=== PATIENT | male | born 1945 | race Caucasian/White ===

== ENCOUNTER → 2018-06-21 10:57 | Outpatient (CLI) | payer MEDICARE, SELFPAY ==
[2018-06-21 11:50] LABS: Hematocrit 39.2 % (40-54); Hemoglobin 12.4 g/dl (13.0-16.5); Mean Corp Hgb Conc 31.6 g/gl (32-36); Mean Corpuscular Hgb 31.2 pg (27.0-32.0); Mean Corpuscular Volume 98.5 fL (80-94); Mean Platelet Vol. 11.2 fl (6.2-12.0); Platelet Count 224 K/mm3 (150-450); RBC Distribution Width CV 13.6 % (11.6-14.6); RBC Distribution Width SD 47.8 fl (35.1-43.9); Red Blood Count 3.98 M/mm3 (4.6-6.2)
[2018-06-21 11:51] LABS: Scan Indicated on CBC? Y/N NO
[2018-06-21 12:26] LABS: AST(SGOT) 17 U/L (15-37); Alanine Aminotransfer ALT/SGPT 17 U/L (16-61); Albumin, Serum 3.4 g/dL (3.2-5.0); Alkaline Phosphatase 77 U/L (45-117); Anion Gap 9 (5-15); BUN 42 mg/dL (7-18); BUN/Creat Ratio 24.1 RATIO (10-20); Bilirubin, Direct 0.13 mg/dL (0.00-0.30); Calcium,Total 9.1 mg/dL (8.5-10.1); Chloride 105 mmol/L (98-107); Cholesterol 173 mg/dL (200); Creatinine, Serum 1.74 mg/dL (0.70-1.30); EST Glomerular Filtration Rate 41 mL/min (>60); Est Glom Filt Rate - Afr Amer 50 mL/min (>60); Globulin 4.1 g/dL (2.2-4.2); Glucose 150 mg/dL (74-106); High Density Lipoprotein 45 mg/dL; Lipase 125 U/L (73-393); Potassium 4.3 mmol/L (3.5-5.1); Protein, Total 7.5 g/dL (6.4-8.2); Sodium Level 143 mmol/L (136-145); Triglycerides 208 mg/dL; Very Low Density Lipoprotein 42 mg/dL (5-40)
[2018-06-21 12:30] LABS: Valproic Acid (Depakene) Level 60 ug/mL (50-100)
== END ==
PROVIDERS: Family Provider Family Medicine; PCP Family Medicine; Visit Provider Psychiatry & Neurology Psychiatry
DX: E11.9 Type 2 diabetes mellitus without complications (principal); E78.5 Hyperlipidemia, unspecified; F31.9 Bipolar disorder, unspecified; Z51.81 Encounter for therapeutic drug level monitoring; Z79.899 Other long term (current) drug therapy
CPT/HCPCS: 36415; 80048; 80061; 80076; 80164; 83690; 85027

== ENCOUNTER → 2019-01-23 09:58 | Outpatient (CLI) | payer MEDICARE, SELFPAY ==
[2016-12-13 12:37] VITALS: BMI 38.1
[2019-01-23 10:42] LABS: Hematocrit 37.5 % (40-54); Hemoglobin 11.6 g/dl (13.0-16.5); Mean Corp Hgb Conc 30.9 g/gl (32-36); Mean Corpuscular Volume 96.9 fL (80-94); Mean Platelet Vol. 10.7 fl (6.2-12.0); Platelet Count 226 K/mm3 (150-450); RBC Distribution Width CV 14.3 % (11.6-14.6); RBC Distribution Width SD 51.1 fl (35.1-43.9); Red Blood Count 3.87 M/mm3 (4.6-6.2); White Blood Count 5.2 K/mm3 (4.4-11.0)
[2019-01-23 10:45] LABS: Scan Indicated on CBC? Y/N NO
[2019-01-23 11:08] LABS: Valproic Acid (Depakene) Level 82 ug/mL (50-100)
[2019-01-23 11:13] LABS: BUN 39 mg/dL (7-18); Creatinine, Serum 1.65 mg/dL (0.70-1.30); Glucose 133 mg/dL (74-106)
[2019-01-23 11:14] LABS: AST(SGOT) 16 U/L (15-37); Alanine Aminotransfer ALT/SGPT 15 U/L (16-61); Albumin, Serum 3.1 g/dL (3.2-5.0); Alkaline Phosphatase 88 U/L (45-117); Anion Gap 7 (5-15); BUN/Creat Ratio 23.6 RATIO (10-20); Bilirubin, Direct 0.17 mg/dL (0.00-0.30); Calcium,Total 8.5 mg/dL (8.5-10.1); Chloride 104 mmol/L (98-107); EST Glomerular Filtration Rate 44 mL/min (>60); Est Glom Filt Rate - Afr Amer 53 mL/min (>60); Potassium 4.1 mmol/L (3.5-5.1); Protein, Total 7.1 g/dL (6.4-8.2); Sodium Level 139 mmol/L (136-145)
[2019-01-23 11:16] LABS: Hemoglobin A1c 6.6 % (4.2-6.3)
== END ==
PROVIDERS: Family Provider Family Medicine; PCP Family Medicine; Referring Provider Psychiatry & Neurology Psychiatry; Visit Provider Psychiatry & Neurology Psychiatry
DX: E11.9 Type 2 diabetes mellitus without complications (principal); F31.9 Bipolar disorder, unspecified
CPT/HCPCS: 36415; 80048; 80076; 80164; 83036; 85027

== ENCOUNTER 2019-06-20 10:48 | Emergency (ER) | payer MEDICARE, SELFPAY ==
[2019-06-20 10:49] VITALS: BP 137/64; PULSE 82; RESP 17; TEMP 36.4; O2SAT 95; BMI 39.1
--- NOTE | 2019-06-20 11:00 | RAD_ITS ---
STUDY: X-RAY CHEST REASON FOR EXAM: Male, 74 years old. Cough and chest pain TECHNIQUE: PA and lateral views of the chest. COMPARISON: None. FINDINGS: EKG leads overlie the chest, stable elevation of the right hemidiaphragm There are interstitial fibrotic changes of the lungs. There is no demonstrated pleural abnormality. Normal size heart. Normal mediastinum and amita. Normal visualized pulmonary arteries. Normal visualized aortic arch and descending thoracic aorta. There are diffuse degenerative changes of the visualized thoracic spine. Normal visualized ribs, clavicles, and shoulders. There is no demonstrated abnormality of the visualized soft tissue structures of the upper abdomen. RAD/Chest PA and Lateral IMPRESSION: No acute pulmonary process Electronically Signed: Kelby Phelps MD at 12:09 EDT , Service support ,
--- NOTE | 2019-06-20 11:01 | ED.DCSUM_ITS ---
- ER Visit Summary Date of Service: 06/20/19 Chief Complaint: Cough/wheezing History of Present Illness: The patient is a 74 M who has had cough and wheezing for the past 10 days. He states his cough is nonproductive. He has heard himself wheezing as well. He does get short of breath with exertion but only mildly. Denies any chest pain, fever, rhinorrhea or sore throat. He has tried cough drops and cold medicine at home without any relief. He has no history of asthma, COPD or CHF. His is sick with similar symptoms but not as bad. Physical Examination: Vital signs reviewed. Patient is 95% on room air. HEENT exam unremarkable. Heart is regular rate and rhythm without murmurs. Lungs are rhonchorous bilaterally but left greater than right. He does have diffuse wheezing.. Abdomen is soft and nontender. Extremities reveal no edema. Skin exam normal. Neurologic exam normal. Test Results: Laboratory studies show a hemoglobin of 11.2, creatinine 1.51. Glucose 193. Chest x-ray reveals nothing acute Emergency Department Course and Treatment: Patient received 2 albuterol treatments and feels improved. He is moving more air at this time. His x-ray has no pneumonia. His vital signs are unremarkable. His pulse ox is 95% on room air. I feel he can be treated as an outpatient. I will give him albuterol, steroids and antibiotics for home. He will need to follow-up with his PCP if he is not feeling any better. Treatment Plan: [] Disposition: Discharge Impression: Acute bronchitis This note was generated with [employer] dictation software. It may contain incorrect words, spelling, and punctuation that were not noted in review of the chart prior to signing ED Disposition - Plan for ED Patient: Referrals: Jaycob Kumar DO [Primary Care Provider] -
[2019-06-20 11:30] VITALS: PULSE 80; RESP 21; O2SAT 95
[2019-06-20] MEDS: Albuterol 2.5 MG/3 ML VIAL.NEB. INHALATION ×2 (11:34→11:36)
[2019-06-20 11:37] LABS: Absolute Lymphocyte Count 1.29 X10^3/uL (0.83-4.51); Absolute Neutrophil Count 3.2 X10^3/uL (2.0-7.7); Basophil# 0.05 X10^3/uL; Basophil% 0.9 % (0-1); Eosinophil# 0.16 X10^3/uL; Hematocrit 36.4 % (40-54); Hemoglobin 11.2 g/dL (13.0-16.5); Lymphocyte # 1.29 X10^3/ul (4.0); Lymphocyte % 23.9 % (19-41); Mean Corp Hgb Conc 30.8 g/dL (32-36); Mean Corpuscular Volume 97.6 fL (80-94); Mean Platelet Vol. 9.9 fl (6.2-12.0); Monocyte# 0.59 X10^3/uL; Monocyte% 10.9 % (0-10); NRBC Flagged by Analyzer 0 % (0-5); Neutrophil # 3.22 X10^3/uL (2.7-7.7); Neutrophil % 59.8 % (47-70); Platelet Count 323 K/mm3 (150-450); RBC Distribution Width CV 13.2 % (11.6-14.6); RBC Distribution Width SD 47.1 fl (35.1-43.9); Red Blood Count 3.73 M/mm3 (4.6-6.2); White Blood Count 5.4 K/mm3 (4.4-11.0)
[2019-06-20 11:44] LABS: Anion Gap 9 (5-15); BUN 35 mg/dL (7-18); BUN/Creat Ratio 23.2 RATIO (10-20); Calcium,Total 8.6 mg/dL (8.5-10.1); Chloride 102 mmol/L (98-107); Creatinine, Serum 1.51 mg/dL (0.70-1.30); EST Glomerular Filtration Rate 48 mL/min (>60); Est Glom Filt Rate - Afr Amer 59 mL/min (>60); Estimated Creatinine Clearance 43.57 ml/min; Glucose 193 mg/dL (74-106); Sodium Level 141 mmol/L (136-145)
[2019-06-20 12:03] VITALS: BP 148/88; PULSE 76; RESP 18; TEMP 36.6; O2SAT 94
--- NOTE | 2019-06-20 12:25 | ED.DEP ---
ED Disposition - Plan for ED Patient: Disposition: Home or Assisted Living Instructions: BRONCHITIS with Wheezing (Adult) Prescriptions: Prednisone [Deltasone] 40 mg PO DAILY #10 tab Prescription Printed Doxycycline 100 mg PO BID #14 cap Prescription Printed Albuterol Inhaler [Ventolin Hfa] 1 - 2 puff INHALATION Q4H PRN PRN #1 inhaler PRN Reason: Wheezing Prescription Printed Referrals: Jaycob Kumar DO [Primary Care Provider] -
== END 2019-06-20 12:39 | disposition home or self-care (01) ==
PROVIDERS: Emergency Provider Emergency Medicine; Family Provider Family Medicine; PCP Family Medicine
DX: J20.9 Acute bronchitis, unspecified (principal); E11.9 Type 2 diabetes mellitus without complications; Z79.82 Long term (current) use of aspirin; Z79.4 Long term (current) use of insulin; Z79.899 Other long term (current) drug therapy
CPT/HCPCS: 71046; 80048; 85025; 94640; 99284; A4216

== ENCOUNTER → 2019-07-21 11:16 | Outpatient (CLI) | payer MEDICARE, SELFPAY ==
[2019-07-21 12:41] LABS: Hematocrit 35.9 % (40-54); Hemoglobin 11.2 g/dL (13.0-16.5); Mean Corp Hgb Conc 31.2 g/dL (32-36); Mean Corpuscular Hgb 30.3 pg (27.0-32.0); Mean Platelet Vol. 10.8 fl (6.2-12.0); Platelet Count 262 K/mm3 (150-450); RBC Distribution Width CV 14.3 % (11.6-14.6); RBC Distribution Width SD 51.2 fl (35.1-43.9); White Blood Count 4.5 K/mm3 (4.4-11.0)
[2019-07-21 12:49] LABS: ALB/GLOB Ratio 0.8 RATIO (0.9-2.4); AST(SGOT) 15 U/L (15-37); Alanine Aminotransfer ALT/SGPT 17 U/L (16-61); Alkaline Phosphatase 96 U/L (45-117); Anion Gap 6 (5-15); BUN 34 mg/dL (7-18); BUN/Creat Ratio 21.8 RATIO (10-20); Bilirubin, Direct 0.12 mg/dL (0.00-0.30); Calcium,Total 8.5 mg/dL (8.5-10.1); Chloride 107 mmol/L (98-107); Cholesterol 168 mg/dL (200); Creatinine, Serum 1.56 mg/dL (0.70-1.30); EST Glomerular Filtration Rate 47 mL/min (>60); Est Glom Filt Rate - Afr Amer 56 mL/min (>60); Globulin 3.9 g/dL (2.2-4.2); Glucose 156 mg/dL (74-106); Hemoglobin A1c 8.2 % (4.2-6.3); High Density Lipoprotein 46 mg/dL; Potassium 4.4 mmol/L (3.5-5.1); Protein, Total 6.9 g/dL (6.4-8.2); Sodium Level 141 mmol/L (136-145); Triglycerides 277 mg/dL; Very Low Density Lipoprotein 55 mg/dL (5-40)
[2019-07-21 13:20] LABS: Valproic Acid (Depakene) Level 61 ug/mL (50-100)
== END ==
PROVIDERS: Family Provider Family Medicine; PCP Family Medicine; Referring Provider Psychiatry & Neurology Psychiatry; Visit Provider Psychiatry & Neurology Psychiatry
DX: E11.22 Type 2 diabetes mellitus with diabetic chronic kidney disease (principal); N18.9 Chronic kidney disease, unspecified; D64.9 Anemia, unspecified; E78.5 Hyperlipidemia, unspecified; Z51.81 Encounter for therapeutic drug level monitoring
CPT/HCPCS: 36415; 80053; 80061; 80164; 82248; 83036; 85027

== ENCOUNTER → 2020-02-10 10:18 | Outpatient (CLI) | payer MEDICARE, SELFPAY ==
[2020-02-10 10:50] LABS: Hematocrit 38.1 % (40-54); Hemoglobin 11.9 g/dL (13.0-16.5); Mean Corp Hgb Conc 31.2 g/dL (32-36); Mean Corpuscular Hgb 30.5 pg (27.0-32.0); Mean Corpuscular Volume 97.7 fL (80-94); Mean Platelet Vol. 10.4 fl (6.2-12.0); Platelet Count 159 K/mm3 (150-450); RBC Distribution Width CV 13.7 % (11.6-14.6); RBC Distribution Width SD 49.1 fl (35.1-43.9); White Blood Count 3.6 K/mm3 (4.4-11.0)
[2020-02-10 11:06] LABS: Hemoglobin A1c 6.7 % (4.2-6.3)
[2020-02-10 11:31] LABS: Valproic Acid (Depakene) Level 78 ug/mL (50-100)
[2020-02-10 11:42] LABS: AST(SGOT) 22 U/L (15-37); Alanine Aminotransfer ALT/SGPT 20 U/L (16-61); Albumin, Serum 3.1 g/dL (3.2-5.0); Alkaline Phosphatase 76 U/L (45-117); Anion Gap 6 (5-15); BUN 32 mg/dL (7-18); BUN/Creat Ratio 19.9 RATIO (10-20); Bilirubin, Direct 0.15 mg/dL (0.00-0.30); Chloride 105 mmol/L (98-107); Creatinine, Serum 1.61 mg/dL (0.70-1.30); EST Glomerular Filtration Rate 45 mL/min (>60); Est Glom Filt Rate - Afr Amer 54 mL/min (>60); Globulin 3.6 g/dL (2.2-4.2); Glucose 152 mg/dL (74-106); Potassium 4.2 mmol/L (3.5-5.1); Protein, Total 6.7 g/dL (6.4-8.2); Sodium Level 140 mmol/L (136-145)
== END ==
PROVIDERS: PCP Family Medicine; Referring Provider Psychiatry & Neurology Psychiatry; Visit Provider Psychiatry & Neurology Psychiatry
DX: I12.9 Hypertensive chronic kidney disease with stage 1 through stage 4 chronic kidney disease, or unspecified chronic kidney disease (principal); E11.22 Type 2 diabetes mellitus with diabetic chronic kidney disease; N18.9 Chronic kidney disease, unspecified
CPT/HCPCS: 36415; 80048; 80076; 80164; 83036; 85027

== ENCOUNTER → 2020-08-10 08:55 | Outpatient (CLI) | payer MEDICARE, SELFPAY ==
[2020-08-10 09:58] LABS: Hematocrit 37.1 % (40-54); Hemoglobin 11.6 g/dL (13.0-16.5); Mean Corp Hgb Conc 31.3 g/dL (32-36); Mean Corpuscular Hgb 30.9 pg (27.0-32.0); Mean Corpuscular Volume 98.9 fL (80-94); Mean Platelet Vol. 10.9 fl (6.2-12.0); Platelet Count 188 K/mm3 (150-450); RBC Distribution Width CV 14.1 % (11.6-14.6); RBC Distribution Width SD 51.8 fl (35.1-43.9); Red Blood Count 3.75 M/mm3 (4.6-6.2); White Blood Count 5.2 K/mm3 (4.4-11.0)
[2020-08-10 10:47] LABS: AST(SGOT) 20 U/L (15-37); Alanine Aminotransfer ALT/SGPT 18 U/L (16-61); Albumin, Serum 3.2 g/dL (3.2-5.0); Alkaline Phosphatase 73 U/L (45-117); Anion Gap 5 (5-15); BUN 32 mg/dL (7-18); BUN/Creat Ratio 23.5 RATIO (10-20); Bilirubin, Direct 0.14 mg/dL (0.00-0.30); Calcium,Total 9.2 mg/dL (8.5-10.1); Chloride 108 mmol/L (98-107); Creatinine, Serum 1.36 mg/dL (0.70-1.30); EST Glomerular Filtration Rate 54 mL/min (>60); Est Glom Filt Rate - Afr Amer 66 mL/min (>60); Globulin 3.6 g/dL (2.2-4.2); Glucose 88 mg/dL (74-106); Potassium 4.1 mmol/L (3.5-5.1); Protein, Total 6.8 g/dL (6.4-8.2); Sodium Level 142 mmol/L (136-145)
[2020-08-10 11:01] LABS: Valproic Acid (Depakene) Level 59 ug/mL (50-100)
[2020-08-10 11:45] LABS: Hemoglobin A1c 5.8 % (3.8-5.6)
== END ==
PROVIDERS: PCP Family Medicine; Referring Provider Family Medicine; Visit Provider Family Medicine
DX: I12.9 Hypertensive chronic kidney disease with stage 1 through stage 4 chronic kidney disease, or unspecified chronic kidney disease (principal); N18.9 Chronic kidney disease, unspecified; E11.22 Type 2 diabetes mellitus with diabetic chronic kidney disease; Z51.81 Encounter for therapeutic drug level monitoring
CPT/HCPCS: 36415; 80048; 80076; 80164; 83036; 85027

== ENCOUNTER → 2021-03-13 08:54 | Outpatient (CLI) | payer MEDICARE, SELFPAY ==
[2021-03-13 09:48] LABS: Hematocrit 37.4 % (40-54); Hemoglobin 11.5 g/dL (13.0-16.5); Mean Corp Hgb Conc 30.7 g/dL (32-36); Mean Corpuscular Hgb 30.7 pg (27.0-32.0); Mean Corpuscular Volume 99.7 fL (80-94); Mean Platelet Vol. 10.6 fl (6.2-12.0); Platelet Count 240 K/mm3 (150-450); RBC Distribution Width CV 14.4 % (11.6-14.6); Red Blood Count 3.75 M/mm3 (4.6-6.2); White Blood Count 5.1 K/mm3 (4.4-11.0)
[2021-03-13 10:07] LABS: Valproic Acid (Depakene) Level 47 ug/mL (50-100)
[2021-03-13 10:08] LABS: AST(SGOT) 16 U/L (15-37); Alanine Aminotransfer ALT/SGPT 18 U/L (16-61); Alkaline Phosphatase 89 U/L (45-117); Anion Gap 4 (5-15); BUN 45 mg/dL (7-18); BUN/Creat Ratio 27.3 RATIO (10-20); Bilirubin, Direct 0.14 mg/dL (0.00-0.30); Calcium,Total 8.8 mg/dL (8.5-10.1); Chloride 105 mmol/L (98-107); Creatinine, Serum 1.65 mg/dL (0.70-1.30); EST Glomerular Filtration Rate 43 mL/min (>60); Est Glom Filt Rate - Afr Amer 53 mL/min (>60); Globulin 3.8 g/dL (2.2-4.2); Glucose 126 mg/dL (74-106); Protein, Total 6.8 g/dL (6.4-8.2); Sodium Level 141 mmol/L (136-145)
[2021-03-13 10:12] LABS: Hemoglobin A1c 6.1 % (3.8-5.6)
== END ==
PROVIDERS: PCP Family Medicine; Referring Provider Psychiatry & Neurology Psychiatry; Visit Provider Psychiatry & Neurology Psychiatry
DX: I12.9 Hypertensive chronic kidney disease with stage 1 through stage 4 chronic kidney disease, or unspecified chronic kidney disease (principal); E11.22 Type 2 diabetes mellitus with diabetic chronic kidney disease; N18.9 Chronic kidney disease, unspecified; Z51.81 Encounter for therapeutic drug level monitoring
CPT/HCPCS: 36415; 80048; 80076; 80164; 83036; 85027

== ENCOUNTER 2021-05-18 06:37 | Inpatient (IN) | payer MEDICARE, SELFPAY ==
[2021-05-18] VITALS (41 sets, daily range): BP systolic 122–177; BP diastolic 53–120; PULSE 71–124; RESP 12–93; TEMP 36–38.1; O2SAT 38–100; BMI 41.7; BMI 41.1
--- NOTE | 2021-05-18 06:49 | EKG12_ITS ---
Test Reason : SOB Blood Pressure : / mmHG Vent. Rate : 122 BPM Atrial Rate : 122 BPM P-R Int : 156 ms QRS Dur : 118 ms QT Int : 316 ms P-R-T Axes : 006 057 175 degrees QTc Int : 450 ms Sinus tachycardia with frequent Premature ventricular complexes Inferior infarct , possibly acute Anteroseptal infarct , age undetermined ACUTE PA / STEMI Consider right ventricular involvement in acute inferior infarct Abnormal ECG Confirmed by RANJANA TREVINO, SIMON ([id number]), story editor MARY ELLEN MCKINNON ([id number]) on 05/19/2021 10:48:44 A M Referred By: Annette Mueller Confirmed By:AAKASH MUELLER MD
--- NOTE | 2021-05-18 06:49 | RAD_ITS ---
STUDY: X-RAY CHEST REASON FOR EXAM: Male, 76 years old. Chest pain TECHNIQUE: Frontal view of the chest COMPARISON: 06/20/19 FINDINGS: There are moderate congestive changes noted. There is stable elevation of the right hemidiaphragm. There are no focal infiltrates. There is a moderate-sized right pleural effusion. The heart is stable in size. The visualized osseous structures are within normal limits. RAD/Chest 1 View (Portable) IMPRESSION: Moderate pulmonary vascular congestion with a moderate right pleural effusion. Electronically Signed: Riley Sotelo MD at 8:24 EDT Tel , Service support ,
--- NOTE | 2021-05-18 06:54 | NURSING ---
0630 324 MG [facility] AT 0630. 180MG [facility] 0630.
[2021-05-18 06:55] LABS: Absolute Lymphocyte Count 1.07 X10^3/uL (0.83-4.51); Absolute Neutrophil Count 10.4 X10^3/uL (2.0-7.7); Basophil# 0.04 X10^3/uL; Basophil% 0.3 % (0-1); Eosinophil# 0.03 X10^3/uL; Eosinophils% 0.2 % (0-5); Hematocrit 38.3 % (40-54); Hemoglobin 11.8 g/dL (13.0-16.5); Lymphocyte # 1.07 X10^3/ul (0.83-4.51); Lymphocyte % 8.4 % (19-41); Mean Corp Hgb Conc 30.8 g/dL (32-36); Mean Corpuscular Hgb 30.6 pg (27.0-32.0); Mean Corpuscular Volume 99.2 fL (80-94); Mean Platelet Vol. 11.4 fl (6.2-12.0); Monocyte# 1.14 X10^3/uL; NRBC Flagged by Analyzer 0 % (0-5); Neutrophil # 10.38 X10^3/uL (2.7-7.7); Neutrophil % 81.7 % (47-70); Platelet Count 234 K/mm3 (150-450); RBC Distribution Width CV 14.8 % (11.6-14.6); RBC Distribution Width SD 54.3 fl (35.1-43.9); Red Blood Count 3.86 M/mm3 (4.6-6.2); White Blood Count 12.7 K/mm3 (4.4-11.0)
[2021-05-18] MEDS: Nitroglycerin Oint 1 INCH PACKET TD (07:06)
[2021-05-18] MEDS: Metoprolol Tartrate 5 MG/5 ML Vial IV ×2 (07:08→07:17)
--- NOTE | 2021-05-18 07:11 | EDS_ITS ---
HPI <Dr. Aguilar Hurtado DO - Last Filed: 05/18/21 08:18> History of Present Illness Chief Complaint: Chest Pain Narrative Narrative: 76-year-old male presenting with 2 weeks of shortness of breath. He states he just had worsening shortness of breath for 2 weeks. He said he does not have COPD or asthma. He appears to be in respiratory distress using respiratory accessory muscles. He is speaking in 1-2 word sentences. He is able to say that he is not having any sort of chest pain and denies having any over the past couple of weeks. He denies a cardiac history. He told me he does not have COPD or asthma. [facility] <Dr. Aguilar Hurtado DO - Last Filed: 05/18/21 08:18> [facility] Medical History Anemia Bipolar 1 disorder Chronic kidney disease Diabetes High cholesterol Hypertension Home Medications aspirin 81 mg PO DAILY@0800 12/13/16 [History Last Taken Unknown] bupropion HCl 100 mg PO BID 12/13/16 [History Last Taken Unknown] divalproex [Depakote] 500 mg PO DAILY 12/13/16 [History Last Taken Unknown] folic acid 1 mg PO DAILY@0800 12/13/16 [History Last Taken Unknown] hydrochlorothiazide 50 mg PO DAILY 12/13/16 [History Last Taken Unknown] insulin lispro protamin-lispro [Humalog Mix 75-25 Kwikpen] 16 unit SQ BREAKFAST 12/13/16 [History Last Taken Unknown] lisinopril [Zestril] 20 mg PO DAILY 12/13/16 [History Last Taken Unknown] lorazepam 1 mg PO DAILY PRN PRN 12/13/16 [History Last Taken Unknown] pioglitazone 45 mg PO DAILY 12/13/16 [History Last Taken Unknown] pravastatin 20 mg PO BID 12/13/16 [History Last Taken Unknown] albuterol sulfate 1 - 2 puff INHALATION Q4H PRN PRN #1 inhaler 06/20/19 [Rx Last Taken Unknown] insulin lispro protamin-lispro 16 unit SQ DINNER 06/20/19 [History Last Taken Unknown] diltiazem HCl [Cartia XT] 180 mg PO DAILY 05/18/21 [History Last Taken Unknown] Allergy/AdvReac Type Severity Reaction Status Date / Time No Known Allergies Allergy Verified 05/18/21 07:55 Social History Smoking Status: Never smoker ROS <Dr. Aguilar Hurtado DO - Last Filed: 05/18/21 08:18> ROS ED Constitutional Constitutional ED: Denies chills or fever(s) Eyes Eyes: Denies blurry vision or change in vision ENT ENT ED: Denies ear pain or rhinorrhea Cardiovascular Cardiovascular: Reports racing heartbeat; Denies chest pain Respiratory/Chest Respiratory/Chest: Reports dyspnea and dyspnea on exertion Gastrointestinal Gastrointestinal: Denies abdominal pain, nausea or vomiting Genitourinary Genitourinary ED: Reports hematuria Musculoskeletal Musculoskeletal: Denies arthralgias or myalgias Integumentary Denies abscess or rash Neurologic Neurologic: Reports headache(s); Denies paresthesias or weakness EXAM <Dr. Aguilar Hurtado, - Last Filed: 05/18/21 08:18> Physical Exam Const Vital Signs: 05/18/21 06:38 05/18/21 06:42 05/18/21 06:44 Temperature 97.7 F L Temperature Source Temporal Pulse Rate 118 H 120 H Respiratory Rate 33 H 38 H Respiratory Effort Respiratory Pattern Tachypnea Blood Pressure 167/107 H Blood Pressure Mean 127 Pulse Ox 57 90 Oxygen Delivery Method Room Air Nasal Cannula Oxygen Flow Rate (L/min) 6 05/18/21 06:46 05/18/21 06:51 05/18/21 06:55 Temperature 97.7 F L Temperature Source Temporal Pulse Rate 120 H Respiratory Rate 38 H 27 H Respiratory Effort Respiratory Pattern Blood Pressure 167/107 H 170/120 H Blood Pressure Mean 127 Pulse Ox 90 Oxygen Delivery Method Nasal Cannula Bi-pap Oxygen Flow Rate (L/min) 6 05/18/21 07:06 05/18/21 07:15 05/18/21 07:31 Temperature Temperature Source Pulse Rate 124 H 95 110 H Respiratory Rate 93 H 40 H Respiratory Effort Respiratory Pattern Blood Pressure 177/113 H 159/103 H 170/99 H Blood Pressure Mean 121 122 Pulse Ox 38 96 Oxygen Delivery Method Bi-pap Bi-pap Oxygen Flow Rate (L/min) 05/18/21 07:37 05/18/21 07:45 05/18/21 07:46 Temperature 97.7 F L Temperature Source Temporal Pulse Rate 85 85 Respiratory Rate 12 12 Respiratory Effort Short of Breath Labored Accessory Muscle Use Mechanically Ventilated Respiratory Pattern Blood Pressure 122/71 H 122/71 H Blood Pressure Mean 88 88 Pulse Ox 99 99 Oxygen Delivery Method Mechanical Ventilator Mechanical Ventilator Oxygen Flow Rate (L/min) 6 05/18/21 07:48 05/18/21 07:54 05/18/21 08:00 Temperature 97.7 F L 97.7 F L 98.1 F Temperature Source Temporal Temporal Temporal Pulse Rate 85 85 81 Respiratory Rate 12 12 14 Respiratory Effort Respiratory Pattern Blood Pressure 122/71 H 122/71 H 125/68 H Blood Pressure Mean 88 88 87 Pulse Ox 99 99 100 Oxygen Delivery Method Mechanical Ventilator Mechanical Ventilator Mechanical Ventilator Oxygen Flow Rate (L/min) 6 6 Positive obese General Appearance ED: pallor and other Hypoxic appears to be in respiratory distress using accessory muscles Nutritional Appearance: obese HEENT Reports dry mucous membranes Negative for trauma Mouth ED: Yes dry mucous membranes Mouth: dry mucous membranes Eyes PERRL and EOMs intact bilaterally General Eye ED: Yes pale conjunctiva Neck no lymphadenopathy and supple Chest Wall inspection of chest normal and palpation of chest normal Resp clear to auscultation bilaterally Cardio regular rhythm Rate: tachycardic GI non-tender Inspection: abdominal distention Bladder / Kidney Exam: other Red blood at the urethral meatus. Scrotal swelling. Extremity Extremity Narrative: Chronic stasis changes. General Extremety ED: Yes edema; Negative for tenderness General Extremity: edema Neuro oriented x3 Sensorium / Orientation: alert Psych Attitude: agitated Skin Skin Narrative: Superficial abrasions to bilateral feet General Skin Exam: pallor; Negative for jaundice <Dr. Ferny Guillaume MD - Last Filed: 05/18/21 07:51> Physical Exam Const Vital Signs: 05/18/21 06:38 05/18/21 06:42 05/18/21 06:44 Temperature 97.7 F L Temperature Source Temporal Pulse Rate 118 H 120 H Respiratory Rate 33 H 38 H Respiratory Effort Respiratory Pattern Tachypnea Blood Pressure 167/107 H Blood Pressure Mean 127 Pulse Ox 57 90 Oxygen Delivery Method Room Air Nasal Cannula Oxygen Flow Rate (L/min) 6 05/18/21 06:46 05/18/21 06:51 05/18/21 06:55 Temperature 97.7 F L Temperature Source Temporal Pulse Rate 120 H Respiratory Rate 38 H 27 H Respiratory Effort Respiratory Pattern Blood Pressure 167/107 H 170/120 H Blood Pressure Mean 127 Pulse Ox 90 Oxygen Delivery Method Nasal Cannula Bi-pap Oxygen Flow Rate (L/min) 6 05/18/21 07:06 05/18/21 07:15 05/18/21 07:31 Temperature Temperature Source Pulse Rate 124 H 95 110 H Respiratory Rate 93 H 40 H Respiratory Effort Respiratory Pattern Blood Pressure 177/113 H 159/103 H 170/99 H Blood Pressure Mean 121 122 Pulse Ox 38 96 Oxygen Delivery Method Bi-pap Bi-pap Oxygen Flow Rate (L/min) 05/18/21 07:37 05/18/21 07:45 05/18/21 07:46 Temperature 97.7 F L Temperature Source Temporal Pulse Rate 85 85 Respiratory Rate 12 12 Respiratory Effort Short of Breath Labored Accessory Muscle Use Mechanically Ventilated Respiratory Pattern Blood Pressure 122/71 H 122/71 H Blood Pressure Mean 88 88 Pulse Ox 99 99 Oxygen Delivery Method Mechanical Ventilator Mechanical Ventilator Oxygen Flow Rate (L/min) 6 05/18/21 07:48 05/18/21 07:54 05/18/21 08:00 Temperature 97.7 F L 97.7 F L 98.1 F Temperature Source Temporal Temporal Temporal Pulse Rate 85 85 81 Respiratory Rate 12 12 14 Respiratory Effort Respiratory Pattern Blood Pressure 122/71 H 122/71 H 125/68 H Blood Pressure Mean 88 88 87 Pulse Ox 99 99 100 Oxygen Delivery Method Mechanical Ventilator Mechanical Ventilator Mechanical Ventilator Oxygen Flow Rate (L/min) 6 6 [facility] <Dr. Aguilar Hurtado, DO - Last Filed: 05/18/21 08:18> [facility] Narrative Medical decision making narrative: Patient presenting in respiratory distress and is hypoxic complaining of shortness of breath for 1 to 2 weeks is very hard to clarify what he is saying that he is not having any chest pain he is not had a fever. Patient's prehospital EKG as interpreted by myself show some ST e levations in leads I, 2, aVL. There are some subtle depressions in leads V4 and V5 and V6. This does appear to meet ST elevation criteria however there appears to be a lead reversal. [place] was notified and repeated the EKG which shows ST depressions in leads I leads to these aVL with ST elevation in lead III.There seem to be T wave inversions in leads V4 through V6. This is interpreted by myself. I spoke with Dr. Mueller regarding the patient's EKG prehospital. When I saw him he appeared to be pale and his conjunctiva were pale and I was concerned that he was possibly a GI bleed. After obtaining a Hemoccult that was negative and seeing a normal hemoglobin at 11.8 he was reinformed of the findings. Patient was placed on BiPAP initially but became very tired and needed to be intubated see procedure note he was verbally consented for this as it was emergent. CBC shows a leukocytosis of 12.7, hemoglobin 11.8, hematocrit 38.3, platelets 234. D-dimer is 1.4 creatinine is 1.62 which appears to be near his baseline troponin is 0.074. BNP is 337. Valproic acid is 57. Lactic acid is 2.6. Preintubation chest x-ray as interpreted by myself shows a very large right pleural effusion and evidence of heart failure. Post intubation chest x- ray shows good placement of the endotracheal tube and it appears that the right lung is better aerated at this time as interpreted by myself. Patient's hypertension was treated with 2 doses of Lopressor 5 mg. He was given 60 mg of Lasix. Nitropaste was placed on his chest. After having a discussion with Dr. Mueller, hospitalist, and Dr. Aragon we determined that we would cover the patient with vancomycin and Zosyn. He will go to [facility] and then be placed on a heparin drip to cover him for PE since his D-dimer is elevated and also because his heart enzymes are elevated.This was discussed with his daughter who is a nurse p she acknowledges understanding of this. Impression: 1. Hypoxic respiratory failure 2. Severe sepsis 3. CHF exacerbation Lab Data Attestation: I reviewed the patient's lab results. Labs: Laboratory Results - last 24 hr 05/18/21 05/18/21 05/18/21 06:33 06:33 06:33 WBC 12.7 H RBC 3.86 L Hgb 11.8 L Hct 38.3 L MCV 99.2 H MCH 30.6 MCHC 30.8 L RDW Std Deviation 54.3 H RDW Coeff of Favian 14.8 H Plt Count 234 MPV 11.4 Immature Gran % (Auto) 0.400 Neut % (Auto) 81.7 H Lymph % (Auto) 8.4 L [place] % (Auto) 9.0 Eos % (Auto) 0.2 Baso % (Auto) 0.3 Absolute Neuts (auto) 10.4 H Absolute Lymphs (auto) 1.07 Nucleated RBC % 0 D-Dimer Quant (PE/DVT) 1.40 H* Sodium 139 Potassium 4.9 Chloride 104 Carbon Dioxide 30.0 Anion Gap 5 BUN 36 H Creatinine 1.62 H Estim Creat Clear Calc 40.68 Est GFR (MDRD) Af Amer 54 L Est GFR (MDRD) Non-Af 44 L BUN/Creatinine Ratio 22.2 H Glucose 215 H Lactic Acid Calcium 8.9 Troponin I 0.074 H B-Natriuretic Peptide Valproic Acid 05/18/21 05/18/21 05/18/21 06:33 06:55 07:06 WBC RBC Hgb Hct MCV MCH MCHC RDW Std Deviation RDW Coeff of Favian Plt Count MPV Immature Gran % (Auto) Neut % (Auto) Lymph % (Auto) [place] % (Auto) Eos % (Auto) Baso % (Auto) Absolute Neuts (auto) Absolute Lymphs (auto) Nucleated RBC % D-Dimer Quant (PE/DVT) Sodium Potassium Chloride Carbon Dioxide Anion Gap BUN Creatinine Estim Creat Clear Calc Est GFR (MDRD) Af Amer Est GFR (MDRD) Non-Af BUN/Creatinine Ratio Glucose Lactic Acid 2.6 H* Calcium Troponin I B-Natriuretic Peptide 337.2 H Valproic Acid 57 <Dr. Ferny Guillaume MD - Last Filed: 05/18/21 07:51> [facility] Lab Data Labs: Laboratory Results - last 24 hr 05/18/21 05/18/21 05/18/21 06:33 06:33 06:33 WBC 12.7 H RBC 3.86 L Hgb 11.8 L Hct 38.3 L MCV 99.2 H MCH 30.6 MCHC 30.8 L RDW Std Deviation 54.3 H RDW Coeff of Favian 14.8 H Plt Count 234 MPV 11.4 Immature Gran % (Auto) 0.400 Neut % (Auto) 81.7 H Lymph % (Auto) 8.4 L [place] % (Auto) 9.0 Eos % (Auto) 0.2 Baso % (Auto) 0.3 Absolute Neuts (auto) 10.4 H Absolute Lymphs (auto) 1.07 Nucleated RBC % 0 D-Dimer Quant (PE/DVT) 1.40 H* Sodium 139 Potassium 4.9 Chloride 104 Carbon Dioxide 30.0 Anion Gap 5 BUN 36 H Creatinine 1.62 H Estim Creat Clear Calc 40.68 Est GFR (MDRD) Af Amer 54 L Est GFR (MDRD) Non-Af 44 L BUN/Creatinine Ratio 22.2 H Glucose 215 H Lactic Acid Calcium 8.9 Troponin I 0.074 H B-Natriuretic Peptide Valproic Acid 05/18/21 05/18/21 05/18/21 06:33 06:55 07:06 WBC RBC Hgb Hct MCV MCH MCHC RDW Std Deviation RDW Coeff of Favian Plt Count MPV Immature Gran % (Auto) Neut % (Auto) Lymph % (Auto) [place] % (Auto) Eos % (Auto) Baso % (Auto) Absolute Neuts (auto) Absolute Lymphs (auto) Nucleated RBC % D-Dimer Quant (PE/DVT) Sodium Potassium Chloride Carbon Dioxide Anion Gap BUN Creatinine Estim Creat Clear Calc Est GFR (MDRD) Af Amer Est GFR (MDRD) Non-Af BUN/Creatinine Ratio Glucose Lactic Acid 2.6 H* Calcium Troponin I B-Natriuretic Peptide 337.2 H Valproic Acid 57 <Dr. Ferny Guillaume MD - Last Filed: 05/18/21 07:51> Intubations Intubation Method: orotracheal (With rapid sequence intubation, intubated with 8.0 Ethiopian ETT, using glide scope. Visualized to passing through the cords, where there was frothy white secretions. Placed at 22 cm at the lip. Confirmed by chest x-ray.) Intubation Verification: Positive color change and Bilateral breath sounds confirmed Intubation Complications: O2 saturation decreased (transiently, resolved less than 5 minutes w/ bagging; glidescope used to verify placement) Discharge Plan Disposition Disposition: Acute Care Hospital [facility] Discharge Date/Time: 05/18/21 08:16
[2021-05-18 07:17] LABS: BNP,B-Type NATRIURETIC PEPTIDE 337.2 pg/mL (0-100)
[2021-05-18 07:22] LABS: Anion Gap 5 (5-15); BUN 36 mg/dL (7-18); BUN/Creat Ratio 22.2 RATIO (10-20); Calcium,Total 8.9 mg/dL (8.5-10.1); Chloride 104 mmol/L (98-107); Creatinine, Serum 1.62 mg/dL (0.70-1.30); EST Glomerular Filtration Rate 44 mL/min (>60); Est Glom Filt Rate - Afr Amer 54 mL/min (>60); Estimated Creatinine Clearance 40.68 ml/min; Glucose 215 mg/dL (74-106); Potassium 4.9 mmol/L (3.5-5.1); Sodium Level 139 mmol/L (136-145)
[2021-05-18] MEDS: Rocuronium Bromide 50 MG/5 ML Vial 100 MG IV (07:36)
[2021-05-18] MEDS: Etomidate 20 MG/10 ML Vial IV (07:36)
[2021-05-18] MEDS: Furosemide 100 MG/10 ML Vial 60 MG IV (07:36)
--- NOTE | 2021-05-18 07:46 | RAD_ITS ---
STUDY: X-RAY CHEST REASON FOR EXAM: Male, 76 years old. Intubation TECHNIQUE: Frontal view of the chest COMPARISON: 05/18/21 FINDINGS: There is an endotracheal tube noted with its tip approximately 3 cm above the rosa. There is an enteric tube with its tip in the stomach. There are stable moderate congestive changes noted. There is stable elevation of the right hemidiaphragm. There are no focal infiltrates. There is a moderate-sized right pleural effusion. The heart is stable in size. The visualized osseous structures are within normal limits. RAD/Chest 1 View (Portable) IMPRESSION: Satisfactory position of support lines and tubes. Otherwise, no significant change. Electronically Signed: Riley Sotelo MD at 8:25 EDT Tel , Service support ,
[2021-05-18 07:49] LABS: Valproic Acid (Depakene) Level 57 ug/mL (50-100)
[2021-05-18] MEDS: Vecuronium Bromide 10 MG/10 ML Vial IV (07:52)
[2021-05-18] MEDS: Propofol 10MG/Ml 1,000 MG/100 ML Bottle 7.9 MG CONT INF (07:52)
--- NOTE | 2021-05-18 07:53 | PCM.HP.STD ---
HPI - General General Date of Admission: 05/18/21 HPI Narrative MAURI TOWNSEND, is a 76 M with history of hypertension diabetes and morbid obesity, does not follow physician came to ER by EMS for shortness of breath. Prehospital STEMI was called by EMS but after review with salesperson yard goods it seems more non-STEMI with elevated troponin. Patient denied chest pain as per EMS report. Before I saw the patient, patient was intubated therefore history is from review of chart and patient's whom I called her on phone. As per ER physician he is short of breath for last 2 weeks, found in respiratory distress and speaking 1-2 word sentences. She stated he suddenly complained of shortness of breath in the morning and wanted ambulance therefore he was brought. As per her, he does not follow any physician and does not have prior history of coronary artery disease, stroke or CHF. She does not know that he was short of breath the last 2 to 3 weeks. Patient does not have history of COPD or asthma or smoking history. When he came to the ER, he was put on BiPAP. EMS data shows sinus tachycardia with frequent PVCs ST elevation in lead III and ST depression in 1 and aVL. ED EKG shows sinus tachycardia with frequent PVCs at 122 beats per, ST relation lead III and ST depression in 1 and aVL similar to the EMS EKG. Chest x-ray image reviewed and shows large right pleural effusion and pulmonary congestion. Labs reviewed. BUN/creatinine 36/1.62, troponin 0.074. Lactic acid 2.6 [facility] Medical History (Updated 05/18/21 @ 10:[address] Andry Chavez MD) Acute on chronic heart failure Anemia Bipolar 1 disorder Chronic kidney disease Diabetes High cholesterol Hypertension Home Medications aspirin 81 mg PO DAILY@0800 12/13/16 [History Last Taken Unknown] bupropion HCl 100 mg PO BID 12/13/16 [History Last Taken Unknown] divalproex [Depakote] 500 mg PO DAILY 12/13/16 [History Last Taken Unknown] folic acid 1 mg PO DAILY@0800 12/13/16 [History Last Taken Unknown] hydrochlorothiazide 50 mg PO DAILY 12/13/16 [History Last Taken Unknown] insulin lispro protamin-lispro [Humalog Mix 75-25 Kwikpen] 16 unit SQ BREAKFAST 12/13/16 [History Last Taken Unknown] lisinopril [Zestril] 20 mg PO DAILY 12/13/16 [History Last Taken Unknown] lorazepam 1 mg PO DAILY PRN PRN 12/13/16 [History Last Taken Unknown] pioglitazone 45 mg PO DAILY 12/13/16 [History Last Taken Unknown] pravastatin 20 mg PO BID 12/13/16 [History Last Taken Unknown] albuterol sulfate 1 - 2 puff INHALATION Q4H PRN PRN #1 inhaler 06/20/19 [Rx Last Taken Unknown] insulin lispro protamin-lispro 16 unit SQ DINNER 06/20/19 [History Last Taken Unknown] diltiazem HCl [Cartia XT] 180 mg PO DAILY 05/18/21 [History Last Taken Unknown] Allergy/AdvReac Type Severity Reaction Status Date / Time No Known Allergies Allergy Verified 05/18/21 07:55 Social History Smoking Status: Never smoker ROS ROS Narrative Patient is intubated on ventilator. 12 ROS cannot be obtained. Vital Signs Vital Signs Vital Signs: 05/18/21 06:38 05/18/21 06:42 05/18/21 06:44 Temperature 97.7 F L Temperature Source Temporal Pulse Rate 118 H 120 H Respiratory Rate 33 H 38 H Respiratory Effort Respiratory Pattern Tachypnea Blood Pressure 167/107 H Blood Pressure Mean 127 Pulse Ox 57 90 Oxygen Delivery Method Room Air Nasal Cannula Oxygen Flow Rate (L/min) 6 05/18/21 06:46 05/18/21 06:51 05/18/21 06:55 Temperature 97.7 F L Temperature Source Temporal Pulse Rate 120 H Respiratory Rate 38 H 27 H Respiratory Effort Respiratory Pattern Blood Pressure 167/107 H 170/120 H Blood Pressure Mean 127 Pulse Ox 90 Oxygen Delivery Method Nasal Cannula Bi-pap Oxygen Flow Rate (L/min) 6 05/18/21 07:06 05/18/21 07:15 05/18/21 07:31 Temperature Temperature Source Pulse Rate 124 H 95 110 H Respiratory Rate 93 H 40 H Respiratory Effort Respiratory Pattern Blood Pressure 177/113 H 159/103 H 170/99 H Blood Pressure Mean 121 122 Pulse Ox 38 96 Oxygen Delivery Method Bi-pap Bi-pap Oxygen Flow Rate (L/min) 05/18/21 07:37 05/18/21 07:45 05/18/21 07:46 Temperature 97.7 F L Temperature Source Temporal Pulse Rate 85 85 Respiratory Rate 12 12 Respiratory Effort Short of Breath Labored Accessory Muscle Use Mechanically Ventilated Respiratory Pattern Blood Pressure 122/71 H 122/71 H Blood Pressure Mean 88 88 Pulse Ox 99 99 Oxygen Delivery Method Mechanical Ventilator Mechanical Ventilator Oxygen Flow Rate (L/min) 6 05/18/21 07:48 Temperature 97.7 F L Temperature Source Temporal Pulse Rate 85 Respiratory Rate 12 Respiratory Effort Respiratory Pattern Blood Pressure 122/71 H Blood Pressure Mean 88 Pulse Ox 99 Oxygen Delivery Method Mechanical Ventilator Oxygen Flow Rate (L/min) 6 Weight Weight: 291 lb 0.163 oz Body Mass Index (BMI) 41.7 Physical Exam Narrative General: Intubated on ventilator. Sedated HEENT: Atraumatic, PERRLA, EOMI, Normocephalic Oral: ET and OG tube Neck: Supple, No JVD, Negative Carotid Bruits Lungs: Air entry both sides present. On ventilator. Right lung base, air entry diminished Cardiovascular: Sinus tachycardia, no murmur gallop or rub. Abdomen: Bowel Sounds Present, Soft, Non Tender, Non-Distended : No renal angle tenderness. No suprapubic tenderness. Cruz catheter, no urine output Extremities: Bilateral lower leg 3+ edema, Capillary Refill Less than 3 Seconds Skin: Venous stasis changes on lower legs. No rashes, No breakdown Musculoskeletal: No Tenderness to Palpation of Joints or Extremities Neurological: Neuro exam unobtainable Psych/Mental Status: Could not be assessed Results Lab / Micro Data Result Diagrams: 05/18/21 06:33 05/18/21 06:33 Labs: Laboratory Results - last 24 hr 05/18/21 05/18/21 05/18/21 06:33 06:33 06:33 WBC 12.7 H RBC 3.86 L Hgb 11.8 L Hct 38.3 L MCV 99.2 H MCH 30.6 MCHC 30.8 L RDW Std Deviation 54.3 H RDW Coeff of Favian 14.8 H Plt Count 234 MPV 11.4 Immature Gran % (Auto) 0.400 Neut % (Auto) 81.7 H Lymph % (Auto) 8.4 L [place] % (Auto) 9.0 Eos % (Auto) 0.2 Baso % (Auto) 0.3 Absolute Neuts (auto) 10.4 H Absolute Lymphs (auto) 1.07 Nucleated RBC % 0 D-Dimer Quant (PE/DVT) 1.40 H* Sodium 139 Potassium 4.9 Chloride 104 Carbon Dioxide 30.0 Anion Gap 5 BUN 36 H Creatinine 1.62 H Estim Creat Clear Calc 40.68 Est GFR (MDRD) Af Amer 54 L Est GFR (MDRD) Non-Af 44 L BUN/Creatinine Ratio 22.2 H Glucose 215 H Calcium 8.9 Troponin I 0.074 H B-Natriuretic Peptide Valproic Acid 05/18/21 05/18/21 06:33 07:06 WBC RBC Hgb Hct MCV MCH MCHC RDW Std Deviation RDW Coeff of Favian Plt Count MPV Immature Gran % (Auto) Neut % (Auto) Lymph % (Auto) [place] % (Auto) Eos % (Auto) Baso % (Auto) Absolute Neuts (auto) Absolute Lymphs (auto) Nucleated RBC % D-Dimer Quant (PE/DVT) Sodium Potassium Chloride Carbon Dioxide Anion Gap BUN Creatinine Estim Creat Clear Calc Est GFR (MDRD) Af Amer Est GFR (MDRD) Non-Af BUN/Creatinine Ratio Glucose Calcium Troponin I B-Natriuretic Peptide 337.2 H Valproic Acid 57 Micro: Microbiology 05/18/21 07:15 SARS-CoV-2 Antigen (Rapid) - Final Mucosa - Nose 05/18/21 06:55 Stool Occult Blood (SOFIE) - Final Stool Assessment & Plan Assessment/Plan (1) Acute respiratory failure with hypoxia and hypercapnia: (2) Severe sepsis: (3) Non-STEMI (non-ST elevated myocardial infarction): PLAN: MAURI TOWNSEND, is a 76 M with history of hypertension diabetes and morbid obesity, does not follow physician came to ER by EMS for shortness of breath. Chest x-ray image reviewed and shows large right pleural effusion and pulmonary congestion. Labs reviewed. BUN/creatinine 36/1.62, troponin 0.074. Lactic acid 2.6 1. Acute combined hypoxic respiratory respiratory failure: Patient is being admitted in ICU after cardiac cath. On ventilator being managed by tanner rotary drum continuous process. ABG shows 7.3 /51/144/29 on 90% FiO2, PEEP 10/TV 500 mL RR 12. 2. ACS/non-STEMI or acute on chronic heart failure, exact etiology, type unclear: First troponin 0 0.07 for a second 2.89, elevated after heart cath. Patient has ST-T changes in EKG may be late presentation of LA or due to hypoxia: Patient had cardiac cath which showed proximal LAD 80% stenosis, calcified, proximal RCA 100% chronic occlusion, [id number] collaterals. On IV heparin drip. Being comanaged by salesperson yard goods. On aspirin, beta-cristobal, statin. 2D echo and fasting profile are ordered. 3. Severe sepsis: Lactic acid elevated. Patient seems to be CHF exacerbation and patient was high in the ER prior to intubation and sedation therefore fluid boluses is not a reasonable option. On IV broad-spectrum antibiotic. Infectious work-up ordered. Patient has leukocytosis with neutrophilia 4. Diabetes mellitus type 2: Accu-Chek before meals and at bedtime and cover with Humalog sliding scale. A1c tomorrow a.m. 5. CKD stage IIIb: BUN/creatinine 36/1.62, on baseline. Probably due to diabetic and hypertensive nephropathy. Urine was bloody about 200 mL. UA shows RBC more than 100 cells, LE 500. Urine culture ordered. 6. Hypertension: Blood pressure is currently normotensive. VT prophylaxis: D-dimer is elevated. On IV heparin drip for possible non-STEMI. Continue until PE is ruled out. Living will/advanced directive/end of life care: Patient does not have living will or advanced directive. After discussion of benefits/risks procedures involved with full code, DNR CC arrest and DNR CC, the patient's opted for full code. Patient already was intubated in ER The patient's does want artificial life support including intubation, tube feed, ventilator and/chest compression, central venous catheter, vasopressor and DC shock if needed Total time spent in [id number] encounter in discussion of advanced directive 16 minutes. Microbiology Past 72 Hours 05/18/21 07:15 Mucosa - Nose SARS-CoV-2 Antigen (Rapid) - Final 05/18/21 06:55 Stool Stool Occult Blood (SOFIE) - Final Laboratory Results 05/18/21 06:33: WBC 12.7 H, RBC 3.86 L, Hgb 11.8 L, Hct 38.3 L, MCV 99.2 H, MCH 30.6, MCHC 30.8 L, RDW Std Deviation 54.3 H, RDW Coeff of Favian 14.8 H, Plt Count 234, MPV 11.4, Immature Gran % (Auto) 0.400, Neut % (Auto) 81.7 H, Lymph % (Auto) 8.4 L, [place] % (Auto) 9.0, Eos % (Auto) 0.2, Baso % (Auto) 0.3, Absolute Neuts (auto) 10.4 H, Absolute Lymphs (auto) 1.07, Nucleated RBC % 0 05/18/21 06:33: D-Dimer Quant (PE/DVT) 1.40 H* 05/18/21 06:33: Sodium 139, Potassium 4.9, Chloride 104, Carbon Dioxide 30.0, Anion Gap 5, BUN 36 H, Creatinine 1.62 H, Estim Creat Clear Calc 40.68, Est GFR (MDRD) Af Amer 54 L, Est GFR (MDRD) Non-Af 44 L, BUN/Creatinine Ratio 22.2 H, Glucose 215 H, Calcium 8.9, Troponin I 0.074 H 05/18/21 06:33: B-Natriuretic Peptide 337.2 H 05/18/21 06:33: Magnesium 2.4 05/18/21 06:50: Blood Type AB POSITIVE, Antibody Screen NEGATIVE 05/18/21 06:55: Lactic Acid 2.6 H* 05/18/21 06:55: APTT 27.9 05/18/21 06:55: PT 13.2, INR 1.1 05/18/21 07:06: Valproic Acid 57 05/18/21 08:20: Specimen Type ART, Sample Site L Radial, pH 7.25 L, Bicarbonate Actual 27.8 H, Total CO2 30, Base Excess 1, O2 Saturation 99, O2 % 100, ABG pCO2 63.2 H, ABG pO2 155 H, Carlton Test Positive, Respiration Rate 12, O2 Delivery Device Adult Vent, Vent Mode AC, Tidal Volume 500 05/18/21 09:45: Troponin I 2.890 H* 05/18/21 09:57: Specimen Type ART, Sample Site L Radial, pH 7.34 L, Bicarbonate Actual 27.8 H, Total CO2 29, Base Excess 2, O2 Saturation 99, O2 % 90, ABG pCO2 51.4 H, ABG pO2 144 H, [place] Test Positive, Respiration Rate 12, O2 Delivery Device Adult Vent, Vent Mode AC, Tidal Volume 500, POC PEEP 10 05/18/21 10:20: Urine Color Red, Urine Clarity Cloudy, Urine pH 5.0, Ur Specific Mclean 1.010, Urine Protein 500 H, Urine Glucose (UA) Normal, Urine Ketones Negative, Urine Occult Blood 250 H, Urine Nitrite Negative, Urine Bilirubin Negative, Urine Urobilinogen Normal, Ur Leukocyte Esterase 500 H, Urine RBC > 100 SEEN, Urine WBC 0-5 SEEN, Ur Squamous Epith Cells 0 SEEN, Urine Bacteria RARE, Urine Mucus 0 SEEN 05/18/21 10:20: MRSA (PCR) Pending 05/18/21 10:53: POC Glucose 207 H Charges/Coding Visit Charges Inpatient E&M: 39302 Init Hosp L3 Procedures Hospitalists Procedures: 75896 Advncd Care Plan 30 Min
--- NOTE | 2021-05-18 08:04 | ED.RN ---
respiratory therapist at bedside for abg. laboratory tester is ready. rt is aware.
[2021-05-18 08:09] LABS: Lactic Acid 2.6 mmol/L (0.4-1.9)
[2021-05-18 08:15] LABS: Partial Thromboplast Time 27.9 Seconds (24.1-36.2)
--- NOTE | 2021-05-18 08:25 | PCM.CONS.C ---
Assessment & Plan Assessment/Plan (1) Shortness of breath: PLAN: Presentation appears to be due to CHF. Patient appears to have a large right-sided pleural effusion as well. The ST changes are probably related to either late presentation of acute [place] or due to hypoxia +/-underlying CAD. Patient's creatinine appears to be close to his baseline. I agree with keeping the patient on Lasix. We will also proceed with coronary angiography. HPI Consult Data Date of Consult: 05/18/21 HPI Narrative Reason for Consultation: Shortness of breath, CHF, abnormal EKG HPI Narrative: MAURI TOWNSEND, is a 76 M who presents with shortness of breath. Patient mentioned that he was having shortness of breath for 1 to 2 weeks. His mentioned that he was short of breath for about 1 month. Shortness of breath progressively got worse and patient decided to come to the emergency room today. He denied any chest pain. In the emergency room patient was desaturating and ended up requiring intubation. His EKG showed ST elevation in lead III along with Q waves in 3 and aVF. Review of systems: Patient was very short of breath and complete review of systems could not be completed. He denied any overt bleeding. [facility] Medical History Anemia Bipolar 1 disorder Chronic kidney disease Diabetes High cholesterol Hypertension Home Medications aspirin 81 mg PO DAILY@0800 12/13/16 [History Last Taken Unknown] bupropion HCl 100 mg PO BID 12/13/16 [History Last Taken Unknown] divalproex [Depakote] 500 mg PO DAILY 12/13/16 [History Last Taken Unknown] folic acid 1 mg PO DAILY@0800 12/13/16 [History Last Taken Unknown] hydrochlorothiazide 50 mg PO DAILY 12/13/16 [History Last Taken Unknown] insulin lispro protamin-lispro [Humalog Mix 75-25 Kwikpen] 16 unit SQ BREAKFAST 12/13/16 [History Last Taken Unknown] lisinopril [Zestril] 20 mg PO DAILY 12/13/16 [History Last Taken Unknown] lorazepam 1 mg PO DAILY PRN PRN 12/13/16 [History Last Taken Unknown] pioglitazone 45 mg PO DAILY 12/13/16 [History Last Taken Unknown] pravastatin 20 mg PO BID 12/13/16 [History Last Taken Unknown] albuterol sulfate 1 - 2 puff INHALATION Q4H PRN PRN #1 inhaler 06/20/19 [Rx Last Taken Unknown] insulin lispro protamin-lispro 16 unit SQ DINNER 06/20/19 [History Last Taken Unknown] diltiazem HCl [Cartia XT] 180 mg PO DAILY 05/18/21 [History Last Taken Unknown] Allergy/AdvReac Type Severity Reaction Status Date / Time No Known Allergies Allergy Verified 05/18/21 07:55 Social History Smoking Status: Never smoker Physical Exam Const alert and oriented x3 Orientation / Consciousness: awake HEENT normocephalic Eyes no scleral icterus Resp Effort and Inspection: uses accessory muscles Cardio regular rate and regular rhythm Extremity General Extremity: edema bilateral lower extremity Neuro oriented x3 Psych mental status grossly normal Objective Data Vital Signs: Vital Signs Temp Pulse Resp BP Pulse Ox 98.1 F 81 14 125/68 H 100 05/18/21 08:00 05/18/21 08:00 05/18/21 08:00 05/18/21 08:00 05/18/21 08:00 Oxygen Flow Rate (L/min) 6 Oxygen Delivery Method Mechanical Ventilator Weight: 291 lb 0.163 oz Body Mass Index (BMI) 41.7 Lab / Micro Data Result Diagrams: 05/18/21 06:33 05/18/21 06:33 Labs: Laboratory Results - last 24 hr 05/18/21 05/18/21 05/18/21 06:33 06:33 06:33 WBC 12.7 H RBC 3.86 L Hgb 11.8 L Hct 38.3 L MCV 99.2 H MCH 30.6 MCHC 30.8 L RDW Std Deviation 54.3 H RDW Coeff of Favian 14.8 H Plt Count 234 MPV 11.4 Immature Gran % (Auto) 0.400 Neut % (Auto) 81.7 H Lymph % (Auto) 8.4 L [place] % (Auto) 9.0 Eos % (Auto) 0.2 Baso % (Auto) 0.3 Absolute Neuts (auto) 10.4 H Absolute Lymphs (auto) 1.07 Nucleated RBC % 0 APTT D-Dimer Quant (PE/DVT) 1.40 H* Sodium 139 Potassium 4.9 Chloride 104 Carbon Dioxide 30.0 Anion Gap 5 BUN 36 H Creatinine 1.62 H Estim Creat Clear Calc 40.68 Est GFR (MDRD) Af Amer 54 L Est GFR (MDRD) Non-Af 44 L BUN/Creatinine Ratio 22.2 H Glucose 215 H Lactic Acid Calcium 8.9 Troponin I 0.074 H B-Natriuretic Peptide Valproic Acid 05/18/21 05/18/21 05/18/21 06:33 06:55 06:55 WBC RBC Hgb Hct MCV MCH MCHC RDW Std Deviation RDW Coeff of Favian Plt Count MPV Immature Gran % (Auto) Neut % (Auto) Lymph % (Auto) [place] % (Auto) Eos % (Auto) Baso % (Auto) Absolute Neuts (auto) Absolute Lymphs (auto) Nucleated RBC % APTT 27.9 D-Dimer Quant (PE/DVT) Sodium Potassium Chloride Carbon Dioxide Anion Gap BUN Creatinine Estim Creat Clear Calc Est GFR (MDRD) Af Amer Est GFR (MDRD) Non-Af BUN/Creatinine Ratio Glucose Lactic Acid 2.6 H* Calcium Troponin I B-Natriuretic Peptide 337.2 H Valproic Acid 05/18/21 07:06 WBC RBC Hgb Hct MCV MCH MCHC RDW Std Deviation RDW Coeff of Favian Plt Count MPV Immature Gran % (Auto) Neut % (Auto) Lymph % (Auto) [place] % (Auto) Eos % (Auto) Baso % (Auto) Absolute Neuts (auto) Absolute Lymphs (auto) Nucleated RBC % APTT D-Dimer Quant (PE/DVT) Sodium Potassium Chloride Carbon Dioxide Anion Gap BUN Creatinine Estim Creat Clear Calc Est GFR (MDRD) Af Amer Est GFR (MDRD) Non-Af BUN/Creatinine Ratio Glucose Lactic Acid Calcium Troponin I B-Natriuretic Peptide Valproic Acid 57 Micro: Microbiology 05/18/21 07:15 Mucosa - Nose SARS-CoV-2 Antigen (Rapid) - Final 05/18/21 06:55 Stool Stool Occult Blood (SOFIE) - Final Cardiology Labs/Tests 05/18/21 06:33: WBC 12.7 H, RBC 3.86 L, Hgb 11.8 L, Hct 38.3 L, MCV 99.2 H, MCH 30.6, MCHC 30.8 L, Plt Count 234, MPV 11.4, Immature Gran % (Auto) 0.400, Neut % (Auto) 81.7 H, Lymph % (Auto) 8.4 L, [place] % (Auto) 9.0, Eos % (Auto) 0.2, Baso % (Auto) 0.3, Absolute Neuts (auto) 10.4 H, Nucleated RBC % 0 05/18/21 06:33: D-Dimer Quant (PE/DVT) 1.40 H* 05/18/21 06:33: Sodium 139, Potassium 4.9, Chloride 104, Carbon Dioxide 30.0, Anion Gap 5, BUN 36 H, Creatinine 1.62 H, Est GFR (MDRD) Af Amer 54 L, Est GFR (MDRD) Non-Af 44 L, BUN/Creatinine Ratio 22.2 H, Glucose 215 H, Calcium 8.9, Troponin I 0.074 H 05/18/21 06:33: B-Natriuretic Peptide 337.2 H 05/18/21 06:55: Lactic Acid 2.6 H* 05/18/21 06:55: APTT 27.9 Rhythm: EKG: ECHO: Stress Test: Cardiac Cath: PCI: CT Surgery: Holter monitor: EPS: PPM: CXR: Chest CT Scan:
[2021-05-18 08:26] LABS: Allen Test Positive; Base Excess 1 mmol/L (-2 to +2); Bicarbonate 27.8 mmol/L (22-26); Blood Gas Specimen Type ART; FI02 100; Mode AC; O2 Delivery Device Adult Vent; PO2 155 mmHG (75-100); RR 12; SITE L Radial; SO2 99 % (95-99); Total Carbon Dioxide 30 mmol/L; Vt 500; pCO2 63.2 mmHg (35-45); pH 7.25 (7.35-7.45)
[2021-05-18 08:43] LABS: Magnesium 2.4 mg/dL (1.6-2.6)
--- NOTE | 2021-05-18 09:21 | CL.D_ITS ---
Patient Name: MAURI TOWNSEND Study Date: 05/18/2021 Performing: Maverick Mueller MD Ht: 70.07 inches 178 cm : 1945 Wt: 291.01 lbs 132 kg Age: 76 Gender: male BSA: 2.45 PROCEDURE(S) PERFORMED [id number] CLINICAL PROFILE AND INDICATIONS Indications: Suspected CAD Heart Failure: None Stress/Imaging Stress/Image Study Performed: No CAD Presentations: Other: CHF CONCLUSIONS CAD as described. Normal LVEDP RECOMMENDATIONS PCI of LAD vs CABG to be discussed with patient and family at a later date DESCRIPTION OF PROCEDURE The patient arrived to the procedure lab. The risks and benefits of the procedure as well as a full d escription of our services here and current unavailability of surgical backup were fully explained to the patient and/or their significant other prior to the catheterization. The Timeout was completed, verifying the correct patient and procedure. The patient's procedural site was prepped and draped in the usual fashion. Local anesthetic was given subcutaneously to right radial region with Lidocaine 2% . Using a modified Seldinger technique, arterial access was obtained via the right radial artery, a 6 Fr sheath was inserted. Left Coronary Artery selective angiography was performed in multiple views u sing a 5 Fr. JL3.5 catheter. Right Coronary Artery selective angiography was then performed in multip le views using a 5 Fr. JR 4 catheter.The arterial sheath was pulled and a TR Band was applied for hem ostasis w/ 12ml air CORONARY ANGIOGRAPHY DOMINANCE: Right Dominant LEFT HEART ASSESSMENT LVEDP: 12 mmHg LEFT MAIN: Mild luminal irregularities LEFT ANTERIOR DESCENDING ARTERY: PROX LAD: 80 % Stenosis CIRCUMFLEX ARTERY: mild to moderate diffuse disease RIGHT CORONARY ARTERY: PROX RCA: 100 % Stenosis. Chronic occlusion. L to R collaterals noted COMPLICATIONS No Complications PROCEDURE MEDICATIONS Oxygen: 100 % FiO2 via ventilator. See Resp Record for Settings Heparin given IA 05/18/2021 08:41:23 SUMMARY OF HEMODYNAMIC DATA Time AIR REST ECG 08:32:25 LV 120/0, 11 08:45:55 LV 119/0, 12 08:46:02 LVp 118/1, 9 08:46:20 AOp 105/51 (72) 08:46:26 AO 106/44 (66) SA 08:46:29 09:16:36 Signed By Maverick Mueller MD On 05/18/2021 9:20:45 AM Maverick Mueller MD
--- NOTE | 2021-05-18 09:25 | CON.PCM.CC_ITS ---
Assessment & Plan Assessment/Plan (1) Acute hypoxemic respiratory failure: PLAN: RECOMMENDATIONS: 1. Obtain repeat chest x-ray. 2. Obtain arterial blood gas and send sputum for culture. 3. Continue empiric broad-spectrum antimicrobials. 4. Wean FiO2 and PEEP to maintain oxygen saturations at or above 90%. 5. Continue heparin infusion until CTA chest can be obtained to rule out PE. 6. Start appropriate GI prophylaxis. IMPRESSIONS: 1. Acute combined respiratory failure Unclear precipitating etiology. While acute coronary syndrome is certainly a possibility, no obstructive lesion was identified on cardiac catheterization. Decompensated heart failure is also a possibility given pulmonary vascular congestion and pleural effusion noted on chest imaging. However, the patient does meet sepsis criteria. Therefore, agree with continuing broad-spectrum antimicrobials for now, pending infectious work-up. Will obtain arterial blood gas and obtain repeat chest x-ray to confirm endotracheal tube placement. The patient will be continued on assist control mode mechanical ventilation with a goal to wean FiO2 and PEEP to maintain oxygen saturations at or above 90%. Given that the patient presented with an elevated D-dimer, would plan to continue a heparin infusion until CTA chest can be obtained to definitively rule out PE. 2. Severe sepsis Concern for possible underlying pulmonary infectious etiology. Given that the patient is intubated, will obtain sputum and sent for culture. In the interim, the patient will be continued on broad-spectrum antimicrobials. 3. Questionable acute coronary syndrome Continue current medical management per cardiology recommendations. 4. Chronic kidney disease Continue to monitor urine output for now. No indication for renal replacement therapy. 5. Morbid obesity/depression/hypertension/diabetes mellitus/anxiety/hyperlipidemia Complicates care, management, recovery and prognosis. Continue home medications as indicated. TIME: 40 minutes of critical care time, independent of procedures, was spent addressing the patient's acute combined respiratory failure, severe sepsis, questionable acute coronary syndrome, chronic kidney disease, review of all data and collaboration with the care team. ([id number]) HPI Consult Data Date of Consult: 05/19/21 HPI Narrative Reason for Consultation: Acute hypoxemic respiratory failure HPI Narrative: The patient is a 76-year-old male, with a history as outlined below, who presented to the emergency department on May 18 with 2 weeks of worsening shortness of breath. History pertinent to the patient's hospitalization was obtained primarily via chart review, as the patient is currently intubated and there is no family available at the bedside. On presentation to the emergency department, the patient was noted to be afebr ile but was tachycardic and tachypneic. The patient was notably hypoxemic as well. Laboratory evaluation revealed a white blood cell count of 13,000. D- dimer was elevated to 1.4. Chemistry profile was notable for a creatinine of 1.62. Lactate was elevated to 2.6. Troponin was elevated to 0.074. BNP was elevated to 337. Chest x-ray revealed pulmonary vascular congestion and a right-sided pleural effusion. EKG revealed findings concerning for a non-STEMI. Attempt to utilize BiPAP was unsuccessful in the emergency department and the patient did require emergent intubation. 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 Post catheterization, the patient was transferred to the medical intensive care unit for further management. [facility] Medical History (Updated 05/18/21 @ 16:[address] Nimesh Willis MD) Acute on chronic heart failure Anemia Bipolar 1 disorder Chronic kidney disease Diabetes High cholesterol Hypertension Home Medications aspirin 81 mg PO DAILY@0800 12/13/16 [History Last Taken Unknown] bupropion HCl 100 mg PO BID 12/13/16 [History Last Taken Unknown] divalproex [Depakote] 500 mg PO BID 12/13/16 [History Last Taken Unknown] folic acid 1 mg PO DAILY@0800 12/13/16 [History Last Taken Unknown] hydrochlorothiazide 50 mg PO DAILY 12/13/16 [History Last Taken Unknown] insulin lispro protamin-lispro [Humalog Mix 75-25 Kwikpen] 16 unit SQ BREAKFAST 12/13/16 [History Last Taken Unknown] lisinopril [Zestril] 20 mg PO DAILY 12/13/16 [History Last Taken Unknown] lorazepam 1 mg PO DAILY PRN PRN 12/13/16 [History Last Taken Unknown] pioglitazone 45 mg PO DAILY 12/13/16 [History Last Taken Unknown] pravastatin 20 mg PO QHS 12/13/16 [History Last Taken Unknown] albuterol sulfate 1 - 2 puff INHALATION Q4H PRN PRN #1 inhaler 06/20/19 [Rx Last Taken Unknown] insulin lispro protamin-lispro 16 unit SQ DINNER 06/20/19 [History Last Taken Unknown] diltiazem HCl [Cartia XT] 180 mg PO DAILY 05/18/21 [History Last Taken Unknown] iron ps [id number] acid [Poly-Iron 150 Forte] 1 cap PO DAILY 05/18/21 [History Last Taken Unknown] multivitamin 1 tab PO DAILY 05/18/21 [History Last Taken Unknown] Allergy/AdvReac Type Severity Reaction Status Date / Time No Known Allergies Allergy Verified 05/18/21 07:55 Social History Smoking Status: Never smoker ROS Review of Systems ROS Unobtainable: due to encephalopathy and due to endotracheal tube Physical Exam Const no apparent distress General Appearance: patient mechanically ventilated Orientation / Consciousness: lethargic Nutritional Appearance: morbidly obese HEENT normocephalic and head/scalp atraumatic Mouth: endotracheal tube in place and OG tube in place Eyes PERRL and conjunctivae normal Neck supple General: trachea midline Resp Auscultation: diminished lung sounds; Negative for rales, rhonchi or wheezes Cardio S1 normal heart sound and S2 normal heart sound Rhythm: abnormal rhythm GI normal to inspection, nondistended, normoactive bowel sounds Extremity General Extremity: edema bilateral Skin General Skin Exam: lichenification Neuro Neuro Narrative: Nonresponsive to verbal and tactile stimulation at the present time. Lab / Micro Data Result Diagrams: 05/19/21 03:24 05/19/21 03:24 Labs: Laboratory Results - last 24 hr 05/18/21 05/18/21 05/18/21 06:33 06:33 06:33 WBC 12.7 H RBC 3.86 L Hgb 11.8 L Hct 38.3 L MCV 99.2 H MCH 30.6 MCHC 30.8 L RDW Std Deviation 54.3 H RDW Coeff of Favian 14.8 H Plt Count 234 MPV 11.4 Immature Gran % (Auto) 0.400 Neut % (Auto) 81.7 H Lymph % (Auto) 8.4 L [place] % (Auto) 9.0 Eos % (Auto) 0.2 Baso % (Auto) 0.3 Absolute Neuts (auto) 10.4 H Absolute Lymphs (auto) 1.07 Nucleated RBC % 0 APTT D-Dimer Quant (PE/DVT) 1.40 H* Sodium 139 Potassium 4.9 Chloride 104 Carbon Dioxide 30.0 Anion Gap 5 BUN 36 H Creatinine 1.62 H Estim Creat Clear Calc 40.68 Est GFR (MDRD) Af Amer 54 L Est GFR (MDRD) Non-Af 44 L BUN/Creatinine Ratio 22.2 H Glucose 215 H Lactic Acid Calcium 8.9 Magnesium Troponin I 0.074 H B-Natriuretic Peptide Valproic Acid Blood Type Antibody Screen 05/18/21 05/18/21 05/18/21 06:33 06:33 06:50 WBC RBC Hgb Hct MCV MCH MCHC RDW Std Deviation RDW Coeff of Favian Plt Count MPV Immature Gran % (Auto) Neut % (Auto) Lymph % (Auto) [place] % (Auto) Eos % (Auto) Baso % (Auto) Absolute Neuts (auto) Absolute Lymphs (auto) Nucleated RBC % APTT D-Dimer Quant (PE/DVT) Sodium Potassium Chloride Carbon Dioxide Anion Gap BUN Creatinine Estim Creat Clear Calc Est GFR (MDRD) Af Amer Est GFR (MDRD) Non-Af BUN/Creatinine Ratio Glucose Lactic Acid Calcium Magnesium 2.4 Troponin I B-Natriuretic Peptide 337.2 H Valproic Acid Blood Type AB POSITIVE Antibody Screen NEGATIVE 05/18/21 05/18/21 05/18/21 06:55 06:55 07:06 WBC RBC Hgb Hct MCV MCH MCHC RDW Std Deviation RDW Coeff of Favian Plt Count MPV Immature Gran % (Auto) Neut % (Auto) Lymph % (Auto) [place] % (Auto) Eos % (Auto) Baso % (Auto) Absolute Neuts (auto) Absolute Lymphs (auto) Nucleated RBC % APTT 27.9 D-Dimer Quant (PE/DVT) Sodium Potassium Chloride Carbon Dioxide Anion Gap BUN Creatinine Estim Creat Clear Calc Est GFR (MDRD) Af Amer Est GFR (MDRD) Non-Af BUN/Creatinine Ratio Glucose Lactic Acid 2.6 H* Calcium Magnesium Troponin I B-Natriuretic Peptide Valproic Acid 57 Blood Type Antibody Screen Micro: Microbiology 05/18/21 07:15 SARS-CoV-2 Antigen (Rapid) - Final Mucosa - Nose 05/18/21 06:55 Stool Occult Blood (SOFIE) - Final Stool ABG Data ABG results: ABG 05/18/21 08:20 Specimen Type ART Sample Site L Radial pH 7.25 L Bicarbonate Actual 27.8 H Total CO2 30 Base Excess 1 O2 Saturation 99 O2 % 100 ABG pCO2 63.2 H ABG pO2 155 H [place] Test Positive Respiration Rate 12 O2 Delivery Device Adult Vent Vent Mode AC Tidal Volume 500 Radiology Impression Chest X-Ray 05/18/21 06:49 IMPRESSION: Moderate pulmonary vascular congestion with a moderate right pleural effusion. Electronically Signed: Riley Sotelo MD at 8:24 EDT Tel , Service support , Chest X-Ray 05/18/21 07:46 IMPRESSION: Satisfactory position of support lines and tubes. Otherwise, no significant change. Electronically Signed: Riley Sotelo MD at 8:25 EDT Tel , Service support , Charges/Coding Procedures Hospitalists Procedures: [id number] Critial Care 1st Hr
--- NOTE | 2021-05-18 09:34 | RAD_ITS ---
STUDY: X-RAY CHEST REASON FOR EXAM: Male, 76 years old. Respiratory failure TECHNIQUE: Frontal view of the chest COMPARISON: 05/18/21 FINDINGS: The support lines and tubes are unchanged. There are stable moderate congestive changes with a stable moderate-sized right pleural effusion. There is no left-sided effusion. There are no focal infiltrates. There is no pneumothorax. The heart is normal in size. The visualized osseous structures are within normal limits. RAD/Chest 1 View (Portable) IMPRESSION: Stable exam. No pneumothorax Electronically Signed: Riley Sotelo MD at 11:07 EDT Tel , Service support ,
[2021-05-18 10:06] LABS: Allen Test Positive; Base Excess 2 mmol/L (-2 to +2); Bicarbonate 27.8 mmol/L (22-26); Blood Gas Specimen Type ART; FI02 90; Mode AC; O2 Delivery Device Adult Vent; PEEP 10; PO2 144 mmHG (75-100); RR 12; SITE L Radial; SO2 99 % (95-99); Total Carbon Dioxide 29 mmol/L; Vt 500; pCO2 51.4 mmHg (35-45); pH 7.34 (7.35-7.45)
[2021-05-18 10:26] LABS: International Normalized Ratio 1.1; Prothrombin Time (Protime)PT. 13.2 SECONDS (11.7-14.9)
[2021-05-18 10:29] LABS: Mucous, Urine 0 SEEN /hpf (<or=2+); Squamous Epithelial Cells - UA 0 SEEN /hpf (0-5)
[2021-05-18] MEDS: HEPARIN/D5w 25,000 UNITS 25,000 UNITS/250 ML IV.SOLN. 17 UNITS IV (10:30)
[2021-05-18] MEDS: Heparin Injection (Vial) 5,000 UNIT/ML VIAL 10500 UNIT IV (10:31)
[2021-05-18 10:35] LABS: Color, Urine Red (Yellow); Glucose, Dipstick Normal (Normal); Ketone-Dipstick Negative (Negative); Leukocyte Esterase-Dipstick 500 /ul (Negative); Nitrite-Dipstick Negative (Negative); Occult Blood-Urine 250 /ul (Negative); Protein-Dipstick 500 mg/dl (Negative); Urine Bilirubin Dipstick Negative (Negative); Urine Clarity Cloudy (Clear); Urine Urobilinogen Normal (Normal)
[2021-05-18 10:39] LABS: Bacteria RARE /hpf (None Seen); Red Blood Cells-Urine > 100 SEEN /hpf (0-5); White Blood Cells 0-5 SEEN /hpf (0-5)
[2021-05-18] MEDS: 0.9% Normal Saline 1,000 ML 70 ML IV (10:47)
[2021-05-18 11:16] LABS: Bedside Glucose 207 mg/dL (70-110)
--- NOTE | 2021-05-18 11:35 | PHA.PHARE_ITS ---
Consult Pharmacy has been consulted to manage selected antiobiotic: Vancomycin Type of Consult: New start Suspected Infection: Sepsis Prior Doses of Antibiotics Received/Current Regimen: 2000MG X1 IN E.R. STARTING AT 09:54 TODAY Labs: Sodium 139 mmol/L (136-145) 05/18/21 06:33 Potassium 4.9 mmol/L (3.5-5.1) 05/18/21 06:33 Chloride 104 mmol/L (98-107) 05/18/21 06:33 Carbon Dioxide 30.0 mmol/L (21.0-32.0) 05/18/21 06:33 Anion Gap 5 (5-15) 05/18/21 06:33 BUN 36 mg/dL (7-18) H 05/18/21 06:33 Creatinine 1.62 mg/dL (0.70-1.30) H 05/18/21 06:33 Est GFR (MDRD) Af Amer 54 mL/min (>60) L 05/18/21 06:33 Est GFR (MDRD) Non-Af 44 mL/min (>60) L 05/18/21 06:33 BUN/Creatinine Ratio 22.2 RATIO (10-20) H 05/18/21 06:33 Glucose 215 mg/dL (74-106) H 05/18/21 06:33 Microbiology: Microbiology 05/18/21 07:15 Mucosa - Nose SARS-CoV-2 Antigen (Rapid) - Final 05/18/21 06:55 Stool Stool Occult Blood (SOFIE) - Final Weight used for dosin kg Estimated Creatinine Clearance: 53.8ML/MIN Goal Trough: 15-20 mcg/mL Pharmacy Plan for Drug Dosing: Initial dose was already given in E.R. so will continue after that with 1250mg IV q12h per [facility] protocol. Will check a trough level before the 4th total dose. The patient's CrCl of 53.8ml/min was calculated using an adjusted body weight of 96.6kg. Pharmacy Service will continue to monitor and adjust dosing as required. Follow-Up Labs: Trough Vancomycin Labs to be done on [date and time ordered]: 05/19/21 21:30
[2021-05-18 11:40] LABS: Reflex Lactate? Y
[2021-05-18 11:40] LABS: M R Staph aureus DNA By PCR Negative (Negative); Probe Check PASS; Specimen Processing Control PASS
[2021-05-18 12:56] LABS: Lactic Acid 1.4 mmol/L (0.4-1.9)
--- NOTE | 2021-05-18 16:48 | PCM.CONS.R ---
Assessment & Plan Assessment/Plan (1) CKD stage G3b/A1, GFR 30-44 and albumin creatinine ratio <30 mg/g: (2) Acute respiratory failure with hypoxia and hypercapnia: (3) Non-STEMI (non-ST elevated myocardial infarction): (4) Severe sepsis: (5) Lactic acidosis: PLAN: Baseline creatinine seems around 0.5-1.6. Kidney function seems at baseline. Kidney function might worsen following cardiac cath today I agree with IV fluid at 70 cc/h. Keep mean arterial pressure more than 65. Lactic acid normalized. No need for renal placement therapy. Might need bladder irrigation if hematuria persists. Vent management as per the ICU team. Cardiology is following following cardiac cath and managing heparin drip Thank you for the consult. Renal team will continue to follow Nimesh Willis MD HPI Consult Data Date of Consult: 05/18/21 HPI Narrative HPI Narrative: [place], is a 76 M Past medical history of hypertension, morbid obesity, diabetes,. Patient came to the hospital with acute shortness of breath. Patient was found to have non-ST AR. Patient was intubated in the emergency room. Patient was taken to the cardiac cath. Patient now is in the ICU post cardiac cath. On heparin drip. Hemodynamically stable Chest x-ray shows right pleural effusion. Patient also been covered with antibiotics for sepsis. Renal team was consulted for CKD anticipating worsening kidney function following cardiac cath and sepsis. Patient has been on pressor. Has a Cruz catheter which is draining bloody urine. Review of system: Unobtainable [facility] Medical History (Updated 05/18/21 @ 16:[address] Nimesh Willis MD) Acute on chronic heart failure Anemia Bipolar 1 disorder Chronic kidney disease Diabetes High cholesterol Hypertension Home Medications aspirin 81 mg PO DAILY@0800 12/13/16 [History Last Taken Unknown] bupropion HCl 100 mg PO BID 12/13/16 [History Last Taken Unknown] divalproex [Depakote] 500 mg PO BID 12/13/16 [History Last Taken Unknown] folic acid 1 mg PO DAILY@0800 12/13/16 [History Last Taken Unknown] hydrochlorothiazide 50 mg PO DAILY 12/13/16 [History Last Taken Unknown] insulin lispro protamin-lispro [Humalog Mix 75-25 Kwikpen] 16 unit SQ BREAKFAST 12/13/16 [History Last Taken Unknown] lisinopril [Zestril] 20 mg PO DAILY 12/13/16 [History Last Taken Unknown] lorazepam 1 mg PO DAILY PRN PRN 12/13/16 [History Last Taken Unknown] pioglitazone 45 mg PO DAILY 12/13/16 [History Last Taken Unknown] pravastatin 20 mg PO QHS 12/13/16 [History Last Taken Unknown] albuterol sulfate 1 - 2 puff INHALATION Q4H PRN PRN #1 inhaler 06/20/19 [Rx Last Taken Unknown] insulin lispro protamin-lispro 16 unit SQ DINNER 06/20/19 [History Last Taken Unknown] diltiazem HCl [Cartia XT] 180 mg PO DAILY 05/18/21 [History Last Taken Unknown] iron ps [id number] acid [Poly-Iron 150 Forte] 1 cap PO DAILY 05/18/21 [History Last Taken Unknown] multivitamin 1 tab PO DAILY 05/18/21 [History Last Taken Unknown] Allergy/AdvReac Type Severity Reaction Status Date / Time No Known Allergies Allergy Verified 05/18/21 07:55 Social History Smoking Status: Never smoker Physical Exam Narrative Patient is intubated. No acute distress Neck no JVD. Head atraumatic normocephalic Heart. S1-S2 RRR. Chest. Decreased breath sounds over the right lung. Equal air entry. No wheezing no crackles. Abdomen. Slightly distended. Positive bowel sounds. Extremity. +2 edema of lower extremities. Neurologic. Patient is sedated . Patient has Cruz catheter which is draining bloody urine Lab / Micro Data Result Diagrams: 05/18/21 06:33 05/18/21 06:33 Labs: Laboratory Results - last 24 hr 05/18/21 05/18/21 05/18/21 06:33 06:33 06:33 WBC 12.7 H RBC 3.86 L Hgb 11.8 L Hct 38.3 L MCV 99.2 H MCH 30.6 MCHC 30.8 L RDW Std Deviation 54.3 H RDW Coeff of Favian 14.8 H Plt Count 234 MPV 11.4 Immature Gran % (Auto) 0.400 Neut % (Auto) 81.7 H Lymph % (Auto) 8.4 L [place] % (Auto) 9.0 Eos % (Auto) 0.2 Baso % (Auto) 0.3 Absolute Neuts (auto) 10.4 H Absolute Lymphs (auto) 1.07 Nucleated RBC % 0 PT INR APTT D-Dimer Quant (PE/DVT) 1.40 H* Sodium 139 Potassium 4.9 Chloride 104 Carbon Dioxide 30.0 Anion Gap 5 BUN 36 H Creatinine 1.62 H Estim Creat Clear Calc 40.68 Est GFR (MDRD) Af Amer 54 L Est GFR (MDRD) Non-Af 44 L BUN/Creatinine Ratio 22.2 H Glucose 215 H Lactic Acid Calcium 8.9 Magnesium Troponin I 0.074 H B-Natriuretic Peptide Urine Color Urine Clarity Urine pH Ur Specific [place] Urine Protein Urine Glucose (UA) Urine Ketones Urine Occult Blood Urine Nitrite Urine Bilirubin Urine Urobilinogen Ur Leukocyte Esterase Urine RBC Urine WBC Ur Squamous Epith Cells Urine Bacteria Urine Mucus Valproic Acid MRSA (PCR) POC Glucose Blood Type Antibody Screen 05/18/21 05/18/21 05/18/21 06:33 06:33 06:50 WBC RBC Hgb Hct MCV MCH MCHC RDW Std Deviation RDW Coeff of Favian Plt Count MPV Immature Gran % (Auto) Neut % (Auto) Lymph % (Auto) [place] % (Auto) Eos % (Auto) Baso % (Auto) Absolute Neuts (auto) Absolute Lymphs (auto) Nucleated RBC % PT INR APTT D-Dimer Quant (PE/DVT) Sodium Potassium Chloride Carbon Dioxide Anion Gap BUN Creatinine Estim Creat Clear Calc Est GFR (MDRD) Af Amer Est GFR (MDRD) Non-Af BUN/Creatinine Ratio Glucose Lactic Acid Calcium Magnesium 2.4 Troponin I B-Natriuretic Peptide 337.2 H Urine Color Urine Clarity Urine pH Ur Specific [place] Urine Protein Urine Glucose (UA) Urine Ketones Urine Occult Blood Urine Nitrite Urine Bilirubin Urine Urobilinogen Ur Leukocyte Esterase Urine RBC Urine WBC Ur Squamous Epith Cells Urine Bacteria Urine Mucus Valproic Acid MRSA (PCR) POC Glucose Blood Type AB POSITIVE Antibody Screen NEGATIVE 05/18/21 05/18/21 05/18/21 06:55 06:55 06:55 WBC RBC Hgb Hct MCV MCH MCHC RDW Std Deviation RDW Coeff of Favian Plt Count MPV Immature Gran % (Auto) Neut % (Auto) Lymph % (Auto) [place] % (Auto) Eos % (Auto) Baso % (Auto) Absolute Neuts (auto) Absolute Lymphs (auto) Nucleated RBC % PT 13.2 INR 1.1 APTT 27.9 D-Dimer Quant (PE/DVT) Sodium Potassium Chloride Carbon Dioxide Anion Gap BUN Creatinine Estim Creat Clear Calc Est GFR (MDRD) Af Amer Est GFR (MDRD) Non-Af BUN/Creatinine Ratio Glucose Lactic Acid 2.6 H* Calcium Magnesium Troponin I B-Natriuretic Peptide Urine Color Urine Clarity Urine pH Ur Specific [place] Urine Protein Urine Glucose (UA) Urine Ketones Urine Occult Blood Urine Nitrite Urine Bilirubin Urine Urobilinogen Ur Leukocyte Esterase Urine RBC Urine WBC Ur Squamous Epith Cells Urine Bacteria Urine Mucus Valproic Acid MRSA (PCR) POC Glucose Blood Type Antibody Screen 05/18/21 05/18/21 05/18/21 07:06 09:45 10:20 WBC RBC Hgb Hct MCV MCH MCHC RDW Std Deviation RDW Coeff of Favian Plt Count MPV Immature Gran % (Auto) Neut % (Auto) Lymph % (Auto) [place] % (Auto) Eos % (Auto) Baso % (Auto) Absolute Neuts (auto) Absolute Lymphs (auto) Nucleated RBC % PT INR APTT D-Dimer Quant (PE/DVT) Sodium Potassium Chloride Carbon Dioxide Anion Gap BUN Creatinine Estim Creat Clear Calc Est GFR (MDRD) Af Amer Est GFR (MDRD) Non-Af BUN/Creatinine Ratio Glucose Lactic Acid Calcium Magnesium Troponin I 2.890 H* B-Natriuretic Peptide Urine Color Red Urine Clarity Cloudy Urine pH 5.0 Ur Specific [place] 1.010 Urine Protein 500 H Urine Glucose (UA) Normal Urine Ketones Negative Urine Occult Blood 250 H Urine Nitrite Negative Urine Bilirubin Negative Urine Urobilinogen Normal Ur Leukocyte Esterase 500 H Urine RBC > 100 SEEN Urine WBC 0-5 SEEN Ur Squamous Epith Cells 0 SEEN Urine Bacteria RARE Urine Mucus 0 SEEN Valproic Acid 57 MRSA (PCR) POC Glucose Blood Type Antibody Screen 05/18/21 05/18/21 05/18/21 10:20 10:53 12:20 WBC RBC Hgb Hct MCV MCH MCHC RDW Std Deviation RDW Coeff of Favian Plt Count MPV Immature Gran % (Auto) Neut % (Auto) Lymph % (Auto) [place] % (Auto) Eos % (Auto) Baso % (Auto) Absolute Neuts (auto) Absolute Lymphs (auto) Nucleated RBC % PT INR APTT D-Dimer Quant (PE/DVT) Sodium Potassium Chloride Carbon Dioxide Anion Gap BUN Creatinine Estim Creat Clear Calc Est GFR (MDRD) Af Amer Est GFR (MDRD) Non-Af BUN/Creatinine Ratio Glucose Lactic Acid Calcium Magnesium Troponin I 4.970 H* B-Natriuretic Peptide Urine Color Urine Clarity Urine pH Ur Specific [place] Urine Protein Urine Glucose (UA) Urine Ketones Urine Occult Blood Urine Nitrite Urine Bilirubin Urine Urobilinogen Ur Leukocyte Esterase Urine RBC Urine WBC Ur Squamous Epith Cells Urine Bacteria Urine Mucus Valproic Acid MRSA (PCR) Negative POC Glucose 207 H Blood Type Antibody Screen 05/18/21 12:25 WBC RBC Hgb Hct MCV MCH MCHC RDW Std Deviation RDW Coeff of Favian Plt Count MPV Immature Gran % (Auto) Neut % (Auto) Lymph % (Auto) [place] % (Auto) Eos % (Auto) Baso % (Auto) Absolute Neuts (auto) Absolute Lymphs (auto) Nucleated RBC % PT INR APTT D-Dimer Quant (PE/DVT) Sodium Potassium Chloride Carbon Dioxide Anion Gap BUN Creatinine Estim Creat Clear Calc Est GFR (MDRD) Af Amer Est GFR (MDRD) Non-Af BUN/Creatinine Ratio Glucose Lactic Acid 1.4 Calcium Magnesium Troponin I B-Natriuretic Peptide Urine Color Urine Clarity Urine pH Ur Specific [place] Urine Protein Urine Glucose (UA) Urine Ketones Urine Occult Blood Urine Nitrite Urine Bilirubin Urine Urobilinogen Ur Leukocyte Esterase Urine RBC Urine WBC Ur Squamous Epith Cells Urine Bacteria Urine Mucus Valproic Acid MRSA (PCR) POC Glucose Blood Type Antibody Screen Micro: Microbiology 05/18/21 07:15 SARS-CoV-2 Antigen (Rapid) - Final Mucosa - Nose 05/18/21 06:55 Stool Occult Blood (SOFIE) - Final Stool ABG Data ABG results: ABG 05/18/21 05/18/21 08:20 09:57 Specimen Type ART ART Sample Site L Radial L Radial pH 7.25 L 7.34 L Bicarbonate Actual 27.8 H 27.8 H Total CO2 30 29 Base Excess 1 2 O2 Saturation 99 99 O2 % 100 90 ABG pCO2 63.2 H 51.4 H ABG pO2 155 H 144 H [place] Test Positive Positive Respiration Rate 12 12 O2 Delivery Device Adult Vent Adult Vent Vent Mode AC AC Tidal Volume 500 500 POC PEEP 10 Radiology Impression Chest X-Ray 05/18/21 06:49 IMPRESSION: Moderate pulmonary vascular congestion with a moderate right pleural effusion. Electronically Signed: Riley Sotelo MD at 8:24 EDT Tel , Service support , Chest X-Ray 05/18/21 07:46 IMPRESSION: Satisfactory position of support lines and tubes. Otherwise, no significant change. Electronically Signed: Riley Sotelo MD at 8:25 EDT Tel , Service support , Chest X-Ray 05/18/21 09:34 IMPRESSION: Stable exam. No pneumothorax Electronically Signed: Riley Sotelo MD at 11:07 EDT Tel , Service support ,
[2021-05-18 17:01] LABS: Partial Thromboplast Time > 250.0 Seconds (24.1-36.2)
[2021-05-18] MEDS: Insulin Lispro 100 UNIT/ML INSULN.PEN SC (17:18)
[2021-05-18] MEDS: Furosemide 40 MG/4 ML Vial IV (17:18)
[2021-05-18 17:21] LABS: Bedside Glucose 198 mg/dL (70-110)
[2021-05-18] MEDS: Atorvastatin Calcium 40 MG Tablet GT (23:00)
[2021-05-18] MEDS: Metoprolol Tartrate 25 MG Tablet GT (23:00)
[2021-05-18] MEDS: 0.9% Saline Lock 10 ML Syringe IV (23:18)
[2021-05-19] VITALS (32 sets, daily range): BP systolic 111–169; BP diastolic 56–75; PULSE 72–97; RESP 12–33; TEMP 37.5–38.4; O2SAT 88–100
[2021-05-19] MEDS: Chlorhexidine 15 ML PO ×2 (00:21→21:09)
[2021-05-19] MEDS: Insulin Lispro 100 UNIT/ML INSULN.PEN SC ×5 (00:22→22:59)
[2021-05-19 00:36] LABS: Bedside Glucose 181 mg/dL (70-110)
[2021-05-19 01:21] LABS: Partial Thromboplast Time > 250.0 Seconds (24.1-36.2)
[2021-05-19] MEDS: 0.9% Saline Lock 10 ML Syringe IV (03:27)
[2021-05-19 03:42] LABS: Absolute Lymphocyte Count 1.16 X10^3/uL (0.83-4.51); Absolute Neutrophil Count 11.6 X10^3/uL (2.0-7.7); Basophil# 0.03 X10^3/uL; Basophil% 0.2 % (0-1); Hematocrit 31.2 % (40-54); Lymphocyte # 1.16 X10^3/ul (0.83-4.51); Lymphocyte % 8.2 % (19-41); Mean Corp Hgb Conc 32.1 g/dL (32-36); Mean Corpuscular Volume 96.6 fL (80-94); Mean Platelet Vol. 10.4 fl (6.2-12.0); Monocyte# 1.18 X10^3/uL; Monocyte% 8.4 % (0-10); NRBC Flagged by Analyzer 0 % (0-5); Neutrophil # 11.63 X10^3/uL (2.7-7.7); Neutrophil % 82.6 % (47-70); Platelet Count 197 K/mm3 (150-450); RBC Distribution Width CV 14.6 % (11.6-14.6); RBC Distribution Width SD 52.6 fl (35.1-43.9); Red Blood Count 3.23 M/mm3 (4.6-6.2); White Blood Count 14.1 K/mm3 (4.4-11.0)
[2021-05-19 04:05] LABS: ALB/GLOB Ratio 0.6 RATIO (0.9-2.4); AST(SGOT) 32 U/L (15-37); Alanine Aminotransfer ALT/SGPT 16 U/L (16-61); Albumin, Serum 2.1 g/dL (3.2-5.0); Alkaline Phosphatase 59 U/L (45-117); Anion Gap 7 (5-15); BUN 46 mg/dL (7-18); BUN/Creat Ratio 25.3 RATIO (10-20); Calcium,Total 8.2 mg/dL (8.5-10.1); Chloride 104 mmol/L (98-107); Cholesterol 93 mg/dL (200); Creatinine, Serum 1.82 mg/dL (0.70-1.30); EST Glomerular Filtration Rate 39 mL/min (>60); Est Glom Filt Rate - Afr Amer 47 mL/min (>60); Estimated Creatinine Clearance 36.21 ml/min; Globulin 3.4 g/dL (2.2-4.2); Glucose 174 mg/dL (74-106); High Density Lipoprotein 51 mg/dL; Magnesium 2.1 mg/dL (1.6-2.6); Phosphorus 4.8 mg/dL (2.5-4.9); Potassium 4.1 mmol/L (3.5-5.1); Protein, Total 5.5 g/dL (6.4-8.2); Sodium Level 141 mmol/L (136-145); Thyroid Stim Hormone (TSH) 0.44 uIU/mL (0.358-3.74); Triglycerides 89 mg/dL; Very Low Density Lipoprotein 18 mg/dL (5-40)
--- NOTE | 2021-05-19 05:05 | RAD_ITS ---
HISTORY: RIGHT PLEURAL EFFUSION EXAMINATION/TECHNIQUE: XR Chest 1 View COMPARISON: AP chest x-ray from one day prior FINDINGS: LINES/DEVICES: Stable enteric tube and ET tube. LUNGS: Stable moderate to large right pleural effusion with adjacent atelectatic changes. Persistent right basilar opacification and/or elevated right hemidiaphragm. Mild left basilar opacification. No pneumothorax detected. MEDIASTINUM AND CARDIOVASCULAR STRUCTURES: Heart size within normal limits for imaging technique. Central airways and mediastinal contour are unremarkable. BONES AND SOFT TISSUES: No acute findings. RAD/Chest 1 View (Portable) IMPRESSION: Stable moderate to large right pleural effusion with right greater than left bibasilar opacification. at [id number] Reported and signed by: Bart Thompson MD Electronically Signed: Bart Thompson MD at 7:03 EDT Tel , Service support ,
--- NOTE | 2021-05-19 05:55 | ECHOCS_ITS ---
Reason For Study: CHF Procedure This was a 2D Doppler, Color Flow transthoracic echocardiogram. The study was technically difficult. Due to body habitus and supine position on C-PAP. Contrast injection was performed. Left Ventricle Normal LV size. The estimated ejection fraction is 50 %. Stage 1 diastolic dysfunction. Mild segmental systolic dysfunction (see wall motion). There are regional wall motion abnormalities as specified. Right Ventricle Normal RV size. Normal systolic function. Atria The left atrium is mildly enlarged. Normal right atrium. Mitral Valve Normal mitral valve. Tricuspid Valve Normal tricuspid valve. Aortic Valve The aortic valve is not well visualized. Pulmonic Valve The pulmonic valve is not well visualized. Great Vessels Normal aortic root. The pulmonary artery is normal size. Normal inferior vena cava. Pericardium/Pleural No pericardial effusion. Medication Diluted definity 4.0ml given slow IV push to enhance endocardial definition. MMode/2D Measurements & Calculations LVIDd: 5.7 cm IVSd: 1.2 cm Ao root diam: 3.9 cm LVIDs: 4.2 cm LVPWd: 1.0 cm FS: 25.3 % LAV(MOD-bp): 59.7 ml LVAd ap4: 37.7 cm2 LVAd ap2: 40.3 cm2 LAV(MOD-bp) Indexed: 24.4 ml/m2 LVLd ap4: 9.5 cm LVLd ap2: 9.5 cm LAV(MOD-sp2): 50.2 ml EDV(MOD-sp4): 122.8 ml EDV(MOD-sp2): 141.8 ml LAV(MOD-sp4): 64.4 ml EDV(sp4-el): 127.2 ml EDV(sp2-el): 145.1 ml LVAs ap4: 21.9 cm2 LVAs ap2: 25.5 cm2 LVLs ap4: 7.4 cm LVLs ap2: 8.7 cm ESV(MOD-sp4): 55.9 ml ESV(MOD-sp2): 65.4 ml ESV(sp4-el): 55.5 ml ESV(sp2-el): 63.4 ml EF(MOD-sp4): 54.5 % EF(MOD-sp2): 53.9 % EF(sp4-el): 56.4 % SV(MOD-sp4): 66.9 ml SV(MOD-sp2): 76.5 ml SV(sp4-el): 71.7 ml LA A4 area: 20.4 cm2 LA dimension(2D): 4.4 cm Time Measurements MV dec time: 0.25 sec Doppler Measurements & Calculations MV E max ezra: 89.2 cm/sec Lat Peak E' Ezra: 9.7 cm/sec Med Peak E' Ezra: 5.4 cm/sec MV A max ezra: 110.5 cm/sec E/E' lat: 9.2 E/E' med: 16.6 MV E/A: 0.81 Ao V2 max: 87.1 cm/sec LV V1 max: 65.0 cm/sec PA V2 max: 88.3 cm/sec Ao max P.0 mmHg LV V1 max P.7 mmHg ECHO/Echo Complete W/ Contrast Interpretation Summary Normal LV size. The estimated ejection fraction is 50 %. Stage 1 diastolic dysfunction. Mild segmental systolic dysfunction (see wall motion). Contrast injection was performed. Ordering Physician: Andry Chavez Referring Physician: Jaycob Kumar Performed By: Diana Pollock RDCS, RVT
[2021-05-19 06:16] LABS: Allen Test Positive; Base Excess 1 mmol/L (-2 to +2); Bicarbonate 25.2 mmol/L (22-26); Blood Gas Specimen Type ART; FI02 30; Mode CPAP/PS; O2 Delivery Device Adult Vent; PEEP 5; PO2 66 mmHG (75-100); PS 5; SITE L Radial; SO2 93 % (95-99); Total Carbon Dioxide 26 mmol/L; pCO2 37.7 mmHg (35-45); pH 7.43 (7.35-7.45)
--- NOTE | 2021-05-19 06:52 | PN.CC_ITS ---
Assessment & Plan Assessment/Plan (1) Acute hypoxemic respiratory failure: PLAN: RECOMMENDATIONS: 1. Wean oxygen as tolerated 2. Bedside swallow evaluation and initiation of diet as appropriate 3. Continue empiric broad-spectrum antibiotics 4. Wean FiO2 and PEEP to maintain oxygen saturations at or above 90%. 5. Continue heparin infusion until CTA chest can be obtained to rule out PE. No 10 a inhibitor given hematuria 6. Continue appropriate GI prophylaxis. IMPRESSIONS: 1. Acute combined respiratory failure Unclear precipitating etiology. While acute coronary syndrome is certainly a possibility, no obstructive lesion was identified on cardiac catheterization. Decompensated heart failure is also a possibility given pulmonary vascular congestion and pleural effusion noted on chest imaging. However, the patient does meet sepsis criteria. Therefore, agree with continuing broad-spectrum antimicrobials for now, pending infectious work-up. Patient was able to pass a spontaneous breathing trial this morning, so will be extubated. Wean oxygen as tolerated. VQ scan will be of limited utility given chest x-ray findings. 2. Severe sepsis Concern for possible underlying pulmonary versus diabetic ulcer infectious etiology. We will continue broad-spectrum antibiotics for now. Wound nurse to evaluate lower extremities. Patient may need MRI of the feet to evaluate for osteomyelitis. Could consider ID consult. Defer to hospitalist. 3. Questionable acute coronary syndrome Continue current medical management per cardiology recommendations. 4. Acute on chronic kidney disease stage III Continue to monitor urine output for now. No indication for renal replacement therapy. Some concern for contrast-induced nephropathy versus prerenal etiology given problem #2 exacerbating current condition. Hold on further contrast 5. Morbid obesity/depression/hypertension/diabetes mellitus/anxiety/hyperlipidemia Complicates care, management, recovery and prognosis. Continue home medications as indicated. TIME: 34 minutes of critical care time, independent of procedures, was spent addressing the patient's acute combined respiratory failure, severe sepsis, qu estionable acute coronary syndrome, chronic kidney disease, review of all data and collaboration with the care team. (5:20 AM to 6:20 AM) Subjective Subjective Patient did okay overnight. Patient is not reporting any chest pain, bowel pain, nausea or vomiting. Patient is not reporting any lower extremity pain, but does have diabetic foot ulcers. Patient reportedly has had significant hematuria, but bleeding from blood sugar checks is improved. Patient was able to pass a spontaneous breathing trial this morning and was extubated under my direct supervision. Objective Data Objective Data Vital Signs: Vital Signs Temp Pulse Resp BP Pulse Ox 37.9 C H 79 22 H 132/56 H 95 05/19/21 06:00 05/19/21 06:00 05/19/21 06:00 05/19/21 06:00 05/19/21 06:00 Oxygen Flow Rate (L/min) 65 Oxygen Delivery Method Mechanical Ventilator Weight: 132.4 kg Body Mass Index (BMI) 41.1 Intake & Output: Intake and Output for Last 24 Hours 05/17/21 05/18/21 05/19/21 23:59 23:59 23:59 Intake Total 1256.33 / 1256.33 413.43 / 413.43 Output Total 550 / 1400 1000 / 1000 Balance 706.33 / -143.67 -586.57 / -586.57 Lab / Micro Data Result Diagrams: 05/19/21 03:24 05/19/21 03:24 Labs: Laboratory Results - last 24 hr 05/18/21 05/18/21 05/18/21 06:33 06:33 06:33 WBC 12.7 H RBC 3.86 L Hgb 11.8 L Hct 38.3 L MCV 99.2 H MCH 30.6 MCHC 30.8 L RDW Std Deviation 54.3 H RDW Coeff of Favian 14.8 H Plt Count 234 MPV 11.4 Immature Gran % (Auto) 0.400 Neut % (Auto) 81.7 H Lymph % (Auto) 8.4 L [place] % (Auto) 9.0 Eos % (Auto) 0.2 Baso % (Auto) 0.3 Absolute Neuts (auto) 10.4 H Absolute Lymphs (auto) 1.07 Nucleated RBC % 0 PT INR APTT D-Dimer Quant (PE/DVT) 1.40 H* Sodium 139 Potassium 4.9 Chloride 104 Carbon Dioxide 30.0 Anion Gap 5 BUN 36 H Creatinine 1.62 H Estim Creat Clear Calc 40.68 Est GFR (MDRD) Af Amer 54 L Est GFR (MDRD) Non-Af 44 L BUN/Creatinine Ratio 22.2 H Glucose 215 H Lactic Acid Calcium 8.9 Phosphorus Magnesium Total Bilirubin AST ALT Alkaline Phosphatase Troponin I 0.074 H B-Natriuretic Peptide Total Protein Albumin Globulin Albumin/Globulin Ratio Triglycerides Cholesterol LDL Cholesterol VLDL Cholesterol HDL Cholesterol TSH Urine Color Urine Clarity Urine pH Ur Specific [place] Urine Protein Urine Glucose (UA) Urine Ketones Urine Occult Blood Urine Nitrite Urine Bilirubin Urine Urobilinogen Ur Leukocyte Esterase Urine RBC Urine WBC Ur Squamous Epith Cells Urine Bacteria Urine Mucus Valproic Acid MRSA (PCR) POC Glucose Blood Type Antibody Screen 05/18/21 05/18/21 05/18/21 06:33 06:33 06:50 WBC RBC Hgb Hct MCV MCH MCHC RDW Std Deviation RDW Coeff of Favian Plt Count MPV Immature Gran % (Auto) Neut % (Auto) Lymph % (Auto) [place] % (Auto) Eos % (Auto) Baso % (Auto) Absolute Neuts (auto) Absolute Lymphs (auto) Nucleated RBC % PT INR APTT D-Dimer Quant (PE/DVT) Sodium Potassium Chloride Carbon Dioxide Anion Gap BUN Creatinine Estim Creat Clear Calc Est GFR (MDRD) Af Amer Est GFR (MDRD) Non-Af BUN/Creatinine Ratio Glucose Lactic Acid Calcium Phosphorus Magnesium 2.4 Total Bilirubin AST ALT Alkaline Phosphatase Troponin I B-Natriuretic Peptide 337.2 H Total Protein Albumin Globulin Albumin/Globulin Ratio Triglycerides Cholesterol LDL Cholesterol VLDL Cholesterol HDL Cholesterol TSH Urine Color Urine Clarity Urine pH Ur Specific [place] Urine Protein Urine Glucose (UA) Urine Ketones Urine Occult Blood Urine Nitrite Urine Bilirubin Urine Urobilinogen Ur Leukocyte Esterase Urine RBC Urine WBC Ur Squamous Epith Cells Urine Bacteria Urine Mucus Valproic Acid MRSA (PCR) POC Glucose Blood Type AB POSITIVE Antibody Screen NEGATIVE 05/18/21 05/18/21 05/18/21 06:55 06:55 06:55 WBC RBC Hgb Hct MCV MCH MCHC RDW Std Deviation RDW Coeff of Favian Plt Count MPV Immature Gran % (Auto) Neut % (Auto) Lymph % (Auto) [place] % (Auto) Eos % (Auto) Baso % (Auto) Absolute Neuts (auto) Absolute Lymphs (auto) Nucleated RBC % PT 13.2 INR 1.1 APTT 27.9 D-Dimer Quant (PE/DVT) Sodium Potassium Chloride Carbon Dioxide Anion Gap BUN Creatinine Estim Creat Clear Calc Est GFR (MDRD) Af Amer Est GFR (MDRD) Non-Af BUN/Creatinine Ratio Glucose Lactic Acid 2.6 H* Calcium Phosphorus Magnesium Total Bilirubin AST ALT Alkaline Phosphatase Troponin I B-Natriuretic Peptide Total Protein Albumin Globulin Albumin/Globulin Ratio Triglycerides Cholesterol LDL Cholesterol VLDL Cholesterol HDL Cholesterol TSH Urine Color Urine Clarity Urine pH Ur Specific [place] Urine Protein Urine Glucose (UA) Urine Ketones Urine Occult Blood Urine Nitrite Urine Bilirubin Urine Urobilinogen Ur Leukocyte Esterase Urine RBC Urine WBC Ur Squamous Epith Cells Urine Bacteria Urine Mucus Valproic Acid MRSA (PCR) POC Glucose Blood Type Antibody Screen 05/18/21 05/18/21 05/18/21 07:06 09:45 10:20 WBC RBC Hgb Hct MCV MCH MCHC RDW Std Deviation RDW Coeff of Favian Plt Count MPV Immature Gran % (Auto) Neut % (Auto) Lymph % (Auto) [place] % (Auto) Eos % (Auto) Baso % (Auto) Absolute Neuts (auto) Absolute Lymphs (auto) Nucleated RBC % PT INR APTT D-Dimer Quant (PE/DVT) Sodium Potassium Chloride Carbon Dioxide Anion Gap BUN Creatinine Estim Creat Clear Calc Est GFR (MDRD) Af Amer Est GFR (MDRD) Non-Af BUN/Creatinine Ratio Glucose Lactic Acid Calcium Phosphorus Magnesium Total Bilirubin AST ALT Alkaline Phosphatase Troponin I 2.890 H* B-Natriuretic Peptide Total Protein Albumin Globulin Albumin/Globulin Ratio Triglycerides Cholesterol LDL Cholesterol VLDL Cholesterol HDL Cholesterol TSH Urine Color Red Urine Clarity Cloudy Urine pH 5.0 Ur Specific [place] 1.010 Urine Protein 500 H Urine Glucose (UA) Normal Urine Ketones Negative Urine Occult Blood 250 H Urine Nitrite Negative Urine Bilirubin Negative Urine Urobilinogen Normal Ur Leukocyte Esterase 500 H Urine RBC > 100 SEEN Urine WBC 0-5 SEEN Ur Squamous Epith Cells 0 SEEN Urine Bacteria RARE Urine Mucus 0 SEEN Valproic Acid 57 MRSA (PCR) POC Glucose Blood Type Antibody Screen 05/18/21 05/18/21 05/18/21 10:20 10:53 12:20 WBC RBC Hgb Hct MCV MCH MCHC RDW Std Deviation RDW Coeff of Favian Plt Count MPV Immature Gran % (Auto) Neut % (Auto) Lymph % (Auto) [place] % (Auto) Eos % (Auto) Baso % (Auto) Absolute Neuts (auto) Absolute Lymphs (auto) Nucleated RBC % PT INR APTT D-Dimer Quant (PE/DVT) Sodium Potassium Chloride Carbon Dioxide Anion Gap BUN Creatinine Estim Creat Clear Calc Est GFR (MDRD) Af Amer Est GFR (MDRD) Non-Af BUN/Creatinine Ratio Glucose Lactic Acid Calcium Phosphorus Magnesium Total Bilirubin AST ALT Alkaline Phosphatase Troponin I 4.970 H* B-Natriuretic Peptide Total Protein Albumin Globulin Albumin/Globulin Ratio Triglycerides Cholesterol LDL Cholesterol VLDL Cholesterol HDL Cholesterol TSH Urine Color Urine Clarity Urine pH Ur Specific [place] Urine Protein Urine Glucose (UA) Urine Ketones Urine Occult Blood Urine Nitrite Urine Bilirubin Urine Urobilinogen Ur Leukocyte Esterase Urine RBC Urine WBC Ur Squamous Epith Cells Urine Bacteria Urine Mucus Valproic Acid MRSA (PCR) Negative POC Glucose 207 H Blood Type Antibody Screen 05/18/21 05/18/21 05/18/21 12:25 16:20 17:15 WBC RBC Hgb Hct MCV MCH MCHC RDW Std Deviation RDW Coeff of Favian Plt Count MPV Immature Gran % (Auto) Neut % (Auto) Lymph % (Auto) [place] % (Auto) Eos % (Auto) Baso % (Auto) Absolute Neuts (auto) Absolute Lymphs (auto) Nucleated RBC % PT INR APTT > 250.0 H* D-Dimer Quant (PE/DVT) Sodium Potassium Chloride Carbon Dioxide Anion Gap BUN Creatinine Estim Creat Clear Calc Est GFR (MDRD) Af Amer Est GFR (MDRD) Non-Af BUN/Creatinine Ratio Glucose Lactic Acid 1.4 Calcium Phosphorus Magnesium Total Bilirubin AST ALT Alkaline Phosphatase Troponin I B-Natriuretic Peptide Total Protein Albumin Globulin Albumin/Globulin Ratio Triglycerides Cholesterol LDL Cholesterol VLDL Cholesterol HDL Cholesterol TSH Urine Color Urine Clarity Urine pH Ur Specific [place] Urine Protein Urine Glucose (UA) Urine Ketones Urine Occult Blood Urine Nitrite Urine Bilirubin Urine Urobilinogen Ur Leukocyte Esterase Urine RBC Urine WBC Ur Squamous Epith Cells Urine Bacteria Urine Mucus Valproic Acid MRSA (PCR) POC Glucose 198 H Blood Type Antibody Screen 05/19/21 05/19/21 05/19/21 00:18 00:50 03:24 WBC 14.1 H RBC 3.23 L Hgb 10.0 L Hct 31.2 L MCV 96.6 H MCH 31.0 MCHC 32.1 RDW Std Deviation 52.6 H RDW Coeff of Favian 14.6 Plt Count 197 MPV 10.4 Immature Gran % (Auto) 0.600 Neut % (Auto) 82.6 H Lymph % (Auto) 8.2 L [place] % (Auto) 8.4 Eos % (Auto) 0.0 Baso % (Auto) 0.2 Absolute Neuts (auto) 11.6 H Absolute Lymphs (auto) 1.16 Nucleated RBC % 0 PT INR APTT > 250.0 H* D-Dimer Quant (PE/DVT) Sodium Potassium Chloride Carbon Dioxide Anion Gap BUN Creatinine Estim Creat Clear Calc Est GFR (MDRD) Af Amer Est GFR (MDRD) Non-Af BUN/Creatinine Ratio Glucose Lactic Acid Calcium Phosphorus Magnesium Total Bilirubin AST ALT Alkaline Phosphatase Troponin I B-Natriuretic Peptide Total Protein Albumin Globulin Albumin/Globulin Ratio Triglycerides Cholesterol LDL Cholesterol VLDL Cholesterol HDL Cholesterol TSH Urine Color Urine Clarity Urine pH Ur Specific [place] Urine Protein Urine Glucose (UA) Urine Ketones Urine Occult Blood Urine Nitrite Urine Bilirubin Urine Urobilinogen Ur Leukocyte Esterase Urine RBC Urine WBC Ur Squamous Epith Cells Urine Bacteria Urine Mucus Valproic Acid MRSA (PCR) POC Glucose 181 H Blood Type Antibody Screen 05/19/21 03:24 WBC RBC Hgb Hct MCV MCH MCHC RDW Std Deviation RDW Coeff of Favian Plt Count MPV Immature Gran % (Auto) Neut % (Auto) Lymph % (Auto) [place] % (Auto) Eos % (Auto) Baso % (Auto) Absolute Neuts (auto) Absolute Lymphs (auto) Nucleated RBC % PT INR APTT D-Dimer Quant (PE/DVT) Sodium 141 Potassium 4.1 Chloride 104 Carbon Dioxide 30.0 Anion Gap 7 BUN 46 H Creatinine 1.82 H Estim Creat Clear Calc 36.21 Est GFR (MDRD) Af Amer 47 L Est GFR (MDRD) Non-Af 39 L BUN/Creatinine Ratio 25.3 H Glucose 174 H Lactic Acid Calcium 8.2 L Phosphorus 4.8 Magnesium 2.1 Total Bilirubin 0.50 AST 32 ALT 16 Alkaline Phosphatase 59 Troponin I B-Natriuretic Peptide Total Protein 5.5 L Albumin 2.1 L Globulin 3.4 Albumin/Globulin Ratio 0.6 L Triglycerides 89 Cholesterol 93 LDL Cholesterol 24 VLDL Cholesterol 18 HDL Cholesterol 51 TSH 0.44 Urine Color Urine Clarity Urine pH Ur Specific [place] Urine Protein Urine Glucose (UA) Urine Ketones Urine Occult Blood Urine Nitrite Urine Bilirubin Urine Urobilinogen Ur Leukocyte Esterase Urine RBC Urine WBC Ur Squamous Epith Cells Urine Bacteria Urine Mucus Valproic Acid MRSA (PCR) POC Glucose Blood Type Antibody Screen Micro: Microbiology 05/18/21 06:55 Blood Culture (Wb) - Anticubital Right Blood Culture - Preliminary 05/18/21 07:15 Mucosa - Nose SARS-CoV-2 Antigen (Rapid) - Final 05/18/21 06:55 Stool Stool Occult Blood (SOFIE) - Final ABG Data ABG results: ABG 05/18/21 05/18/21 05/19/21 08:20 09:57 06:10 Specimen Type ART ART ART Sample Site L Radial L Radial L Radial pH 7.25 L 7.34 L 7.43 Bicarbonate Actual 27.8 H 27.8 H 25.2 Total CO2 30 29 26 Base Excess 1 2 1 O2 Saturation 99 99 93 L O2 % 100 90 30 ABG pCO2 63.2 H 51.4 H 37.7 ABG pO2 155 H 144 H 66 L [place] Test Positive Positive Positive Respiration Rate 12 12 O2 Delivery Device Adult Vent Adult Vent Adult Vent Vent Mode AC AC CPAP/PS Tidal Volume 500 500 POC PEEP 10 5 POC Pressure Suppt 5 Radiography Diagnostic Testing: Radiology Impression Chest X-Ray 05/18/21 06:49 IMPRESSION: Moderate pulmonary vascular congestion with a moderate right pleural effusion. Electronically Signed: Riley Sotelo MD at 8:24 EDT Tel , Service support , Chest X-Ray 05/18/21 07:46 IMPRESSION: Satisfactory position of support lines and tubes. Otherwise, no significant change. Electronically Signed: Riley Sotelo MD at 8:25 EDT Tel , Service support , Chest X-Ray 05/18/21 09:34 IMPRESSION: Stable exam. No pneumothorax Electronically Signed: Riley Sotelo MD at 11:07 EDT Tel , Service support , Physical Exam Const no apparent distress General Appearance: patient mechanically ventilated Orientation / Consciousness: awake Nutritional Appearance: morbidly obese HEENT normocephalic and head/scalp atraumatic Eyes PERRL and conjunctivae normal Neck supple General: trachea midline Chest inspection of chest normal Chest: symmetrical chest wall rise Resp Auscultation: diminished lung sounds; Negative for rales, rhonchi or wheezes Cardio S1 normal heart sound, S2 normal heart sound, no murmurs, no rub and no gallops Rhythm: abnormal rhythm GI normal to inspection, nondistended, normoactive bowel sounds Extremity General Extremity: edema bilateral Skin General Skin Exam: lichenification Neuro oriented x3, CN's II-XII intact bilaterally and moves all extremities Sensory Exam: extremities pin-prick: decreased (Bilateral lower extremities) and light-touch: decreased (Bilateral lower extremities) Charges/Coding Procedures Hospitalists Procedures: [id number] Critial Care 1st Hr
[2021-05-19] MEDS: Furosemide 40 MG/4 ML Vial IV ×2 (07:16→18:12)
[2021-05-19] MEDS: HEPARIN/D5w 25,000 UNITS 25,000 UNITS/250 ML IV.SOLN. 0.1 UNITS IV (07:20)
--- NOTE | 2021-05-19 07:45 | PCM.PN.CARD ---
Subjective Subjective Patient seen and evaluated. Patient has just been extubated. He is doing well. Objective Data Vital Signs: Vital Signs Temp Pulse Resp BP Pulse Ox 100.1 F H 95 28 H 169/75 H 95 05/19/21 07:00 05/19/21 07:24 05/19/21 07:24 05/19/21 07:00 05/19/21 07:23 Oxygen Flow Rate (L/min) 4 Oxygen Delivery Method Nasal Cannula Weight: 291 lb 14.272 oz Body Mass Index (BMI) 41.1 Intake & Output: Intake and Output for Last 24 Hours 05/17/21 05/18/21 05/19/21 23:59 23:59 23:59 Intake Total 1256.33 / 1256.33 413.82 / 413.82 Output Total 550 / 1400 1000 / 1000 Balance 706.33 / -143.67 -586.18 / -586.18 Lab / Micro Data Result Diagrams: 05/19/21 03:24 05/19/21 03:24 Labs: Laboratory Results - last 24 hr 05/18/21 05/18/21 05/18/21 06:33 06:50 06:55 WBC RBC Hgb Hct MCV MCH MCHC RDW Std Deviation RDW Coeff of Favian Plt Count MPV Immature Gran % (Auto) Neut % (Auto) Lymph % (Auto) [place] % (Auto) Eos % (Auto) Baso % (Auto) Absolute Neuts (auto) Absolute Lymphs (auto) Nucleated RBC % PT INR APTT Sodium Potassium Chloride Carbon Dioxide Anion Gap BUN Creatinine Estim Creat Clear Calc Est GFR (MDRD) Af Amer Est GFR (MDRD) Non-Af BUN/Creatinine Ratio Glucose Lactic Acid 2.6 H* Calcium Phosphorus Magnesium 2.4 Total Bilirubin AST ALT Alkaline Phosphatase Troponin I Total Protein Albumin Globulin Albumin/Globulin Ratio Triglycerides Cholesterol LDL Cholesterol VLDL Cholesterol HDL Cholesterol TSH Urine Color Urine Clarity Urine pH Ur Specific [place] Urine Protein Urine Glucose (UA) Urine Ketones Urine Occult Blood Urine Nitrite Urine Bilirubin Urine Urobilinogen Ur Leukocyte Esterase Urine RBC Urine WBC Ur Squamous Epith Cells Urine Bacteria Urine Mucus Valproic Acid MRSA (PCR) POC Glucose Blood Type AB POSITIVE Antibody Screen NEGATIVE 05/18/21 05/18/21 05/18/21 06:55 06:55 07:06 WBC RBC Hgb Hct MCV MCH MCHC RDW Std Deviation RDW Coeff of Favian Plt Count MPV Immature Gran % (Auto) Neut % (Auto) Lymph % (Auto) [place] % (Auto) Eos % (Auto) Baso % (Auto) Absolute Neuts (auto) Absolute Lymphs (auto) Nucleated RBC % PT 13.2 INR 1.1 APTT 27.9 Sodium Potassium Chloride Carbon Dioxide Anion Gap BUN Creatinine Estim Creat Clear Calc Est GFR (MDRD) Af Amer Est GFR (MDRD) Non-Af BUN/Creatinine Ratio Glucose Lactic Acid Calcium Phosphorus Magnesium Total Bilirubin AST ALT Alkaline Phosphatase Troponin I Total Protein Albumin Globulin Albumin/Globulin Ratio Triglycerides Cholesterol LDL Cholesterol VLDL Cholesterol HDL Cholesterol TSH Urine Color Urine Clarity Urine pH Ur Specific [place] Urine Protein Urine Glucose (UA) Urine Ketones Urine Occult Blood Urine Nitrite Urine Bilirubin Urine Urobilinogen Ur Leukocyte Esterase Urine RBC Urine WBC Ur Squamous Epith Cells Urine Bacteria Urine Mucus Valproic Acid 57 MRSA (PCR) POC Glucose Blood Type Antibody Screen 05/18/21 05/18/21 05/18/21 09:45 10:20 10:20 WBC RBC Hgb Hct MCV MCH MCHC RDW Std Deviation RDW Coeff of Favian Plt Count MPV Immature Gran % (Auto) Neut % (Auto) Lymph % (Auto) [place] % (Auto) Eos % (Auto) Baso % (Auto) Absolute Neuts (auto) Absolute Lymphs (auto) Nucleated RBC % PT INR APTT Sodium Potassium Chloride Carbon Dioxide Anion Gap BUN Creatinine Estim Creat Clear Calc Est GFR (MDRD) Af Amer Est GFR (MDRD) Non-Af BUN/Creatinine Ratio Glucose Lactic Acid Calcium Phosphorus Magnesium Total Bilirubin AST ALT Alkaline Phosphatase Troponin I 2.890 H* Total Protein Albumin Globulin Albumin/Globulin Ratio Triglycerides Cholesterol LDL Cholesterol VLDL Cholesterol HDL Cholesterol TSH Urine Color Red Urine Clarity Cloudy Urine pH 5.0 Ur Specific [place] 1.010 Urine Protein 500 H Urine Glucose (UA) Normal Urine Ketones Negative Urine Occult Blood 250 H Urine Nitrite Negative Urine Bilirubin Negative Urine Urobilinogen Normal Ur Leukocyte Esterase 500 H Urine RBC > 100 SEEN Urine WBC 0-5 SEEN Ur Squamous Epith Cells 0 SEEN Urine Bacteria RARE Urine Mucus 0 SEEN Valproic Acid MRSA (PCR) Negative POC Glucose Blood Type Antibody Screen 05/18/21 05/18/21 05/18/21 10:53 12:20 12:25 WBC RBC Hgb Hct MCV MCH MCHC RDW Std Deviation RDW Coeff of Favian Plt Count MPV Immature Gran % (Auto) Neut % (Auto) Lymph % (Auto) [place] % (Auto) Eos % (Auto) Baso % (Auto) Absolute Neuts (auto) Absolute Lymphs (auto) Nucleated RBC % PT INR APTT Sodium Potassium Chloride Carbon Dioxide Anion Gap BUN Creatinine Estim Creat Clear Calc Est GFR (MDRD) Af Amer Est GFR (MDRD) Non-Af BUN/Creatinine Ratio Glucose Lactic Acid 1.4 Calcium Phosphorus Magnesium Total Bilirubin AST ALT Alkaline Phosphatase Troponin I 4.970 H* Total Protein Albumin Globulin Albumin/Globulin Ratio Triglycerides Cholesterol LDL Cholesterol VLDL Cholesterol HDL Cholesterol TSH Urine Color Urine Clarity Urine pH Ur Specific [place] Urine Protein Urine Glucose (UA) Urine Ketones Urine Occult Blood Urine Nitrite Urine Bilirubin Urine Urobilinogen Ur Leukocyte Esterase Urine RBC Urine WBC Ur Squamous Epith Cells Urine Bacteria Urine Mucus Valproic Acid MRSA (PCR) POC Glucose 207 H Blood Type Antibody Screen 05/18/21 05/18/21 05/19/21 16:20 17:15 00:18 WBC RBC Hgb Hct MCV MCH MCHC RDW Std Deviation RDW Coeff of Favian Plt Count MPV Immature Gran % (Auto) Neut % (Auto) Lymph % (Auto) [place] % (Auto) Eos % (Auto) Baso % (Auto) Absolute Neuts (auto) Absolute Lymphs (auto) Nucleated RBC % PT INR APTT > 250.0 H* Sodium Potassium Chloride Carbon Dioxide Anion Gap BUN Creatinine Estim Creat Clear Calc Est GFR (MDRD) Af Amer Est GFR (MDRD) Non-Af BUN/Creatinine Ratio Glucose Lactic Acid Calcium Phosphorus Magnesium Total Bilirubin AST ALT Alkaline Phosphatase Troponin I Total Protein Albumin Globulin Albumin/Globulin Ratio Triglycerides Cholesterol LDL Cholesterol VLDL Cholesterol HDL Cholesterol TSH Urine Color Urine Clarity Urine pH Ur Specific [place] Urine Protein Urine Glucose (UA) Urine Ketones Urine Occult Blood Urine Nitrite Urine Bilirubin Urine Urobilinogen Ur Leukocyte Esterase Urine RBC Urine WBC Ur Squamous Epith Cells Urine Bacteria Urine Mucus Valproic Acid MRSA (PCR) POC Glucose 198 H 181 H Blood Type Antibody Screen 05/19/21 05/19/21 05/19/21 00:50 03:24 03:24 WBC 14.1 H RBC 3.23 L Hgb 10.0 L Hct 31.2 L MCV 96.6 H MCH 31.0 MCHC 32.1 RDW Std Deviation 52.6 H RDW Coeff of Favian 14.6 Plt Count 197 MPV 10.4 Immature Gran % (Auto) 0.600 Neut % (Auto) 82.6 H Lymph % (Auto) 8.2 L [place] % (Auto) 8.4 Eos % (Auto) 0.0 Baso % (Auto) 0.2 Absolute Neuts (auto) 11.6 H Absolute Lymphs (auto) 1.16 Nucleated RBC % 0 PT INR APTT > 250.0 H* Sodium 141 Potassium 4.1 Chloride 104 Carbon Dioxide 30.0 Anion Gap 7 BUN 46 H Creatinine 1.82 H Estim Creat Clear Calc 36.21 Est GFR (MDRD) Af Amer 47 L Est GFR (MDRD) Non-Af 39 L BUN/Creatinine Ratio 25.3 H Glucose 174 H Lactic Acid Calcium 8.2 L Phosphorus 4.8 Magnesium 2.1 Total Bilirubin 0.50 AST 32 ALT 16 Alkaline Phosphatase 59 Troponin I Total Protein 5.5 L Albumin 2.1 L Globulin 3.4 Albumin/Globulin Ratio 0.6 L Triglycerides 89 Cholesterol 93 LDL Cholesterol 24 VLDL Cholesterol 18 HDL Cholesterol 51 TSH 0.44 Urine Color Urine Clarity Urine pH Ur Specific [place] Urine Protein Urine Glucose (UA) Urine Ketones Urine Occult Blood Urine Nitrite Urine Bilirubin Urine Urobilinogen Ur Leukocyte Esterase Urine RBC Urine WBC Ur Squamous Epith Cells Urine Bacteria Urine Mucus Valproic Acid MRSA (PCR) POC Glucose Blood Type Antibody Screen Micro: Microbiology 05/18/21 06:55 Blood Culture (Wb) - Anticubital Right Blood Culture - Preliminary 05/18/21 07:15 Mucosa - Nose SARS-CoV-2 Antigen (Rapid) - Final 05/18/21 06:55 Stool Stool Occult Blood (SOFIE) - Final ABG Data ABG results: ABG 05/18/21 05/18/21 05/19/21 08:20 09:57 06:10 Specimen Type ART ART ART Sample Site L Radial L Radial L Radial pH 7.25 L 7.34 L 7.43 Bicarbonate Actual 27.8 H 27.8 H 25.2 Total CO2 30 29 26 Base Excess 1 2 1 O2 Saturation 99 99 93 L O2 % 100 90 30 ABG pCO2 63.2 H 51.4 H 37.7 ABG pO2 155 H 144 H 66 L [place] Test Positive Positive Positive Respiration Rate 12 12 O2 Delivery Device Adult Vent Adult Vent Adult Vent Vent Mode AC AC CPAP/PS Tidal Volume 500 500 POC PEEP 10 5 POC Pressure Suppt 5 Cardiology Labs/Tests 05/18/21 06:33: Magnesium 2.4 05/18/21 06:55: Lactic Acid 2.6 H* 05/18/21 06:55: APTT 27.9 05/18/21 06:55: PT 13.2, INR 1.1 05/18/21 08:20: pH 7.25 L, Bicarbonate Actual 27.8 H, Base Excess 1, O2 Saturation 99, ABG pCO2 63.2 H, ABG pO2 155 H, [place] Test Positive 05/18/21 09:45: Troponin I 2.890 H* 05/18/21 09:57: pH 7.34 L, Bicarbonate Actual 27.8 H, Base Excess 2, O2 Saturation 99, ABG pCO2 51.4 H, ABG pO2 144 H, [place] Test Positive 05/18/21 10:20: Urine Color Red, Urine Clarity Cloudy, Urine pH 5.0, Ur Specific [place] 1.010, Urine Protein 500 H, Urine Glucose (UA) Normal, Urine Ketones Negative, Urine Occult Blood 250 H, Urine Nitrite Negative, Urine Bilirubin Negative, Urine Urobilinogen Normal, Ur Leukocyte Esterase 500 H, Urine RBC > 100 SEEN, Urine WBC 0-5 SEEN 05/18/21 12:20: Troponin I 4.970 H* 05/18/21 12:25: Lactic Acid 1.4 05/18/21 16:20: APTT > 250.0 H* 05/19/21 00:50: APTT > 250.0 H* 05/19/21 03:24: WBC 14.1 H, RBC 3.23 L, Hgb 10.0 L, Hct 31.2 L, MCV 96.6 H, MCH 31.0, MCHC 32.1, Plt Count 197, MPV 10.4, Immature Gran % (Auto) 0.600, Neut % (Auto) 82.6 H, Lymph % (Auto) 8.2 L, [place] % (Auto) 8.4, Eos % (Auto) 0.0, Baso % (Auto) 0.2, Absolute Neuts (auto) 11.6 H, Nucleated RBC % 0 05/19/21 03:24: Sodium 141, Potassium 4.1, Chloride 104, Carbon Dioxide 30.0, Anion Gap 7, BUN 46 H, Creatinine 1.82 H, Est GFR (MDRD) Af Amer 47 L, Est GFR (MDRD) Non-Af 39 L, BUN/Creatinine Ratio 25.3 H, Glucose 174 H, Calcium 8.2 L, Phosphorus 4.8, Magnesium 2.1, Total Bilirubin 0.50, Triglycerides 89, Cholesterol 93, LDL Cholesterol 24, VLDL Cholesterol 18, HDL Cholesterol 51 05/19/21 06:10: pH 7.43, Bicarbonate Actual 25.2, Base Excess 1, O2 Saturation 93 L, ABG pCO2 37.7, ABG pO2 66 L, [place] Test Positive Rhythm: EKG: Sinus tachycardia ECHO: Stress Test: Cardiac Cath: PCI: CT Surgery: Holter monitor: EPS: PPM: CXR: Chest CT Scan: Radiography Diagnostic Testing: Radiology Impression Chest X-Ray 05/18/21 06:49 IMPRESSION: Moderate pulmonary vascular congestion with a moderate right pleural effusion. Electronically Signed: Riley Sotelo MD at 8:24 EDT Tel , Service support , Chest X-Ray 05/18/21 07:46 IMPRESSION: Satisfactory position of support lines and tubes. Otherwise, no significant change. Electronically Signed: Riley Sotelo MD at 8:25 EDT Tel , Service support , Chest X-Ray 05/18/21 09:34 IMPRESSION: Stable exam. No pneumothorax Electronically Signed: Riley Sotelo MD at 11:07 EDT Tel , Service support , Chest X-Ray 05/19/21 05:05 IMPRESSION: Stable moderate to large right pleural effusion with right greater than left bibasilar opacification. at 0704 Reported and signed by: Bart Thompson MD Electronically Signed: Bart Thompson MD at 7:03 EDT Tel , Service support , Physical Exam Const oriented x3 and healthy appearing Orientation / Consciousness: awake HEENT normocephalic Eyes PERRL and conjunctivae normal Neck supple, no JVD and no carotid bruits Chest inspection of chest normal Resp normal respiratory effort and clear to auscultation bilaterally Cardio Palpation: normal PMI Rate: regular rate Rhythm: regular rhythm Heart Sounds: S1 normal and S2 normal Peripheral Pulses: pulses 2+ throughout GI normal to inspection, nondistended, normoactive bowel sounds Extremity normal to inspection and no clubbing, cyanosis or edema Psych mental status grossly normal Assessment & Plan Assessment/Plan (1) Non-STEMI (non-ST elevated myocardial infarction): PLAN: He has a non-ST elevation myocardial infarction and his cardiac catheterization demonstrated a high-grade LAD lesion as well as a 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 The films will be reviewed. It appears from the interventional note that the patient will be considered for interval PCI of the LAD. I will discuss this further with the family. At this particular time I would suggest that we hold the heparin Attempt to transition him to clopidogrel Start beta-cristobal Obtain echocardiogram to assess ventricular function High intensity statin (2) Shortness of breath: PLAN: Patient was noted to have presented with a non-ST elevation myocardial infarction and heart failure. His left ventricular systolic function will be reevaluated. He will be given appropriate diuretics. I will suggest discontinuing the hydrochlorothiazide and started him on Lasix instead.
[2021-05-19 08:20] LABS: Bedside Glucose 199 mg/dL (70-110)
[2021-05-19 08:21] LABS: Partial Thromboplast Time 151.8 Seconds (24.1-36.2)
[2021-05-19 08:49] LABS: BNP,B-Type NATRIURETIC PEPTIDE 745.9 pg/mL (0-100)
[2021-05-19] MEDS: TITRATION PARAMETER CHANGE 1 EACH IV (10:24)
--- NOTE | 2021-05-19 11:17 | PN.HOSP_ITS ---
Subjective Subjective Patient was able to be extubated to BiPAP this morning. Initially was placed on nasal cannula but suffered from some worsening respiratory distress and therefore was placed on noninvasive ventilation to which he is responding well. He has no current complaints. He is developed some hematuria. He has had 2 PTTs that have been supratherapeutic and therefore his heparin is currently on hold. Of note he also had a traumatic Cruz placement. Objective Data Objective Data Vital Signs: Vital Signs Temp Pulse Resp BP Pulse Ox 100.1 F H 88 28 H 169/75 H 96 05/19/21 07:00 05/19/21 09:00 05/19/21 09:00 05/19/21 07:00 05/19/21 09:00 Oxygen Flow Rate (L/min) 4 Oxygen Delivery Method Bi-pap Weight: 132.4 kg Body Mass Index (BMI) 41.1 Intake & Output: Intake and Output for Last 24 Hours 05/17/21 05/18/21 05/19/21 23:59 23:59 23:59 Intake Total 1256.33 / 1256.33 413.96 / 413.96 Output Total 550 / 1400 1000 / 1000 Balance 706.33 / -143.67 -586.04 / -586.04 Lab / Micro Data Result Diagrams: 05/19/21 03:24 05/19/21 03:24 Labs: Laboratory Results - last 24 hr 05/18/21 05/18/21 05/18/21 10:20 12:20 12:25 WBC RBC Hgb Hct MCV MCH MCHC RDW Std Deviation RDW Coeff of Favian Plt Count MPV Immature Gran % (Auto) Neut % (Auto) Lymph % (Auto) [place] % (Auto) Eos % (Auto) Baso % (Auto) Absolute Neuts (auto) Absolute Lymphs (auto) Nucleated RBC % APTT Sodium Potassium Chloride Carbon Dioxide Anion Gap BUN Creatinine Estim Creat Clear Calc Est GFR (MDRD) Af Amer Est GFR (MDRD) Non-Af BUN/Creatinine Ratio Glucose Hemoglobin A1c Lactic Acid 1.4 Calcium Phosphorus Magnesium Total Bilirubin AST ALT Alkaline Phosphatase Troponin I 4.970 H* B-Natriuretic Peptide Total Protein Albumin Globulin Albumin/Globulin Ratio Triglycerides Cholesterol LDL Cholesterol VLDL Cholesterol HDL Cholesterol TSH MRSA (PCR) Negative POC Glucose 05/18/21 05/18/21 05/19/21 16:20 17:15 00:18 WBC RBC Hgb Hct MCV MCH MCHC RDW Std Deviation RDW Coeff of Favian Plt Count MPV Immature Gran % (Auto) Neut % (Auto) Lymph % (Auto) [place] % (Auto) Eos % (Auto) Baso % (Auto) Absolute Neuts (auto) Absolute Lymphs (auto) Nucleated RBC % APTT > 250.0 H* Sodium Potassium Chloride Carbon Dioxide Anion Gap BUN Creatinine Estim Creat Clear Calc Est GFR (MDRD) Af Amer Est GFR (MDRD) Non-Af BUN/Creatinine Ratio Glucose Hemoglobin A1c Lactic Acid Calcium Phosphorus Magnesium Total Bilirubin AST ALT Alkaline Phosphatase Troponin I B-Natriuretic Peptide Total Protein Albumin Globulin Albumin/Globulin Ratio Triglycerides Cholesterol LDL Cholesterol VLDL Cholesterol HDL Cholesterol TSH MRSA (PCR) POC Glucose 198 H 181 H 05/19/21 05/19/21 05/19/21 00:50 03:24 03:24 WBC 14.1 H RBC 3.23 L Hgb 10.0 L Hct 31.2 L MCV 96.6 H MCH 31.0 MCHC 32.1 RDW Std Deviation 52.6 H RDW Coeff of Favian 14.6 Plt Count 197 MPV 10.4 Immature Gran % (Auto) 0.600 Neut % (Auto) 82.6 H Lymph % (Auto) 8.2 L [place] % (Auto) 8.4 Eos % (Auto) 0.0 Baso % (Auto) 0.2 Absolute Neuts (auto) 11.6 H Absolute Lymphs (auto) 1.16 Nucleated RBC % 0 APTT > 250.0 H* Sodium 141 Potassium 4.1 Chloride 104 Carbon Dioxide 30.0 Anion Gap 7 BUN 46 H Creatinine 1.82 H Estim Creat Clear Calc 36.21 Est GFR (MDRD) Af Amer 47 L Est GFR (MDRD) Non-Af 39 L BUN/Creatinine Ratio 25.3 H Glucose 174 H Hemoglobin A1c Lactic Acid Calcium 8.2 L Phosphorus 4.8 Magnesium 2.1 Total Bilirubin 0.50 AST 32 ALT 16 Alkaline Phosphatase 59 Troponin I B-Natriuretic Peptide Total Protein 5.5 L Albumin 2.1 L Globulin 3.4 Albumin/Globulin Ratio 0.6 L Triglycerides 89 Cholesterol 93 LDL Cholesterol 24 VLDL Cholesterol 18 HDL Cholesterol 51 TSH 0.44 MRSA (PCR) POC Glucose 05/19/21 05/19/21 05/19/21 03:24 03:24 07:50 WBC RBC Hgb Hct MCV MCH MCHC RDW Std Deviation RDW Coeff of Favian Plt Count MPV Immature Gran % (Auto) Neut % (Auto) Lymph % (Auto) [place] % (Auto) Eos % (Auto) Baso % (Auto) Absolute Neuts (auto) Absolute Lymphs (auto) Nucleated RBC % APTT 151.8 H* Sodium Potassium Chloride Carbon Dioxide Anion Gap BUN Creatinine Estim Creat Clear Calc Est GFR (MDRD) Af Amer Est GFR (MDRD) Non-Af BUN/Creatinine Ratio Glucose Hemoglobin A1c 6.0 H Lactic Acid Calcium Phosphorus Magnesium Total Bilirubin AST ALT Alkaline Phosphatase Troponin I B-Natriuretic Peptide 745.9 H Total Protein Albumin Globulin Albumin/Globulin Ratio Triglycerides Cholesterol LDL Cholesterol VLDL Cholesterol HDL Cholesterol TSH MRSA (PCR) POC Glucose 05/19/21 08:14 WBC RBC Hgb Hct MCV MCH MCHC RDW Std Deviation RDW Coeff of Favian Plt Count MPV Immature Gran % (Auto) Neut % (Auto) Lymph % (Auto) [place] % (Auto) Eos % (Auto) Baso % (Auto) Absolute Neuts (auto) Absolute Lymphs (auto) Nucleated RBC % APTT Sodium Potassium Chloride Carbon Dioxide Anion Gap BUN Creatinine Estim Creat Clear Calc Est GFR (MDRD) Af Amer Est GFR (MDRD) Non-Af BUN/Creatinine Ratio Glucose Hemoglobin A1c Lactic Acid Calcium Phosphorus Magnesium Total Bilirubin AST ALT Alkaline Phosphatase Troponin I B-Natriuretic Peptide Total Protein Albumin Globulin Albumin/Globulin Ratio Triglycerides Cholesterol LDL Cholesterol VLDL Cholesterol HDL Cholesterol TSH MRSA (PCR) POC Glucose 199 H Micro: Microbiology 05/18/21 06:55 Blood Culture (Wb) - Anticubital Right Blood Culture - Preliminary 05/18/21 10:10 Sputum, Induced/[place]uk[place] Gram Stain - Final 05/18/21 07:15 Mucosa - Nose SARS-CoV-2 Antigen (Rapid) - Final 05/18/21 06:55 Stool Stool Occult Blood (SOFIE) - Final ABG Data ABG results: ABG 05/19/21 06:10 Specimen Type ART Sample Site L Radial pH 7.43 Bicarbonate Actual 25.2 Total CO2 26 Base Excess 1 O2 Saturation 93 L O2 % 30 ABG pCO2 37.7 ABG pO2 66 L [place] Test Positive O2 Delivery Device Adult Vent Vent Mode CPAP/PS POC PEEP 5 POC Pressure Suppt 5 Radiography Diagnostic Testing: Radiology Impression Chest X-Ray 05/19/21 05:05 IMPRESSION: Stable moderate to large right pleural effusion with right greater than left bibasilar opacification. at 0704 Reported and signed by: Bart Thompson MD Electronically Signed: Bart Thompson MD at 7:03 EDT Tel , Service support , Physical Exam Const alert and no apparent distress Constitutional Narrative: Obese, white older white male lying in bed, currently on noninvasive ventilation, nursing at bedside, Cruz in place with hematuria noted Exam Limitations: other limitations HEENT head/scalp atraumatic, moist oral mucous membranes and oropharynx normal HEENT Narrative: Mallampati 2-3, edentulous, no thrush Head and Scalp: normocephalic Mouth: oral and palatal mucosa normal Eyes PERRL, EOMs intact bilaterally and conjunctivae normal Neck no lymphadenopathy, supple and no JVD Resp no retractions and no use of accessory muscles Resp Narrative: Distant and diminished bilateral breath sounds Cardio regular rate, regular rhythm, S1 normal heart sound, S2 normal heart sound, no murmurs, no rub, no gallops, no clicks and no JVD GI normal to inspection, nondistended, normoactive bowel sounds, soft to palpation, non-tender and non-distended GI Narrative: Obese Extremity Extremity Narrative: 1+ bilateral upper extremity and lower extremity edema- pitting, no cyanosis or clubbing General Extremity: edema Peripheral Pulses: Yes pulses 2+ throughout Skin no rashes or lesions noted, skin turgor normal, no jaundice, no petechiae and no mottling Skin Narrative: Bilateral feet right greater than left with lesions/blisters on toes-none look infected, some nail growth into the skin tissue Neuro CN's II-XII intact bilaterally, moves all extremities and no focal motor deficits Sensorium / Orientation: awake and alert Speech: speech normal Psych Psych Narrative: Affect is flat but suspect this is related to his acute illness Assessment & Plan Assessment/Plan (1) Severe sepsis: (2) Acute respiratory failure with hypoxia and hypercapnia: (3) CKD stage G3b/A1, GFR 30-44 and albumin creatinine ratio <30 mg/g: (4) Non-STEMI (non-ST elevated myocardial infarction): (5) Lactic acidosis: PLAN: Severe sepsis -Continue broad-spectrum antibiotics -Consult infectious disease -Urine and sputum culture is pending -Blood culture pending -Patient does also have bilateral lower extremity diabetic foot wounds that could be a source -Consult podiatry -Wound care is following -May need to consider MRI of bilateral feet if other etiology for sepsis is not ascertained Acute hypoxic and hypercapnic respiratory failure -Precipitating etiology is unclear at this time although may relate to sepsis/heart failure -Chest x-ray does appear to show some volume overload -Continue broad-spectrum antibiotics until cultures have been resulted -Wean oxygen as able -We will need to rule out PE at some point -Await creatinine improvement for CTA -Continue heparin drip per protocol -VQ scan will be of limited help given abnormal chest x-ray -BNP is markedly elevated in the last 24 hours -Lasix was initiated by cardiology -Speech therapy to evaluate for dysphagia following extubation Hematuria -Suspect related to traumatic Cruz insertion and supratherapeutic PTT -Irrigate as needed -Heparin drip on hold given supratherapeutic PTT and to restart at lower dose -If does not improve may need to consider urology evaluation NSTEMI -Cardiac catheterization was performed and demonstrated a 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 -Interval PCI to the LAD will likely be recommended--> will likely need to await recovery of renal function -Echocardiogram ordered -Metoprolol per cardiology -Initiation of Plavix by cardiology -High intensity statin initiated -Lasix -Troponin peaked at 5 Chronic anemia -Slight drop in hemoglobin -Monitor closely with PTT being supratherapeutic -Baseline hemoglobin appears to be 11-11.5 BARBARA on CKD stage IIIb -Slight uptrend in the last 24 hours -Suspect related to contrast -Baseline serum creatinine appears to be 1.5-1.7 -Repeat in a.m. HTN/HPL -Increase statin to 80 mg daily -Continue metoprolol 25 mg twice daily -Continue Lasix -Monitor BP DM-2 -Hemoglobin A1c was 6.0 -Continue current management MO -BMI is 41.8 -Complicates overall medical care and prognosis Anxiety/depression -Home medications currently on hold -Continue to monitor DVT prophylaxis -Full anticoagulation CODE STATUS -Full code Charges/Coding Visit Charges Inpatient E&M: 21327 Init Hosp L3
--- NOTE | 2021-05-19 11:35 | NURSING ---
wound photo: left great toe
--- NOTE | 2021-05-19 11:37 | NURSING ---
wound photo: right foot
--- NOTE | 2021-05-19 11:37 | NURSING ---
wound photo: right foot
[2021-05-19 11:51] LABS: Bedside Glucose 175 mg/dL (70-110)
[2021-05-19 13:20] LABS: Bedside Glucose 158 mg/dL (70-110)
--- NOTE | 2021-05-19 13:53 | CON.PCM.ID_ITS ---
Assessment & Plan Assessment/Plan (1) Severe sepsis: PLAN: severe sepsis, improving, off vent now. On empiric vanc/zosyn. Podiatry to see. May need R foot MRI. UA with only 0-5 wbc. Sputum cx pending. CXR shows mod/large R sided effusion, may need thoracentesis. Ucx with some ecoli. Will follow, thank you (2) Acute hypoxemic respiratory failure: HPI Consult Data Date of Consult: 05/19/21 HPI Narrative HPI Narrative: MAURI TOWNSEND, is a 76 M who presented with 2 weeks of SOB, came to ED, fever to 101.1, covid was neg, intubated and admitted to icu on vanc /zosyn and hep gtt. Now extubated, unable to provide history or ROS due to lethargy. FORMERLY [facility] Medical History Acute on chronic heart failure Anemia Atherosclerotic heart disease of [place] coronary artery without angina pectoris Bipolar 1 disorder Chronic kidney disease Diabetes Essential (primary) hypertension Hyperlipidemia Home Medications aspirin 81 mg PO DAILY@0800 12/13/16 [History Last Taken Unknown] bupropion HCl 100 mg PO BID 12/13/16 [History Last Taken Unknown] divalproex [Depakote] 500 mg PO BID 12/13/16 [History Last Taken Unknown] folic acid 1 mg PO DAILY@0800 12/13/16 [History Last Taken Unknown] hydrochlorothiazide 50 mg PO DAILY 12/13/16 [History Last Taken Unknown] insulin lispro protamin-lispro [Humalog Mix 75-25 Kwikpen] 16 unit SQ BREAKFAST 12/13/16 [History Last Taken Unknown] lisinopril [Zestril] 20 mg PO DAILY 12/13/16 [History Last Taken Unknown] lorazepam 1 mg PO DAILY PRN PRN 12/13/16 [History Last Taken Unknown] pioglitazone 45 mg PO DAILY 12/13/16 [History Last Taken Unknown] pravastatin 20 mg PO QHS 12/13/16 [History Last Taken Unknown] albuterol sulfate 1 - 2 puff INHALATION Q4H PRN PRN #1 inhaler 06/20/19 [Rx Last Taken Unknown] insulin lispro protamin-lispro 16 unit SQ DINNER 06/20/19 [History Last Taken Unknown] diltiazem HCl [Cartia XT] 180 mg PO DAILY 05/18/21 [History Last Taken Unknown] iron ps [id number] acid [Poly-Iron 150 Forte] 1 cap PO DAILY 05/18/21 [History Last Taken Unknown] multivitamin 1 tab PO DAILY 05/18/21 [History Last Taken Unknown] Allergy/AdvReac Type Severity Reaction Status Date / Time No Known Allergies Allergy Verified 05/18/21 07:55 Surgical History (Updated 05/19/21 @ 11:16 by Daphne [place]) History of left heart catheterization (05/19/21) Social History Smoking Status: Never smoker Physical Exam Const Constitutional Narrative: oriented x1 General Appearance: lethargic HEENT normocephalic and head/scalp atraumatic Eyes PERRL and EOMs intact bilaterally Neck supple and No nodes Resp Auscultation: diminished lung sounds Cardio regular rate and regular rhythm GI normal to inspection, nondistended, normoactive bowel sounds Extremity General Extremity: edema Skin Skin Narrative: R 1st and 2nd toes with shallow dry ulcers Neuro CN's II-XII intact bilaterally Lab / Micro Data Result Diagrams: 05/19/21 03:24 05/19/21 03:24 Labs: Laboratory Results - last 24 hr 05/18/21 05/18/21 05/18/21 10:20 16:20 17:15 WBC RBC Hgb Hct MCV MCH MCHC RDW Std Deviation RDW Coeff of Favian Plt Count MPV Immature Gran % (Auto) Neut % (Auto) Lymph % (Auto) [place] % (Auto) Eos % (Auto) Baso % (Auto) Absolute Neuts (auto) Absolute Lymphs (auto) Nucleated RBC % APTT > 250.0 H* Sodium Potassium Chloride Carbon Dioxide Anion Gap BUN Creatinine Estim Creat Clear Calc Est GFR (MDRD) Af Amer Est GFR (MDRD) Non-Af BUN/Creatinine Ratio Glucose Hemoglobin A1c Calcium Phosphorus Magnesium Total Bilirubin AST ALT Alkaline Phosphatase B-Natriuretic Peptide Total Protein Albumin Globulin Albumin/Globulin Ratio Triglycerides Cholesterol LDL Cholesterol VLDL Cholesterol HDL Cholesterol TSH Urine Color Red Urine Clarity Cloudy Urine pH 5.0 Ur Specific [place] 1.010 Urine Protein 500 H Urine Glucose (UA) Normal Urine Ketones Negative Urine Occult Blood 250 H Urine Nitrite Negative Urine Bilirubin Negative Urine Urobilinogen Normal Ur Leukocyte Esterase 500 H Urine RBC > 100 SEEN Urine WBC 0-5 SEEN Ur Squamous Epith Cells 0 SEEN Urine Bacteria RARE Urine Mucus 0 SEEN POC Glucose 198 H 05/19/21 05/19/21 05/19/21 00:18 00:50 03:24 WBC 14.1 H RBC 3.23 L Hgb 10.0 L Hct 31.2 L MCV 96.6 H MCH 31.0 MCHC 32.1 RDW Std Deviation 52.6 H RDW Coeff of Favian 14.6 Plt Count 197 MPV 10.4 Immature Gran % (Auto) 0.600 Neut % (Auto) 82.6 H Lymph % (Auto) 8.2 L Ashley % (Auto) 8.4 Eos % (Auto) 0.0 Baso % (Auto) 0.2 Absolute Neuts (auto) 11.6 H Absolute Lymphs (auto) 1.16 Nucleated RBC % 0 APTT > 250.0 H* Sodium Potassium Chloride Carbon Dioxide Anion Gap BUN Creatinine Estim Creat Clear Calc Est GFR (MDRD) Af Amer Est GFR (MDRD) Non-Af BUN/Creatinine Ratio Glucose Hemoglobin A1c Calcium Phosphorus Magnesium Total Bilirubin AST ALT Alkaline Phosphatase B-Natriuretic Peptide Total Protein Albumin Globulin Albumin/Globulin Ratio Triglycerides Cholesterol LDL Cholesterol VLDL Cholesterol HDL Cholesterol TSH Urine Color Urine Clarity Urine pH Ur Specific [place] Urine Protein Urine Glucose (UA) Urine Ketones Urine Occult Blood Urine Nitrite Urine Bilirubin Urine Urobilinogen Ur Leukocyte Esterase Urine RBC Urine WBC Ur Squamous Epith Cells Urine Bacteria Urine Mucus POC Glucose 181 H 05/19/21 05/19/21 05/19/21 03:24 03:24 03:24 WBC RBC Hgb Hct MCV MCH MCHC RDW Std Deviation RDW Coeff of Favian Plt Count MPV Immature Gran % (Auto) Neut % (Auto) Lymph % (Auto) Ashley % (Auto) Eos % (Auto) Baso % (Auto) Absolute Neuts (auto) Absolute Lymphs (auto) Nucleated RBC % APTT Sodium 141 Potassium 4.1 Chloride 104 Carbon Dioxide 30.0 Anion Gap 7 BUN 46 H Creatinine 1.82 H Estim Creat Clear Calc 36.21 Est GFR (MDRD) Af Amer 47 L Est GFR (MDRD) Non-Af 39 L BUN/Creatinine Ratio 25.3 H Glucose 174 H Hemoglobin A1c 6.0 H Calcium 8.2 L Phosphorus 4.8 Magnesium 2.1 Total Bilirubin 0.50 AST 32 ALT 16 Alkaline Phosphatase 59 B-Natriuretic Peptide 745.9 H Total Protein 5.5 L Albumin 2.1 L Globulin 3.4 Albumin/Globulin Ratio 0.6 L Triglycerides 89 Cholesterol 93 LDL Cholesterol 24 VLDL Cholesterol 18 HDL Cholesterol 51 TSH 0.44 Urine Color Urine Clarity Urine pH Ur Specific [place] Urine Protein Urine Glucose (UA) Urine Ketones Urine Occult Blood Urine Nitrite Urine Bilirubin Urine Urobilinogen Ur Leukocyte Esterase Urine RBC Urine WBC Ur Squamous Epith Cells Urine Bacteria Urine Mucus POC Glucose 05/19/21 05/19/21 05/19/21 06:23 07:50 08:14 WBC RBC Hgb Hct MCV MCH MCHC RDW Std Deviation RDW Coeff of Favian Plt Count MPV Immature Gran % (Auto) Neut % (Auto) Lymph % (Auto) [place] % (Auto) Eos % (Auto) Baso % (Auto) Absolute Neuts (auto) Absolute Lymphs (auto) Nucleated RBC % APTT 151.8 H* Sodium Potassium Chloride Carbon Dioxide Anion Gap BUN Creatinine Estim Creat Clear Calc Est GFR (MDRD) Af Amer Est GFR (MDRD) Non-Af BUN/Creatinine Ratio Glucose Hemoglobin A1c Calcium Phosphorus Magnesium Total Bilirubin AST ALT Alkaline Phosphatase B-Natriuretic Peptide Total Protein Albumin Globulin Albumin/Globulin Ratio Triglycerides Cholesterol LDL Cholesterol VLDL Cholesterol HDL Cholesterol TSH Urine Color Urine Clarity Urine pH Ur Specific [place] Urine Protein Urine Glucose (UA) Urine Ketones Urine Occult Blood Urine Nitrite Urine Bilirubin Urine Urobilinogen Ur Leukocyte Esterase Urine RBC Urine WBC Ur Squamous Epith Cells Urine Bacteria Urine Mucus POC Glucose 175 H 199 H 05/19/21 13:05 WBC RBC Hgb Hct MCV MCH MCHC RDW Std Deviation RDW Coeff of Favian Plt Count MPV Immature Gran % (Auto) Neut % (Auto) Lymph % (Auto) Ashley % (Auto) Eos % (Auto) Baso % (Auto) Absolute Neuts (auto) Absolute Lymphs (auto) Nucleated RBC % APTT Sodium Potassium Chloride Carbon Dioxide Anion Gap BUN Creatinine Estim Creat Clear Calc Est GFR (MDRD) Af Amer Est GFR (MDRD) Non-Af BUN/Creatinine Ratio Glucose Hemoglobin A1c Calcium Phosphorus Magnesium Total Bilirubin AST ALT Alkaline Phosphatase B-Natriuretic Peptide Total Protein Albumin Globulin Albumin/Globulin Ratio Triglycerides Cholesterol LDL Cholesterol VLDL Cholesterol HDL Cholesterol TSH Urine Color Urine Clarity Urine pH Ur Specific [place] Urine Protein Urine Glucose (UA) Urine Ketones Urine Occult Blood Urine Nitrite Urine Bilirubin Urine Urobilinogen Ur Leukocyte Esterase Urine RBC Urine WBC Ur Squamous Epith Cells Urine Bacteria Urine Mucus POC Glucose 158 H Micro: Microbiology 05/18/21 10:10 Gram Stain - Final Sputum, Induced/Lukens Respiratory Culture - Preliminary Culture exhibits no growth. 05/18/21 10:20 Urine Culture - Preliminary Urine Catheter - Cruz Presumptive E. coli 05/18/21 06:55 Blood Culture - Preliminary Blood Culture (Wb) - Anticubital Right ABG Data ABG results: ABG 05/19/21 06:10 Specimen Type ART Sample Site L Radial pH 7.43 Bicarbonate Actual 25.2 Total CO2 26 Base Excess 1 O2 Saturation 93 L O2 % 30 ABG pCO2 37.7 ABG pO2 66 L [place] Test Positive O2 Delivery Device Adult Vent Vent Mode CPAP/PS POC PEEP 5 POC Pressure Suppt 5 Radiology Impression Chest X-Ray 05/19/21 05:05 IMPRESSION: Stable moderate to large right pleural effusion with right greater than left bibasilar opacification. at 0704 Reported and signed by: Bart Thompson MD Electronically Signed: Bart Thompson MD at 7:03 EDT Tel , Service support , Echocardiogram 05/19/21 05:55 Interpretation Summary Normal LV size. The estimated ejection fraction is 50 %. Stage 1 diastolic dysfunction. Mild segmental systolic dysfunction (see wall motion). Contrast injection was performed. Ordering Physician: Andry Chavez Referring Physician: Jaycob Kumar Performed By: Diana Pollock, RDCS, RVT
--- NOTE | 2021-05-19 14:15 | CASEMGMT ---
RON KRUSE Face to Face with patient for initial transition planning/care coordination assessment. RN CM introduced self and role at [facility]. Patient lying in bed, alert and oriented. Patient willing to participate in assessment and is able to answer all questions appropriately. Care providers, pharmacy, and demographics verified. Patient wishes to discharge home, unsure of HHC at discharge at this time, will monitor progress with therapy. Patient states he has no further needs or concerns at this time. CM to follow for discharge planning needs that may arise. PCP: José Specialists: psychiatrist Tyra Preferred Pharmacy: [facility] Insurance: [employer] Prescription Benefit: yes Living Will/HPOA: yes, Sonali Davis LNOK: , daughter, son Living Arrangements: Patient lives with in a 1st floor apartment with 2 steps and railing to enter the home. Patient states he was independent at home prior to hospitalization. Transportation: /son DME/HHC: Patient states he has shower chair, cane, and grab bars at home. Will monitor for need for walker at discharge. No previous HHC or SNF. Will monitor progress with therapy for possible HHC. Disposition Plan: Patient to discharge home with family support and follow-up plans in place. Monitor for HHC Rebecca BRADY, RN, CM
--- NOTE | 2021-05-19 14:36 | RAD_ITS ---
STUDY: X-RAY - left FOOT CLINICAL: Male, 76 years old. FOOT ULCERS AND INFECTION TECHNIQUE: view(s) of the foot. COMPARISON: None. FINDINGS: There is marked osteoporosis with osteoarthritis involving the intertarsal tarsal joints as well as some interphalangeal joint. No obvious signs of osteomyelitis seen on the left. Please note the the other foot x-ray that was reported as left foot was in fact the right foot that showed periosteal reaction of the fifth metatarsal and suspicious for osteomyelitis the rest of the findings on that report remain the same. Electronically Signed: Jeffry Ngo, at 9:33 EDT Tel , Service support , RAD/Foot min 3 Views
--- NOTE | 2021-05-19 14:43 | RAD_ITS ---
STUDY: X-RAY - LEFT FOOT CLINICAL: Male, 76 years old. foot ulcers and infection TECHNIQUE: view(s) of the foot. COMPARISON: None. FINDINGS: Marked osteoporosis present no fracture or dislocation identified. There is flexion deformities and osteoarthritis involving particularly the first metatarsophalangeal joint. Also there is osteoarthritis noted in the ankle joint. Arterial calcifications present. There is minimal periosteal reaction involving the fifth metatarsal. Osteomyelitis cannot be ruled out please correlate this finding clinically. Electronically Signed: Jeffry Ngo, at 9:09 EDT Tel , Service support , RAD/Foot min 3 Views
[2021-05-19] MEDS: Folic Acid 1 MG Tablet PO (14:52)
[2021-05-19] MEDS: Metoprolol Tartrate 25 MG Tablet PO ×2 (14:52→21:07)
[2021-05-19] MEDS: Clopidogrel Bisulfate 75 MG Tablet PO (14:53)
--- NOTE | 2021-05-19 15:20 | CHAPLAIN ---
Type of Pastoral Visit _x__ Initial Visit ___ Follow-up Visit ___ On-call Visit ___ General Patient Visit ___ Spiritual Assessment ___ Family Conference ___ Bereavement ___ Rapid Response ___ Code Blue ___ Other (describe below) Pastoral Care Referral From _x__ Patient ___ Family ___ Nurse ___ Physician ___ Lacquer Pin Press Operator ___ Ear Flap Binder ___ Other (describe below) Sacrament/Intervention _x__ Active listening ___ Anointing ___ Taoist ___ Bereavement ___ Communion ___ Elisa exploration ___ _x__ Life review _x__ Prayer ___ Reconciliation ___ Sacrament of Sick _x__ Supportive presence ___ Wedding ___ Other (describe below) Pastoral Comments patient is welcoming of visit and spiritual care; pt asks questions about spiritual heritage; pt requests prayer support and future visits as available; pt states that his 'hindu involvement' is limited to TV now and he appreciates someone to talk with about spiritual matters
--- NOTE | 2021-05-19 16:45 | PN.RENAL_ITS ---
Subjective Subjective Following for acute kidney injury on chronic kidney disease. The patient has been extubated. He is still requiring NIV intermittently. The patient denies current chest pain or shortness of breath at rest. He is tir ed. Objective Data Objective Data Vital Signs: Vital Signs Temp Pulse Resp BP Pulse Ox 99.6 F H 81 31 H 147/58 H 98 05/19/21 12:00 05/19/21 14:52 05/19/21 14:00 05/19/21 14:00 05/19/21 14:00 Oxygen Flow Rate (L/min) 4 Oxygen Delivery Method Nasal Cannula Weight: 132.4 kg Body Mass Index (BMI) 41.1 Intake & Output: Intake and Output for Last 24 Hours 05/17/21 05/18/21 05/19/21 23:59 23:59 23:59 Intake Total 1256.33 / 1256.33 648.46 / 648.46 Output Total 550 / 1400 1125 / 1125 Balance 706.33 / -143.67 -476.54 / -476.54 Lab / Micro Data Result Diagrams: 05/19/21 03:24 05/19/21 03:24 Labs: Laboratory Results - last 24 hr 05/18/21 05/18/21 05/18/21 10:20 16:20 17:15 WBC RBC Hgb Hct MCV MCH MCHC RDW Std Deviation RDW Coeff of Favian Plt Count MPV Immature Gran % (Auto) Neut % (Auto) Lymph % (Auto) [place] % (Auto) Eos % (Auto) Baso % (Auto) Absolute Neuts (auto) Absolute Lymphs (auto) Nucleated RBC % APTT > 250.0 H* Sodium Potassium Chloride Carbon Dioxide Anion Gap BUN Creatinine Estim Creat Clear Calc Est GFR (MDRD) Af Amer Est GFR (MDRD) Non-Af BUN/Creatinine Ratio Glucose Hemoglobin A1c Calcium Phosphorus Magnesium Total Bilirubin AST ALT Alkaline Phosphatase B-Natriuretic Peptide Total Protein Albumin Globulin Albumin/Globulin Ratio Triglycerides Cholesterol LDL Cholesterol VLDL Cholesterol HDL Cholesterol TSH Urine Color Red Urine Clarity Cloudy Urine pH 5.0 Ur Specific [place] 1.010 Urine Protein 500 H Urine Glucose (UA) Normal Urine Ketones Negative Urine Occult Blood 250 H Urine Nitrite Negative Urine Bilirubin Negative Urine Urobilinogen Normal Ur Leukocyte Esterase 500 H Urine RBC > 100 SEEN Urine WBC 0-5 SEEN Ur Squamous Epith Cells 0 SEEN Urine Bacteria RARE Urine Mucus 0 SEEN POC Glucose 198 H 05/19/21 05/19/21 05/19/21 00:18 00:50 03:24 WBC 14.1 H RBC 3.23 L Hgb 10.0 L Hct 31.2 L MCV 96.6 H MCH 31.0 MCHC 32.1 RDW Std Deviation 52.6 H RDW Coeff of Favian 14.6 Plt Count 197 MPV 10.4 Immature Gran % (Auto) 0.600 Neut % (Auto) 82.6 H Lymph % (Auto) 8.2 L [place] % (Auto) 8.4 Eos % (Auto) 0.0 Baso % (Auto) 0.2 Absolute Neuts (auto) 11.6 H Absolute Lymphs (auto) 1.16 Nucleated RBC % 0 APTT > 250.0 H* Sodium Potassium Chloride Carbon Dioxide Anion Gap BUN Creatinine Estim Creat Clear Calc Est GFR (MDRD) Af Amer Est GFR (MDRD) Non-Af BUN/Creatinine Ratio Glucose Hemoglobin A1c Calcium Phosphorus Magnesium Total Bilirubin AST ALT Alkaline Phosphatase B-Natriuretic Peptide Total Protein Albumin Globulin Albumin/Globulin Ratio Triglycerides Cholesterol LDL Cholesterol VLDL Cholesterol HDL Cholesterol TSH Urine Color Urine Clarity Urine pH Ur Specific [place] Urine Protein Urine Glucose (UA) Urine Ketones Urine Occult Blood Urine Nitrite Urine Bilirubin Urine Urobilinogen Ur Leukocyte Esterase Urine RBC Urine WBC Ur Squamous Epith Cells Urine Bacteria Urine Mucus POC Glucose 181 H 05/19/21 05/19/21 05/19/21 03:24 03:24 03:24 WBC RBC Hgb Hct MCV MCH MCHC RDW Std Deviation RDW Coeff of Favian Plt Count MPV Immature Gran % (Auto) Neut % (Auto) Lymph % (Auto) [place] % (Auto) Eos % (Auto) Baso % (Auto) Absolute Neuts (auto) Absolute Lymphs (auto) Nucleated RBC % APTT Sodium 141 Potassium 4.1 Chloride 104 Carbon Dioxide 30.0 Anion Gap 7 BUN 46 H Creatinine 1.82 H Estim Creat Clear Calc 36.21 Est GFR (MDRD) Af Amer 47 L Est GFR (MDRD) Non-Af 39 L BUN/Creatinine Ratio 25.3 H Glucose 174 H Hemoglobin A1c 6.0 H Calcium 8.2 L Phosphorus 4.8 Magnesium 2.1 Total Bilirubin 0.50 AST 32 ALT 16 Alkaline Phosphatase 59 B-Natriuretic Peptide 745.9 H Total Protein 5.5 L Albumin 2.1 L Globulin 3.4 Albumin/Globulin Ratio 0.6 L Triglycerides 89 Cholesterol 93 LDL Cholesterol 24 VLDL Cholesterol 18 HDL Cholesterol 51 TSH 0.44 Urine Color Urine Clarity Urine pH Ur Specific [place] Urine Protein Urine Glucose (UA) Urine Ketones Urine Occult Blood Urine Nitrite Urine Bilirubin Urine Urobilinogen Ur Leukocyte Esterase Urine RBC Urine WBC Ur Squamous Epith Cells Urine Bacteria Urine Mucus POC Glucose 05/19/21 05/19/21 05/19/21 06:23 07:50 08:14 WBC RBC Hgb Hct MCV MCH MCHC RDW Std Deviation RDW Coeff of Favian Plt Count MPV Immature Gran % (Auto) Neut % (Auto) Lymph % (Auto) [place] % (Auto) Eos % (Auto) Baso % (Auto) Absolute Neuts (auto) Absolute Lymphs (auto) Nucleated RBC % APTT 151.8 H* Sodium Potassium Chloride Carbon Dioxide Anion Gap BUN Creatinine Estim Creat Clear Calc Est GFR (MDRD) Af Amer Est GFR (MDRD) Non-Af BUN/Creatinine Ratio Glucose Hemoglobin A1c Calcium Phosphorus Magnesium Total Bilirubin AST ALT Alkaline Phosphatase B-Natriuretic Peptide Total Protein Albumin Globulin Albumin/Globulin Ratio Triglycerides Cholesterol LDL Cholesterol VLDL Cholesterol HDL Cholesterol TSH Urine Color Urine Clarity Urine pH Ur Specific [place] Urine Protein Urine Glucose (UA) Urine Ketones Urine Occult Blood Urine Nitrite Urine Bilirubin Urine Urobilinogen Ur Leukocyte Esterase Urine RBC Urine WBC Ur Squamous Epith Cells Urine Bacteria Urine Mucus POC Glucose 175 H 199 H 05/19/21 13:05 WBC RBC Hgb Hct MCV MCH MCHC RDW Std Deviation RDW Coeff of Favian Plt Count MPV Immature Gran % (Auto) Neut % (Auto) Lymph % (Auto) [place] % (Auto) Eos % (Auto) Baso % (Auto) Absolute Neuts (auto) Absolute Lymphs (auto) Nucleated RBC % APTT Sodium Potassium Chloride Carbon Dioxide Anion Gap BUN Creatinine Estim Creat Clear Calc Est GFR (MDRD) Af Amer Est GFR (MDRD) Non-Af BUN/Creatinine Ratio Glucose Hemoglobin A1c Calcium Phosphorus Magnesium Total Bilirubin AST ALT Alkaline Phosphatase B-Natriuretic Peptide Total Protein Albumin Globulin Albumin/Globulin Ratio Triglycerides Cholesterol LDL Cholesterol VLDL Cholesterol HDL Cholesterol TSH Urine Color Urine Clarity Urine pH Ur Specific [place] Urine Protein Urine Glucose (UA) Urine Ketones Urine Occult Blood Urine Nitrite Urine Bilirubin Urine Urobilinogen Ur Leukocyte Esterase Urine RBC Urine WBC Ur Squamous Epith Cells Urine Bacteria Urine Mucus POC Glucose 158 H Micro: Microbiology 05/18/21 10:10 Sputum, Induced/Lukens Gram Stain - Final 05/18/21 10:10 Sputum, Induced/Lukens Respiratory Culture - Preliminary Culture exhibits no growth. 05/18/21 10:20 Urine Catheter - Cruz Urine Culture - Preliminary Presumptive E. coli 05/18/21 06:55 Blood Culture (Wb) - Anticubital Right Blood Culture - Preliminary 05/18/21 07:15 Mucosa - Nose SARS-CoV-2 Antigen (Rapid) - Final 05/18/21 06:55 Stool Stool Occult Blood (SOFIE) - Final ABG Data ABG results: ABG 05/19/21 06:10 Specimen Type ART Sample Site L Radial pH 7.43 Bicarbonate Actual 25.2 Total CO2 26 Base Excess 1 O2 Saturation 93 L O2 % 30 ABG pCO2 37.7 ABG pO2 66 L [place] Test Positive O2 Delivery Device Adult Vent Vent Mode CPAP/PS POC PEEP 5 POC Pressure Suppt 5 Radiography Diagnostic Testing: Radiology Impression Chest X-Ray 05/19/21 05:05 IMPRESSION: Stable moderate to large right pleural effusion with right greater than left bibasilar opacification. at 0704 Reported and signed by: Bart Thompson MD Electronically Signed: Bart Thompson MD at 7:03 EDT Tel , Service support , Echocardiogram 05/19/21 05:55 Interpretation Summary Normal LV size. The estimated ejection fraction is 50 %. Stage 1 diastolic dysfunction. Mild segmental systolic dysfunction (see wall motion). Contrast injection was performed. Ordering Physician: Scott, Andry Referring Physician: Jaycob Kumar Performed By: Diana Pollock, ANDREW, RVT Physical Exam Narrative No acute distress Neck no JVD. Head atraumatic normocephalic Heart. S1-S2 RRR. Chest. Coarse breath sounds bilaterally. Abdomen. Slightly distended. Positive bowel sounds. Soft nontender no guarding or rebound Extremity. 1+ edema of lower extremities. Neurologic. Alert and oriented x3, NAD Assessment & Plan Assessment/Plan (1) BARBARA (acute kidney injury): PLAN: There is a slight increase in serum creatinine over the last 24 ho urs. This is likely due to hemodynamic changes in the renal circulation. The patient is likely slightly prerenal due to prior sepsis. There is no need to change treatment at this point since the patient is not oliguric. I will continue to monitor the patient on the current treatment. Recheck renal function panel again tomorrow. Current medications are appropriately dosed for his estimated creatinine clearance. (2) CKD stage G3b/A1, GFR 30-44 and albumin creatinine ratio <30 mg/g: PLAN: Baseline serum creatinine is around 1.5 to 1.6 mg/dL. (3) Acute respiratory failure with hypoxia and hypercapnia: PLAN: Management as per primary services. Okay from nephrology standpoint to continue furosemide. We will continue to monitor renal function and electrolytes. (4) Non-STEMI (non-ST elevated myocardial infarction): PLAN: On heparin drip. The patient is on aspirin and beta-cristobal. Cardiology is following. (5) Severe sepsis: PLAN: The patient is on Zosyn which is appropriately dosed for the current estimated creatinine clearance. (6) Lactic acidosis:
[2021-05-19 17:57] LABS: Urea Nitrogen, Urine 365 mg/dL (NO RANGE EST.)
--- NOTE | 2021-05-19 17:58 | CON.PCM_ITS ---
Assessment & Plan Assessment/Plan (1) Non-pressure chronic ulcer of other part of right foot with fat layer exposed: (2) Non-pressure chronic ulcer of other part of left foot limited to breakdown of skin: (3) Other specified peripheral vascular diseases: (4) Localized edema: (5) Type 2 diabetes mellitus with diabetic polyneuropathy: (6) Severe sepsis: (7) Delayed wound healing: PLAN: I reviewed and discussed his case today. Currently he is afebrile and his vital signs are stable. His recent sepsis status is noted and recently improving. He is now extubated and able to participate in a minimal manner in t he exam this evening. infection status: Multiple prior sources have been tested and cultures were reviewed. Blood culture neg so far, urine culture with e-coli, sputum culture pending. He has not had a foot culture yet. Post debridement and saline irrigation, cultures were obtained including aerobic, anaerobic, MRSA PCR from the right foot ulcer. It is noted infectious disease on consult antibiotic management as noted. On vancomycin and Zosyn. His white blood cell count is now over 14 and this has gradually increased over the past couple of days. Foot x- rays were reviewed (bilateral three views) without any osseous destruction adjacent to the ulcer sites, soft tissue emphysema or foreign bodies. There are also no fractures or dislocations. His vessel calcification is noted. If lack of clear infection source continues, an MRI of the right foot would be helpful without contrast to avoid any further kidney injury. There are no plans for lower extremity surgery at this time. Debridement: All ulcers on the right foot were debrided in a selective manner with a 3 mm curette with no increased ulcer size. Mild hematogenous drainage was performed and the debridement was used to remove nonviable slough and biofilm. Patient was applied to maintain hemostasis, and a dressing further provided. He provided verbal consent and tolerated this well. Dressing: I recommend Santyl and gauze right foot. No dressing required for the left foot. Wash: Soap and water Offloading: To keep direct pressure directly off of ulcer site. It is noted he is not ambulating at this time. Vascular: Noninvasive vascular studies were ordered including segmental leg and thigh pressures, LES, and systolic once he is stable. His vessel calcifications noted on his x-rays are noted. It is noted he is already on aspirin and Plavix. Edema: Suspected etiology of venous insufficiency versus lymphedema versus right-sided heart failure. Bilateral lower extremity REYMUNDO wraps are okay to continue at this time. Pain: His neuropathy is noted. His pain is controlled most of the time Host factors: His multiple comorbidities are noted including diabetes (A1c 6%), kidney disease, morbid obesity anemia, respiratory failure, hypertension, recent NSTEMI, hyperlipidemia. Medical and infectious management are noted. He has some delays in healing and will start a comprehensive wound healing plan. Nutrition: Shon nutritional supplementation was ordered to optimize healing. I answered all the patient's questions. Thank you for the consultation. Please do not hesitate to call if you have any questions. I will continue to follow him close while in house. Sandra Masters DPM, [facility] Note: [employer] speech recognition tile professional software was used to create portions of this document. Sound-alike and misspelled words, as well as other tile professional errors may be contained in the documentation. HPI Consult Data Date of Consult: 05/19/21 HPI Narrative Reason for Consultation: Foot ulcers HPI Narrative: MAURI TOWNSEND, is a 76 M was seen bedside in the intensive care unit for bilateral foot ulcers. He was admitted for sepsis and is undergoing a full work-up. He relates his right foot ulcers have been present for over 5 months. He has 5 out of 10 pain to the right foot ulcer site and no pain to bilateral legs. He denies form of prior wound treatment. He denies claudication report he does ambulate. He has neuropathy reports altered sensation. All are currently undergoing a breathing treatment and is able to talk in a limited manner. [facility] Medical History Acute on chronic heart failure Anemia Atherosclerotic heart disease of [place] coronary artery without angina pectoris Bipolar 1 disorder Chronic kidney disease Diabetes Essential (primary) hypertension Hyperlipidemia Home Medications aspirin 81 mg PO DAILY@0800 12/13/16 [History Last Taken Unknown] bupropion HCl 100 mg PO BID 12/13/16 [History Last Taken Unknown] divalproex [Depakote] 500 mg PO BID 12/13/16 [History Last Taken Unknown] folic acid 1 mg PO DAILY@0800 12/13/16 [History Last Taken Unknown] hydrochlorothiazide 50 mg PO DAILY 12/13/16 [History Last Taken Unknown] insulin lispro protamin-lispro [Humalog Mix 75-25 Kwikpen] 16 unit SQ BREAKFAST 12/13/16 [History Last Taken Unknown] lisinopril [Zestril] 20 mg PO DAILY 12/13/16 [History Last Taken Unknown] lorazepam 1 mg PO DAILY PRN PRN 12/13/16 [History Last Taken Unknown] pioglitazone 45 mg PO DAILY 12/13/16 [History Last Taken Unknown] pravastatin 20 mg PO QHS 12/13/16 [History Last Taken Unknown] albuterol sulfate 1 - 2 puff INHALATION Q4H PRN PRN #1 inhaler 06/20/19 [Rx Last Taken Unknown] insulin lispro protamin-lispro 16 unit SQ DINNER 06/20/19 [History Last Taken Unknown] diltiazem HCl [Cartia XT] 180 mg PO DAILY 05/18/21 [History Last Taken Unknown] iron ps [id number] [Poly-Iron 150 Forte] 1 cap PO DAILY 05/18/21 [History Last Taken Unknown] multivitamin 1 tab PO DAILY 05/18/21 [History Last Taken Unknown] Allergy/AdvReac Type Severity Reaction Status Date / Time No Known Allergies Allergy Verified 05/18/21 07:55 Surgical History (Updated 05/19/21 @ 11:16 by Daphne [place]) History of left heart catheterization (05/19/21) Social History Smoking Status: Never smoker ROS Constitutional Constitutional: Denies chills or fever(s) Respiratory/Chest Respiratory/Chest: Reports dyspnea and dyspnea on exertion Gastrointestinal Gastrointestinal: Denies abdominal pain, nausea or vomiting Musculoskeletal Musculoskeletal: Denies arthralgias or myalgias Neurologic Neurologic: Reports headache(s); Denies paresthesias or weakness Physical Exam Const alert and oriented x3 General Appearance: cooperative and lethargic HEENT normocephalic Extremity Extremity Narrative: No calf tenderness Compartments remain soft to palpate bilateral lower extremities Diminished pulses (PT DP bilateral) and capillary fill time is less than 4 seconds to all digits Muscle wasting noted Active range of motion digits and ankles in all directions noted Pain with also manipulation of the right wound sites foot General Extremity: edema and no tenderness to palpation of joints or extremities; Negative for cyanosis Skin Skin Narrative: no purulence, no streaking, no odor. His skin is hairless and atrophic. Dorsal right second toe ulcer measures 1.2 x 0.5 x 0.1 cm, distal right hallux 0.7 x 0.7 x 0.1 cm, distal second toe 0.5 x 0.7 x 0.1 cm, drained blister distal third toe with overlying skin left intact as a biological barrier. No necrosis or deep tissue exposure bilateral no interdigital maceration bilateral left foot has distal digital evidence of prior blisters without active drainage or exposed subcutaneous tissue bilateral lower extremity leg skin is indurated with hyperpigmentation; no calor General Skin Exam: Negative for erythema Neuro Neuro Narrative: lack of normal epicritic sensation via light touch is consistent with neuropathy status Psych cooperative and affect normal Lab / Micro Data Result Diagrams: 05/19/21 03:24 05/19/21 03:24 Labs: Laboratory Results - last 24 hr 05/18/21 05/19/21 05/19/21 10:20 00:18 00:50 WBC RBC Hgb Hct MCV MCH MCHC RDW Std Deviation RDW Coeff of Favian Plt Count MPV Immature Gran % (Auto) Neut % (Auto) Lymph % (Auto) [place] % (Auto) Eos % (Auto) Baso % (Auto) Absolute Neuts (auto) Absolute Lymphs (auto) Nucleated RBC % APTT > 250.0 H* Sodium Potassium Chloride Carbon Dioxide Anion Gap BUN Creatinine Estim Creat Clear Calc Est GFR (MDRD) Af Amer Est GFR (MDRD) Non-Af BUN/Creatinine Ratio Glucose Hemoglobin A1c Calcium Phosphorus Magnesium Total Bilirubin AST ALT Alkaline Phosphatase B-Natriuretic Peptide Total Protein Albumin Globulin Albumin/Globulin Ratio Triglycerides Cholesterol LDL Cholesterol VLDL Cholesterol HDL Cholesterol TSH Urine Color Red Urine Clarity Cloudy Urine pH 5.0 Ur Specific [place] 1.010 Urine Protein 500 H Urine Glucose (UA) Normal Urine Ketones Negative Urine Occult Blood 250 H Urine Nitrite Negative Urine Bilirubin Negative Urine Urobilinogen Normal Ur Leukocyte Esterase 500 H Urine RBC > 100 SEEN Urine WBC 0-5 SEEN Ur Squamous Epith Cells 0 SEEN Urine Bacteria RARE Urine Mucus 0 SEEN Urine Urea Nitrogen POC Glucose 181 H 05/19/21 05/19/21 05/19/21 03:24 03:24 03:24 WBC 14.1 H RBC 3.23 L Hgb 10.0 L Hct 31.2 L MCV 96.6 H MCH 31.0 MCHC 32.1 RDW Std Deviation 52.6 H RDW Coeff of Favian 14.6 Plt Count 197 MPV 10.4 Immature Gran % (Auto) 0.600 Neut % (Auto) 82.6 H Lymph % (Auto) 8.2 L [place] % (Auto) 8.4 Eos % (Auto) 0.0 Baso % (Auto) 0.2 Absolute Neuts (auto) 11.6 H Absolute Lymphs (auto) 1.16 Nucleated RBC % 0 APTT Sodium 141 Potassium 4.1 Chloride 104 Carbon Dioxide 30.0 Anion Gap 7 BUN 46 H Creatinine 1.82 H Estim Creat Clear Calc 36.21 Est GFR (MDRD) Af Amer 47 L Est GFR (MDRD) Non-Af 39 L BUN/Creatinine Ratio 25.3 H Glucose 174 H Hemoglobin A1c Calcium 8.2 L Phosphorus 4.8 Magnesium 2.1 Total Bilirubin 0.50 AST 32 ALT 16 Alkaline Phosphatase 59 B-Natriuretic Peptide 745.9 H Total Protein 5.5 L Albumin 2.1 L Globulin 3.4 Albumin/Globulin Ratio 0.6 L Triglycerides 89 Cholesterol 93 LDL Cholesterol 24 VLDL Cholesterol 18 HDL Cholesterol 51 TSH 0.44 Urine Color Urine Clarity Urine pH Ur Specific [place] Urine Protein Urine Glucose (UA) Urine Ketones Urine Occult Blood Urine Nitrite Urine Bilirubin Urine Urobilinogen Ur Leukocyte Esterase Urine RBC Urine WBC Ur Squamous Epith Cells Urine Bacteria Urine Mucus Urine Urea Nitrogen POC Glucose 05/19/21 05/19/21 05/19/21 03:24 06:23 07:50 WBC RBC Hgb Hct MCV MCH MCHC RDW Std Deviation RDW Coeff of Favian Plt Count MPV Immature Gran % (Auto) Neut % (Auto) Lymph % (Auto) [place] % (Auto) Eos % (Auto) Baso % (Auto) Absolute Neuts (auto) Absolute Lymphs (auto) Nucleated RBC % APTT 151.8 H* Sodium Potassium Chloride Carbon Dioxide Anion Gap BUN Creatinine Estim Creat Clear Calc Est GFR (MDRD) Af Amer Est GFR (MDRD) Non-Af BUN/Creatinine Ratio Glucose Hemoglobin A1c 6.0 H Calcium Phosphorus Magnesium Total Bilirubin AST ALT Alkaline Phosphatase B-Natriuretic Peptide Total Protein Albumin Globulin Albumin/Globulin Ratio Triglycerides Cholesterol LDL Cholesterol VLDL Cholesterol HDL Cholesterol TSH Urine Color Urine Clarity Urine pH Ur Specific [place] Urine Protein Urine Glucose (UA) Urine Ketones Urine Occult Blood Urine Nitrite Urine Bilirubin Urine Urobilinogen Ur Leukocyte Esterase Urine RBC Urine WBC Ur Squamous Epith Cells Urine Bacteria Urine Mucus Urine Urea Nitrogen POC Glucose 175 H 05/19/21 05/19/21 05/19/21 08:14 13:05 17:15 WBC RBC Hgb Hct MCV MCH MCHC RDW Std Deviation RDW Coeff of F[place] Plt Count MPV Immature Gran % (Auto) Neut % (Auto) Lymph % (Auto) [place] % (Auto) Eos % (Auto) Baso % (Auto) Absolute Neuts (auto) Absolute Lymphs (auto) Nucleated RBC % APTT Sodium Potassium Chloride Carbon Dioxide Anion Gap BUN Creatinine Estim Creat Clear Calc Est GFR (MDRD) Af Amer Est GFR (MDRD) Non-Af BUN/Creatinine Ratio Glucose Hemoglobin A1c Calcium Phosphorus Magnesium Total Bilirubin AST ALT Alkaline Phosphatase B-Natriuretic Peptide Total Protein Albumin Globulin Albumin/Globulin Ratio Triglycerides Cholesterol LDL Cholesterol VLDL Cholesterol HDL Cholesterol TSH Urine Color Urine Clarity Urine pH Ur Specific [place] Urine Protein Urine Glucose (UA) Urine Ketones Urine Occult Blood Urine Nitrite Urine Bilirubin Urine Urobilinogen Ur Leukocyte Esterase Urine RBC Urine WBC Ur Squamous Epith Cells Urine Bacteria Urine Mucus Urine Urea Nitrogen 365 POC Glucose 199 H 158 H Micro: Microbiology 05/18/21 10:10 Gram Stain - Final Sputum, Induced/Lukens Respiratory Culture - Preliminary Culture exhibits no growth. 05/18/21 10:20 Urine Culture - Preliminary Urine Catheter - Cruz Presumptive E. coli 05/18/21 06:55 Blood Culture - Preliminary Blood Culture (Wb) - Anticubital Right ABG Data ABG results: ABG 05/19/21 06:10 Specimen Type ART Sample Site L Radial pH 7.43 Bicarbonate Actual 25.2 Total CO2 26 Base Excess 1 O2 Saturation 93 L O2 % 30 ABG pCO2 37.7 ABG pO2 66 L [place] Test Positive O2 Delivery Device Adult Vent Vent Mode CPAP/PS POC PEEP 5 POC Pressure Suppt 5 Radiology Impression Chest X-Ray 05/19/21 05:05 IMPRESSION: Stable moderate to large right pleural effusion with right greater than left bibasilar opacification. at [id number] Reported and signed by: Bart Thompson MD Electronically Signed: Bart Thompson MD at 7:03 EDT Tel , Service support , Echocardiogram 05/19/21 05:55 Interpretation Summary Normal LV size. The estimated ejection fraction is 50 %. Stage 1 diastolic dysfunction. Mild segmental systolic dysfunction (see wall motion). Contrast injection was performed. Ordering Physician: Andry Chavez Referring Physician: Jaycob Kumar Performed By: Diana Pollock, ANDREW, RVT
[2021-05-19 18:01] LABS: Urine Sodium 14 mmol/L (Not Establ.)
--- NOTE | 2021-05-19 18:11 | ART_ITS ---
Reason For Study: Ulcer Procedure A bilateral lower extremity continuous wave Doppler with analog waveform analysis,segmental pressures,and ankle brachial indexes without exercise. Left Segmental Pressures Left brachial= 168mmHg. Left posterior tibial artery = >254mmHg. Left dorsalis pedis artery = >254mmHg. Left digit = 63 mmHg. The left dorsalis pedis waveforms are biphasic. The left posterior tibial artery waveforms are biphasic. Right Segmental Pressures Right posterior tibial artery = >254mmHg. Right dorsalis pedis artery = >254mmHg. The right dorsalis pedis waveforms are biphasic. The right posterior tibial artery waveforms are biphasic. Indices The right ankle brachial index by the dorsalis pedis is NC. The right ankle brachial index by the posterior tibial artery is NC. The left ankle brachial index by the dorsalis pedis is NC. The left ankle brachial index by the posterior tibial artery is NC. The left digital-brachial index is 0.38. VL/Lower Ext Art Exam w/o Exercis Interpretation Summary Limited evaluation secondary to artificially elevated systolic pressures bilate ral PT and DP analysis making ankle-brachial indices not possible. Bandages prohibited right digital brachial indices. Left digital brachial indices abnormal at 0.38 Bilateral posterior tibial and dorsalis pedis Doppler waveforms are noted to be biphasic which by themselves would be consistent with moderately severe arterial occlusive diseas e. Ordering Physician: Sandra Masters Referring Physician: Jaycob Kumar Performed By: Rebecca Reyes RVT and Student
[2021-05-19 18:31] LABS: Partial Thromboplast Time 39.7 Seconds (24.1-36.2)
[2021-05-19] MEDS: Heparin Injection (Vial) 5,000 UNIT/ML VIAL IV (19:30)
[2021-05-19] MEDS: Atorvastatin Calcium 80 MG Tablet PO (21:06)
--- NOTE | 2021-05-19 23:00 | NURSING ---
Pt cleaned of loose burgundy stool, dark red halo present on bedpad. While assessing pt, also noted deep bruising surrounding umbilicus, positive Stitzer's sign. Advised RON Pittman to stop heparin gtt and to notify hospitalist.
--- NOTE | 2021-05-19 23:10 | NURSING ---
came to bedside and assessed pt for himself, shown deep bruising around umbilicus. Order received to stop heparin gtt, no need for hemoccult. Additional orders received.
--- NOTE | 2021-05-19 23:14 | VDLE_ITS ---
Reason For Study: ELEVATED D DIMER RIGHT LEFT GSV is normal. GSV is normal. CFV is compressible, spontaneous, phasic, CFV is compressible, spontaneous, phasic, competent and demonstrates normal competent, and demonstrates normal augmentation. augmentation. FV is compressible, spontaneous, phasic, FV is compressible, spontaneous, phasic, competent and demonstrates normal competent and demonstrates normal augmentation. augmentation. POP V is compressible, spontaneous, phasic, POP V is compressible, spontaneous, phasic, competent and demonstrates normal competent and demonstrates normal augmentation. augmentation. T/P Trunk is compressible. T/P Trunk is compressible. PTV is compressible. PTV is compressible. RT PerV is compressible. LT PerV is compressible. Procedure This is a venous duplex using B-mode, color flow and spectral Doppler. Exam performed portable in ICU/CCU. The study was technically difficult. PT had difficulty tolerating probe compressions. The exam was diagnostic. A preliminary report was called and/or faxed to Isra RN & ICU. VL/Venous Duplex US - Surjit Extrem Interpretation Summary No evidence for acute deep venous thrombosis bilateral lower extremities with p atent and compressible bilateral great saphenous veins. The exam was noted to be technica lly difficult Ordering Physician: Jj Isidro Referring Physician: Annette Mueller Performed By: Diana Pollock, RDCS, RVT
--- NOTE | 2021-05-19 23:16 | PN.HOSP_ITS ---
Hospitalist Note Notified by nursing of bloody halo on saniya after pt had a BM, blood around mosqueda and new umbilical bruising. I evaluated the patient and the patient had bruising around his umbilicus, roughly 6cm in diameter (nursing demarcated the area). No blood in mosqueda catheter, but urine was a dark octavia. Saniya showed large brown BM but had a large light-red halo surrounding it. A/P: 1. bleeding * stool is not overtly bloody nor melanotic, but certainly blood was in the saniya as evidenced by the halo. Whether this is from his stool or blood noted around his Mos[place] catheter that may have saturated the saniya is unclear at this time. Hold on hemoccult as this is clearly blood on the saniya. * No active hematuria noted at this time. Continue to monitor. * New umbilical bruising per nursing. Unclear if related to insulin administration and concomitant heparin gtt. Area demarcated and will monitor. * Plan: stop heparin gtt for now, monitor H/H and coags, place SCDs, check duplex of LE for DVTs (refer to Dr. Crespo's note regarding VQ and CTA). * JULIEN pt's RNs.
[2021-05-19 23:34] LABS: Absolute Lymphocyte Count 1.05 X10^3/uL (0.83-4.51); Absolute Neutrophil Count 10.2 X10^3/uL (2.0-7.7); Basophil# 0.03 X10^3/uL; Basophil% 0.2 % (0-1); Hematocrit 30.5 % (40-54); Hemoglobin 9.4 g/dL (13.0-16.5); Lymphocyte # 1.05 X10^3/ul (0.83-4.51); Lymphocyte % 8.5 % (19-41); Mean Corp Hgb Conc 30.8 g/dL (32-36); Mean Corpuscular Volume 97.4 fL (80-94); Mean Platelet Vol. 10.7 fl (6.2-12.0); Monocyte# 1.04 X10^3/uL; Monocyte% 8.4 % (0-10); NRBC Flagged by Analyzer 0 % (0-5); Neutrophil # 10.23 X10^3/uL (2.7-7.7); Neutrophil % 82.3 % (47-70); Platelet Count 193 K/mm3 (150-450); RBC Distribution Width CV 14.8 % (11.6-14.6); RBC Distribution Width SD 52.8 fl (35.1-43.9); Red Blood Count 3.13 M/mm3 (4.6-6.2); White Blood Count 12.4 K/mm3 (4.4-11.0)
[2021-05-20] VITALS (29 sets, daily range): BP systolic 102–150; BP diastolic 48–96; PULSE 65–100; RESP 12–31; TEMP 36.2–37.7; O2SAT 91–99
[2021-05-20 01:13] LABS: M R Staph aureus DNA By PCR Negative (Negative); Probe Check PASS; Specimen Processing Control PASS; Staph aureus DNA By PCR NEGATIVE (Negative)
[2021-05-20 03:18] LABS: Absolute Lymphocyte Count 1.25 X10^3/uL (0.83-4.51); Absolute Neutrophil Count 9.4 X10^3/uL (2.0-7.7); Basophil# 0.02 X10^3/uL; Basophil% 0.2 % (0-1); Eosinophil# 0.01 X10^3/uL; Eosinophils% 0.1 % (0-5); Lymphocyte # 1.25 X10^3/ul (0.83-4.51); Lymphocyte % 10.6 % (19-41); Mean Corpuscular Hgb 30.3 pg (27.0-32.0); Mean Corpuscular Volume 97.6 fL (80-94); Mean Platelet Vol. 10.6 fl (6.2-12.0); Monocyte# 1.08 X10^3/uL; Monocyte% 9.1 % (0-10); NRBC Flagged by Analyzer 0 % (0-5); Neutrophil # 9.38 X10^3/uL (2.7-7.7); Neutrophil % 79.3 % (47-70); Platelet Count 202 K/mm3 (150-450); RBC Distribution Width CV 14.6 % (11.6-14.6); RBC Distribution Width SD 52.6 fl (35.1-43.9); Red Blood Count 2.97 M/mm3 (4.6-6.2); White Blood Count 11.8 K/mm3 (4.4-11.0)
[2021-05-20 03:25] LABS: International Normalized Ratio 1.2; Partial Thromboplast Time 34.9 Seconds (24.1-36.2); Prothrombin Time (Protime)PT. 14.4 SECONDS (11.7-14.9)
[2021-05-20 03:31] LABS: ALB/GLOB Ratio 0.5 RATIO (0.9-2.4); AST(SGOT) 26 U/L (15-37); Alanine Aminotransfer ALT/SGPT 15 U/L (16-61); Alkaline Phosphatase 55 U/L (45-117); Anion Gap 7 (5-15); BUN 57 mg/dL (7-18); BUN/Creat Ratio 26.6 RATIO (10-20); Calcium,Total 8.1 mg/dL (8.5-10.1); Chloride 102 mmol/L (98-107); Creatinine, Serum 2.14 mg/dL (0.70-1.30); EST Glomerular Filtration Rate 32 mL/min (>60); Est Glom Filt Rate - Afr Amer 39 mL/min (>60); Globulin 3.7 g/dL (2.2-4.2); Glucose 136 mg/dL (74-106); Potassium 3.5 mmol/L (3.5-5.1); Protein, Total 5.7 g/dL (6.4-8.2); Sodium Level 140 mmol/L (136-145)
--- NOTE | 2021-05-20 06:50 | PCM.PROGNOTE ---
Subjective Subjective This 76-year-old male was seen bedside for right foot ulcers and recent sepsis. He reports some mild chills. He denies fever, nausea, vomiting. His right foot pain has resolved. He denies calf pain. Objective Data Objective Data Vital Signs: Vital Signs Temp Pulse Resp BP Pulse Ox 98.9 F 69 16 135/50 H 98 05/20/21 06:00 05/20/21 06:00 05/20/21 06:00 05/20/21 06:00 05/20/21 06:00 Oxygen Flow Rate (L/min) 3 Oxygen Delivery Method Bi-pap Weight: 133.3 kg Body Mass Index (BMI) 41.1 Intake & Output: Intake and Output for Last 24 Hours 05/18/21 05/19/21 05/20/21 23:59 23:59 23:59 Intake Total 1256.33 / 1256.33 1025.34 / 1045.34 570 / 570 Output Total 550 / 1400 1275 / 1575 450 / 450 Balance 706.33 / -143.67 -249.66 / -529.66 120 / 120 Lab / Micro Data Result Diagrams: 05/20/21 03:05 05/20/21 03:05 Labs: Laboratory Results - last 24 hr 05/18/21 05/19/21 05/19/21 10:20 03:24 03:24 WBC RBC Hgb Hct MCV MCH MCHC RDW Std Deviation RDW Coeff of Favian Plt Count MPV Immature Gran % (Auto) Neut % (Auto) Lymph % (Auto) Sebastian % (Auto) Eos % (Auto) Baso % (Auto) Absolute Neuts (auto) Absolute Lymphs (auto) Nucleated RBC % PT INR APTT Sodium Potassium Chloride Carbon Dioxide Anion Gap BUN Creatinine Estim Creat Clear Calc Est GFR (MDRD) Af Amer Est GFR (MDRD) Non-Af BUN/Creatinine Ratio Glucose Hemoglobin A1c 6.0 H Calcium Total Bilirubin AST ALT Alkaline Phosphatase B-Natriuretic Peptide 745.9 H Total Protein Albumin Globulin Albumin/Globulin Ratio Urine Color Red Urine Clarity Cloudy Urine pH 5.0 Ur Specific [place] 1.010 Urine Protein 500 H Urine Glucose (UA) Normal Urine Ketones Negative Urine Occult Blood 250 H Urine Nitrite Negative Urine Bilirubin Negative Urine Urobilinogen Normal Ur Leukocyte Esterase 500 H Urine RBC > 100 SEEN Urine WBC 0-5 SEEN Ur Squamous Epith Cells 0 SEEN Urine Bacteria RARE Urine Mucus 0 SEEN Ur Random Sodium Urine Creatinine Urine Urea Nitrogen S.aureus Protein A PCR MRSA (PCR) POC Glucose 05/19/21 05/19/21 05/19/21 06:23 07:50 08:14 WBC RBC Hgb Hct MCV MCH MCHC RDW Std Deviation RDW Coeff of Favian Plt Count MPV Immature Gran % (Auto) Neut % (Auto) Lymph % (Auto) Sebastian % (Auto) Eos % (Auto) Baso % (Auto) Absolute Neuts (auto) Absolute Lymphs (auto) Nucleated RBC % PT INR APTT 151.8 H* Sodium Potassium Chloride Carbon Dioxide Anion Gap BUN Creatinine Estim Creat Clear Calc Est GFR (MDRD) Af Amer Est GFR (MDRD) Non-Af BUN/Creatinine Ratio Glucose Hemoglobin A1c Calcium Total Bilirubin AST ALT Alkaline Phosphatase B-Natriuretic Peptide Total Protein Albumin Globulin Albumin/Globulin Ratio Urine Color Urine Clarity Urine pH Ur Specific [place] Urine Protein Urine Glucose (UA) Urine Ketones Urine Occult Blood Urine Nitrite Urine Bilirubin Urine Urobilinogen Ur Leukocyte Esterase Urine RBC Urine WBC Ur Squamous Epith Cells Urine Bacteria Urine Mucus Ur Random Sodium Urine Creatinine Urine Urea Nitrogen S.aureus Protein A PCR MRSA (PCR) POC Glucose 175 H 199 H 05/19/21 05/19/21 05/19/21 13:05 17:15 17:15 WBC RBC Hgb Hct MCV MCH MCHC RDW Std Deviation RDW Coeff of Favian Plt Count MPV Immature Gran % (Auto) Neut % (Auto) Lymph % (Auto) Sebastian % (Auto) Eos % (Auto) Baso % (Auto) Absolute Neuts (auto) Absolute Lymphs (auto) Nucleated RBC % PT INR APTT 39.7 H Sodium Potassium Chloride Carbon Dioxide Anion Gap BUN Creatinine Estim Creat Clear Calc Est GFR (MDRD) Af Amer Est GFR (MDRD) Non-Af BUN/Creatinine Ratio Glucose Hemoglobin A1c Calcium Total Bilirubin AST ALT Alkaline Phosphatase B-Natriuretic Peptide Total Protein Albumin Globulin Albumin/Globulin Ratio Urine Color Urine Clarity Urine pH Ur Specific [place] Urine Protein Urine Glucose (UA) Urine Ketones Urine Occult Blood Urine Nitrite Urine Bilirubin Urine Urobilinogen Ur Leukocyte Esterase Urine RBC Urine WBC Ur Squamous Epith Cells Urine Bacteria Urine Mucus Ur Random Sodium Urine Creatinine Urine Urea Nitrogen 365 S.aureus Protein A PCR MRSA (PCR) POC Glucose 158 H 05/19/21 05/19/21 05/19/21 17:15 19:15 23:30 WBC 12.4 H RBC 3.13 L Hgb 9.4 L Hct 30.5 L MCV 97.4 H MCH 30.0 MCHC 30.8 L RDW Std Deviation 52.8 H RDW Coeff of Favian 14.8 H Plt Count 193 MPV 10.7 Immature Gran % (Auto) 0.600 Neut % (Auto) 82.3 H Lymph % (Auto) 8.5 L Sebastian % (Auto) 8.4 Eos % (Auto) 0.0 Baso % (Auto) 0.2 Absolute Neuts (auto) 10.2 H Absolute Lymphs (auto) 1.05 Nucleated RBC % 0 PT INR APTT Sodium Potassium Chloride Carbon Dioxide Anion Gap BUN Creatinine Estim Creat Clear Calc Est GFR (MDRD) Af Amer Est GFR (MDRD) Non-Af BUN/Creatinine Ratio Glucose Hemoglobin A1c Calcium Total Bilirubin AST ALT Alkaline Phosphatase B-Natriuretic Peptide Total Protein Albumin Globulin Albumin/Globulin Ratio Urine Color Urine Clarity Urine pH Ur Specific [place] Urine Protein Urine Glucose (UA) Urine Ketones Urine Occult Blood Urine Nitrite Urine Bilirubin Urine Urobilinogen Ur Leukocyte Esterase Urine RBC Urine WBC Ur Squamous Epith Cells Urine Bacteria Urine Mucus Ur Random Sodium 14 Urine Creatinine 132.00 Urine Urea Nitrogen S.aureus Protein A PCR NEGATIVE MRSA (PCR) Negative POC Glucose 05/20/21 05/20/21 05/20/21 03:05 03:05 03:05 WBC 11.8 H RBC 2.97 L Hgb 9.0 L Hct 29.0 L MCV 97.6 H MCH 30.3 MCHC 31.0 L RDW Std Deviation 52.6 H RDW Coeff of Favian 14.6 Plt Count 202 MPV 10.6 Immature Gran % (Auto) 0.700 Neut % (Auto) 79.3 H Lymph % (Auto) 10.6 L Sebastian % (Auto) 9.1 Eos % (Auto) 0.1 Baso % (Auto) 0.2 Absolute Neuts (auto) 9.4 H Absolute Lymphs (auto) 1.25 Nucleated RBC % 0 PT 14.4 INR 1.2 APTT 34.9 Sodium 140 Potassium 3.5 Chloride 102 Carbon Dioxide 31.0 Anion Gap 7 BUN 57 H Creatinine 2.14 H Estim Creat Clear Calc 30.80 Est GFR (MDRD) Af Amer 39 L Est GFR (MDRD) Non-Af 32 L BUN/Creatinine Ratio 26.6 H Glucose 136 H Hemoglobin A1c Calcium 8.1 L Total Bilirubin 0.40 AST 26 ALT 15 L Alkaline Phosphatase 55 B-Natriuretic Peptide Total Protein 5.7 L Albumin 2.0 L Globulin 3.7 Albumin/Globulin Ratio 0.5 L Urine Color Urine Clarity Urine pH Ur Specific [place] Urine Protein Urine Glucose (UA) Urine Ketones Urine Occult Blood Urine Nitrite Urine Bilirubin Urine Urobilinogen Ur Leukocyte Esterase Urine RBC Urine WBC Ur Squamous Epith Cells Urine Bacteria Urine Mucus Ur Random Sodium Urine Creatinine Urine Urea Nitrogen S.aureus Protein A PCR MRSA (PCR) POC Glucose Micro: Microbiology 05/18/21 10:10 Sputum, Induced/Lukens Gram Stain - Final 05/18/21 10:10 Sputum, Induced/Lukens Respiratory Culture - Preliminary Culture exhibits no growth. 05/18/21 10:20 Urine Catheter - Cruz Urine Culture - Preliminary Presumptive E. coli 05/18/21 06:55 Blood Culture (Wb) - Anticubital Right Blood Culture - Preliminary 05/18/21 07:15 Mucosa - Nose SARS-CoV-2 Antigen (Rapid) - Final 05/18/21 06:55 Stool Stool Occult Blood (SOFIE) - Final Radiography Diagnostic Testing: Radiology Impression Chest X-Ray 05/19/21 05:05 IMPRESSION: Stable moderate to large right pleural effusion with right greater than left bibasilar opacification. at [id number] Reported and signed by: Bart Thompson MD Electronically Signed: Bart Thompson MD at 7:03 EDT Tel , Service support , Echocardiogram 05/19/21 05:55 Interpretation Summary Normal LV size. The estimated ejection fraction is 50 %. Stage 1 diastolic dysfunction. Mild segmental systolic dysfunction (see wall motion). Contrast injection was performed. Ordering Physician: Andry Chavez Referring Physician: Jaycob Kumar Performed By: Diana Pollock, ANDREW, RVT Physical Exam Const alert and oriented x3 General Appearance: cooperative and lethargic HEENT normocephalic Extremity Extremity Narrative: No calf tenderness Compartments remain soft to palpate bilateral lower extremities Muscle wasting noted Active range of motion digits and ankles in all directions noted General Extremity: edema and no tenderness to palpation of joints or extremities; Negative for cyanosis Skin Skin Narrative: right foot dressing clean, dry, intact without adjacent purulence, streaking, or odor. His skin is hairless and atrophic. no ulcers left foot bilateral lower extremity leg skin is indurated with hyperpigmentation; no calor General Skin Exam: Negative for erythema Neuro Neuro Narrative: lack of normal epicritic sensation via light touch is consistent with neuropathy status Psych cooperative and affect normal Assessment & Plan Assessment/Plan (1) Non-pressure chronic ulcer of other part of right foot with fat layer exposed: (2) Non-pressure chronic ulcer of other part of left foot limited to breakdown of skin: (3) Other specified peripheral vascular diseases: (4) Localized edema: (5) Type 2 diabetes mellitus with diabetic polyneuropathy: (6) Severe sepsis: (7) Delayed wound healing: PLAN: I reviewed and discussed his case today. Currently he is afebrile and his vital signs are stable. His recent sepsis status is noted and recently improving. He is more alert this morning. infection status: Multiple prior sources have been tested and cultures were reviewed. Blood culture neg so far, urine culture with e-coli, sputum culture pending. Pending right foot cultures aerobic, anaerobic. Neg MRSA PCR from the right foot ulcer. It is noted infectious disease on consult antibiotic management as noted. On vancomycin and Zosyn. His white blood cell count is decreased to 11.8 this morning. Imaging: Foot x-rays were reviewed (bilateral three views) without any osseous destruction adjacent to the ulcer sites, soft tissue emphysema or foreign bodies. There are also no fractures or dislocations. His vessel calcification is noted. If lack of clear infection source continues, an MRI of the right foot would be helpful without contrast to avoid any further kidney injury. This was ordered. There are no plans for lower extremity surgery at this time. Dressing: I recommend Santyl and gauze right foot. No dressing required for the left foot. Wash: Soap and water Offloading: To keep direct pressure directly off of ulcer site. It is noted he is not ambulating at this time. To hang heels over pillow in bed to prevent further pressure ulcerations. Vascular: Noninvasive vascular studies were ordered including segmental leg and thigh pressures, LES, and systolic once he is stable. His vessel calcifications noted on his x-rays are noted. It is noted he is already on aspirin and Plavix. Edema: Bilateral lower extremity REYMUNDO wraps are okay to continue at this time. Pain: His neuropathy is noted. His pain is controlled most of the time Host factors: His multiple comorbidities are noted including diabetes (A1c 6%), kidney disease, morbid obesity anemia, respiratory failure, hypertension, recent NSTEMI, hyperlipidemia. Medical and infectious management are noted. He has some delays in healing and will proceed with a comprehensive wound healing plan. Nutrition: Shon nutritional supplementation was ordered to optimize healing. I answered all the patient's questions. Please do not hesitate to call if you have any questions. I will continue to follow him close while in house. Sandra Masters DPM, [facility] Note: Stitcher speech recognition tube drawer software was used to create portions of this document. Sound-alike and misspelled words, as well as other tube drawer errors may be contained in the documentation.
--- NOTE | 2021-05-20 07:07 | PN.CC_ITS ---
Assessment & Plan Assessment/Plan (1) Acute hypoxemic respiratory failure: PLAN: RECOMMENDATIONS: 1. Wean oxygen as tolerated 2. Advance diet as tolerated 3. Continue empiric broad-spectrum antibiotics 4. Hold anticoagulation. Possible repeat H&H if clinical bleeding continues 5. Hold Lasix for 24 hours 6. Continue appropriate GI prophylaxis. IMPRESSIONS: 1. Acute combined respiratory failure Unclear precipitating etiology. While acute coronary syndrome is certainly a possibility, no obstructive lesion was identified on cardiac catheterization. Decompensated heart failure is also a possibility given pulmonary vascular congestion and pleural effusion noted on chest imaging. However, the patient does meet sepsis criteria. Therefore, agree with continuing broad-spectrum antimicrobials for now, pending infectious work-up. Patient's oxygenation is much improved and creatinine is elevated, so we will hold on Lasix for 24 hours. Continue BiPAP with sleep. Patient would likely benefit from an outpatient sleep evaluation. 2. Severe sepsis Concern for possible underlying pulmonary versus diabetic ulcer infectious etiology. We will continue broad-spectrum antibiotics for now. Wound nurse to evaluate lower extremities. Patient may need MRI of the feet to evaluate for osteomyelitis. Appreciate infectious disease and podiatry evaluation 3. Questionable acute coronary syndrome Continue current medical management per cardiology recommendations. 4. Acute on chronic kidney disease stage III Continue to monitor urine output for now. No indication for renal replacement therapy. Some concern for contrast-induced nephropathy versus prerenal etiology given problem #2 exacerbating current condition. Hold on furth er contrast. We will hold on diuretics for 24 hours given improvement in oxygenation and elevation in creatinine. 5. Morbid obesity/depression/hypertension/diabetes mellitus/anxiety/ hyperlipidemia Complicates care, management, recovery and prognosis. Continue home me dications as indicated. Subjective Subjective Patient did okay from a respiratory standpoint overnight. However, patient was noted to have a bloody bowel movement and abdominal bruising, so heparin was discontinued. Patient's urine output was decreased despite anasarca. Patient tolerated BiPAP with sleep, but is currently on 3 L nasal cannula. Patient reiterated that he does not use supplemental oxygen at home at baseline. Objective Data Objective Data Vital Signs: Vital Signs Temp Pulse Resp BP Pulse Ox 37.5 C H 84 26 H 132/71 H 98 05/20/21 07:00 05/20/21 07:00 05/20/21 07:00 05/20/21 07:00 05/20/21 06:00 Oxygen Flow Rate (L/min) 3 Oxygen Delivery Method Nasal Cannula Weight: 133.3 kg Body Mass Index (BMI) 41.1 Intake & Output: Intake and Output for Last 24 Hours 05/18/21 05/19/21 05/20/21 23:59 23:59 23:59 Intake Total 1256.33 / 1256.33 1025.34 / 1045.34 570 / 570 Output Total 550 / 1400 1275 / 1575 450 / 450 Balance 706.33 / -143.67 -249.66 / -529.66 120 / 120 Lab / Micro Data Result Diagrams: 05/20/21 03:05 05/20/21 03:05 Labs: Laboratory Results - last 24 hr 05/18/21 05/19/21 05/19/21 10:20 03:24 03:24 WBC RBC Hgb Hct MCV MCH MCHC RDW Std Deviation RDW Coeff of Favian Plt Count MPV Immature Gran % (Auto) Neut % (Auto) Lymph % (Auto) [place] % (Auto) Eos % (Auto) Baso % (Auto) Absolute Neuts (auto) Absolute Lymphs (auto) Nucleated RBC % PT INR APTT Sodium Potassium Chloride Carbon Dioxide Anion Gap BUN Creatinine Estim Creat Clear Calc Est GFR (MDRD) Af Amer Est GFR (MDRD) Non-Af BUN/Creatinine Ratio Glucose Hemoglobin A1c 6.0 H Calcium Total Bilirubin AST ALT Alkaline Phosphatase B-Natriuretic Peptide 745.9 H Total Protein Albumin Globulin Albumin/Globulin Ratio Urine Color Red Urine Clarity Cloudy Urine pH 5.0 Ur Specific [place] 1.010 Urine Protein 500 H Urine Glucose (UA) Normal Urine Ketones Negative Urine Occult Blood 250 H Urine Nitrite Negative Urine Bilirubin Negative Urine Urobilinogen Normal Ur Leukocyte Esterase 500 H Urine RBC > 100 SEEN Urine WBC 0-5 SEEN Ur Squamous Epith Cells 0 SEEN Urine Bacteria RARE Urine Mucus 0 SEEN Ur Random Sodium Urine Creatinine Urine Urea Nitrogen S.aureus Protein A PCR MRSA (PCR) POC Glucose 05/19/21 05/19/21 05/19/21 06:23 07:50 08:14 WBC RBC Hgb Hct MCV MCH MCHC RDW Std Deviation RDW Coeff of Favian Plt Count MPV Immature Gran % (Auto) Neut % (Auto) Lymph % (Auto) [place] % (Auto) Eos % (Auto) Baso % (Auto) Absolute Neuts (auto) Absolute Lymphs (auto) Nucleated RBC % PT INR APTT 151.8 H* Sodium Potassium Chloride Carbon Dioxide Anion Gap BUN Creatinine Estim Creat Clear Calc Est GFR (MDRD) Af Amer Est GFR (MDRD) Non-Af BUN/Creatinine Ratio Glucose Hemoglobin A1c Calcium Total Bilirubin AST ALT Alkaline Phosphatase B-Natriuretic Peptide Total Protein Albumin Globulin Albumin/Globulin Ratio Urine Color Urine Clarity Urine pH Ur Specific [place] Urine Protein Urine Glucose (UA) Urine Ketones Urine Occult Blood Urine Nitrite Urine Bilirubin Urine Urobilinogen Ur Leukocyte Esterase Urine RBC Urine WBC Ur Squamous Epith Cells Urine Bacteria Urine Mucus Ur Random Sodium Urine Creatinine Urine Urea Nitrogen S.aureus Protein A PCR MRSA (PCR) POC Glucose 175 H 199 H 05/19/21 05/19/21 05/19/21 13:05 17:15 17:15 WBC RBC Hgb Hct MCV MCH MCHC RDW Std Deviation RDW Coeff of Favian Plt Count MPV Immature Gran % (Auto) Neut % (Auto) Lymph % (Auto) [place] % (Auto) Eos % (Auto) Baso % (Auto) Absolute Neuts (auto) Absolute Lymphs (auto) Nucleated RBC % PT INR APTT 39.7 H Sodium Potassium Chloride Carbon Dioxide Anion Gap BUN Creatinine Estim Creat Clear Calc Est GFR (MDRD) Af Amer Est GFR (MDRD) Non-Af BUN/Creatinine Ratio Glucose Hemoglobin A1c Calcium Total Bilirubin AST ALT Alkaline Phosphatase B-Natriuretic Peptide Total Protein Albumin Globulin Albumin/Globulin Ratio Urine Color Urine Clarity Urine pH Ur Specific [place] Urine Protein Urine Glucose (UA) Urine Ketones Urine Occult Blood Urine Nitrite Urine Bilirubin Urine Urobilinogen Ur Leukocyte Esterase Urine RBC Urine WBC Ur Squamous Epith Cells Urine Bacteria Urine Mucus Ur Random Sodium Urine Creatinine Urine Urea Nitrogen 365 S.aureus Protein A PCR MRSA (PCR) POC Glucose 158 H 05/19/21 05/19/21 05/19/21 17:15 19:15 23:30 WBC 12.4 H RBC 3.13 L Hgb 9.4 L Hct 30.5 L MCV 97.4 H MCH 30.0 MCHC 30.8 L RDW Std Deviation 52.8 H RDW Coeff of Favian 14.8 H Plt Count 193 MPV 10.7 Immature Gran % (Auto) 0.600 Neut % (Auto) 82.3 H Lymph % (Auto) 8.5 L [place] % (Auto) 8.4 Eos % (Auto) 0.0 Baso % (Auto) 0.2 Absolute Neuts (auto) 10.2 H Absolute Lymphs (auto) 1.05 Nucleated RBC % 0 PT INR APTT Sodium Potassium Chloride Carbon Dioxide Anion Gap BUN Creatinine Estim Creat Clear Calc Est GFR (MDRD) Af Amer Est GFR (MDRD) Non-Af BUN/Creatinine Ratio Glucose Hemoglobin A1c Calcium Total Bilirubin AST ALT Alkaline Phosphatase B-Natriuretic Peptide Total Protein Albumin Globulin Albumin/Globulin Ratio Urine Color Urine Clarity Urine pH Ur Specific [place] Urine Protein Urine Glucose (UA) Urine Ketones Urine Occult Blood Urine Nitrite Urine Bilirubin Urine Urobilinogen Ur Leukocyte Esterase Urine RBC Urine WBC Ur Squamous Epith Cells Urine Bacteria Urine Mucus Ur Random Sodium 14 Urine Creatinine 132.00 Urine Urea Nitrogen S.aureus Protein A PCR NEGATIVE MRSA (PCR) Negative POC Glucose 05/20/21 05/20/21 05/20/21 03:05 03:05 03:05 WBC 11.8 H RBC 2.97 L Hgb 9.0 L Hct 29.0 L MCV 97.6 H MCH 30.3 MCHC 31.0 L RDW Std Deviation 52.6 H RDW Coeff of Favian 14.6 Plt Count 202 MPV 10.6 Immature Gran % (Auto) 0.700 Neut % (Auto) 79.3 H Lymph % (Auto) 10.6 L [place] % (Auto) 9.1 Eos % (Auto) 0.1 Baso % (Auto) 0.2 Absolute Neuts (auto) 9.4 H Absolute Lymphs (auto) 1.25 Nucleated RBC % 0 PT 14.4 INR 1.2 APTT 34.9 Sodium 140 Potassium 3.5 Chloride 102 Carbon Dioxide 31.0 Anion Gap 7 BUN 57 H Creatinine 2.14 H Estim Creat Clear Calc 30.80 Est GFR (MDRD) Af Amer 39 L Est GFR (MDRD) Non-Af 32 L BUN/Creatinine Ratio 26.6 H Glucose 136 H Hemoglobin A1c Calcium 8.1 L Total Bilirubin 0.40 AST 26 ALT 15 L Alkaline Phosphatase 55 B-Natriuretic Peptide Total Protein 5.7 L Albumin 2.0 L Globulin 3.7 Albumin/Globulin Ratio 0.5 L Urine Color Urine Clarity Urine pH Ur Specific [place] Urine Protein Urine Glucose (UA) Urine Ketones Urine Occult Blood Urine Nitrite Urine Bilirubin Urine Urobilinogen Ur Leukocyte Esterase Urine RBC Urine WBC Ur Squamous Epith Cells Urine Bacteria Urine Mucus Ur Random Sodium Urine Creatinine Urine Urea Nitrogen S.aureus Protein A PCR MRSA (PCR) POC Glucose Micro: Microbiology 05/18/21 10:10 Sputum, Induced/Lukens Gram Stain - Final 05/18/21 10:10 Sputum, Induced/Lukens Respiratory Culture - Preliminary Culture exhibits no growth. 05/18/21 10:20 Urine Catheter - Cruz Urine Culture - Preliminary Presumptive E. coli 05/18/21 06:55 Blood Culture (Wb) - Anticubital Right Blood Culture - Preliminary 05/18/21 07:15 Mucosa - Nose SARS-CoV-2 Antigen (Rapid) - Final 05/18/21 06:55 Stool Stool Occult Blood (SOFIE) - Final Radiography Diagnostic Testing: Radiology Impression Echocardiogram 05/19/21 05:55 Interpretation Summary Normal LV size. The estimated ejection fraction is 50 %. Stage 1 diastolic dysfunction. Mild segmental systolic dysfunction (see wall motion). Contrast injection was performed. Ordering Physician: Andry Chavez Referring Physician: Jaycob Kumar Performed By: Diana Pollock, CARLITACS, RVT Physical Exam Const alert, oriented x3 and no apparent distress Constitutional Narrative: Pale. General Appearance: cooperative Orientation / Consciousness: awake Nutritional Appearance: morbidly obese HEENT normocephalic and head/scalp atraumatic Eyes PERRL and conjunctivae normal Neck supple General: trachea midline Chest inspection of chest normal Chest: symmetrical chest wall rise Resp Auscultation: diminished lung sounds; Negative for rales, rhonchi or wheezes Cardio S1 normal heart sound, S2 normal heart sound, no murmurs, no rub and no gallops Rhythm: abnormal rhythm GI normal to inspection, nondistended, normoactive bowel sounds Palpation: soft; Negative for tender, guarding, abdominal wall crepitus or rebound tenderness present Extremity General Extremity: edema bilateral Skin Skin Narrative: Mild ecchymosis noted periumbilically. General Skin Exam: lichenification Neuro oriented x3, CN's II-XII intact bilaterally and moves all extremities Neuro Narrative: Nonresponsive to verbal and tactile stimulation at the present time. Sensory Exam: extremities pin-prick: decreased (Bilateral lower extremities) and light-touch: decreased (Bilateral lower extremities) Charges/Coding Visit Charges Inpatient E&M: 04815 Subs Hosp L3
[2021-05-20 08:38] LABS: Bedside Glucose 121 mg/dL (70-110)
[2021-05-20 08:38] LABS: Bedside Glucose 172 mg/dL (70-110)
[2021-05-20 08:38] LABS: Bedside Glucose 156 mg/dL (70-110)
[2021-05-20] MEDS: Collagenase 30gm Tube 1 APPLIC TOPICAL (08:54)
--- NOTE | 2021-05-20 09:41 | PN.RENAL_ITS ---
Objective Data Objective Data Following for acute kidney injury on chronic kidney disease. The patient has remained extubated. He is still requiring NIV intermittently. The patient denies current chest pain or shortness of breath at rest. The patient complains of nausea without vomiting this morning. Vital Signs: Vital Signs Temp Pulse Resp BP Pulse Ox 99.5 F H 84 26 H 132/71 H 98 05/20/21 07:00 05/20/21 07:00 05/20/21 07:00 05/20/21 07:00 05/20/21 06:00 Oxygen Flow Rate (L/min) 3 Oxygen Delivery Method Nasal Cannula Weight: 133.3 kg Body Mass Index (BMI) 41.1 Intake & Output: Intake and Output for Last 24 Hours 05/18/21 05/19/21 05/20/21 23:59 23:59 23:59 Intake Total 1256.33 / 1256.33 1025.34 / 1045.34 800 / 800 Output Total 550 / 1400 1275 / 1575 450 / 450 Balance 706.33 / -143.67 -249.66 / -529.66 350 / 350 Lab / Micro Data Result Diagrams: 05/20/21 03:05 05/20/21 03:05 Labs: Laboratory Results - last 24 hr 05/18/21 05/19/21 05/19/21 10:20 06:23 13:05 WBC RBC Hgb Hct MCV MCH MCHC RDW Std Deviation RDW Coeff of Favian Plt Count MPV Immature Gran % (Auto) Neut % (Auto) Lymph % (Auto) [place] % (Auto) Eos % (Auto) Baso % (Auto) Absolute Neuts (auto) Absolute Lymphs (auto) Nucleated RBC % PT INR APTT Sodium Potassium Chloride Carbon Dioxide Anion Gap BUN Creatinine Estim Creat Clear Calc Est GFR (MDRD) Af Amer Est GFR (MDRD) Non-Af BUN/Creatinine Ratio Glucose Calcium Total Bilirubin AST ALT Alkaline Phosphatase Total Protein Albumin Globulin Albumin/Globulin Ratio Urine Color Red Urine Clarity Cloudy Urine pH 5.0 Ur Specific [place] 1.010 Urine Protein 500 H Urine Glucose (UA) Normal Urine Ketones Negative Urine Occult Blood 250 H Urine Nitrite Negative Urine Bilirubin Negative Urine Urobilinogen Normal Ur Leukocyte Esterase 500 H Urine RBC > 100 SEEN Urine WBC 0-5 SEEN Ur Squamous Epith Cells 0 SEEN Urine Bacteria RARE Urine Mucus 0 SEEN Ur Random Sodium Urine Creatinine Urine Urea Nitrogen S.aureus Protein A PCR MRSA (PCR) POC Glucose 175 H 158 H 05/19/21 05/19/21 05/19/21 17:15 17:15 17:15 WBC RBC Hgb Hct MCV MCH MCHC RDW Std Deviation RDW Coeff of Favian Plt Count MPV Immature Gran % (Auto) Neut % (Auto) Lymph % (Auto) [place] % (Auto) Eos % (Auto) Baso % (Auto) Absolute Neuts (auto) Absolute Lymphs (auto) Nucleated RBC % PT INR APTT 39.7 H Sodium Potassium Chloride Carbon Dioxide Anion Gap BUN Creatinine Estim Creat Clear Calc Est GFR (MDRD) Af Amer Est GFR (MDRD) Non-Af BUN/Creatinine Ratio Glucose Calcium Total Bilirubin AST ALT Alkaline Phosphatase Total Protein Albumin Globulin Albumin/Globulin Ratio Urine Color Urine Clarity Urine pH Ur Specific [place] Urine Protein Urine Glucose (UA) Urine Ketones Urine Occult Blood Urine Nitrite Urine Bilirubin Urine Urobilinogen Ur Leukocyte Esterase Urine RBC Urine WBC Ur Squamous Epith Cells Urine Bacteria Urine Mucus Ur Random Sodium 14 Urine Creatinine 132.00 Urine Urea Nitrogen 365 S.aureus Protein A PCR MRSA (PCR) POC Glucose 05/19/21 05/19/21 05/19/21 17:56 19:15 22:58 WBC RBC Hgb Hct MCV MCH MCHC RDW Std Deviation RDW Coeff of Favian Plt Count MPV Immature Gran % (Auto) Neut % (Auto) Lymph % (Auto) [place] % (Auto) Eos % (Auto) Baso % (Auto) Absolute Neuts (auto) Absolute Lymphs (auto) Nucleated RBC % PT INR APTT Sodium Potassium Chloride Carbon Dioxide Anion Gap BUN Creatinine Estim Creat Clear Calc Est GFR (MDRD) Af Amer Est GFR (MDRD) Non-Af BUN/Creatinine Ratio Glucose Calcium Total Bilirubin AST ALT Alkaline Phosphatase Total Protein Albumin Globulin Albumin/Globulin Ratio Urine Color Urine Clarity Urine pH Ur Specific [place] Urine Protein Urine Glucose (UA) Urine Ketones Urine Occult Blood Urine Nitrite Urine Bilirubin Urine Urobilinogen Ur Leukocyte Esterase Urine RBC Urine WBC Ur Squamous Epith Cells Urine Bacteria Urine Mucus Ur Random Sodium Urine Creatinine Urine Urea Nitrogen S.aureus Protein A PCR NEGATIVE MRSA (PCR) Negative POC Glucose 156 H 172 H 05/19/21 05/20/21 05/20/21 23:30 03:05 03:05 WBC 12.4 H 11.8 H RBC 3.13 L 2.97 L Hgb 9.4 L 9.0 L Hct 30.5 L 29.0 L MCV 97.4 H 97.6 H MCH 30.0 30.3 MCHC 30.8 L 31.0 L RDW Std Deviation 52.8 H 52.6 H RDW Coeff of Favian 14.8 H 14.6 Plt Count 193 202 MPV 10.7 10.6 Immature Gran % (Auto) 0.600 0.700 Neut % (Auto) 82.3 H 79.3 H Lymph % (Auto) 8.5 L 10.6 L [place] % (Auto) 8.4 9.1 Eos % (Auto) 0.0 0.1 Baso % (Auto) 0.2 0.2 Absolute Neuts (auto) 10.2 H 9.4 H Absolute Lymphs (auto) 1.05 1.25 Nucleated RBC % 0 0 PT INR APTT Sodium 140 Potassium 3.5 Chloride 102 Carbon Dioxide 31.0 Anion Gap 7 BUN 57 H Creatinine 2.14 H Estim Creat Clear Calc 30.80 Est GFR (MDRD) Af Amer 39 L Est GFR (MDRD) Non-Af 32 L BUN/Creatinine Ratio 26.6 H Glucose 136 H Calcium 8.1 L Total Bilirubin 0.40 AST 26 ALT 15 L Alkaline Phosphatase 55 Total Protein 5.7 L Albumin 2.0 L Globulin 3.7 Albumin/Globulin Ratio 0.5 L Urine Color Urine Clarity Urine pH Ur Specific [place] Urine Protein Urine Glucose (UA) Urine Ketones Urine Occult Blood Urine Nitrite Urine Bilirubin Urine Urobilinogen Ur Leukocyte Esterase Urine RBC Urine WBC Ur Squamous Epith Cells Urine Bacteria Urine Mucus Ur Random Sodium Urine Creatinine Urine Urea Nitrogen S.aureus Protein A PCR MRSA (PCR) POC Glucose 05/20/21 05/20/21 03:05 05:03 WBC RBC Hgb Hct MCV MCH MCHC RDW Std Deviation RDW Coeff of Favian Plt Count MPV Immature Gran % (Auto) Neut % (Auto) Lymph % (Auto) [place] % (Auto) Eos % (Auto) Baso % (Auto) Absolute Neuts (auto) Absolute Lymphs (auto) Nucleated RBC % PT 14.4 INR 1.2 APTT 34.9 Sodium Potassium Chloride Carbon Dioxide Anion Gap BUN Creatinine Estim Creat Clear Calc Est GFR (MDRD) Af Amer Est GFR (MDRD) Non-Af BUN/Creatinine Ratio Glucose Calcium Total Bilirubin AST ALT Alkaline Phosphatase Total Protein Albumin Globulin Albumin/Globulin Ratio Urine Color Urine Clarity Urine pH Ur Specific [place] Urine Protein Urine Glucose (UA) Urine Ketones Urine Occult Blood Urine Nitrite Urine Bilirubin Urine Urobilinogen Ur Leukocyte Esterase Urine RBC Urine WBC Ur Squamous Epith Cells Urine Bacteria Urine Mucus Ur Random Sodium Urine Creatinine Urine Urea Nitrogen S.aureus Protein A PCR MRSA (PCR) POC Glucose 121 H Micro: Microbiology 05/18/21 10:20 Urine Catheter - Cruz Urine Culture - Final Presumptive E. coli 05/18/21 06:55 Blood Culture (Wb) - Anticubital Right Blood Culture - Preliminary Escherichia coli 05/18/21 10:10 Sputum, Induced/Lukens Gram Stain - Final 05/18/21 10:10 Sputum, Induced/Lukens Respiratory Culture - Preliminary Culture exhibits no growth. 05/18/21 07:15 Mucosa - Nose SARS-CoV-2 Antigen (Rapid) - Final 05/18/21 06:55 Stool Stool Occult Blood (SOFIE) - Final Radiography Diagnostic Testing: Radiology Impression Echocardiogram 05/19/21 05:55 Interpretation Summary Normal LV size. The estimated ejection fraction is 50 %. Stage 1 diastolic dysfunction. Mild segmental systolic dysfunction (see wall motion). Contrast injection was performed. Ordering Physician: Andry Chavez Referring Physician: Jaycob Kumar Performed By: Diana Pollock, RDCS, RVT Foot X-Ray 05/19/21 14:36 Foot X-Ray 05/19/21 14:43 Physical Exam Narrative No acute distress Neck no JVD. Head atraumatic normocephalic Heart. S1-S2 RRR. Chest. Coarse breath sounds anteriorly. Abdomen. Normal bowel sounds. Soft nontender no guarding or rebound Extremity. 1+ edema of lower extremities. Neurologic. Alert and oriented x3, NAD Assessment & Plan Assessment/Plan (1) BARBARA (acute kidney injury): PLAN: There is a progressive increase in serum creatinine over the last 72 hours. This is likely due to hemodynamic changes in the renal circulation related to diuresis. The patient is also likely prerenal due to prior sepsis. Agree with withholding furosemide today and reassessing volume status tomorrow. Recheck renal function panel again tomorrow. Current medications are appropriately dosed for his estimated creatinine clearance. (2) CKD stage G3b/A1, GFR 30-44 and albumin creatinine ratio <30 mg/g: PLAN: Baseline serum creatinine is around 1.5 to 1.6 mg/dL. (3) Acute respiratory failure with hypoxia and hypercapnia: PLAN: Management as per primary services. Agree with withholding furosemide today. Reassess volume status tomorrow. We will continue to monitor renal function and electrolytes. (4) Non-STEMI (non-ST elevated myocardial infarction): PLAN: The patient is on aspirin and beta-cristobal. Cardiology is following. (5) Severe sepsis: PLAN: The patient is on Zosyn which is appropriately dosed for the current estimated creatinine clearance. (6) Lactic acidosis:
--- NOTE | 2021-05-20 09:53 | PN.HOSP_ITS ---
Subjective Subjective Patient reports he is feeling better. Was able to be weaned to 3 L of oxygen yesterday and is now on no oxygen while eating. Suspect will need approximately 1 L of oxygen. Wore BiPAP overnight. Had a halo of red liquid on his chucks last evening and his heparin drip was discontinued although I suspect it may be related to his hematuria. Dopplers are pending. Objective Data Objective Data Vital Signs: Vital Signs Temp Pulse Resp BP Pulse Ox 99.5 F H 84 26 H 132/71 H 98 05/20/21 07:00 05/20/21 07:00 05/20/21 07:00 05/20/21 07:00 05/20/21 06:00 Oxygen Flow Rate (L/min) 3 Oxygen Delivery Method Nasal Cannula Weight: 133.3 kg Body Mass Index (BMI) 41.1 Intake & Output: Intake and Output for Last 24 Hours 05/18/21 05/19/21 05/20/21 23:59 23:59 23:59 Intake Total 1256.33 / 1256.33 1025.34 / 1045.34 800 / 800 Output Total 550 / 1400 1275 / 1575 450 / 450 Balance 706.33 / -143.67 -249.66 / -529.66 350 / 350 Lab / Micro Data Result Diagrams: 05/20/21 03:05 05/20/21 03:05 Labs: Laboratory Results - last 24 hr 05/18/21 05/19/21 05/19/21 10:20 06:23 13:05 WBC RBC Hgb Hct MCV MCH MCHC RDW Std Deviation RDW Coeff of Afvian Plt Count MPV Immature Gran % (Auto) Neut % (Auto) Lymph % (Auto) [place] % (Auto) Eos % (Auto) Baso % (Auto) Absolute Neuts (auto) Absolute Lymphs (auto) Nucleated RBC % PT INR APTT Sodium Potassium Chloride Carbon Dioxide Anion Gap BUN Creatinine Estim Creat Clear Calc Est GFR (MDRD) Af Amer Est GFR (MDRD) Non-Af BUN/Creatinine Ratio Glucose Calcium Total Bilirubin AST ALT Alkaline Phosphatase Total Protein Albumin Globulin Albumin/Globulin Ratio Urine Color Red Urine Clarity Cloudy Urine pH 5.0 Ur Specific [place] 1.010 Urine Protein 500 H Urine Glucose (UA) Normal Urine Ketones Negative Urine Occult Blood 250 H Urine Nitrite Negative Urine Bilirubin Negative Urine Urobilinogen Normal Ur Leukocyte Esterase 500 H Urine RBC > 100 SEEN Urine WBC 0-5 SEEN Ur Squamous Epith Cells 0 SEEN Urine Bacteria RARE Urine Mucus 0 SEEN Ur Random Sodium Urine Creatinine Urine Urea Nitrogen S.aureus Protein A PCR MRSA (PCR) POC Glucose 175 H 158 H 05/19/21 05/19/21 05/19/21 17:15 17:15 17:15 WBC RBC Hgb Hct MCV MCH MCHC RDW Std Deviation RDW Coeff of Favian Plt Count MPV Immature Gran % (Auto) Neut % (Auto) Lymph % (Auto) [place] % (Auto) Eos % (Auto) Baso % (Auto) Absolute Neuts (auto) Absolute Lymphs (auto) Nucleated RBC % PT INR APTT 39.7 H Sodium Potassium Chloride Carbon Dioxide Anion Gap BUN Creatinine Estim Creat Clear Calc Est GFR (MDRD) Af Amer Est GFR (MDRD) Non-Af BUN/Creatinine Ratio Glucose Calcium Total Bilirubin AST ALT Alkaline Phosphatase Total Protein Albumin Globulin Albumin/Globulin Ratio Urine Color Urine Clarity Urine pH Ur Specific [place] Urine Protein Urine Glucose (UA) Urine Ketones Urine Occult Blood Urine Nitrite Urine Bilirubin Urine Urobilinogen Ur Leukocyte Esterase Urine RBC Urine WBC Ur Squamous Epith Cells Urine Bacteria Urine Mucus Ur Random Sodium 14 Urine Creatinine 132.00 Urine Urea Nitrogen 365 S.aureus Protein A PCR MRSA (PCR) POC Glucose 05/19/21 05/19/21 05/19/21 17:56 19:15 22:58 WBC RBC Hgb Hct MCV MCH MCHC RDW Std Deviation RDW Coeff of Favian Plt Count MPV Immature Gran % (Auto) Neut % (Auto) Lymph % (Auto) [place] % (Auto) Eos % (Auto) Baso % (Auto) Absolute Neuts (auto) Absolute Lymphs (auto) Nucleated RBC % PT INR APTT Sodium Potassium Chloride Carbon Dioxide Anion Gap BUN Creatinine Estim Creat Clear Calc Est GFR (MDRD) Af Amer Est GFR (MDRD) Non-Af BUN/Creatinine Ratio Glucose Calcium Total Bilirubin AST ALT Alkaline Phosphatase Total Protein Albumin Globulin Albumin/Globulin Ratio Urine Color Urine Clarity Urine pH Ur Specific [place] Urine Protein Urine Glucose (UA) Urine Ketones Urine Occult Blood Urine Nitrite Urine Bilirubin Urine Urobilinogen Ur Leukocyte Esterase Urine RBC Urine WBC Ur Squamous Epith Cells Urine Bacteria Urine Mucus Ur Random Sodium Urine Creatinine Urine Urea Nitrogen S.aureus Protein A PCR NEGATIVE MRSA (PCR) Negative POC Glucose 156 H 172 H 05/19/21 05/20/21 05/20/21 23:30 03:05 03:05 WBC 12.4 H 11.8 H RBC 3.13 L 2.97 L Hgb 9.4 L 9.0 L Hct 30.5 L 29.0 L MCV 97.4 H 97.6 H MCH 30.0 30.3 MCHC 30.8 L 31.0 L RDW Std Deviation 52.8 H 52.6 H RDW Coeff of Favian 14.8 H 14.6 Plt Count 193 202 MPV 10.7 10.6 Immature Gran % (Auto) 0.600 0.700 Neut % (Auto) 82.3 H 79.3 H Lymph % (Auto) 8.5 L 10.6 L [place] % (Auto) 8.4 9.1 Eos % (Auto) 0.0 0.1 Baso % (Auto) 0.2 0.2 Absolute Neuts (auto) 10.2 H 9.4 H Absolute Lymphs (auto) 1.05 1.25 Nucleated RBC % 0 0 PT INR APTT Sodium 140 Potassium 3.5 Chloride 102 Carbon Dioxide 31.0 Anion Gap 7 BUN 57 H Creatinine 2.14 H Estim Creat Clear Calc 30.80 Est GFR (MDRD) Af Amer 39 L Est GFR (MDRD) Non-Af 32 L BUN/Creatinine Ratio 26.6 H Glucose 136 H Calcium 8.1 L Total Bilirubin 0.40 AST 26 ALT 15 L Alkaline Phosphatase 55 Total Protein 5.7 L Albumin 2.0 L Globulin 3.7 Albumin/Globulin Ratio 0.5 L Urine Color Urine Clarity Urine pH Ur Specific [place] Urine Protein Urine Glucose (UA) Urine Ketones Urine Occult Blood Urine Nitrite Urine Bilirubin Urine Urobilinogen Ur Leukocyte Esterase Urine RBC Urine WBC Ur Squamous Epith Cells Urine Bacteria Urine Mucus Ur Random Sodium Urine Creatinine Urine Urea Nitrogen S.aureus Protein A PCR MRSA (PCR) POC Glucose 05/20/21 05/20/21 03:05 05:03 WBC RBC Hgb Hct MCV MCH MCHC RDW Std Deviation RDW Coeff of Favian Plt Count MPV Immature Gran % (Auto) Neut % (Auto) Lymph % (Auto) [place] % (Auto) Eos % (Auto) Baso % (Auto) Absolute Neuts (auto) Absolute Lymphs (auto) Nucleated RBC % PT 14.4 INR 1.2 APTT 34.9 Sodium Potassium Chloride Carbon Dioxide Anion Gap BUN Creatinine Estim Creat Clear Calc Est GFR (MDRD) Af Amer Est GFR (MDRD) Non-Af BUN/Creatinine Ratio Glucose Calcium Total Bilirubin AST ALT Alkaline Phosphatase Total Protein Albumin Globulin Albumin/Globulin Ratio Urine Color Urine Clarity Urine pH Ur Specific [place] Urine Protein Urine Glucose (UA) Urine Ketones Urine Occult Blood Urine Nitrite Urine Bilirubin Urine Urobilinogen Ur Leukocyte Esterase Urine RBC Urine WBC Ur Squamous Epith Cells Urine Bacteria Urine Mucus Ur Random Sodium Urine Creatinine Urine Urea Nitrogen S.aureus Protein A PCR MRSA (PCR) POC Glucose 121 H Micro: Microbiology 05/18/21 10:20 Urine Catheter - Cruz Urine Culture - Final Presumptive E. coli 05/18/21 06:55 Blood Culture (Wb) - Anticubital Right Blood Culture - Preliminary Escherichia coli 05/18/21 10:10 Sputum, Induced/Lukens Gram Stain - Final 05/18/21 10:10 Sputum, Induced/Lukens Respiratory Culture - Preliminary Culture exhibits no growth. 05/18/21 07:15 Mucosa - Nose SARS-CoV-2 Antigen (Rapid) - Final 05/18/21 06:55 Stool Stool Occult Blood (SOFIE) - Final Radiography Diagnostic Testing: Radiology Impression Echocardiogram 05/19/21 05:55 Interpretation Summary Normal LV size. The estimated ejection fraction is 50 %. Stage 1 diastolic dysfunction. Mild segmental systolic dysfunction (see wall motion). Contrast injection was performed. Ordering Physician: Andry Chavez Referring Physician: Jaycob Kumar Performed By: Diana Pollock, ANDREW, RVT Foot X-Ray 05/19/21 14:36 Foot X-Ray 05/19/21 14:43 Physical Exam Const alert, oriented x3 and no apparent distress Constitutional Narrative: Morbidly obese white male sitting up in bed, eating breakfast and watching television, appears slightly weak but much improved in the last 24 hours Exam Limitations: no limitations HEENT head/scalp atraumatic and moist oral mucous membranes Head and Scalp: normocephalic Mouth: oral and palatal mucosa normal Eyes PERRL, EOMs intact bilaterally and conjunctivae normal Neck no lymphadenopathy, supple and no JVD Resp normal respiratory effort, no retractions and no use of accessory muscles Resp Narrative: Few crackles at bases bilaterally Auscultation: crackles; Negative for rales, rhonchi or wheezes Cardio regular rate, regular rhythm, S1 normal heart sound, S2 normal heart sound, no murmurs, no rub, no gallops, no clicks and no JVD GI normal to inspection, nondistended, normoactive bowel sounds, soft to palpation, non-tender and non-distended GI Narrative: Ecchymosis on abdomen abdominal wall Extremity Extremity Narrative: No clubbing or cyanosis General Extremity: edema bilateral (Trace) upper extremity and lower extremity Peripheral Pulses: Yes pulses 2+ throughout Skin skin turgor normal, no jaundice, no petechiae and no mottling Skin Narrative: Bilateral lower extremity foot wounds are dressed Neuro oriented x3, CN's II-XII intact bilaterally, moves all extremities and no focal motor deficits Neuro Narrative: Generalized weakness noted, voice is mildly weak Sensorium / Orientation: awake, alert, oriented to person, oriented to place and oriented to time Speech: speech normal Psych affect normal Assessment & Plan Assessment/Plan (1) Non-pressure chronic ulcer of other part of right foot with fat layer exposed: (2) Acute respiratory failure with hypoxia and hypercapnia: (3) Non-STEMI (non-ST elevated myocardial infarction): (4) BARBARA (acute kidney injury): PLAN: Severe sepsis -Continue broad-spectrum antibiotics -Consult infectious disease -Urine culture shows E. coli that is pansensitive -Sputum culture was negative -Blood culture remains pending -Patient does also have bilateral lower extremity diabetic foot wounds that could be a source -Evaluated by podiatry and debridement performed -Wound care is following -MRI is ordered but will have to be on hold as patient is unable to lie flat at this time -ID is following and appreciate input Acute hypoxic and hypercapnic respiratory failure -Precipitating etiology is unclear at this time although may relate to sepsis/heart failure -Chest x-ray from admission appeared to show some volume overload -Continue broad-spectrum antibiotics until cultures have been resulted -Wean oxygen as able -Patient is now down to 1 to 2 L nasal cannula -Continue BiPAP at at bedtime -We will need to rule out PE at some point -Heparin drip on hold secondary to bleeding -Check bilateral lower extremity Dopplers to rule out DVT -VQ scan will be of limited help given abnormal chest x-ray -Still unable to do CTA given renal failure -Discontinue Lasix secondary to worsening renal function -Speech therapy to evaluate for dysphagia following extubation Hematuria -Suspect related to traumatic Cruz insertion and supratherapeutic PTT -Irrigate as needed -Resolving NSTEMI -Cardiac catheterization was performed and demonstrated a 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 -Interval PCI to the LAD will likely be recommended--> will likely need to await recovery of renal function -Echocardiogram from 05/19/2021 shows an EF of 50%, stage I diastolic dysfunction and mild segmental systolic dysfunction -Continue metoprolol -Continue Plavix -Continue high intensity statin -Hold Lasix with worsening renal failure -Troponin peaked at 5 Chronic anemia -Further drop in hemoglobin -Heparin drip discontinued -Monitor closely with PTT being supratherapeutic -Baseline hemoglobin appears to be 11-11.5 BARBARA on CKD stage IIIb -Serum creatinine continues to trend up 1.8 to yesterday and 2.14 today -Suspect related to contrast/ATN -Baseline serum creatinine appears to be 1.5-1.7 -Repeat in a.m. -Hold Lasix -Nephrology following--> discussed with Dr. Parrish -500 cc of IV fluids HTN/HPL -Continue statin 80 mg daily -Continue metoprolol 25 mg twice daily -Hold Lasix -Monitor BP DM-2 -Hemoglobin A1c was 6.0 -Continue current management MO -BMI is 41.8 -Complicates overall medical care and prognosis Anxiety/depression -Home medications currently on hold -Continue to monitor DVT prophylaxis -Heparin drip held secondary to bleeding -Start prophylactic heparin -Dopplers pending CODE STATUS -Full code - was updated on clinical status, plan of care and pending transfer to [facility] Charges/Coding Visit Charges Inpatient E&M: 16902 [facility] Hosp L3
--- NOTE | 2021-05-20 10:27 | PN.ID_ITS ---
Physical Exam Const alert and no apparent distress General Appearance: cooperative Resp normal air movement and clear to auscultation bilaterally Cardio regular rate and regular rhythm GI normal to inspection, nondistended, normoactive bowel sounds Skin no rashes or lesions noted ID ID: Route of nutrition/ use of supplements: [] Nutritional Intake: [] IV Site: [] Cruz Catheter: [] Assessment & Plan Assessment/Plan (1) Severe sepsis: PLAN: severe sepsis due to ecoli bacteremia; improving, off vent now. On empiric zosyn. Much improved, suspected urinary source but UA relatively normal . Will follow (2) Acute hypoxemic respiratory failure:
--- NOTE | 2021-05-20 10:41 | PN.CARD_ITS ---
Subjective Subjective Patient seen and evaluated. He has been successfully extubated. He appears to be doing well. He did develop some bleeding problems and so his heparin was also discontinued. Objective Data Vital Signs: Vital Signs Temp Pulse Resp BP Pulse Ox 99.5 F H 84 26 H 132/71 H 98 05/20/21 07:00 05/20/21 07:00 05/20/21 07:00 05/20/21 07:00 05/20/21 06:00 Oxygen Flow Rate (L/min) 3 Oxygen Delivery Method Nasal Cannula Weight: 293 lb 14.019 oz Body Mass Index (BMI) 41.1 Intake & Output: Intake and Output for Last 24 Hours 05/18/21 05/19/21 05/20/21 23:59 23:59 23:59 Intake Total 1256.33 / 1256.33 1025.34 / 1045.34 800 / 800 Output Total 550 / 1400 1275 / 1575 450 / 450 Balance 706.33 / -143.67 -249.66 / -529.66 350 / 350 Lab / Micro Data Result Diagrams: 05/20/21 03:05 05/20/21 03:05 Labs: Laboratory Results - last 24 hr 05/18/21 05/19/21 05/19/21 10:20 06:23 13:05 WBC RBC Hgb Hct MCV MCH MCHC RDW Std Deviation RDW Coeff of Favian Plt Count MPV Immature Gran % (Auto) Neut % (Auto) Lymph % (Auto) [place] % (Auto) Eos % (Auto) Baso % (Auto) Absolute Neuts (auto) Absolute Lymphs (auto) Nucleated RBC % PT INR APTT Sodium Potassium Chloride Carbon Dioxide Anion Gap BUN Creatinine Estim Creat Clear Calc Est GFR (MDRD) Af Amer Est GFR (MDRD) Non-Af BUN/Creatinine Ratio Glucose Calcium Total Bilirubin AST ALT Alkaline Phosphatase Total Protein Albumin Globulin Albumin/Globulin Ratio Urine Color Red Urine Clarity Cloudy Urine pH 5.0 Ur Specific Alicia 1.010 Urine Protein 500 H Urine Glucose (UA) Normal Urine Ketones Negative Urine Occult Blood 250 H Urine Nitrite Negative Urine Bilirubin Negative Urine Urobilinogen Normal Ur Leukocyte Esterase 500 H Urine RBC > 100 SEEN Urine WBC 0-5 SEEN Ur Squamous Epith Cells 0 SEEN Urine Bacteria RARE Urine Mucus 0 SEEN Ur Random Sodium Urine Creatinine Urine Urea Nitrogen S.aureus Protein A PCR MRSA (PCR) POC Glucose 175 H 158 H 05/19/21 05/19/21 05/19/21 17:15 17:15 17:15 WBC RBC Hgb Hct MCV MCH MCHC RDW Std Deviation RDW Coeff of Favian Plt Count MPV Immature Gran % (Auto) Neut % (Auto) Lymph % (Auto) [place] % (Auto) Eos % (Auto) Baso % (Auto) Absolute Neuts (auto) Absolute Lymphs (auto) Nucleated RBC % PT INR APTT 39.7 H Sodium Potassium Chloride Carbon Dioxide Anion Gap BUN Creatinine Estim Creat Clear Calc Est GFR (MDRD) Af Amer Est GFR (MDRD) Non-Af BUN/Creatinine Ratio Glucose Calcium Total Bilirubin AST ALT Alkaline Phosphatase Total Protein Albumin Globulin Albumin/Globulin Ratio Urine Color Urine Clarity Urine pH Ur Specific Alicia Urine Protein Urine Glucose (UA) Urine Ketones Urine Occult Blood Urine Nitrite Urine Bilirubin Urine Urobilinogen Ur Leukocyte Esterase Urine RBC Urine WBC Ur Squamous Epith Cells Urine Bacteria Urine Mucus Ur Random Sodium 14 Urine Creatinine 132.00 Urine Urea Nitrogen 365 S.aureus Protein A PCR MRSA (PCR) POC Glucose 05/19/21 05/19/21 05/19/21 17:56 19:15 22:58 WBC RBC Hgb Hct MCV MCH MCHC RDW Std Deviation RDW Coeff of Favian Plt Count MPV Immature Gran % (Auto) Neut % (Auto) Lymph % (Auto) [place] % (Auto) Eos % (Auto) Baso % (Auto) Absolute Neuts (auto) Absolute Lymphs (auto) Nucleated RBC % PT INR APTT Sodium Potassium Chloride Carbon Dioxide Anion Gap BUN Creatinine Estim Creat Clear Calc Est GFR (MDRD) Af Amer Est GFR (MDRD) Non-Af BUN/Creatinine Ratio Glucose Calcium Total Bilirubin AST ALT Alkaline Phosphatase Total Protein Albumin Globulin Albumin/Globulin Ratio Urine Color Urine Clarity Urine pH Ur Specific Alicia Urine Protein Urine Glucose (UA) Urine Ketones Urine Occult Blood Urine Nitrite Urine Bilirubin Urine Urobilinogen Ur Leukocyte Esterase Urine RBC Urine WBC Ur Squamous Epith Cells Urine Bacteria Urine Mucus Ur Random Sodium Urine Creatinine Urine Urea Nitrogen S.aureus Protein A PCR NEGATIVE MRSA (PCR) Negative POC Glucose 156 H 172 H 05/19/21 05/20/21 05/20/21 23:30 03:05 03:05 WBC 12.4 H 11.8 H RBC 3.13 L 2.97 L Hgb 9.4 L 9.0 L Hct 30.5 L 29.0 L MCV 97.4 H 97.6 H MCH 30.0 30.3 MCHC 30.8 L 31.0 L RDW Std Deviation 52.8 H 52.6 H RDW Coeff of Favian 14.8 H 14.6 Plt Count 193 202 MPV 10.7 10.6 Immature Gran % (Auto) 0.600 0.700 Neut % (Auto) 82.3 H 79.3 H Lymph % (Auto) 8.5 L 10.6 L [place] % (Auto) 8.4 9.1 Eos % (Auto) 0.0 0.1 Baso % (Auto) 0.2 0.2 Absolute Neuts (auto) 10.2 H 9.4 H Absolute Lymphs (auto) 1.05 1.25 Nucleated RBC % 0 0 PT INR APTT Sodium 140 Potassium 3.5 Chloride 102 Carbon Dioxide 31.0 Anion Gap 7 BUN 57 H Creatinine 2.14 H Estim Creat Clear Calc 30.80 Est GFR (MDRD) Af Amer 39 L Est GFR (MDRD) Non-Af 32 L BUN/Creatinine Ratio 26.6 H Glucose 136 H Calcium 8.1 L Total Bilirubin 0.40 AST 26 ALT 15 L Alkaline Phosphatase 55 Total Protein 5.7 L Albumin 2.0 L Globulin 3.7 Albumin/Globulin Ratio 0.5 L Urine Color Urine Clarity Urine pH Ur Specific Alicia Urine Protein Urine Glucose (UA) Urine Ketones Urine Occult Blood Urine Nitrite Urine Bilirubin Urine Urobilinogen Ur Leukocyte Esterase Urine RBC Urine WBC Ur Squamous Epith Cells Urine Bacteria Urine Mucus Ur Random Sodium Urine Creatinine Urine Urea Nitrogen S.aureus Protein A PCR MRSA (PCR) POC Glucose 05/20/21 05/20/21 03:05 05:03 WBC RBC Hgb Hct MCV MCH MCHC RDW Std Deviation RDW Coeff of Favian Plt Count MPV Immature Gran % (Auto) Neut % (Auto) Lymph % (Auto) [place] % (Auto) Eos % (Auto) Baso % (Auto) Absolute Neuts (auto) Absolute Lymphs (auto) Nucleated RBC % PT 14.4 INR 1.2 APTT 34.9 Sodium Potassium Chloride Carbon Dioxide Anion Gap BUN Creatinine Estim Creat Clear Calc Est GFR (MDRD) Af Amer Est GFR (MDRD) Non-Af BUN/Creatinine Ratio Glucose Calcium Total Bilirubin AST ALT Alkaline Phosphatase Total Protein Albumin Globulin Albumin/Globulin Ratio Urine Color Urine Clarity Urine pH Ur Specific Alicia Urine Protein Urine Glucose (UA) Urine Ketones Urine Occult Blood Urine Nitrite Urine Bilirubin Urine Urobilinogen Ur Leukocyte Esterase Urine RBC Urine WBC Ur Squamous Epith Cells Urine Bacteria Urine Mucus Ur Random Sodium Urine Creatinine Urine Urea Nitrogen S.aureus Protein A PCR MRSA (PCR) POC Glucose 121 H Micro: Microbiology 05/18/21 10:20 Urine Catheter - Cruz Urine Culture - Final Presumptive E. coli 05/18/21 06:55 Blood Culture (Wb) - Anticubital Right Blood Culture - Preliminary Escherichia coli 05/18/21 10:10 Sputum, Induced/Lukens Gram Stain - Final 05/18/21 10:10 Sputum, Induced/Lukens Respiratory Culture - Preliminary Culture exhibits no growth. 05/18/21 07:15 Mucosa - Nose SARS-CoV-2 Antigen (Rapid) - Final 05/18/21 06:55 Stool Stool Occult Blood (SOFIE) - Final Cardiology Labs/Tests 05/18/21 10:20: Urine Color Red, Urine Clarity Cloudy, Urine pH 5.0, Ur Specific Alicia 1.010, Urine Protein 500 H, Urine Glucose (UA) Normal, Urine Ketones Negative, Urine Occult Blood 250 H, Urine Nitrite Negative, Urine Bilirubin Negative, Urine Urobilinogen Normal, Ur Leukocyte Esterase 500 H, Urine RBC > 100 SEEN, Urine WBC 0-5 SEEN 05/19/21 17:15: APTT 39.7 H 05/19/21 23:30: WBC 12.4 H, RBC 3.13 L, Hgb 9.4 L, Hct 30.5 L, MCV 97.4 H, MCH 30.0, MCHC 30.8 L, Plt Count 193, MPV 10.7, Immature Gran % (Auto) 0.600, Neut % (Auto) 82.3 H, Lymph % (Auto) 8.5 L, [place] % (Auto) 8.4, Eos % (Auto) 0.0, Baso % (Auto) 0.2, Absolute Neuts (auto) 10.2 H, Nucleated RBC % 0 05/20/21 03:05: WBC 11.8 H, RBC 2.97 L, Hgb 9.0 L, Hct 29.0 L, MCV 97.6 H, MCH 30.3, MCHC 31.0 L, Plt Count 202, MPV 10.6, Immature Gran % (Auto) 0.700, Neut % (Auto) 79.3 H, Lymph % (Auto) 10.6 L, [place] % (Auto) 9.1, Eos % (Auto) 0.1, Baso % (Auto) 0.2, Absolute Neuts (auto) 9.4 H, Nucleated RBC % 0 05/20/21 03:05: Sodium 140, Potassium 3.5, Chloride 102, Carbon Dioxide 31.0, Anion Gap 7, BUN 57 H, Creatinine 2.14 H, Est GFR (MDRD) Af Amer 39 L, Est GFR (MDRD) Non-Af 32 L, BUN/Creatinine Ratio 26.6 H, Glucose 136 H, Calcium 8.1 L, Total Bilirubin 0.40 05/20/21 03:05: PT 14.4, INR 1.2, APTT 34.9 Rhythm: EKG: ECHO: Stress Test: Cardiac Cath: PCI: CT Surgery: Holter monitor: EPS: PPM: CXR: Chest CT Scan: Radiography Diagnostic Testing: Radiology Impression Echocardiogram 05/19/21 05:55 Interpretation Summary Normal LV size. The estimated ejection fraction is 50 %. Stage 1 diastolic dysfunction. Mild segmental systolic dysfunction (see wall motion). Contrast injection was performed. Ordering Physician: Andry Chavez Referring Physician: Jaycob Kumar Performed By: Diana Pollock, ANDREW, RVT Foot X-Ray 05/19/21 14:36 Foot X-Ray 05/19/21 14:43 Physical Exam Const oriented x3 and healthy appearing Orientation / Consciousness: awake HEENT normocephalic Eyes PERRL and conjunctivae normal Neck supple, no JVD and no carotid bruits Chest inspection of chest normal Resp normal respiratory effort and clear to auscultation bilaterally Cardio Palpation: normal PMI Rate: regular rate Rhythm: regular rhythm Heart Sounds: S1 normal and S2 normal Peripheral Pulses: pulses 2+ throughout GI normal to inspection, nondistended, normoactive bowel sounds Extremity normal to inspection and no clubbing, cyanosis or edema Psych mental status grossly normal Assessment & Plan Assessment/Plan (1) Non-STEMI (non-ST elevated myocardial infarction): PLAN: He has a non-ST elevation myocardial infarction and his cardiac catheterization demonstrated a high-grade LAD lesion as well as a 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 The films will be reviewed. Upon review of the films with 2 maintenance dispatcher it appears that coronary artery bypass surgery may be the appropriate option. Start beta-cristobal Echocardiogram demonstrated estimated ejection fraction of 50% High intensity statin We will discontinue clopidogrel at this time so as not to interfere with surgery if need be. I will however suggest that the patient be optimally medically treated before considering transferring or sending for cardiac surgery opinion. (2) Shortness of breath: PLAN: Patient was noted to have presented with a non-ST elevation myocardial infarction and heart failure. His ventricular function was estimated to be 50%. We will continue daily Lasix dose pain close attention to his renal function.
[2021-05-20] MEDS: Pantoprazole Sodium 40 MG Tablet PO (11:01)
[2021-05-20] MEDS: Metoprolol Tartrate 25 MG Tablet PO ×2 (11:01→21:22)
[2021-05-20] MEDS: Folic Acid 1 MG Tablet PO (11:01)
[2021-05-20] MEDS: 0.9% Saline Lock 10 ML Syringe IV (11:02)
[2021-05-20] MEDS: Juven (unflavored) Packet 1 PACKET PO ×2 (11:02→17:43)
[2021-05-20] MEDS: Aspirin 81 MG TAB.CHEW PO (11:02)
[2021-05-20] MEDS: Insulin Lispro 100 UNIT/ML INSULN.PEN SC ×3 (11:02→23:15)
[2021-05-20 11:16] LABS: Bedside Glucose 180 mg/dL (70-110)
--- NOTE | 2021-05-20 14:16 | CASEMGMT ---
Palliative screening tool completed for L[facility]/Strata 3. Patient meets criteria for palliative consult. RON CM updated hospital and no referral at this time.
[2021-05-20] MEDS: LORazepam 1 MG Tablet PO (16:50)
[2021-05-20] MEDS: CHLORHEXIDINE GLUC 2% CLOTH 1 EACH TOWELETTE TOPICAL (17:42)
[2021-05-20 17:46] LABS: Bedside Glucose 193 mg/dL (70-110)
[2021-05-20] MEDS: Atorvastatin Calcium 80 MG Tablet PO (21:22)
[2021-05-20] MEDS: Divalproex Sodium 250 MG Tablet 500 MG PO (21:23)
[2021-05-20] MEDS: buPROPion (SR) 100 MG TABLET.SA PO (23:16)
[2021-05-20 23:36] LABS: Bedside Glucose 198 mg/dL (70-110)
[2021-05-21] VITALS (16 sets, daily range): BP systolic 131–154; BP diastolic 49–77; PULSE 68–87; RESP 12–25; TEMP 36.4–36.9; O2SAT 94–98
[2021-05-21] MEDS: LORazepam 1 MG Tablet PO ×2 (00:54→21:38)
[2021-05-21] MEDS: 0.9% Saline Lock 10 ML Syringe IV ×4 (05:49→15:59)
[2021-05-21 06:30] LABS: Bedside Glucose 132 mg/dL (70-110)
--- NOTE | 2021-05-21 07:05 | PN.CARD_ITS ---
Subjective Subjective patient seen and evaluated Objective Data Vital Signs: Vital Signs Temp Pulse Resp BP Pulse Ox 97.6 F L 68 22 H 131/49 H 96 05/21/21 05:01 05/21/21 05:01 05/21/21 05:01 05/21/21 05:01 05/21/21 05:01 Oxygen Flow Rate (L/min) 2 Oxygen Delivery Method Bi-pap Weight: 294 lb 8.601 oz Body Mass Index (BMI) 41.1 Intake & Output: Intake and Output for Last 24 Hours 05/19/21 05/20/21 05/21/21 23:59 23:59 23:59 Intake Total 1025.34 / 1045.34 2050 / 2170 470 / 470 Output Total 1275 / 1575 715 / 840 250 / 250 Balance -249.66 / -529.66 1335 / 1330 220 / 220 Lab / Micro Data Result Diagrams: 05/20/21 03:05 05/20/21 03:05 Labs: Laboratory Results - last 24 hr 05/19/21 05/19/21 05/20/21 17:56 22:58 05:03 POC Glucose 156 H 172 H 121 H 05/20/21 05/20/21 05/20/21 10:46 17:41 23:12 POC Glucose 180 H 193 H 198 H 05/21/21 05:48 POC Glucose 132 H Micro: Microbiology 05/19/21 19:15 Wound - Right Foot Gram Stain - Final 05/18/21 07:33 Blood Culture (Wb) - Left Hand Blood Culture - Preliminary No growth in 48 hours. 05/18/21 10:20 Urine Catheter - Cruz Urine Culture - Final Presumptive E. coli 05/18/21 06:55 Blood Culture (Wb) - Anticubital Right Blood Culture - Preliminary Escherichia coli 05/18/21 10:10 Sputum, Induced/Lukens Gram Stain - Final 05/18/21 10:10 Sputum, Induced/Lukens Respiratory Culture - Preliminary Culture exhibits no growth. 05/18/21 07:15 Mucosa - Nose SARS-CoV-2 Antigen (Rapid) - Final 05/18/21 06:55 Stool Stool Occult Blood (SOFIE) - Final Cardiology Labs/Tests Rhythm: EKG: ECHO: Stress Test: Cardiac Cath: PCI: CT Surgery: Holter monitor: EPS: PPM: CXR: Chest CT Scan: Radiography Diagnostic Testing: Radiology Impression Foot X-Ray 05/19/21 14:36 Foot X-Ray 05/19/21 14:43 Extremity Arterial Study 05/19/21 18:11 Interpretation Summary Limited evaluation secondary to artificially elevated systolic pressures bilateral PT and DP analysis making ankle-brachial indices not possible. Bandages prohibited right digital brachial indices. Left digital brachial indices abnormal at 0.38 Bilateral posterior tibial and dorsalis pedis Doppler waveforms are noted to be biphasic which by themselves would be consistent with moderately severe arterial occlusive disease. Ordering Physician: Sandra Masters Referring Physician: Jaycob Kumar Performed By: Chito Reyes RVTah and Student Venous Doppler Study 05/19/21 23:14 Interpretation Summary No evidence for acute deep venous thrombosis bilateral lower extremities with patent and compressible bilateral great saphenous veins. The exam was noted to be technically difficult Ordering Physician: Jj Isidro Referring Physician: Annette Mueller Performed By: Diana Pollock RDCS, RVT Physical Exam Const oriented x3 and healthy appearing Orientation / Consciousness: awake HEENT normocephalic Eyes PERRL and conjunctivae normal Neck supple, no JVD and no carotid bruits Chest inspection of chest normal Resp normal respiratory effort and clear to auscultation bilaterally Cardio Palpation: normal PMI Rate: regular rate Rhythm: regular rhythm Heart Sounds: S1 normal and S2 normal Peripheral Pulses: pulses 2+ throughout GI normal to inspection, nondistended, normoactive bowel sounds Extremity normal to inspection and no clubbing, cyanosis or edema Psych mental status grossly normal Assessment & Plan Assessment/Plan (1) Non-STEMI (non-ST elevated myocardial infarction): PLAN: He has a non-ST elevation myocardial infarction and his cardiac catheterization demonstrated a high-grade LAD lesion as well as a 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 The films were reviewed. Upon review of the films with 2 selling underwriter it appears that coronary artery bypass surgery may be the appropriate option. Start beta-cristobal Echocardiogram demonstrated estimated ejection fraction of 50% High intensity statin We will discontinue clopidogrel at this time so as not to interfere with surgery if need be. I will however suggest that the patient be optimally medically treated before considering transferring or sending for cardiac surgery opinion. (2) Shortness of breath: PLAN: Patient was noted to have presented with a non-ST elevation myocardial infarction and heart failure. His ventricular function was estimated to be 50%. We will temporarily discontinue daily Lasix dose pain close attention to his renal function.
--- NOTE | 2021-05-21 07:19 | PN_ITS ---
Subjective Subjective This 76-year-old male was seen bedside for right foot ulcers. He has been transition to the progressive care unit. He denies fever, nausea, chills, vomiting. His right foot pain has resolved. He denies calf pain. Objective Data Objective Data Vital Signs: Vital Signs Temp Pulse Resp BP Pulse Ox 97.6 F L 68 22 H 131/49 H 96 05/21/21 05:01 05/21/21 05:01 05/21/21 05:01 05/21/21 05:01 05/21/21 05:01 Oxygen Flow Rate (L/min) 2 Oxygen Delivery Method Bi-pap Weight: 133.6 kg Body Mass Index (BMI) 41.1 Intake & Output: Intake and Output for Last 24 Hours 05/19/21 05/20/21 05/21/21 23:59 23:59 23:59 Intake Total 1025.34 / 1045.34 2050 / 2170 470 / 470 Output Total 1275 / 1575 715 / 840 250 / 250 Balance -249.66 / -529.66 1335 / 1330 220 / 220 Lab / Micro Data Result Diagrams: 05/21/21 06:24 05/20/21 03:05 Labs: Laboratory Results - last 24 hr 05/19/21 05/19/21 05/20/21 17:56 22:58 05:03 POC Glucose 156 H 172 H 121 H 05/20/21 05/20/21 05/20/21 10:46 17:41 23:12 POC Glucose 180 H 193 H 198 H 05/21/21 05:48 POC Glucose 132 H Micro: Microbiology 05/19/21 19:15 Wound - Right Foot Gram Stain - Final 05/18/21 07:33 Blood Culture (Wb) - Left Hand Blood Culture - Preliminary No growth in 48 hours. 05/18/21 10:20 Urine Catheter - Cruz Urine Culture - Final Presumptive E. coli 05/18/21 06:55 Blood Culture (Wb) - Anticubital Right Blood Culture - Preliminary Escherichia coli 05/18/21 10:10 Sputum, Induced/Lukens Gram Stain - Final 05/18/21 10:10 Sputum, Induced/Lukens Respiratory Culture - Preliminary Culture exhibits no growth. 05/18/21 07:15 Mucosa - Nose SARS-CoV-2 Antigen (Rapid) - Final 05/18/21 06:55 Stool Stool Occult Blood (SOFIE) - Final Radiography Diagnostic Testing: Radiology Impression Foot X-Ray 05/19/21 14:36 Foot X-Ray 05/19/21 14:43 Extremity Arterial Study 05/19/21 18:11 Interpretation Summary Limited evaluation secondary to artificially elevated systolic pressures bi lateral PT and DP analysis making ankle-brachial indices not possible. Bandages prohibited right digital brachial indices. Left digital brachial indices abnormal at 0.38 Bilateral posterior tibial and dorsalis pedis Doppler waveforms are noted to be biphasic which by themselves would be consistent with moderately severe arterial occlusive disease. Ordering Physician: Sandra Masters Referring Physician: Jaycob Kumar Performed By: Rebecca Reyes RVT and Student Venous Doppler Study 05/19/21 23:14 Interpretation Summary No evidence for acute deep venous thrombosis bilateral lower extremities with patent and compressible bilateral great saphenous veins. The exam was noted to be techn ically difficult Ordering Physician: Jj Isidro Referring Physician: Annette Mueller Performed By: Diana Pollock RDCS, RVT Physical Exam Const alert and oriented x3 General Appearance: cooperative and lethargic HEENT normocephalic Extremity Extremity Narrative: No calf tenderness Compartments remain soft to palpate bilateral lower extremities Muscle wasting noted Active range of motion digits and ankles in all directions noted General Extremity: edema and no tenderness to palpation of joints or extremities; Negative for cyanosis Skin Skin Narrative: right foot hallux and second toe ulcers are less inflamed the base is 100% fibrous. There is no necrosis or probe directly to bone. No adjacent bogginess or fluctuance. His skin is hairless and atrophic. no ulcers left foot bilateral lower extremity leg skin is indurated with hyperpigmentation; no calor General Skin Exam: Negative for erythema Neuro Neuro Narrative: lack of normal epicritic sensation via light touch is consistent with neuropathy status Psych cooperative and affect normal Assessment & Plan Assessment/Plan (1) Non-pressure chronic ulcer of other part of right foot with fat layer exposed: (2) Non-pressure chronic ulcer of other part of left foot limited to breakdown of skin: (3) Other specified peripheral vascular diseases: (4) Localized edema: (5) Type 2 diabetes mellitus with diabetic polyneuropathy: (6) Severe sepsis: (7) Delayed wound healing: PLAN: I reviewed and discussed his case today. Currently he is afebrile and his vital signs are stable. His recent sepsis status is noted and recently improving. He is more alert this morning. infection status: Multiple prior sources have been tested and cultures were reviewed. Blood culture neg so far, urine culture with e-coli, sputum culture pending. No growth so far with right foot cultures aerobic, anaerobic. Neg MRSA PCR from the right foot ulcer. It is noted infectious disease on consult antibiotic management as noted. On Zosyn. His white blood cell count is pending this morning. Imaging: Foot x-rays were reviewed (bilateral three views) without any osseous destruction adjacent to the ulcer sites, soft tissue emphysema or foreign bodies. There are also no fractures or dislocations. His vessel calcification is noted. If lack of clear infection source continues, an MRI of the right foot would be helpful without contrast to avoid any further kidney injury. This was put on hold due to inability to get into the appropriate position to complete the test. There are no plans for lower extremity surgery at this time. Dressing: I recommend Santyl and gauze right foot. No dressing required for the left foot. Wash: Soap and water Offloading: To keep direct pressure directly off of ulcer site. It is noted he is not ambulating at this time. To hang heels over pillow in bed to prevent further pressure ulcerations. Vascular: Noninvasive vascular studies were ordered including segmental leg and thigh pressures, LES, and systolic once he is stable. His vessel calcifications noted on his x-rays are noted. It is noted he is already on aspirin and Plavix. Noncompressible vessels. Right systolic toe pressure was not obtained. Left systolic toe pressures point. I recommend vascular referral inpatient versus outpatient due to chronicity of these ulcers. Edema: Bilateral lower extremity REYMUNDO wraps are okay to continue at this time. Pain: His neuropathy is noted. His pain is controlled most of the time Host factors: His multiple comorbidities are noted including diabetes (A1c 6%), kidney disease, morbid obesity anemia, respiratory failure, hypertension, recent NSTEMI, hyperlipidemia. Medical and infectious management are noted. He has some delays in healing and will proceed with a comprehensive wound healing plan. Nutrition: Shon nutritional supplementation was ordered to optimize healing. I answered all the patient's questions. Please do not hesitate to call if you have any questions. I will continue to follow him close while in house. Sandra Masters DPM, [facility] Note: [employer]chikuru speech recognition transverse abdominal muscle surgeon software was used to create portions of this document. Sound-alike and misspelled words, as well as other transverse abdominal muscle surgeon errors may be contained in the documentation.
[2021-05-21] MEDS: Collagenase 30gm Tube 1 APPLIC TOPICAL (07:37)
[2021-05-21 07:42] LABS: Absolute Lymphocyte Count 1.57 X10^3/uL (0.83-4.51); Absolute Neutrophil Count 6.7 X10^3/uL (2.0-7.7); Basophil# 0.04 X10^3/uL; Basophil% 0.4 % (0-1); Eosinophil# 0.03 X10^3/uL; Eosinophils% 0.3 % (0-5); Hematocrit 29.6 % (40-54); Hemoglobin 9.1 g/dL (13.0-16.5); Lymphocyte # 1.57 X10^3/ul (0.83-4.51); Mean Corp Hgb Conc 30.7 g/dL (32-36); Mean Corpuscular Hgb 30.2 pg (27.0-32.0); Mean Corpuscular Volume 98.3 fL (80-94); Mean Platelet Vol. 11.5 fl (6.2-12.0); Monocyte# 0.85 X10^3/uL; Monocyte% 9.2 % (0-10); NRBC Flagged by Analyzer 0.4 % (0-5); Neutrophil # 6.68 X10^3/uL (2.7-7.7); Neutrophil % 72.3 % (47-70); Platelet Count 210 K/mm3 (150-450); RBC Distribution Width CV 14.6 % (11.6-14.6); Red Blood Count 3.01 M/mm3 (4.6-6.2); White Blood Count 9.2 K/mm3 (4.4-11.0)
[2021-05-21 07:44] LABS: ALB/GLOB Ratio 0.6 RATIO (0.9-2.4); AST(SGOT) 42 U/L (15-37); Alanine Aminotransfer ALT/SGPT 19 U/L (16-61); Albumin, Serum 2.2 g/dL (3.2-5.0); Alkaline Phosphatase 62 U/L (45-117); Anion Gap 8 (5-15); BUN 83 mg/dL (7-18); BUN/Creat Ratio 36.6 RATIO (10-20); Calcium,Total 8.2 mg/dL (8.5-10.1); Chloride 102 mmol/L (98-107); Creatinine, Serum 2.27 mg/dL (0.70-1.30); EST Glomerular Filtration Rate 30 mL/min (>60); Est Glom Filt Rate - Afr Amer 36 mL/min (>60); Estimated Creatinine Clearance 29.03 ml/min; Glucose 133 mg/dL (74-106); Potassium 3.6 mmol/L (3.5-5.1); Protein, Total 6.2 g/dL (6.4-8.2); Sodium Level 137 mmol/L (136-145)
[2021-05-21] MEDS: Folic Acid 1 MG Tablet PO (08:35)
[2021-05-21] MEDS: Juven (unflavored) Packet 1 PACKET PO ×2 (08:35→16:45)
[2021-05-21] MEDS: Aspirin 81 MG TAB.CHEW PO (08:35)
--- NOTE | 2021-05-21 09:35 | PN.CC_ITS ---
Assessment & Plan Assessment/Plan (1) Acute hypoxemic respiratory failure: PLAN: RECOMMENDATIONS: 1. Wean oxygen as tolerated 2. Advance diet as tolerated 3. Continue empiric broad-spectrum antibiotics 4. Continue to monitor off anticoagulation 5. Diuretics per nephrology 6. Continue appropriate GI prophylaxis. IMPRESSIONS: 1. Acute combined respiratory failure Unclear precipitating etiology. While acute coronary syndrome is certainly a possibility, no obstructive lesion was identified on cardiac catheterization. Decompensated heart failure is also a possibility given pulmonary vascular congestion and pleural effusion noted on chest imaging. However, the patient does meet sepsis criteria. Therefore, agree with continuing broad-spectrum antimicrobials for now, pending infectious work-up. Continue BiPAP with sleep. Patient would benefit from an outpatient sleep evaluation. Defer to nephrology on Lasix. Oxygen status does not require active diuresis 2. Severe sepsis Concern for possible underlying pulmonary versus diabetic ulcer infectious etiology. We will continue broad-spectrum antibiotics for now. Wound nurse to evaluate lower extremities. Await MRI of the feet to evaluate for osteomyelitis. Appreciate infectious disease and podiatry evaluation 3. Questionable acute coronary syndrome Continue current medical management per cardiology recommendations. 4. Acute on chronic kidney disease stage III Continue to monitor urine output for now. No indication for renal replacement therapy. Some concern for contrast-induced nephropathy versus prerenal etiology given problem #2 exacerbating current condition. Hold on further contrast. We will hold on diuretics for 24 hours given improvement in oxygenation and elevation in creatinine. 5. Morbid obesity/depression/hypertension/diabetes mellitus/anxiety/hyperlipidemia Complicates care, management, recovery and prognosis. Continue home medications as indicated. Subjective Subjective Patient transferred out of the intensive care unit yesterday. Patient overall feels subjectively improved compared to yesterday. Patient tolerates p.o. intake with supervision. Patient denies any chest pain, bowel pain, nausea or vomiting. Patient is still requiring 2 L nasal cannula to maintain saturations. Objective Data Objective Data Vital Signs: Vital Signs Temp Pulse Resp BP Pulse Ox 36.5 C L 82 18 154/77 H 96 05/21/21 08:10 05/21/21 08:10 05/21/21 08:10 05/21/21 08:10 05/21/21 08:10 Oxygen Flow Rate (L/min) 2 Oxygen Delivery Method Nasal Cannula Weight: 133.6 kg Body Mass Index (BMI) 41.1 Intake & Output: Intake and Output for Last 24 Hours 05/19/21 05/20/21 05/21/21 23:59 23:59 23:59 Intake Total 1025.34 / 1045.34 2050 / 2170 470 / 470 Output Total 1275 / 1575 715 / 840 250 / 250 Balance -249.66 / -529.66 1335 / 1330 220 / 220 Lab / Micro Data Result Diagrams: 05/21/21 06:24 05/21/21 06:24 Labs: Laboratory Results - last 24 hr 05/20/21 05/20/21 05/20/21 10:46 17:41 23:12 WBC RBC Hgb Hct MCV MCH MCHC RDW Std Deviation RDW Coeff of Favian Plt Count MPV Immature Gran % (Auto) Neut % (Auto) Lymph % (Auto) [place] % (Auto) Eos % (Auto) Baso % (Auto) Absolute Neuts (auto) Absolute Lymphs (auto) Nucleated RBC % Sodium Potassium Chloride Carbon Dioxide Anion Gap BUN Creatinine Estim Creat Clear Calc Est GFR (MDRD) Af Amer Est GFR (MDRD) Non-Af BUN/Creatinine Ratio Glucose Calcium Phosphorus Total Bilirubin AST ALT Alkaline Phosphatase Total Protein Albumin Globulin Albumin/Globulin Ratio POC Glucose 180 H 193 H 198 H 05/21/21 05/21/21 05/21/21 05:48 06:24 06:24 WBC 9.2 RBC 3.01 L Hgb 9.1 L Hct 29.6 L MCV 98.3 H MCH 30.2 MCHC 30.7 L RDW Std Deviation 53.0 H RDW Coeff of Favian 14.6 Plt Count 210 MPV 11.5 Immature Gran % (Auto) 0.800 Neut % (Auto) 72.3 H Lymph % (Auto) 17.0 L [place] % (Auto) 9.2 Eos % (Auto) 0.3 Baso % (Auto) 0.4 Absolute Neuts (auto) 6.7 Absolute Lymphs (auto) 1.57 Nucleated RBC % 0.4 Sodium 137 Potassium 3.6 Chloride 102 Carbon Dioxide 27.0 Anion Gap 8 BUN 83 H Creatinine 2.27 H Estim Creat Clear Calc 29.03 Est GFR (MDRD) Af Amer 36 L Est GFR (MDRD) Non-Af 30 L BUN/Creatinine Ratio 36.6 H Glucose 133 H Calcium 8.2 L Phosphorus 4.0 Total Bilirubin 0.40 AST 42 H ALT 19 Alkaline Phosphatase 62 Total Protein 6.2 L Albumin 2.2 L Globulin 4.0 Albumin/Globulin Ratio 0.6 L POC Glucose 132 H Micro: Microbiology 05/18/21 10:10 Sputum, Induced/Lukens Gram Stain - Final 05/18/21 10:10 Sputum, Induced/Lukens Respiratory Culture - Final Culture exhibits no growth. 05/19/21 19:15 Wound - Right Foot Gram Stain - Final 05/18/21 07:33 Blood Culture (Wb) - Left Hand Blood Culture - Preliminary No growth in 48 hours. 05/18/21 10:20 Urine Catheter - Cruz Urine Culture - Final Presumptive E. coli 05/18/21 06:55 Blood Culture (Wb) - Anticubital Right Blood Culture - Preliminary Escherichia coli 05/18/21 07:15 Mucosa - Nose SARS-CoV-2 Antigen (Rapid) - Final 05/18/21 06:55 Stool Stool Occult Blood (SOFIE) - Final Radiography Diagnostic Testing: Radiology Impression Extremity Arterial Study 05/19/21 18:11 Interpretation Summary Limited evaluation secondary to artificially elevated systolic pressures bilat eral PT and DP analysis making ankle-brachial indices not possible. Bandages prohibited right digital brachial indices. Left digital brachial indices abnormal at 0.38 Bilateral posterior tibial and dorsalis pedis Doppler waveforms are noted to be biphasic which by themselves would be consistent with moderately severe arterial occlusive di sease. Ordering Physician: Sandra Masters Referring Physician: Jaycob Kumar Performed By: Rebecca Reyes RVT and Student Venous Doppler Study 05/19/21 23:14 Interpretation Summary No evidence for acute deep venous thrombosis bilateral lower extremities with pa tent and compressible bilateral great saphenous veins. The exam was noted to be technica lly difficult Ordering Physician: Jj Isidro Referring Physician: Annette Mueller Performed By: Diana Pollock, ANDREW, RVT Physical Exam Const alert, oriented x3 and no apparent distress Constitutional Narrative: Better color today General Appearance: cooperative Orientation / Consciousness: awake Nutritional Appearance: morbidly obese HEENT normocephalic and head/scalp atraumatic Eyes PERRL and conjunctivae normal Neck supple General: trachea midline Chest inspection of chest normal Chest: symmetrical chest wall rise Resp Auscultation: diminished lung sounds; Negative for rales, rhonchi or wheezes Cardio S1 normal heart sound, S2 normal heart sound, no murmurs, no rub and no gallops Rhythm: abnormal rhythm GI normal to inspection, nondistended, normoactive bowel sounds Palpation: soft; Negative for tender, guarding, abdominal wall crepitus or rebound tenderness present Extremity General Extremity: edema bilateral Skin Skin Narrative: Mild ecchymosis noted periumbilically. No expansion noted. General Skin Exam: lichenification Neuro oriented x3, CN's II-XII intact bilaterally, moves all extremities and no focal motor deficits Sensory Exam: extremities pin-prick: decreased (Bilateral lower extremities) and light-touch: decreased (Bilateral lower extremities) Charges/Coding Visit Charges Inpatient E&M: 05254 Subs Hosp L2
[2021-05-21] MEDS: buPROPion (SR) 100 MG TABLET.SA PO ×2 (10:48→21:37)
[2021-05-21] MEDS: Metoprolol Tartrate 25 MG Tablet PO ×2 (10:48→21:38)
[2021-05-21] MEDS: Pantoprazole Sodium 40 MG Tablet PO (10:48)
[2021-05-21] MEDS: Divalproex Sodium 250 MG Tablet 500 MG PO ×2 (10:48→21:36)
[2021-05-21 11:05] LABS: Bedside Glucose 163 mg/dL (70-110)
--- NOTE | 2021-05-21 11:12 | CON.PCM_ITS ---
Assessment & Plan Assessment/Plan (1) PAD (peripheral artery disease): PLAN: 1. PAD. Patient probably has some underlying tibial disease.. Adequate flow into the feet but noncompressible with the diabetes. Once he is stable from a pulmonary standpoint we would plan for a right leg angiogram with intervention. Continue wound care. We will probably just see him back in the office in 2 weeks and if clinically improved would then plan the angiogram. HPI Consult Data Date of Consult: 05/21/21 HPI Narrative HPI Narrative: MAURI TOWNSEND, is a 76 M who presents with worsening shortness of breath. This has been going on for a couple weeks. Also was noted to have a right toe ulceration and wound. He had ABIs done that showed decrease flow slightly into the feet and bilateral noncompressible consistent with his long- term diabetes. Vascular surgery asked for evaluation of this. [facility] Medical History Acute on chronic heart failure Anemia Atherosclerotic heart disease of [place] coronary artery without angina pectoris Bipolar 1 disorder Chronic kidney disease Diabetes Essential (primary) hypertension Hyperlipidemia Home Medications aspirin 81 mg PO DAILY@0800 12/13/16 [History Last Taken Unknown] bupropion HCl 100 mg PO BID 12/13/16 [History Last Taken Unknown] divalproex [Depakote] 500 mg PO BID 12/13/16 [History Last Taken Unknown] folic acid 1 mg PO DAILY@0800 12/13/16 [History Last Taken Unknown] hydrochlorothiazide 50 mg PO DAILY 12/13/16 [History Last Taken Unknown] insulin lispro protamin-lispro [Humalog Mix 75-25 Kwikpen] 16 unit SQ BREAKFAST 12/13/16 [History Last Taken Unknown] lisinopril [Zestril] 20 mg PO DAILY 12/13/16 [History Last Taken Unknown] lorazepam 1 mg PO DAILY PRN PRN 12/13/16 [History Last Taken Unknown] pioglitazone 45 mg PO DAILY 12/13/16 [History Last Taken Unknown] pravastatin 20 mg PO QHS 12/13/16 [History Last Taken Unknown] albuterol sulfate 1 - 2 puff INHALATION Q4H PRN PRN #1 inhaler 06/20/19 [Rx Last Taken Unknown] insulin lispro protamin-lispro 16 unit SQ DINNER 06/20/19 [History Last Taken Unknown] diltiazem HCl [Cartia XT] 180 mg PO DAILY 05/18/21 [History Last Taken Unknown] iron ps [id number] acid [Poly-Iron 150 Forte] 1 cap PO DAILY 05/18/21 [History Last Taken Unknown] multivitamin 1 tab PO DAILY 05/18/21 [History Last Taken Unknown] Allergy/AdvReac Type Severity Reaction Status Date / Time No Known Allergies Allergy Verified 05/18/21 07:55 Surgical History History of left heart catheterization (05/19/21) Social History Smoking Status: Never smoker ROS ROS Narrative All negative except for what is in the HPI. Patient still appears fairly uncomfortable with a shortness of breath Physical Exam Narrative Patient is awake alert oriented Mild discomfort with shortness of breath Afebrile vital signs stable HEENT: Normocephalic atraumatic Pupils appear equal and reactive Moist mucous membranes Neck supple Chest nontender Heart appears regular Lungs reported coarse Abdomen soft, obese, nontender Extremities palpable radial pulses but slightly decreased Bilateral feet with dressing intact, just redressed and we did not take the wounds down Wounds noted right toes Moves all extremities well x4 Lab / Micro Data Result Diagrams: 05/21/21 06:24 05/21/21 06:24 Labs: Laboratory Results - last 24 hr 05/20/21 05/20/21 05/20/21 10:46 17:41 23:12 WBC RBC Hgb Hct MCV MCH MCHC RDW Std Deviation RDW Coeff of Favian Plt Count MPV Immature Gran % (Auto) Neut % (Auto) Lymph % (Auto) [place] % (Auto) Eos % (Auto) Baso % (Auto) Absolute Neuts (auto) Absolute Lymphs (auto) Nucleated RBC % Sodium Potassium Chloride Carbon Dioxide Anion Gap BUN Creatinine Estim Creat Clear Calc Est GFR (MDRD) Af Amer Est GFR (MDRD) Non-Af BUN/Creatinine Ratio Glucose Calcium Phosphorus Total Bilirubin AST ALT Alkaline Phosphatase Total Protein Albumin Globulin Albumin/Globulin Ratio POC Glucose 180 H 193 H 198 H 05/21/21 05/21/21 05/21/21 05:48 06:24 06:24 WBC 9.2 RBC 3.01 L Hgb 9.1 L Hct 29.6 L MCV 98.3 H MCH 30.2 MCHC 30.7 L RDW Std Deviation 53.0 H RDW Coeff of Favian 14.6 Plt Count 210 MPV 11.5 Immature Gran % (Auto) 0.800 Neut % (Auto) 72.3 H Lymph % (Auto) 17.0 L [place] % (Auto) 9.2 Eos % (Auto) 0.3 Baso % (Auto) 0.4 Absolute Neuts (auto) 6.7 Absolute Lymphs (auto) 1.57 Nucleated RBC % 0.4 Sodium 137 Potassium 3.6 Chloride 102 Carbon Dioxide 27.0 Anion Gap 8 BUN 83 H Creatinine 2.27 H Estim Creat Clear Calc 29.03 Est GFR (MDRD) Af Amer 36 L Est GFR (MDRD) Non-Af 30 L BUN/Creatinine Ratio 36.6 H Glucose 133 H Calcium 8.2 L Phosphorus 4.0 Total Bilirubin 0.40 AST 42 H ALT 19 Alkaline Phosphatase 62 Total Protein 6.2 L Albumin 2.2 L Globulin 4.0 Albumin/Globulin Ratio 0.6 L POC Glucose 132 H 05/21/21 08:41 WBC RBC Hgb Hct MCV MCH MCHC RDW Std Deviation RDW Coeff of Favian Plt Count MPV Immature Gran % (Auto) Neut % (Auto) Lymph % (Auto) [place] % (Auto) Eos % (Auto) Baso % (Auto) Absolute Neuts (auto) Absolute Lymphs (auto) Nucleated RBC % Sodium Potassium Chloride Carbon Dioxide Anion Gap BUN Creatinine Estim Creat Clear Calc Est GFR (MDRD) Af Amer Est GFR (MDRD) Non-Af BUN/Creatinine Ratio Glucose Calcium Phosphorus Total Bilirubin AST ALT Alkaline Phosphatase Total Protein Albumin Globulin Albumin/Globulin Ratio POC Glucose 163 H Micro: Microbiology 05/18/21 10:10 Gram Stain - Final Sputum, Induced/Lukens Respiratory Culture - Final Culture exhibits no growth. 05/19/21 19:15 Gram Stain - Final Wound - Right Foot 05/18/21 07:33 Blood Culture - Preliminary Blood Culture (Wb) - Left Hand No growth in 48 hours. 05/18/21 10:20 Urine Culture - Final Urine Catheter - Cruz Presumptive E. coli 05/18/21 06:55 Blood Culture - Preliminary Blood Culture (Wb) - Anticubital Right Escherichia coli Radiology Impression Extremity Arterial Study 05/19/21 18:11 Interpretation Summary Limited evaluation secondary to artificially elevated systolic pressures bilateral PT and DP analysis making ankle-brachial indices not possible. Bandages prohibited right digital brachial indices. Left digital brachial indices abnormal at 0.38 Bilateral posterior tibial and dorsalis pedis Doppler waveforms are noted to be biphasic which by themselves would be consistent with moderately severe arterial occlusive disease. Ordering Physician: Sandra Masters Referring Physician: Jaycob Kumar Performed By: Rebecca Reyes RVT and Student Venous Doppler Study 05/19/21 23:14 Interpretation Summary No evidence for acute deep venous thrombosis bilateral lower extremities with patent and compressible bilateral great saphenous veins. The exam was noted to be technically difficult Ordering Physician: Jj Isidro Referring Physician: Annette Mueller Performed By: Diana Pollock RDCS, JOSE ELIAS
[2021-05-21 11:56] LABS: Bedside Glucose 188 mg/dL (70-110)
[2021-05-21] MEDS: Insulin Lispro 100 UNIT/ML INSULN.PEN SC ×3 (12:13→21:38)
--- NOTE | 2021-05-21 13:26 | PCM.PN.HOSP ---
Subjective Subjective Patient seems to be on and off of BiPAP despite having adequate oxygen saturations on 2 to 3 L nasal cannula. He reports he just feels better when he is on it. He has no other complaints overnight. Objective Data Objective Data Vital Signs: Vital Signs Temp Pulse Resp BP Pulse Ox 98.1 F 85 12 134/65 H 97 05/21/21 10:41 05/21/21 10:48 05/21/21 10:41 05/21/21 10:48 05/21/21 10:41 Oxygen Flow Rate (L/min) 2 Oxygen Delivery Method Bi-pap Weight: 133.6 kg Body Mass Index (BMI) 41.1 Intake & Output: Intake and Output for Last 24 Hours 05/19/21 05/20/21 05/21/21 23:59 23:59 23:59 Intake Total 1025.34 / 1045.34 2050 / 2170 1080 / 1080 Output Total 1275 / 1575 715 / 840 350 / 350 Balance -249.66 / -529.66 1335 / 1330 730 / 730 Lab / Micro Data Result Diagrams: 05/21/21 06:24 05/21/21 06:24 Labs: Laboratory Results - last 24 hr 05/20/21 05/20/21 05/21/21 17:41 23:12 05:48 WBC RBC Hgb Hct MCV MCH MCHC RDW Std Deviation RDW Coeff of Favian Plt Count MPV Immature Gran % (Auto) Neut % (Auto) Lymph % (Auto) [place] % (Auto) Eos % (Auto) Baso % (Auto) Absolute Neuts (auto) Absolute Lymphs (auto) Nucleated RBC % Sodium Potassium Chloride Carbon Dioxide Anion Gap BUN Creatinine Estim Creat Clear Calc Est GFR (MDRD) Af Amer Est GFR (MDRD) Non-Af BUN/Creatinine Ratio Glucose Calcium Phosphorus Total Bilirubin AST ALT Alkaline Phosphatase Total Protein Albumin Globulin Albumin/Globulin Ratio POC Glucose 193 H 198 H 132 H 05/21/21 05/21/21 05/21/21 06:24 06:24 08:41 WBC 9.2 RBC 3.01 L Hgb 9.1 L Hct 29.6 L MCV 98.3 H MCH 30.2 MCHC 30.7 L RDW Std Deviation 53.0 H RDW Coeff of Favian 14.6 Plt Count 210 MPV 11.5 Immature Gran % (Auto) 0.800 Neut % (Auto) 72.3 H Lymph % (Auto) 17.0 L [place] % (Auto) 9.2 Eos % (Auto) 0.3 Baso % (Auto) 0.4 Absolute Neuts (auto) 6.7 Absolute Lymphs (auto) 1.57 Nucleated RBC % 0.4 Sodium 137 Potassium 3.6 Chloride 102 Carbon Dioxide 27.0 Anion Gap 8 BUN 83 H Creatinine 2.27 H Estim Creat Clear Calc 29.03 Est GFR (MDRD) Af Amer 36 L Est GFR (MDRD) Non-Af 30 L BUN/Creatinine Ratio 36.6 H Glucose 133 H Calcium 8.2 L Phosphorus 4.0 Total Bilirubin 0.40 AST 42 H ALT 19 Alkaline Phosphatase 62 Total Protein 6.2 L Albumin 2.2 L Globulin 4.0 Albumin/Globulin Ratio 0.6 L POC Glucose 163 H 05/21/21 11:51 WBC RBC Hgb Hct MCV MCH MCHC RDW Std Deviation RDW Coeff of Favian Plt Count MPV Immature Gran % (Auto) Neut % (Auto) Lymph % (Auto) [place] % (Auto) Eos % (Auto) Baso % (Auto) Absolute Neuts (auto) Absolute Lymphs (auto) Nucleated RBC % Sodium Potassium Chloride Carbon Dioxide Anion Gap BUN Creatinine Estim Creat Clear Calc Est GFR (MDRD) Af Amer Est GFR (MDRD) Non-Af BUN/Creatinine Ratio Glucose Calcium Phosphorus Total Bilirubin AST ALT Alkaline Phosphatase Total Protein Albumin Globulin Albumin/Globulin Ratio POC Glucose 188 H Micro: Microbiology 05/18/21 10:10 Sputum, Induced/Lukens Gram Stain - Final 05/18/21 10:10 Sputum, Induced/Lukens Respiratory Culture - Final Culture exhibits no growth. 05/19/21 19:15 Wound - Right Foot Gram Stain - Final 05/18/21 07:33 Blood Culture (Wb) - Left Hand Blood Culture - Preliminary No growth in 48 hours. 05/18/21 10:20 Urine Catheter - Cruz Urine Culture - Final Presumptive E. coli 05/18/21 06:55 Blood Culture (Wb) - Anticubital Right Blood Culture - Preliminary Escherichia coli 05/18/21 07:15 Mucosa - Nose SARS-CoV-2 Antigen (Rapid) - Final 05/18/21 06:55 Stool Stool Occult Blood (SOFIE) - Final Radiography Diagnostic Testing: Radiology Impression Extremity Arterial Study 05/19/21 18:11 Interpretation Summary Limited evaluation secondary to artificially elevated systolic pressures bilateral PT and DP analysis making ankle-brachial indices not possible. Bandages prohibited right digital brachial indices. Left digital brachial indices abnormal at 0.38 Bilateral posterior tibial and dorsalis pedis Doppler waveforms are noted to be biphasic which by themselves would be consistent with moderately severe arterial occlusive disease. Ordering Physician: Sandra Masters Referring Physician: Jaycob Kumar Performed By: Rebecca Reyes RVT and Student Physical Exam Const alert, oriented x3, no apparent distress, average body habitus, healthy appearing and well nourished Constitutional Narrative: Morbidly obese older white male sitting up in bed currently on BiPAP, appears comfortable, watching television, nontoxic HEENT head/scalp atraumatic Head and Scalp: normocephalic Eyes PERRL and EOMs intact bilaterally Neck supple Resp normal respiratory effort, no retractions and no use of accessory muscles Resp Narrative: Distant breath sounds secondary to body habitus Cardio regular rate, regular rhythm, S1 normal heart sound, S2 normal heart sound, no murmurs, no rub, no gallops, no clicks and no JVD GI normal to inspection, nondistended, normoactive bowel sounds and soft to palpation Extremity normal to inspection and no clubbing, cyanosis or edema Peripheral Pulses: Yes pulses 2+ throughout Skin no rashes or lesions noted, skin turgor normal, no jaundice, no petechiae and no mottling Skin Narrative: Bilateral lower extremity foot wounds as noted earlier dressings currently in place, skin is pale Neuro oriented x3, CN's II-XII intact bilaterally, moves all extremities and no focal motor deficits Neuro Narrative: Generalized weakness Sensorium / Orientation: awake, alert, oriented to person, oriented to place and oriented to time Speech: speech normal Psych Psych Narrative: Affect is flat, patient is calm Assessment & Plan Assessment/Plan (1) Acute respiratory failure with hypoxia and hypercapnia: (2) Severe sepsis: (3) PAD (peripheral artery disease): (4) Non-pressure chronic ulcer of other part of left foot limited to breakdown of skin: (5) Type 2 diabetes mellitus with diabetic polyneuropathy: (6) BARBARA (acute kidney injury): (7) CKD stage G3b/A1, GFR 30-44 and albumin creatinine ratio <30 mg/g: (8) Non-STEMI (non-ST elevated myocardial infarction): PLAN: Severe sepsis secondary to E. coli UTI -Continue Zosyn per ID recommendations -Urine culture shows E. coli that is pansensitive -Sputum culture was negative -Blood culture remains pending -Patient does also have bilateral lower extremity diabetic foot wounds that could be a source -Evaluated by podiatry and debridement performed -Wound care is following -MRI is ordered but will have to be on hold as patient is unable to lie flat at this time -ID is following and appreciate input Acute hypoxic and hypercapnic respiratory failure -Precipitating etiology is unclear at this time although may relate to sepsis/heart failure -Chest x-ray from admission appeared to show some volume overload -Continue broad-spectrum antibiotics until cultures have been resulted -Wean oxygen as able -Patient is now down to 2 to 3 L nasal cannula but will intermittently utilize BiPAP during the day for comfort -Continue BiPAP at at bedtime -Heparin drip on hold secondary to bleeding -Bilateral lower extremity Dopplers are negative -Continue to hold Lasix secondary to worsening renal function D-dimer elevation -VQ scan will be of limited help given abnormal chest x-ray -Still unable to do CTA given renal failure -Patient is clinically improving without anticoagulation -Heparin drip was stopped secondary to bleeding -Bilateral lower extremity Dopplers are negative PAD -Patient was evaluated by vascular surgery -We will need followed up in the outpatient setting for angiography with regards to his lower extremity vascular disease -Patient was evaluated by Dr. Whitley while in the hospital Hematuria -Resolved -Discontinue Cruz NSTEMI -Cardiac catheterization was performed and demonstrated a 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 -I discussed the case today with Dr. Greenwood -He believes he will need cardiac surgery in the future based on review of the images and discussion with 2 other cardiologists but will need medically optimized and referred as an outpatient for this -Echocardiogram from 05/19/2021 shows an EF of 50%, stage I diastolic dysfunction and mild segmental systolic dysfunction -Continue metoprolol -Continue Plavix -Continue high intensity statin -Hold Lasix with worsening renal failure -Troponin peaked at 5 Chronic anemia -Hemoglobin is stable -Continue off of heparin drip -Monitor closely with PTT being supratherapeutic -Baseline hemoglobin appears to be 11-11.5 BARBARA on CKD stage IIIb -Serum creatinine continues to trend up but rate of rise seems to be slowing -Suspect related to contrast/ATN -Baseline serum creatinine appears to be 1.5-1.7 -Repeat in a.m. -Continue to hold Lasix -D/C Nancy HTN/HPL -Continue statin 80 mg daily -Continue metoprolol 25 mg twice daily -Hold Lasix -Monitor BP DM-2 -Hemoglobin A1c was 6.0 -Continue current management MO -BMI is 41.8 -Complicates overall medical care and prognosis Bipolar/anxiety/depression -Home medications currently on hold -Continue to monitor DVT prophylaxis -Heparin drip held secondary to bleeding -Start prophylactic heparin -Dopplers pending CODE STATUS -Full code Charges/Coding Visit Charges Inpatient E&M: 59082 Subs Hosp L2
--- NOTE | 2021-05-21 13:53 | PCM.PN.ID ---
Physical Exam Narrative Sleeping, no fever Const no apparent distress Resp clear to auscultation bilaterally Cardio regular rate and regular rhythm GI normal to inspection, nondistended, normoactive bowel sounds Skin no rashes or lesions noted ID ID: Route of nutrition/ use of supplements: [] Nutritional Intake: [] IV Site: [] Cruz Catheter: [] Assessment & Plan Assessment/Plan (1) Severe sepsis: PLAN: severe sepsis due to ecoli bacteremia; improving, off vent now. On empiric zosyn. Much improved, suspected urinary source but UA relatively normal. Narrow abx to ceftriaxone. Plan on discharge with 5 days amoxicillin 500mg daily. Will follow (2) Acute hypoxemic respiratory failure:
--- NOTE | 2021-05-21 15:32 | PN.RENAL_ITS ---
Subjective Subjective no new events. on bipap. some LE edema Objective Data Objective Data Vital Signs: Vital Signs Temp Pulse Resp BP Pulse Ox 98.5 F 79 14 135/62 H 98 05/21/21 15:22 05/21/21 15:22 05/21/21 15:22 05/21/21 15:22 05/21/21 15:22 Oxygen Flow Rate (L/min) 3 Oxygen Delivery Method Bi-pap Weight: 133.6 kg Body Mass Index (BMI) 41.1 Intake & Output: Intake and Output for Last 24 Hours 05/19/21 05/20/21 05/21/21 23:59 23:59 23:59 Intake Total 1025.34 / 1045.34 2050 / 2170 1080 / 1080 Output Total 1275 / 1575 715 / 840 350 / 350 Balance -249.66 / -529.66 1335 / 1330 730 / 730 Lab / Micro Data Result Diagrams: 05/21/21 06:24 05/21/21 06:24 Labs: Laboratory Results - last 24 hr 05/20/21 05/20/21 05/21/21 17:41 23:12 05:48 WBC RBC Hgb Hct MCV MCH MCHC RDW Std Deviation RDW Coeff of Favian Plt Count MPV Immature Gran % (Auto) Neut % (Auto) Lymph % (Auto) [place] % (Auto) Eos % (Auto) Baso % (Auto) Absolute Neuts (auto) Absolute Lymphs (auto) Nucleated RBC % Sodium Potassium Chloride Carbon Dioxide Anion Gap BUN Creatinine Estim Creat Clear Calc Est GFR (MDRD) Af Amer Est GFR (MDRD) Non-Af BUN/Creatinine Ratio Glucose Calcium Phosphorus Total Bilirubin AST ALT Alkaline Phosphatase Total Protein Albumin Globulin Albumin/Globulin Ratio POC Glucose 193 H 198 H 132 H 05/21/21 05/21/21 05/21/21 06:24 06:24 08:41 WBC 9.2 RBC 3.01 L Hgb 9.1 L Hct 29.6 L MCV 98.3 H MCH 30.2 MCHC 30.7 L RDW Std Deviation 53.0 H RDW Coeff of Favian 14.6 Plt Count 210 MPV 11.5 Immature Gran % (Auto) 0.800 Neut % (Auto) 72.3 H Lymph % (Auto) 17.0 L [place] % (Auto) 9.2 Eos % (Auto) 0.3 Baso % (Auto) 0.4 Absolute Neuts (auto) 6.7 Absolute Lymphs (auto) 1.57 Nucleated RBC % 0.4 Sodium 137 Potassium 3.6 Chloride 102 Carbon Dioxide 27.0 Anion Gap 8 BUN 83 H Creatinine 2.27 H Estim Creat Clear Calc 29.03 Est GFR (MDRD) Af Amer 36 L Est GFR (MDRD) Non-Af 30 L BUN/Creatinine Ratio 36.6 H Glucose 133 H Calcium 8.2 L Phosphorus 4.0 Total Bilirubin 0.40 AST 42 H ALT 19 Alkaline Phosphatase 62 Total Protein 6.2 L Albumin 2.2 L Globulin 4.0 Albumin/Globulin Ratio 0.6 L POC Glucose 163 H 05/21/21 11:51 WBC RBC Hgb Hct MCV MCH MCHC RDW Std Deviation RDW Coeff of Favian Plt Count MPV Immature Gran % (Auto) Neut % (Auto) Lymph % (Auto) [place] % (Auto) Eos % (Auto) Baso % (Auto) Absolute Neuts (auto) Absolute Lymphs (auto) Nucleated RBC % Sodium Potassium Chloride Carbon Dioxide Anion Gap BUN Creatinine Estim Creat Clear Calc Est GFR (MDRD) Af Amer Est GFR (MDRD) Non-Af BUN/Creatinine Ratio Glucose Calcium Phosphorus Total Bilirubin AST ALT Alkaline Phosphatase Total Protein Albumin Globulin Albumin/Globulin Ratio POC Glucose 188 H Micro: Microbiology 05/18/21 10:10 Sputum, Induced/Lukens Gram Stain - Final 05/18/21 10:10 Sputum, Induced/Lukens Respiratory Culture - Final Culture exhibits no growth. 05/19/21 19:15 Wound - Right Foot Gram Stain - Final 05/18/21 07:33 Blood Culture (Wb) - Left Hand Blood Culture - Preliminary No growth in 48 hours. 05/18/21 10:20 Urine Catheter - Mosqueda Urine Culture - Final Presumptive E. coli 05/18/21 06:55 Blood Culture (Wb) - Anticubital Right Blood Culture - Preliminary Escherichia coli 05/18/21 07:15 Mucosa - Nose SARS-CoV-2 Antigen (Rapid) - Final 05/18/21 06:55 Stool Stool Occult Blood (SOFIE) - Final Radiography Diagnostic Testing: Radiology Impression Extremity Arterial Study 05/19/21 18:11 Interpretation Summary Limited evaluation secondary to artificially elevated systolic pressures bilateral PT and DP analysis making ankle-brachial indices not possible. Bandages prohibited right digital brachial indices. Left digital brachial indices abnormal at 0.38 Bilateral posterior tibial and dorsalis pedis Doppler waveforms are noted to be biphasic which by themselves would be consistent with moderately severe arterial occlusive disease. Ordering Physician: Sandra Masters Referring Physician: Jaycob Kumar Performed By: Rebecca Reyes RVT and Student Physical Exam Narrative No acute distress Neck no JVD. Head atraumatic normocephalic Heart. S1-S2 RRR. Chest. Coarse breath sounds anteriorly. Abdomen. Normal bowel sounds. Soft nontender no guarding or rebound Extremity. 1+ edema of lower extremities. Neurologic. Alert and oriented x3, NAD Assessment & Plan Assessment/Plan (1) BARBARA (acute kidney injury): PLAN: There is a progressive increase in serum creatinine over the last 72 hours. This is likely due to hemodynamic changes in the renal circulation related to diuresis. The patient is also likely prerenal due to prior sepsis. Cr is slightly higher but BUN is almost 85. clinically looks better. ok to use lasix as needed. mosqueda out. (2) CKD stage G3b/A1, GFR 30-44 and albumin creatinine ratio <30 mg/g: PLAN: Baseline serum creatinine is around 1.5 to 1.6 mg/dL. (3) Acute respiratory failure with hypoxia and hypercapnia: PLAN: Management as per pulmonary (4) Non-STEMI (non-ST elevated myocardial infarction): PLAN: The patient is on aspirin and beta-cristobal. Cardiology is following. (5) Severe sepsis: PLAN: ID following (6) Lactic acidosis:
[2021-05-21 17:06] LABS: Bedside Glucose 179 mg/dL (70-110)
[2021-05-21] MEDS: Acetaminophen 650 MG/20 ML UDC PO (18:09)
[2021-05-21] MEDS: Atorvastatin Calcium 80 MG Tablet PO (21:37)
[2021-05-21 22:21] LABS: Bedside Glucose 181 mg/dL (70-110)
[2021-05-22] VITALS (18 sets, daily range): BP systolic 103–146; BP diastolic 53–92; PULSE 72–89; RESP 12–26; TEMP 36.2–36.8; O2SAT 91–98
[2021-05-22 06:40] LABS: Bedside Glucose 140 mg/dL (70-110)
--- NOTE | 2021-05-22 07:20 | PN_ITS ---
Subjective Subjective This 76-year-old male was seen bedside for right foot ulcers. He does fever, chill, nausea, vomiting. He denies foot pain. He is seen by vascular surgery yesterday who will consider intervention if he has delays with his initial wound care plan. Objective Data Objective Data Vital Signs: Vital Signs Temp Pulse Resp BP Pulse Ox 97.9 F 74 24 H 132/53 H 96 05/22/21 03:22 05/22/21 05:06 05/22/21 05:06 05/22/21 03:22 05/22/21 05:06 Oxygen Flow Rate (L/min) 2 Oxygen Delivery Method Bi-pap Weight: 135 kg Body Mass Index (BMI) 41.1 Intake & Output: Intake and Output for Last 24 Hours 05/20/21 05/21/21 05/22/21 23:59 23:59 23:59 Intake Total 2050 / 2170 1670 / 1670 Output Total 715 / 840 350 / 350 Balance 1335 / 1330 1320 / 1320 Lab / Micro Data Result Diagrams: 05/21/21 06:24 05/21/21 06:24 Labs: Laboratory Results - last 24 hr 05/21/21 05/21/21 05/21/21 06:24 06:24 08:41 WBC 9.2 RBC 3.01 L Hgb 9.1 L Hct 29.6 L MCV 98.3 H MCH 30.2 MCHC 30.7 L RDW Std Deviation 53.0 H RDW Coeff of Favian 14.6 Plt Count 210 MPV 11.5 Immature Gran % (Auto) 0.800 Neut % (Auto) 72.3 H Lymph % (Auto) 17.0 L [place] % (Auto) 9.2 Eos % (Auto) 0.3 Baso % (Auto) 0.4 Absolute Neuts (auto) 6.7 Absolute Lymphs (auto) 1.57 Nucleated RBC % 0.4 Sodium 137 Potassium 3.6 Chloride 102 Carbon Dioxide 27.0 Anion Gap 8 BUN 83 H Creatinine 2.27 H Estim Creat Clear Calc 29.03 Est GFR (MDRD) Af Amer 36 L Est GFR (MDRD) Non-Af 30 L BUN/Creatinine Ratio 36.6 H Glucose 133 H Calcium 8.2 L Phosphorus 4.0 Total Bilirubin 0.40 AST 42 H ALT 19 Alkaline Phosphatase 62 Total Protein 6.2 L Albumin 2.2 L Globulin 4.0 Albumin/Globulin Ratio 0.6 L POC Glucose 163 H 05/21/21 05/21/21 05/21/21 11:51 16:43 21:34 WBC RBC Hgb Hct MCV MCH MCHC RDW Std Deviation RDW Coeff of Favian Plt Count MPV Immature Gran % (Auto) Neut % (Auto) Lymph % (Auto) [place] % (Auto) Eos % (Auto) Baso % (Auto) Absolute Neuts (auto) Absolute Lymphs (auto) Nucleated RBC % Sodium Potassium Chloride Carbon Dioxide Anion Gap BUN Creatinine Estim Creat Clear Calc Est GFR (MDRD) Af Amer Est GFR (MDRD) Non-Af BUN/Creatinine Ratio Glucose Calcium Phosphorus Total Bilirubin AST ALT Alkaline Phosphatase Total Protein Albumin Globulin Albumin/Globulin Ratio POC Glucose 188 H 179 H 181 H 05/22/21 06:20 WBC RBC Hgb Hct MCV MCH MCHC RDW Std Deviation RDW Coeff of Favian Plt Count MPV Immature Gran % (Auto) Neut % (Auto) Lymph % (Auto) [place] % (Auto) Eos % (Auto) Baso % (Auto) Absolute Neuts (auto) Absolute Lymphs (auto) Nucleated RBC % Sodium Potassium Chloride Carbon Dioxide Anion Gap BUN Creatinine Estim Creat Clear Calc Est GFR (MDRD) Af Amer Est GFR (MDRD) Non-Af BUN/Creatinine Ratio Glucose Calcium Phosphorus Total Bilirubin AST ALT Alkaline Phosphatase Total Protein Albumin Globulin Albumin/Globulin Ratio POC Glucose 140 H Micro: Microbiology 05/18/21 10:10 Sputum, Induced/Lukens Gram Stain - Final 05/18/21 10:10 Sputum, Induced/Lukens Respiratory Culture - Final Culture exhibits no growth. 05/19/21 19:15 Wound - Right Foot Gram Stain - Final 05/18/21 07:33 Blood Culture (Wb) - Left Hand Blood Culture - Preliminary No growth in 48 hours. 05/18/21 10:20 Urine Catheter - Cruz Urine Culture - Final Presumptive E. coli 05/18/21 06:55 Blood Culture (Wb) - Anticubital Right Blood Culture - Preliminary Escherichia coli 05/18/21 07:15 Mucosa - Nose SARS-CoV-2 Antigen (Rapid) - Final 05/18/21 06:55 Stool Stool Occult Blood (SOFIE) - Final Physical Exam Const alert and oriented x3 General Appearance: cooperative and lethargic HEENT normocephalic Extremity Extremity Narrative: No calf tenderness Compartments remain soft to palpate bilateral lower extremities Muscle wasting noted Active range of motion digits and ankles in all directions noted General Extremity: edema and no tenderness to palpation of joints or extrem ities; Negative for cyanosis Skin Skin Narrative: His skin is hairless and atrophic. Right foot dressing is clean, dry, and intact without strikethrough or adjacent erythema or odor. Bilateral lower extremity Vickey wraps applied to feet and legs General Skin Exam: Negative for erythema Neuro Neuro Narrative: lack of normal epicritic sensation via light touch is consistent with neuropathy status Psych cooperative and affect normal Assessment & Plan Assessment/Plan (1) Non-pressure chronic ulcer of other part of right foot with fat layer exposed: (2) Non-pressure chronic ulcer of other part of left foot limited to breakdown of skin: (3) Other specified peripheral vascular diseases: (4) Localized edema: (5) Type 2 diabetes mellitus with diabetic polyneuropathy: (6) Severe sepsis: (7) Delayed wound healing: PLAN: I reviewed and discussed his case today. Currently he is afebrile and his vital signs are stable. His recent sepsis status is noted and recently improving. He is more alert this morning. infection status: Multiple prior sources have been tested and cultures were reviewed. Blood culture neg so far, urine culture with e-coli. Sputum neg so far. Urine source is suspected. No growth so far with right foot cultures aerobic, anaerobic. Neg MRSA PCR from the right foot ulcer. It is noted infectious disease on consult antibiotic management as noted. On Zosyn. Imaging:Foot xrays reviewed. MRi ordered and if he is not able to get this and source is suspected elsewhere, ok to put on hold. Dressing: I recommend Santyl and gauze right foot. No dressing required for the left foot. Wash: Soap and water Offloading: To keep direct pressure directly off of ulcer site. It is noted he is not ambulating at this time. To hang heels over pillow in bed to prevent further pressure ulcerations. Vascular: Noninvasive vascular studies were ordered including segmental leg and thigh pressures, LES, and systolic once he is stable. His vessel calcifications noted on his x-rays are noted. It is noted he is already on aspirin and Plavix. Noncompressible vessels. Right systolic toe pressure was not obtained. Left systolic toe pressures point. Vascular consult appreciated. Angio will be considered with Dr. Whitley if lack of appropriate wound care improvement. To follow up outpatient. Edema: Bilateral lower extremity VICKEY wraps are okay to continue at this time. Pain: His neuropathy is noted. His pain is controlled most of the time I answered all the patient's questions. Please do not hesitate to call if you have any questions. I will continue to follow him every few days while in house now that he is stabilizing. F/u at [facility] or [facility] at time of discharge. Sandra Masters DPM, [facility] Note: [employer]xim[employer] speech recognition psychology technician software was used to create portions of this document. Sound-alike and misspelled words, as well as other psychology technician errors may be contained in the documentation.
[2021-05-22 07:45] LABS: Anion Gap 9 (5-15); BUN 101 mg/dL (7-18); BUN/Creat Ratio 34.7 RATIO (10-20); Calcium,Total 8.1 mg/dL (8.5-10.1); Chloride 104 mmol/L (98-107); Creatinine, Serum 2.91 mg/dL (0.70-1.30); EST Glomerular Filtration Rate 23 mL/min (>60); Est Glom Filt Rate - Afr Amer 27 mL/min (>60); Estimated Creatinine Clearance 22.65 ml/min; Glucose 127 mg/dL (74-106); Potassium 3.9 mmol/L (3.5-5.1); Sodium Level 134 mmol/L (136-145)
[2021-05-22] MEDS: Collagenase 30gm Tube 1 APPLIC TOPICAL (08:48)
[2021-05-22] MEDS: LORazepam 1 MG Tablet PO (08:48)
--- NOTE | 2021-05-22 09:00 | MRI_ITS ---
STUDY: MRI RIGHT MIDFOOT REASON FOR EXAM: Male, 76 years old. chronic toe ulcer great toe and 2nd toe, osteomyelitis work up -- TECHNIQUE: Standardized fat and water weighted pulse sequences were obtained in all 3 orthogonal planes. COMPARISON: X-ray dated 05/19/2021. FINDINGS: Early acute osteomyelitis at the second middle phalanx (axial image 7 series 4). No acute fracture. No acute dislocation. Mild tarsometatarsal joint arthrosis. Moderate first metatarsophalangeal joint arthrosis. Minimal second through fifth metatarsophalangeal joint arthrosis. Mild joint space narrowing at the digits. Diffuse soft tissue swelling/cellulitis with skin thickening. No abscess. Trace metatarsophalangeal joint effusions. Diffuse muscle atrophy with muscle edema/myositis. Flexor tendons intact. Irregularity of the second digit extensor tendon (axial images 7 through 9 series 5) with mild fraying. Remainder of the extensor tendons unremarkable. Normal Lisfranc ligament. MRI/Lower Ext/No Jt/w/o IMPRESSION: Early acute second middle phalanx osteomyelitis Diffuse soft tissue swelling/cellulitis with skin thickening (no abscess) Mild second digit extensor tendon partial tear Degenerative changes with trace MTP joint effusions Diffuse muscle atrophy with muscle edema/myositis Electronically Signed: Jj Stone DO at 10:44 EDT Tel , Service support ,
[2021-05-22] MEDS: Acetaminophen 650 MG/20 ML UDC PO (09:05)
--- NOTE | 2021-05-22 09:32 | PN.CC_ITS ---
Assessment & Plan Assessment/Plan (1) Acute hypoxemic respiratory failure: PLAN: RECOMMENDATIONS: 1. Wean oxygen as tolerated 2. Advance diet as tolerated 3. Continue empiric broad-spectrum antibiotics 4. Consider renal ultrasound for postobstructive uropathy. Defer to nephrology 5. Diuretics per nephrology 6. Continue appropriate GI prophylaxis. IMPRESSIONS: 1. Acute combined respiratory failure Unclear precipitating etiology. While acute coronary syndrome is certainly a possibility, no obstructive lesion was identified on cardiac catheterization. Decompensated heart failure is also a possibility given pulmon denise vascular congestion and pleural effusion noted on chest imaging. However, the patient does meet sepsis criteria. Therefore, agree with continuing broad- spectrum antimicrobials for now, pending infectious work-up. Continue BiPAP with sleep. Patient would benefit from an outpatient sleep evaluation. Defer to nephrology on Lasix. Patient appears to be wearing BiPAP during the day out of comfort more than necessity. Clinical suspicion for atelectasis resulting in minimal oxygen requirements. 2. Severe sepsis Concern for possible underlying pulmonary versus diabetic ulcer infectious etiology. We will continue broad-spectrum antibiotics for now. Wound nurse to evaluate lower extremities. Await MRI of the feet to evaluate for osteomyelitis. MRI not completed secondary to patient's inability to lie flat. Appreciate infectious disease and podiatry evaluation 3. Questionable acute coronary syndrome Continue current medical management per cardiology recommendations. 4. Acute on chronic kidney disease stage III Worse today. Continue to monitor urine output for now. No indication for renal replacement therapy. Some concern for contrast-induced nephropathy versus prerenal etiology given problem #2 exacerbating current condition. Hold on further contrast. Could consider ultrasound or post void residual to evaluate for obstructive uropathy given elevation in creatinine following removal of catheter. 5. Morbid obesity/depression/hypertension/diabetes mellitus/anxiety /hyperlipidemia Complicates care, management, recovery and prognosis. Continue home m edications as indicated. Subjective Subjective Patient did okay overnight. No acute issues were reported. Patient overall feels subjectively unchanged compared to previous. Patient states his dysuria is improving with removal of the Cruz catheter. Objective Data Objective Data Vital Signs: Vital Signs Temp Pulse Resp BP Pulse Ox 36.6 C 80 24 H 132/53 H 96 05/22/21 03:22 05/22/21 07:15 05/22/21 05:06 05/22/21 03:22 05/22/21 05:06 Oxygen Flow Rate (L/min) 2 Oxygen Delivery Method Bi-pap Weight: 135 kg Body Mass Index (BMI) 41.1 Intake & Output: Intake and Output for Last 24 Hours 05/20/21 05/21/21 05/22/21 23:59 23:59 23:59 Intake Total 2050 / 2170 1670 / 1670 Output Total 715 / 840 350 / 350 Balance 1335 / 1330 1320 / 1320 Lab / Micro Data Result Diagrams: 05/21/21 06:24 05/22/21 06:48 Labs: Laboratory Results - last 24 hr 05/21/21 05/21/21 05/21/21 08:41 11:51 16:43 Sodium Potassium Chloride Carbon Dioxide Anion Gap BUN Creatinine Estim Creat Clear Calc Est GFR (MDRD) Af Amer Est GFR (MDRD) Non-Af BUN/Creatinine Ratio Glucose Calcium POC Glucose 163 H 188 H 179 H 05/21/21 05/22/21 05/22/21 21:34 06:20 06:48 Sodium 134 L Potassium 3.9 Chloride 104 Carbon Dioxide 21.0 Anion Gap 9 BUN 101 H* Creatinine 2.91 H Estim Creat Clear Calc 22.65 Est GFR (MDRD) Af Amer 27 L Est GFR (MDRD) Non-Af 23 L BUN/Creatinine Ratio 34.7 H Glucose 127 H Calcium 8.1 L POC Glucose 181 H 140 H Micro: Microbiology 05/19/21 19:15 Wound - Right Foot Gram Stain - Final 05/19/21 19:15 Wound - Right Foot Anaerobic Culture - Preliminary No growth in 48 hours. 05/18/21 10:10 Sputum, Induced/Lukens Gram Stain - Final 05/18/21 10:10 Sputum, Induced/Lukens Respiratory Culture - Final Culture exhibits no growth. 05/18/21 07:33 Blood Culture (Wb) - Left Hand Blood Culture - Preliminary No growth in 48 hours. 05/18/21 10:20 Urine Catheter - Cruz Urine Culture - Final Presumptive E. coli 05/18/21 06:55 Blood Culture (Wb) - Anticubital Right Blood Culture - Preliminary Escherichia coli 05/18/21 07:15 Mucosa - Nose SARS-CoV-2 Antigen (Rapid) - Final 05/18/21 06:55 Stool Stool Occult Blood (SOFIE) - Final Physical Exam Const alert, oriented x3 and no apparent distress Constitutional Narrative: Normal color today General Appearance: cooperative Orientation / Consciousness: awake Nutritional Appearance: morbidly obese HEENT normocephalic and head/scalp atraumatic Eyes PERRL and conjunctivae normal Neck supple General: trachea midline Chest inspection of chest normal Chest: symmetrical chest wall rise Resp Auscultation: diminished lung sounds; Negative for rales, rhonchi or wheezes Cardio S1 normal heart sound, S2 normal heart sound, no murmurs, no rub and no gallops Rhythm: abnormal rhythm GI normal to inspection, nondistended, normoactive bowel sounds Palpation: soft; Negative for tender, guarding, abdominal wall crepitus or rebound tenderness present Extremity General Extremity: edema bilateral Skin Skin Narrative: Mild ecchymosis noted periumbilically. No expansion noted. Healing. General Skin Exam: lichenification Neuro oriented x3, CN's II-XII intact bilaterally, moves all extremities and no focal motor deficits Sensory Exam: extremities pin-prick: decreased (Bilateral lower extremities) and light-touch: decreased (Bilateral lower extremities) Charges/Coding Visit Charges Inpatient E&M: 01986 Subs Hosp L2
[2021-05-22] MEDS: 0.9% Saline Lock 10 ML Syringe IV (10:45)
[2021-05-22] MEDS: 0.9% Normal Saline 1,000 ML 75 ML IV (10:45)
[2021-05-22] MEDS: Aspirin 81 MG TAB.CHEW PO (10:46)
[2021-05-22] MEDS: Juven (unflavored) Packet 1 PACKET PO ×2 (10:46→17:53)
[2021-05-22] MEDS: Folic Acid 1 MG Tablet PO (10:46)
[2021-05-22 11:21] LABS: Bedside Glucose 142 mg/dL (70-110)
--- NOTE | 2021-05-22 11:37 | CASEMGMT ---
Dr. Crespo would like palliative c/s sent for pt at this time. Referral faxed and call to palliative to notify. Raina VELASQUEZ CM
[2021-05-22] MEDS: Metoprolol Tartrate 25 MG Tablet PO (11:42)
[2021-05-22] MEDS: buPROPion (SR) 100 MG TABLET.SA PO ×2 (11:42→20:24)
[2021-05-22] MEDS: Pantoprazole Sodium 40 MG Tablet PO (11:42)
[2021-05-22] MEDS: Divalproex Sodium 250 MG Tablet 500 MG PO ×2 (11:43→20:24)
[2021-05-22 12:36] LABS: Bedside Glucose 160 mg/dL (70-110)
--- NOTE | 2021-05-22 13:19 | CASEMGMT ---
Per Dr. Crespo, pt/family are having a discussion for plan at discharge LTACH vs SNF vs Hospice and per nurse Sita, pt's family is curious about what his benefits would be for each. 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 This RN CM to speak with pt//daughter. Upon entering, and daughter inform this RN CM that they have ruled LTACH out d/t distance, etc. states they are interested SNF and this RN CM answered questions for pt//daughter. Pt fell asleep during conversation and was on bipap. Daughter states they would like [facility] and then were provided list of in-network SNF and [facility] was listed as in-network. Bruce SW aware they would like referral faxed, voices understanding. CM to follow for any further discharge planning/needs. Daughter states they want to try and get pt set up to discharge to her home where they can help care for him and maybe place him on hospice at that time. /daughter aware that palliative referral was faxed, voice understanding. Raina RN CM
--- NOTE | 2021-05-22 13:34 | CASEMGMT ---
Patient's family is interested in patient going to [facility] for rehab. DONAL faxed referral and left a message for Tena to call DONAL back. Tesha Ivory ENVELOPE SEALER GARY
--- NOTE | 2021-05-22 14:02 | PCM.PN.HOSP ---
Subjective Subjective No specific issues overnight. Patient still is intermittently wearing BiPAP for comfort. He was on 2 L nasal cannula for most of the day yesterday and remains on this today. His daughter and are both at the bedside today. Objective Data Objective Data Vital Signs: Vital Signs Temp Pulse Resp BP Pulse Ox 98.1 F 89 18 145/63 H 97 05/22/21 10:15 05/22/21 11:42 05/22/21 10:15 05/22/21 11:42 05/22/21 11:34 Oxygen Flow Rate (L/min) 2 Oxygen Delivery Method Nasal Cannula Weight: 135 kg Body Mass Index (BMI) 41.1 Intake & Output: Intake and Output for Last 24 Hours 05/20/21 05/21/21 05/22/21 23:59 23:59 23:59 Intake Total 2050 / 2170 1670 / 1670 473.75 / 473.75 Output Total 715 / 840 350 / 350 50 / 50 Balance 1335 / 1330 1320 / 1320 423.75 / 423.75 Lab / Micro Data Result Diagrams: 05/21/21 06:24 05/22/21 06:48 Labs: Laboratory Results - last 24 hr 05/21/21 05/21/21 05/22/21 16:43 21:34 06:20 Sodium Potassium Chloride Carbon Dioxide Anion Gap BUN Creatinine Estim Creat Clear Calc Est GFR (MDRD) Af Amer Est GFR (MDRD) Non-Af BUN/Creatinine Ratio Glucose Calcium POC Glucose 179 H 181 H 140 H 05/22/21 05/22/21 05/22/21 06:48 10:38 12:11 Sodium 134 L Potassium 3.9 Chloride 104 Carbon Dioxide 21.0 Anion Gap 9 BUN 101 H* Creatinine 2.91 H Estim Creat Clear Calc 22.65 Est GFR (MDRD) Af Amer 27 L Est GFR (MDRD) Non-Af 23 L BUN/Creatinine Ratio 34.7 H Glucose 127 H Calcium 8.1 L POC Glucose 142 H 160 H Micro: Microbiology 05/19/21 19:15 Wound - Right Foot Gram Stain - Final 05/19/21 19:15 Wound - Right Foot Wound Culture - Preliminary No growth-Final to follow 05/19/21 19:15 Wound - Right Foot Anaerobic Culture - Preliminary No growth in 48 hours. 05/18/21 10:10 Sputum, Induced/Lukens Gram Stain - Final 05/18/21 10:10 Sputum, Induced/Lukens Respiratory Culture - Final Culture exhibits no growth. 05/18/21 07:33 Blood Culture (Wb) - Left Hand Blood Culture - Preliminary No growth in 48 hours. 05/18/21 10:20 Urine Catheter - Cruz Urine Culture - Final Presumptive E. coli 05/18/21 06:55 Blood Culture (Wb) - Anticubital Right Blood Culture - Preliminary Escherichia coli 05/18/21 07:15 Mucosa - Nose SARS-CoV-2 Antigen (Rapid) - Final 05/18/21 06:55 Stool Stool Occult Blood (SOFIE) - Final Radiography Diagnostic Testing: Radiology Impression Lower Extremity MRI 05/22/21 09:00 IMPRESSION: Early acute second middle phalanx osteomyelitis Diffuse soft tissue swelling/cellulitis with skin thickening (no abscess) Mild second digit extensor tendon partial tear Degenerative changes with trace MTP joint effusions Diffuse muscle atrophy with muscle edema/myositis Electronically Signed: Jj Stone DO at 10:44 EDT Tel , Service support , Physical Exam Const alert, oriented x3, no apparent distress, average body habitus, healthy appearing and well nourished Constitutional Narrative: Morbidly obese older white male sitting up in bed currently on nasal cannula at 2 L, appears comfortable, and daughter are at bedside, nontoxic Exam Limitations: no limitations HEENT head/scalp atraumatic, moist oral mucous membranes and oropharynx normal Head and Scalp: normocephalic Eyes PERRL and EOMs intact bilaterally Neck no lymphadenopathy, supple and no JVD Resp normal respiratory effort, no retractions and no use of accessory muscles Resp Narrative: Distant breath sounds secondary to body habitus, some paradoxical breathing Auscultation: crackles; Negative for rales, rhonchi or wheezes Cardio regular rate, regular rhythm, S1 normal heart sound, S2 normal heart sound, no murmurs, no rub, no gallops, no clicks and no JVD GI normal to inspection, nondistended, normoactive bowel sounds, soft to palpation, non-tender and non-distended GI Narrative: Ecchymosis on abdomen abdominal wall-improving Extremity normal to inspection and no clubbing, cyanosis or edema Extremity Narrative: No clubbing or cyanosis General Extremity: edema bilateral (Trace) upper extremity and lower extremity Skin no rashes or lesions noted, skin turgor normal, no jaundice, no petechiae and no mottling Skin Narrative: Bilateral lower extremity foot wounds as noted earlier dressings currently in place, skin is pale Neuro oriented x3, CN's II-XII intact bilaterally, moves all extremities and no focal motor deficits Neuro Narrative: Marked generalized weakness Sensorium / Orientation: awake, alert, oriented to person, oriented to place and oriented to time Speech: speech normal Psych affect normal Psych Narrative: Affect is flat, patient is calm Assessment & Plan Assessment/Plan (1) BARBARA (acute kidney injury): (2) CKD stage G3b/A1, GFR 30-44 and albumin creatinine ratio <30 mg/g: (3) Non-STEMI (non-ST elevated myocardial infarction): (4) Acute respiratory failure with hypoxia and hypercapnia: (5) Type 2 diabetes mellitus with diabetic polyneuropathy: (6) Non-pressure chronic ulcer of other part of left foot limited to breakdown of skin: (7) Osteomyelitis: (8) E coli bacteremia: (9) Severe sepsis: (10) PAD (peripheral artery disease): PLAN: Severe sepsis secondary to E. coli UTI/bacteremia -Continue Zosyn per ID recommendations -Urine culture shows E. coli that is pansensitive -Sputum culture was negative -Blood culture remains pending -Patient does also have bilateral lower extremity diabetic foot wounds that could be a source -Evaluated by podiatry and debridement performed -Wound care is following -MRI is ordered but will have to be on hold as patient is unable to lie flat at this time -ID is following and appreciate input Acute hypoxic and hypercapnic respiratory failure -Precipitating etiology is unclear at this time although may relate to sepsis/heart failure -Chest x-ray from admission appeared to show some volume overload -Continue broad-spectrum antibiotics until cultures have been resulted -Wean oxygen as able -Patient remains on 2 L nasal cannula -Continue BiPAP at at bedtime -Bilateral lower extremity Dopplers are negative -Continue to hold Lasix secondary to worsening renal function Osteomyelitis second digit right foot -Suspect the patient will need an amputation of that second digit -Await Dr. Dinero's recommendations -He may need a more complicated amputation given his vascular disease D-dimer elevation -VQ scan will be of limited help given abnormal chest x-ray -Still unable to do CTA given renal failure -Patient is clinically improving without anticoagulation -Heparin drip was stopped secondary to bleeding -Bilateral lower extremity Dopplers are negative PAD -Patient was evaluated by vascular surgery -We will need followed up in the outpatient setting for angiography with regards to his lower extremity vascular disease -Patient was evaluated by Dr. Whitley while in the hospital NSTEMI -Cardiac catheterization was performed and demonstrated a 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 -I discussed the case today with Dr. Greenwood -He believes he will need cardiac surgery in the future based on review of the images and discussion with 2 other cardiologists but will need medically optimized and referred as an outpatient for this -Echocardiogram from 05/19/2021 shows an EF of 50%, stage I diastolic dysfunction and mild segmental systolic dysfunction -Continue metoprolol -Continue Plavix -Continue high intensity statin -Hold Lasix with worsening renal failure -Troponin peaked at 5 Chronic anemia -Hemoglobin is stable -Continue off of heparin drip -Monitor closely with PTT being supratherapeutic -Baseline hemoglobin appears to be 11-11.5 BARBARA on CKD stage IIIb -Difficult increase in serum creatinine today -Suspect related to contrast/ATN -Baseline serum creatinine appears to be 1.5-1.7 -Gentle hydration -Repeat in a.m. -Continue to hold Lasix -D/C Cruz HTN/HPL -Continue statin 80 mg daily -Continue metoprolol but increase to 50 mg twice daily -Continue to hold Lasix -Monitor BP DM-2 -Hemoglobin A1c was 6.0 -Continue current management -Blood sugars for the most part are in goal range of 1 40-1 80 MO -BMI is 41.8 -Complicates overall medical care and prognosis Bipolar/anxiety/depression -Home medications currently on hold -Continue to monitor Suspected CARMEL -Continue nocturnal BiPAP DVT prophylaxis -Heparin drip held secondary to bleeding -Start prophylactic heparin -Dopplers pending CODE STATUS -DNR CCA no intubation -Extensive discussion with the patient his and daughter (who is a nurse) at the bedside earlier today regarding Mr. Davis's complicated medical issues they are agreeable to meet with palliative care and are considering hospice but will discuss things further to decide on how to proceed given his complex medical condition Charges/Coding Visit Charges Inpatient E&M: 63825 Subs Hosp L3
--- NOTE | 2021-05-22 15:40 | PN.RENAL_ITS ---
Subjective Subjective no new complaints. remains on Bipap. says voiding ok Objective Data Objective Data Vital Signs: Vital Signs Temp Pulse Resp BP Pulse Ox 98.1 F 89 22 H 145/63 H 98 05/22/21 10:15 05/22/21 14:00 05/22/21 14:00 05/22/21 11:42 05/22/21 14:00 Oxygen Flow Rate (L/min) 2 Oxygen Delivery Method Nasal Cannula Weight: 135 kg Body Mass Index (BMI) 41.1 Intake & Output: Intake and Output for Last 24 Hours 05/20/21 05/21/21 05/22/21 23:59 23:59 23:59 Intake Total 2050 / 2170 1670 / 1670 473.75 / 473.75 Output Total 715 / 840 350 / 350 50 / 50 Balance 1335 / 1330 1320 / 1320 423.75 / 423.75 Lab / Micro Data Result Diagrams: 05/21/21 06:24 05/22/21 06:48 Labs: Laboratory Results - last 24 hr 05/21/21 05/21/21 05/22/21 16:43 21:34 06:20 Sodium Potassium Chloride Carbon Dioxide Anion Gap BUN Creatinine Estim Creat Clear Calc Est GFR (MDRD) Af Amer Est GFR (MDRD) Non-Af BUN/Creatinine Ratio Glucose Calcium POC Glucose 179 H 181 H 140 H 05/22/21 05/22/21 05/22/21 06:48 10:38 12:11 Sodium 134 L Potassium 3.9 Chloride 104 Carbon Dioxide 21.0 Anion Gap 9 BUN 101 H* Creatinine 2.91 H Estim Creat Clear Calc 22.65 Est GFR (MDRD) Af Amer 27 L Est GFR (MDRD) Non-Af 23 L BUN/Creatinine Ratio 34.7 H Glucose 127 H Calcium 8.1 L POC Glucose 142 H 160 H Micro: Microbiology 05/19/21 19:15 Wound - Right Foot Gram Stain - Final 05/19/21 19:15 Wound - Right Foot Wound Culture - Preliminary No growth-Final to follow 05/19/21 19:15 Wound - Right Foot Anaerobic Culture - Preliminary No growth in 48 hours. 05/18/21 10:10 Sputum, Induced/Lukens Gram Stain - Final 05/18/21 10:10 Sputum, Induced/Lukens Respiratory Culture - Final Culture exhibits no growth. 05/18/21 07:33 Blood Culture (Wb) - Left Hand Blood Culture - Preliminary No growth in 48 hours. 05/18/21 10:20 Urine Catheter - Cruz Urine Culture - Final Presumptive E. coli 05/18/21 06:55 Blood Culture (Wb) - Anticubital Right Blood Culture - Prelim inary Escherichia coli 05/18/21 07:15 Mucosa - Nose SARS-CoV-2 Antigen (Rapid) - Final 05/18/21 06:55 Stool Stool Occult Blood (SOFIE) - Final Radiography Diagnostic Testing: Radiology Impression Lower Extremity MRI 05/22/21 09:00 IMPRESSION: Early acute second middle phalanx osteomyelitis Diffuse soft tissue swelling/cellulitis with skin thickening (no abscess) Mild second digit extensor tendon partial tear Degenerative changes with trace MTP joint effusions Diffuse muscle atrophy with muscle edema/myositis Electronically Signed: Jj Stone, at 10:44 EDT Tel , Service support , Physical Exam Narrative No acute distress Neck no JVD. Head atraumatic normocephalic Heart. S1-S2 RRR. Chest. Coarse breath sounds anteriorly. Abdomen. Normal bowel sounds. Soft nontender no guarding or rebound Extremity. 1+ edema of lower extremities. Neurologic. Alert and oriented x3, NAD Assessment & Plan Assessment/Plan (1) BARBARA (acute kidney injury): PLAN: baseline creatinine is around 1.5 to 1.6. Cruz has been removed. check bladder scan once. BUn and cr worse today. agree with fluids. (2) CKD stage G3b/A1, GFR 30-44 and albumin creatinine ratio <30 mg/g: PLAN: Baseline serum creatinine is around 1.5 to 1.6 mg/dL. (3) Acute respiratory failure with hypoxia and hypercapnia: PLAN: Management as per pulmonary (4) Non-STEMI (non-ST elevated myocardial infarction): PLAN: The patient is on aspirin and beta-cristobal. Cardiology is following. (5) Severe sepsis: PLAN: ID following (6) Lactic acidosis:
--- NOTE | 2021-05-22 15:41 | CASEMGMT ---
Pt's updated that [facility] can accept pt, voices understanding and she states she will notify pt's daughter. Per and daughter previously, pt has not had COVID vaccines and they are aware that pt will be in quarantine for 14 days. Raina VELASQUEZ CM
--- NOTE | 2021-05-22 15:42 | CASEMGMT ---
DONAL spoke with [facility] and they can take patient when he is ready. SW notified patient. He asked SW to notify his and daughter. SW asked [facility] to notify them and she called the who will relay the information to patient's daughter. When [facility] KRUSE spoke with family earlier she notified them that he will be in quarantine for 14 days and that means no visitation at that time. Plan: [facility] when medically ready and insurance approves. Tesha Ivory [employer]VEN[employer] INTEGRITY ANALYST GARY
[2021-05-22 17:26] LABS: Bedside Glucose 170 mg/dL (70-110)
[2021-05-22] MEDS: Insulin Lispro 100 UNIT/ML INSULN.PEN SC (17:53)
[2021-05-22] MEDS: Metoprolol Tartrate 50 MG Tablet PO (20:24)
[2021-05-22] MEDS: Atorvastatin Calcium 80 MG Tablet PO (20:24)
[2021-05-22] MEDS: BENZOCAINE/MENTHOL 1 LOZENGE MUCOUS MEM (20:25)
[2021-05-23] VITALS (19 sets, daily range): BP systolic 130–147; BP diastolic 61–78; PULSE 65–84; RESP 14–29; TEMP 35.8–36.7; O2SAT 89–98
[2021-05-23] MEDS: Insulin Lispro 100 UNIT/ML INSULN.PEN SC ×2 (00:13→06:08)
[2021-05-23] MEDS: 0.9% Normal Saline 1,000 ML 75 ML IV (00:13)
[2021-05-23 00:21] LABS: Bedside Glucose 189 mg/dL (70-110)
[2021-05-23] MEDS: LORazepam 1 MG Tablet PO ×2 (02:26→18:37)
[2021-05-23 06:37] LABS: Absolute Lymphocyte Count 0.95 X10^3/uL (0.83-4.51); Absolute Neutrophil Count 4.6 X10^3/uL (2.0-7.7); Basophil# 0.03 X10^3/uL; Basophil% 0.5 % (0-1); Eosinophil# 0.07 X10^3/uL; Eosinophils% 1.1 % (0-5); Hematocrit 28.6 % (40-54); Hemoglobin 8.7 g/dL (13.0-16.5); Lymphocyte # 0.95 X10^3/ul (0.83-4.51); Lymphocyte % 14.8 % (19-41); Mean Corp Hgb Conc 30.4 g/dL (32-36); Mean Corpuscular Hgb 30.2 pg (27.0-32.0); Mean Corpuscular Volume 99.3 fL (80-94); Mean Platelet Vol. 10.8 fl (6.2-12.0); Monocyte# 0.62 X10^3/uL; Monocyte% 9.7 % (0-10); NRBC Flagged by Analyzer 0.5 % (0-5); Neutrophil # 4.63 X10^3/uL (2.7-7.7); Neutrophil % 72.2 % (47-70); Platelet Count 208 K/mm3 (150-450); Red Blood Count 2.88 M/mm3 (4.6-6.2); White Blood Count 6.4 K/mm3 (4.4-11.0)
[2021-05-23 07:00] LABS: Bedside Glucose 180 mg/dL (70-110)
[2021-05-23 07:18] LABS: Anion Gap 10 (5-15); BUN 115 mg/dL (7-18); BUN/Creat Ratio 34.8 RATIO (10-20); Calcium,Total 8.2 mg/dL (8.5-10.1); Chloride 102 mmol/L (98-107); EST Glomerular Filtration Rate 20 mL/min (>60); Est Glom Filt Rate - Afr Amer 24 mL/min (>60); Estimated Creatinine Clearance 19.97 ml/min; Glucose 185 mg/dL (74-106); Potassium 3.9 mmol/L (3.5-5.1); Sodium Level 136 mmol/L (136-145)
--- NOTE | 2021-05-23 08:15 | PCM.PN.INT ---
Assessment & Plan Assessment/Plan (1) Acute hypoxemic respiratory failure: PLAN: RECOMMENDATIONS: 1. Wean oxygen as tolerated 2. Advance diet as tolerated 3. Continue broad-spectrum antibiotics 4. Consider renal ultrasound for postobstructive uropathy. Defer to nephrology 5. Diuretics per nephrology 6. Continue appropriate GI prophylaxis. 7. Evaluate goals of therapy IMPRESSIONS: 1. Acute combined respiratory failure Unclear precipitating etiology. While acute coronary syndrome is certainly a possibility, no obstructive lesion was identified on cardiac catheterization. Decompensated heart failure is also a possibility given pulmonary vascular congestion and pleural effusion noted on chest imaging. However, the patient does meet sepsis criteria. Therefore, agree with continuing broad-spectrum antimicrobials for now, pending infectious work-up. Continue BiPAP with sleep. Patient would benefit from an outpatient sleep evaluation. Defer to nephrology on Lasix. Patient appears to be wearing BiPAP during the day out of comfort more than necessity. Clinical suspicion for atelectasis resulting in minimal oxygen requirements. 2. Severe sepsis with osteomyelitis of the toe Concern for possible underlying pulmonary versus diabetic ulcer infectious etiology. We will continue broad-spectrum antibiotics for now. Wound nurse to evaluate lower extremities. MRI for osteomyelitis was positive. Appreciate infectious disease and podiatry evaluation. Unfortunately, healing will be difficult given peripheral vascular disease 3. Questionable acute coronary syndrome Continue current medical management per cardiology recommendations. 4. Acute on chronic kidney disease stage III Worse today. Continue to monitor urine output for now. No immediate indication for renal replacement therapy. Some concern for contrast-induced nephropathy versus prerenal etiology given problem #2 exacerbating current condition. Hold on further contrast. Patient would be a difficult long-term hemodialysis candidate given body habitus, peripheral vascular disease and other comorbidities 5. Morbid obesity/depression/hypertension/diabetes mellitus/anxiety/hyperlipidemia Complicates care, management, recovery and prognosis. Continue home medications as indicated. Subjective Subjective Patient did okay overnight. No acute issues were reported. Patient able to tolerate minimal nasal cannula at rest and continues to use BiPAP for comfort. Objective Data Objective Data Vital Signs: Vital Signs Temp Pulse Resp BP Pulse Ox 36.7 C 69 26 H 130/78 H 98 05/23/21 02:15 05/23/21 06:56 05/23/21 03:50 05/23/21 02:15 05/23/21 03:50 Oxygen Flow Rate (L/min) 2 Oxygen Delivery Method Bi-pap Weight: 135.4 kg Body Mass Index (BMI) 41.1 Intake & Output: Intake and Output for Last 24 Hours 05/21/21 05/22/21 05/23/21 23:59 23:59 23:59 Intake Total 1670 / 1670 953.75 / 953.75 1028.75 / 1028.75 Output Total 350 / 350 50 / 50 Balance 1320 / 1320 903.75 / 903.75 1028.75 / 1028.75 Lab / Micro Data Result Diagrams: 05/23/21 06:05 05/23/21 06:05 Labs: Laboratory Results - last 24 hr 05/22/21 05/22/21 05/22/21 10:38 12:11 17:17 WBC RBC Hgb Hct MCV MCH MCHC RDW Std Deviation RDW Coeff of Favian Plt Count MPV Immature Gran % (Auto) Neut % (Auto) Lymph % (Auto) Knott % (Auto) Eos % (Auto) Baso % (Auto) Absolute Neuts (auto) Absolute Lymphs (auto) Nucleated RBC % Sodium Potassium Chloride Carbon Dioxide Anion Gap BUN Creatinine Estim Creat Clear Calc Est GFR (MDRD) Af Amer Est GFR (MDRD) Non-Af BUN/Creatinine Ratio Glucose Calcium POC Glucose 142 H 160 H 170 H 05/23/21 05/23/21 05/23/21 00:11 06:05 06:05 WBC 6.4 RBC 2.88 L Hgb 8.7 L Hct 28.6 L MCV 99.3 H MCH 30.2 MCHC 30.4 L RDW Std Deviation 51.0 H RDW Coeff of Favian 14.0 Plt Count 208 MPV 10.8 Immature Gran % (Auto) 1.700 H Neut % (Auto) 72.2 H Lymph % (Auto) 14.8 L Knott % (Auto) 9.7 Eos % (Auto) 1.1 Baso % (Auto) 0.5 Absolute Neuts (auto) 4.6 Absolute Lymphs (auto) 0.95 Nucleated RBC % 0.5 Sodium 136 Potassium 3.9 Chloride 102 Carbon Dioxide 24.0 Anion Gap 10 BUN 115 H* Creatinine 3.30 H Estim Creat Clear Calc 19.97 Est GFR (MDRD) Af Amer 24 L Est GFR (MDRD) Non-Af 20 L BUN/Creatinine Ratio 34.8 H Glucose 185 H Calcium 8.2 L POC Glucose 189 H 05/23/21 06:06 WBC RBC Hgb Hct MCV MCH MCHC RDW Std Deviation RDW Coeff of Favian Plt Count MPV Immature Gran % (Auto) Neut % (Auto) Lymph % (Auto) Knott % (Auto) Eos % (Auto) Baso % (Auto) Absolute Neuts (auto) Absolute Lymphs (auto) Nucleated RBC % Sodium Potassium Chloride Carbon Dioxide Anion Gap BUN Creatinine Estim Creat Clear Calc Est GFR (MDRD) Af Amer Est GFR (MDRD) Non-Af BUN/Creatinine Ratio Glucose Calcium POC Glucose 180 H Micro: Microbiology 05/19/21 19:15 Wound - Right Foot Gram Stain - Final 05/19/21 19:15 Wound - Right Foot Wound Culture - Preliminary No growth-Final to follow 05/19/21 19:15 Wound - Right Foot Anaerobic Culture - Preliminary No growth in 48 hours. 05/18/21 10:10 Sputum, Induced/Lukens Gram Stain - Final 05/18/21 10:10 Sputum, Induced/Lukens Respiratory Culture - Final Culture exhibits no growth. 05/18/21 07:33 Blood Culture (Wb) - Left Hand Blood Culture - Preliminary No growth in 48 hours. 05/18/21 10:20 Urine Catheter - Cruz Urine Culture - Final Presumptive E. coli 05/18/21 06:55 Blood Culture (Wb) - Anticubital Right Blood Culture - Preliminary Escherichia coli 05/18/21 07:15 Mucosa - Nose SARS-CoV-2 Antigen (Rapid) - Final 05/18/21 06:55 Stool Stool Occult Blood (SOFIE) - Final Radiography Diagnostic Testing: Radiology Impression Lower Extremity MRI 05/22/21 09:00 IMPRESSION: Early acute second middle phalanx osteomyelitis Diffuse soft tissue swelling/cellulitis with skin thickening (no abscess) Mild second digit extensor tendon partial tear Degenerative changes with trace MTP joint effusions Diffuse muscle atrophy with muscle edema/myositis Electronically Signed: Jj Stone DO at 10:44 EDT Tel , Service support , Physical Exam Const alert, oriented x3 and no apparent distress Constitutional Narrative: Normal color today General Appearance: cooperative Orientation / Consciousness: awake Nutritional Appearance: morbidly obese HEENT normocephalic and head/scalp atraumatic Eyes PERRL and conjunctivae normal Neck supple General: trachea midline Chest inspection of chest normal Chest: symmetrical chest wall rise Resp Auscultation: diminished lung sounds; Negative for rales, rhonchi or wheezes Cardio S1 normal heart sound, S2 normal heart sound, no murmurs, no rub and no gallops Rhythm: abnormal rhythm GI normal to inspection, nondistended, normoactive bowel sounds Palpation: soft; Negative for tender, guarding, abdominal wall crepitus or rebound tenderness present Extremity General Extremity: edema bilateral Skin Skin Narrative: Mild ecchymosis noted periumbilically. No expansion noted. Healing. General Skin Exam: lichenification Neuro oriented x3, CN's II-XII intact bilaterally, moves all extremities and no focal motor deficits Sensory Exam: extremities pin-prick: decreased (Bilateral lower extremities) and light-touch: decreased (Bilateral lower extremities) Charges/Coding Visit Charges Inpatient E&M: 84087 Subs Hosp L2
[2021-05-23] MEDS: 0.9% Saline Lock 10 ML Syringe IV (12:05)
[2021-05-23] MEDS: Juven (unflavored) Packet 1 PACKET PO (12:05)
[2021-05-23] MEDS: Divalproex Sodium 250 MG Tablet 500 MG PO ×2 (12:06→20:43)
[2021-05-23] MEDS: Folic Acid 1 MG Tablet PO (12:06)
[2021-05-23] MEDS: Metoprolol Tartrate 50 MG Tablet PO ×2 (12:06→20:43)
[2021-05-23] MEDS: Aspirin 81 MG TAB.CHEW PO (12:06)
[2021-05-23] MEDS: Pantoprazole Sodium 40 MG Tablet PO (12:07)
[2021-05-23] MEDS: buPROPion (SR) 100 MG TABLET.SA PO ×2 (12:07→20:44)
[2021-05-23 13:00] LABS: Bedside Glucose 142 mg/dL (70-110)
--- NOTE | 2021-05-23 13:34 | CASEMGMT ---
Addendum entered by Jaye Sung 05/23/21 17:16: DONAL faxed all admission paperwork for patient to [facility]. Jaye VEGA Addendum entered by Jaye Sung 05/23/21 15:22: DONAL called Shana at [facility] and indicated that patient is going home with hospice and will not need SNF at discharge. No further MH services needed. Jaye BLAKE Original Note: DONAL Note DONAL was advised by MD that patient wanted to go home on hospice. His daughter has a room for patient and is nurse so the family wants patient to go home with hospice to her house. DONAL called [facility] and spoke to Tena. Made referral for patient to Hospice program. DONAL called [facility] and explained patient would not need bed anymore. DONAL spoke with patient, patient's daughter and patient's . All appear in agreement with plan of hospice. Patients daughter, Silvia reported that hospice just called her and they will meet with patient and family at 11:30 am on Wednesday for planned discharge on Wednesday. MD and manager mechanical maintenance updated. Plan: Home with hospice. Jaye BLAKE
--- NOTE | 2021-05-23 14:15 | PCM.PN.HOSP ---
Subjective Subjective Patient with more shortness of breath and wearing BiPAP more frequently. Sats still okay on 2 L when he is on nasal cannula. Has been oliguric and I replaced the Cruz this morning but urine output remains poor. Patient states he does not want dialysis. I had extensive discussion with both he and the family and he is decided that he would like to go home with hospice. Objective Data Objective Data Vital Signs: Vital Signs Temp Pulse Resp BP Pulse Ox 97.6 F L 68 29 H 134/76 H 97 05/23/21 09:15 05/23/21 12:06 05/23/21 13:23 05/23/21 09:15 05/23/21 09:15 Oxygen Flow Rate (L/min) 2 Oxygen Delivery Method Bi-pap Weight: 135.4 kg Body Mass Index (BMI) 41.1 Intake & Output: Intake and Output for Last 24 Hours 05/21/21 05/22/21 05/23/21 23:59 23:59 23:59 Intake Total 1670 / 1670 953.75 / 953.75 75 / 2007.75 Output Total 350 / 350 50 / 50 50 / 50 Balance 1320 / 1320 903.75 / 903.75 1958.75 / 195.75 Lab / Micro Data Result Diagrams: 05/23/21 06:05 05/23/21 06:05 Labs: Laboratory Results - last 24 hr 05/22/21 05/23/21 05/23/21 17:17 00:11 06:05 WBC 6.4 RBC 2.88 L Hgb 8.7 L Hct 28.6 L MCV 99.3 H MCH 30.2 MCHC 30.4 L RDW Std Deviation 51.0 H RDW Coeff of Favian 14.0 Plt Count 208 MPV 10.8 Immature Gran % (Auto) 1.700 H Neut % (Auto) 72.2 H Lymph % (Auto) 14.8 L [place] % (Auto) 9.7 Eos % (Auto) 1.1 Baso % (Auto) 0.5 Absolute Neuts (auto) 4.6 Absolute Lymphs (auto) 0.95 Nucleated RBC % 0.5 Sodium Potassium Chloride Carbon Dioxide Anion Gap BUN Creatinine Estim Creat Clear Calc Est GFR (MDRD) Af Amer Est GFR (MDRD) Non-Af BUN/Creatinine Ratio Glucose Calcium POC Glucose 170 H 189 H 06/25/21 06/25/21 06/25/21 06:05 06:06 12:15 WBC RBC Hgb Hct MCV MCH MCHC RDW Std Deviation RDW Coeff of Favian Plt Count MPV Immature Gran % (Auto) Neut % (Auto) Lymph % (Auto) [place] % (Auto) Eos % (Auto) Baso % (Auto) Absolute Neuts (auto) Absolute Lymphs (auto) Nucleated RBC % Sodium 136 Potassium 3.9 Chloride 102 Carbon Dioxide 24.0 Anion Gap 10 BUN 115 H* Creatinine 3.30 H Estim Creat Clear Calc 19.97 Est GFR (MDRD) Af Amer 24 L Est GFR (MDRD) Non-Af 20 L BUN/Creatinine Ratio 34.8 H Glucose 185 H Calcium 8.2 L POC Glucose 180 H 142 H Micro: Microbiology 05/19/21 19:15 Wound - Right Foot Gram Stain - Final 05/19/21 19:15 Wound - Right Foot Wound Culture - Final No growth aerobically. 05/19/21 19:15 Wound - Right Foot Anaerobic Culture - Preliminary No growth in 48 hours. 05/18/21 07:33 Blood Culture (Wb) - Left Hand Blood Culture - Final No growth in 5 days. 05/18/21 06:55 Blood Culture (Wb) - Anticubital Right Blood Culture - Final Escherichia coli 05/18/21 10:10 Sputum, Induced/Lukens Gram Stain - Final 05/18/21 10:10 Sputum, Induced/Lukens Respiratory Culture - Final Culture exhibits no growth. 05/18/21 10:20 Urine Catheter - Cruz Urine Culture - Final Presumptive E. coli 05/18/21 07:15 Mucosa - Nose SARS-CoV-2 Antigen (Rapid) - Final 05/18/21 06:55 Stool Stool Occult Blood (SOFIE) - Final Physical Exam Const alert, oriented x3, no apparent distress, average body habitus, healthy appearing and well nourished Constitutional Narrative: Morbidly obese older white male lying in bed on noninvasive ventilation, appears more volume overloaded, comfortable at this time, and daughter at bedside Exam Limitations: no limitations HEENT head/scalp atraumatic, moist oral mucous membranes and oropharynx normal Head and Scalp: normocephalic Resp normal respiratory effort, no retractions and no use of accessory muscles Resp Narrative: Appears to have comfortable breathing with BiPAP on but obviously short of breath Auscultation: crackles; Negative for rales, rhonchi or wheezes Cardio regular rate, regular rhythm, S1 normal heart sound, S2 normal heart sound, no murmurs, no rub, no gallops, no clicks and no JVD GI normal to inspection, nondistended, normoactive bowel sounds, soft to palpation, non-tender and non-distended GI Narrative: Ecchymosis on abdomen abdominal wall-improving Extremity normal to inspection Extremity Narrative: No clubbing or cyanosis, bilateral upper and lower extremity edema but appears to be worsening slowly General Extremity: edema bilateral (Trace) upper extremity and lower extremity Skin no rashes or lesions noted, skin turgor normal, no jaundice, no petechiae and no mottling Skin Narrative: Bilateral lower extremity foot wounds as noted earlier dressings currently in place, skin is pale Neuro oriented x3, CN's II-XII intact bilaterally, moves all extremities and no focal motor deficits Neuro Narrative: Marked generalized weakness Sensorium / Orientation: awake, alert, oriented to person, oriented to place and oriented to time Speech: speech normal Psych affect normal Psych Narrative: Affect is flat, patient is calm Assessment & Plan Assessment/Plan (1) BARBARA (acute kidney injury): (2) CKD stage G3b/A1, GFR 30-44 and albumin creatinine ratio <30 mg/g: (3) Non-STEMI (non-ST elevated myocardial infarction): (4) Acute respiratory failure with hypoxia and hypercapnia: (5) Type 2 diabetes mellitus with diabetic polyneuropathy: (6) Non-pressure chronic ulcer of other part of left foot limited to breakdown of skin: (7) Osteomyelitis: (8) E coli bacteremia: (9) Severe sepsis: (10) PAD (peripheral artery disease): PLAN: Assessment: Severe sepsis secondary to E. coli UTI/bacteremia Acute hypoxic and hypercapnic respiratory failure Osteomyelitis second digit right foot D-dimer elevation PAD NSTEMI Chronic anemia BARBARA on CKD stage IIIb HTN/HPL DM-2 MO Bipolar/anxiety/depression Suspected CARMEL Plan: -Patient now with oliguria and apparent volume overload -Hemodialysis is now being recommended -Extensive discussion with patient, daughter, at the bedside today and he does not want to proceed with dialysis and would like to go home to his daughter's house with hospice -Family is to meet with hospice tomorrow at 1130 to sign paperwork and plan is for discharge on Wednesday home to his daughter's house with hospice -I anticipate days to weeks after discharge for life expectancy -We will complete antibiotics for bacteremia with Amoxil 500 daily for 5 days at discharge Charges/Coding Visit Charges Inpatient E&M: 92572 Subs Hosp L2
[2021-05-23] MEDS: Collagenase 30gm Tube 1 APPLIC TOPICAL (15:22)
--- NOTE | 2021-05-23 17:24 | PCM.PN.REN ---
Subjective Subjective remains on bipap. anuric despite fluids Objective Data Objective Data Vital Signs: Vital Signs Temp Pulse Resp BP Pulse Ox 96.5 F L 68 26 H 147/61 H 97 05/23/21 15:15 05/23/21 15:35 05/23/21 15:35 05/23/21 15:15 05/23/21 15:35 Oxygen Flow Rate (L/min) 2 Oxygen Delivery Method Bi-pap Weight: 135.4 kg Body Mass Index (BMI) 41.1 Intake & Output: Intake and Output for Last 24 Hours 05/21/21 05/22/21 05/23/21 23:59 23:59 23:59 Intake Total 1670 / 1670 953.75 / 953.75 75 / Output Total 350 / 350 50 / 50 50 / 50 Balance 1320 / 1320 903.75 / 903.75 1958.75 / 1957.75 Lab / Micro Data Result Diagrams: 05/23/21 06:05 05/23/21 06:05 Labs: Laboratory Results - last 24 hr 05/22/21 05/23/21 05/23/21 17:17 00:11 06:05 WBC 6.4 RBC 2.88 L Hgb 8.7 L Hct 28.6 L MCV 99.3 H MCH 30.2 MCHC 30.4 L RDW Std Deviation 51.0 H RDW Coeff of Favian 14.0 Plt Count 208 MPV 10.8 Immature Gran % (Auto) 1.700 H Neut % (Auto) 72.2 H Lymph % (Auto) 14.8 L [place] % (Auto) 9.7 Eos % (Auto) 1.1 Baso % (Auto) 0.5 Absolute Neuts (auto) 4.6 Absolute Lymphs (auto) 0.95 Nucleated RBC % 0.5 Sodium Potassium Chloride Carbon Dioxide Anion Gap BUN Creatinine Estim Creat Clear Calc Est GFR (MDRD) Af Amer Est GFR (MDRD) Non-Af BUN/Creatinine Ratio Glucose Calcium POC Glucose 170 H 189 H 05/23/21 05/23/21 05/23/21 06:05 06:06 12:15 WBC RBC Hgb Hct MCV MCH MCHC RDW Std Deviation RDW Coeff of Favian Plt Count MPV Immature Gran % (Auto) Neut % (Auto) Lymph % (Auto) [place] % (Auto) Eos % (Auto) Baso % (Auto) Absolute Neuts (auto) Absolute Lymphs (auto) Nucleated RBC % Sodium 136 Potassium 3.9 Chloride 102 Carbon Dioxide 24.0 Anion Gap 10 BUN 115 H* Creatinine 3.30 H Estim Creat Clear Calc 19.97 Est GFR (MDRD) Af Amer 24 L Est GFR (MDRD) Non-Af 20 L BUN/Creatinine Ratio 34.8 H Glucose 185 H Calcium 8.2 L POC Glucose 180 H 142 H Micro: Microbiology 05/19/21 19:15 Wound - Right Foot Gram Stain - Final 05/19/21 19:15 Wound - Right Foot Wound Culture - Final No growth aerobically. 05/19/21 19:15 Wound - Right Foot Anaerobic Culture - Preliminary No growth in 48 hours. 05/18/21 07:33 Blood Culture (Wb) - Left Hand Blood Culture - Final No growth in 5 days. 05/18/21 06:55 Blood Culture (Wb) - Anticubital Right Blood Culture - Final Escherichia coli 05/18/21 10:10 Sputum, Induced/Lukens Gram Stain - Final 05/18/21 10:10 Sputum, Induced/Lukens Respiratory Culture - Final Culture exhibits no growth. 05/18/21 10:20 Urine Catheter - Cruz Urine Culture - Final Presumptive E. coli 05/18/21 07:15 Mucosa - Nose SARS-CoV-2 Antigen (Rapid) - Final 05/18/21 06:55 Stool Stool Occult Blood (SOFIE) - Final Physical Exam Narrative No acute distress Neck no JVD. Head atraumatic normocephalic Heart. S1-S2 RRR. Chest. Coarse breath sounds anteriorly. Abdomen. Normal bowel sounds. Soft nontender no guarding or rebound Extremity. 1+ edema of lower extremities. Neurologic. Alert and oriented x3, NAD Assessment & Plan Assessment/Plan (1) BARBARA (acute kidney injury): PLAN: baseline creatinine is around 1.5 to 1.6. Cruz back in. anuric. discussed with patient and family in detail about renal failure, possible dialysis. apparently patient did not want aggressive measures before this. likely hospice. sangita Crespo (2) CKD stage G3b/A1, GFR 30-44 and albumin creatinine ratio <30 mg/g: PLAN: Baseline serum creatinine is around 1.5 to 1.6 mg/dL. (3) Acute respiratory failure with hypoxia and hypercapnia: PLAN: Management as per pulmonary (4) Non-STEMI (non-ST elevated myocardial infarction): PLAN: The patient is on aspirin and beta-cristobal. Cardiology is following. (5) Severe sepsis: PLAN: ID following (6) Lactic acidosis:
[2021-05-23 17:56] LABS: Bedside Glucose 139 mg/dL (70-110)
[2021-05-24] VITALS (11 sets, daily range): BP systolic 134–148; BP diastolic 58–78; PULSE 62–81; RESP 14–30; TEMP 36.4–36.6; O2SAT 95–97
[2021-05-24] MEDS: LORazepam 1 MG Tablet PO ×3 (00:43→12:42)
[2021-05-24] MEDS: buPROPion (SR) 100 MG TABLET.SA PO (09:46)
[2021-05-24] MEDS: 0.9% Saline Lock 10 ML Syringe IV ×3 (09:46→17:13)
[2021-05-24] MEDS: Metoprolol Tartrate 50 MG Tablet PO (09:46)
[2021-05-24] MEDS: Divalproex Sodium 250 MG Tablet 500 MG PO (09:47)
[2021-05-24 10:05] LABS: Bedside Glucose 141 mg/dL (70-110)
--- NOTE | 2021-05-24 10:25 | PCM.PROGNOTE ---
Subjective Subjective Patient seen and examined resting comfortably. Patient denies any new pedal complaints. Patient denies any nausea, fever, chills, chest pain, shortness of breath, cough, streaking, purulence, vomiting. Patient wishes to go home. Objective Data Objective Data Vital Signs: Vital Signs Temp Pulse Resp BP Pulse Ox 97.6 F L 81 27 H 148/78 H 97 05/24/21 03:15 05/24/21 09:46 05/24/21 04:32 05/24/21 09:46 05/24/21 07:36 Oxygen Flow Rate (L/min) 2 Oxygen Delivery Method Bi-pap Weight: 139.1 kg Body Mass Index (BMI) 41.1 Intake & Output: Intake and Output for Last 24 Hours 05/22/21 05/23/21 05/24/21 23:59 23:59 23:59 Intake Total 953.75 / 953.75 2248.75 / 2488.75 360 / 360 Output Total 50 / 50 175 / 475 600 / 600 Balance 903.75 / 903.75 2073.75 / 2013.75 -240 / -240 Lab / Micro Data Result Diagrams: 05/23/21 06:05 05/23/21 06:05 Labs: Laboratory Results - last 24 hr 05/23/21 05/23/21 05/24/21 12:15 17:48 09:53 POC Glucose 142 H 139 H 141 H Micro: Microbiology 05/19/21 19:15 Wound - Right Foot Gram Stain - Final 05/19/21 19:15 Wound - Right Foot Wound Culture - Final No growth aerobically. 05/19/21 19:15 Wound - Right Foot Anaerobic Culture - Preliminary No growth in 48 hours. 05/18/21 07:33 Blood Culture (Wb) - Left Hand Blood Culture - Final No growth in 5 days. 05/18/21 06:55 Blood Culture (Wb) - Anticubital Right Blood Culture - Final Escherichia coli 05/18/21 10:10 Sputum, Induced/Lukens Gram Stain - Final 05/18/21 10:10 Sputum, Induced/Lukens Respiratory Culture - Final Culture exhibits no growth. 05/18/21 10:20 Urine Catheter - Cruz Urine Culture - Final Presumptive E. coli 05/18/21 07:15 Mucosa - Nose SARS-CoV-2 Antigen (Rapid) - Final 05/18/21 06:55 Stool Stool Occult Blood (SOFIE) - Final Physical Exam Const alert and oriented x3 General Appearance: cooperative and lethargic HEENT normocephalic Extremity Extremity Narrative: No calf tenderness Compartments remain soft to palpate bilateral lower extremities Muscle wasting noted Active range of motion digits and ankles in all directions noted General Extremity: edema and no tenderness to palpation of joints or extremities; Negative for cyanosis Skin Skin Narrative: His skin is hairless and atrophic. Skin Narrative: right foot hallux and second toe ulcers are less inflamed the base is 100% fibrous. There is no necrosis or probe directly to bone. No adjacent bogginess or fluctuance. His skin is hairless and atrophic. no ulcers left foot but area of discoloration noted to hallux tuft. Will monitor bilateral lower extremity leg skin is indurated with hyperpigmentation; no calor General Skin Exam: Negative for erythema General Skin Exam: Negative for erythema Neuro Neuro Narrative: lack of normal epicritic sensation via light touch is consistent with neuropathy status Psych cooperative and affect normal Assessment & Plan Assessment/Plan (1) Non-pressure chronic ulcer of other part of right foot with fat layer exposed: (2) Non-pressure chronic ulcer of other part of left foot limited to breakdown of skin: (3) Other specified peripheral vascular diseases: (4) Localized edema: (5) Type 2 diabetes mellitus with diabetic polyneuropathy: (6) Severe sepsis: (7) Delayed wound healing: PLAN: Patient seen and examined bedside No organisms seen on foot wound culture Imaging:Foot xrays reviewed. MRI significant for early acute second middle phalanx osteomyelitis. Patient is not a surgical candidate due to vascular status. Dressing: I recommend Santyl and gauze right foot. No dressing required for the left foot. Wash: Soap and water Offloading: To keep direct pressure directly off of ulcer site. It is noted he is not ambulating at this time. To hang heels over pillow in bed to prevent further pressure ulcerations. Vascular: Noninvasive vascular studies were ordered including segmental leg and thigh pressures, LES, and systolic once he is stable. His vessel calcifications noted on his x-rays are noted. It is noted he is already on aspirin and Plavix. Noncompressible vessels. Right systolic toe pressure was not obtained. Left systolic toe pressures point. Patient seen by Dr. Whitley vascular surgeon. Angio will be considered with Dr. Whitley if lack of appropriate wound care improvement on outpatient basis pending improvement Edema: Bilateral lower extremity REYMUNDO wraps are okay to continue at this time. Pain: His neuropathy is noted. His pain is controlled most of the time I answered all the patient's questions. Please do not hesitate to call if you have any questions. I will continue to follow him every few days while in house now that he is stabilizing. [facility] at time of discharge for continued wound care. It is noted the patient is planning on undergoing hospice care. If patient and family would like to have hospice manage his wounds instead of having patient come into the office that is acceptable. It is noted that his daughter is a nurse and would be able to manage dressing changes. It is noted in the hospitalist note the patient is noted to have days to weeks left of life expectancy. Plan on DC tomorrow. Note: [employer] speech recognition flange machine operator software was used to create portions of this document. Sound-alike and misspelled words, as well as other flange machine operator errors may be contained in the documentation.
--- NOTE | 2021-05-24 11:05 | PN.CARD_ITS ---
Subjective Subjective Seen and evaluated today at bedside with the nursing staff, family at bedside at time of evaluation Patient is on BiPAP for shortness of breath, according to nursing staff also patient tolerated 2 L nasal cannula. No symptoms of chest pain reported. Objective Data Vital Signs: Vital Signs Temp Pulse Resp BP Pulse Ox 97.6 F L 81 27 H 148/78 H 97 05/24/21 03:15 05/24/21 09:46 05/24/21 04:32 05/24/21 09:46 05/24/21 07:36 Oxygen Flow Rate (L/min) 2 Oxygen Delivery Method Bi-pap Weight: 306 lb 10.608 oz Body Mass Index (BMI) 41.1 Intake & Output: Intake and Output for Last 24 Hours 05/22/21 05/23/21 05/24/21 23:59 23:59 23:59 Intake Total 953.75 / 953.75 2248.75 / 2488.75 360 / 360 Output Total 50 / 50 175 / 475 600 / 600 Balance 903.75 / 903.75 2073.75 / 2013.75 -240 / -240 Lab / Micro Data Result Diagrams: 05/23/21 06:05 05/23/21 06:05 Labs: Laboratory Results - last 24 hr 05/23/21 05/23/21 05/24/21 12:15 17:48 09:53 POC Glucose 142 H 139 H 141 H Micro: Microbiology 05/19/21 19:15 Wound - Right Foot Gram Stain - Final 05/19/21 19:15 Wound - Right Foot Wound Culture - Final No growth aerobically. 05/19/21 19:15 Wound - Right Foot Anaerobic Culture - Preliminary No growth in 48 hours. 05/18/21 07:33 Blood Culture (Wb) - Left Hand Blood Culture - Final No growth in 5 days. 05/18/21 06:55 Blood Culture (Wb) - Anticubital Right Blood Culture - Final Escherichia coli 05/18/21 10:10 Sputum, Induced/Lukens Gram Stain - Final 05/18/21 10:10 Sputum, Induced/Lukens Respiratory Culture - Final Culture exhibits no growth. 05/18/21 10:20 Urine Catheter - Cruz Urine Culture - Final Presumptive E. coli 05/18/21 07:15 Mucosa - Nose SARS-CoV-2 Antigen (Rapid) - Final 05/18/21 06:55 Stool Stool Occult Blood (SOFIE) - Final Cardiology Labs/Tests Rhythm: Cardiac telemetry normal sinus with the episodes of infrequent PVC. EKG: Revealed acute inferior AR and age indeterminate anterior AR with sinus tachycardia 05/18/21 ECHO: Echocardiogram in May 19, 2021 revealed ejection fraction of 50% Cardiac Cath: Physical Exam Narrative Patient seen evaluated and examined today at bedside with the nursing staff Patient is on BiPAP Stable hemodynamically Cardiac examination S1-S2 regular there is no murmur Chest exam minimal basilar rales Central nervous system exam no focal neurological deficit patient alert or ientated. Has no active chest pain Assessment & Plan Assessment/Plan (1) Non-STEMI (non-ST elevated myocardial infarction): PLAN: 76-year-old patient seen and evaluated today at bedside Primary logistics associate is Dr. Greenwood Patient with CAD and finding of cardiac catheterization discussed and recommendation was CABG when she was stable Decision was made by patient and family for hospice care and medical treatment Recommendation plan; 1. Discussed medical treatment with the nursing staff recommend medical treatment To start on aspirin 2. Awaiting for hospice meeting to decide plan of management according to the family daughter and at bedside. 3. From cardiac standpoint we will sign out and will be available if further cardiac care is needed. 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
[2021-05-24] MEDS: Collagenase 30gm Tube 1 APPLIC TOPICAL (11:27)
--- NOTE | 2021-05-24 12:35 | PCM.DC.SUM ---
Providers Date of Admission: 05/18/21 Primary Care Physician: Dr. Jaycob Kumar, Consultations 05/18/21 11:13 Consult: Nephrology Routine Consulting Provider: Nimesh Willis Reason for Consult: ckd stage 3b, CHF exa, intubated. EMERGENT Consult: No MD Notified: Yes Date Notified: 05/18/21 Time Notified: 11:46 Method of Notification: Answering Service 05/18/21 12:04 Consult: To[employer] Operator Automatic / Pulmonary Medicine Routine Consulting Provider: Pulmonary Medicine [facility] Reason for Consult: respiratory failure EMERGENT Consult: No MD Notified: Yes Date Notified: 05/18/21 Time Notified: 09:30 Method of Notification: Verbal 05/18/21 16:38 Consult: Onc/Wound/swine genetics researcher Routine Comment: 05/19/21 11:37 Consult: Infectious Disease Routine Consulting Provider: Basil Rod Reason for Consult: sEPSIS EMERGENT Consult: No MD Notified: Yes Date Notified: 05/19/21 Time Notified: 11:37 Method of Notification: Text Consult: Podiatry Routine Consulting Provider: Yamileth Grayson Reason for Consult: diabetic foot wounds EMERGENT Consult: No MD Notified: Yes Date Notified: 05/19/21 Time Notified: 11:37 Method of Notification: Page 05/21/21 07:45 Consult: Vascular Surgery Routine Consulting Provider: Virgilio Whitley Reason for Consult: NC vessels, chronic foot ulcer, pvd (in pt vs out pt consult) EMERGENT Consult: No MD Notified: Yes Date Notified: 05/21/21 Time Notified: 07:45 Method of Notification: Answering Service Reason For Visit: CHF EXA, NSTEMI? 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 coli] as the cause of diseases classified elsewhere (5) Osteomyelitis: Status: Acute Code(s): M86.9 - Osteomyelitis, unspecified (6) PAD (peripheral artery disease): Status: Acute Code(s): I73.9 - Peripheral vascular disease, unspecified (7) Acute hypoxemic respiratory failure: Status: Acute Code(s): J96.01 - Acute respiratory failure with hypoxia (8) Shortness of breath: Status: Acute Code(s): R06.02 - Shortness of breath Medications at Discharge Home Medications bupropion HCl 100 mg PO BID 12/13/16 divalproex [Depakote] 500 mg PO BID 12/13/16 albuterol sulfate 1 - 2 puff INHALATION Q4H PRN PRN #1 inhaler 06/20/19 acetaminophen 650 mg PO Q6H PRN PRN #0 ml 05/24/21 amoxicillin 500 mg PO DAILY #5 cap 05/24/21 lorazepam 1 mg PO Q6H PRN PRN #0 tab 05/24/21 metoprolol tartrate 50 mg PO BID #60 tab 05/24/21 morphine concentrate 5 mg PO Q4H PRN PRN #0 ea 05/24/21 sennosides-docusate sodium [Stool Softener-Stimulant Laxat] 2 tab PO BID PRN #14 tab 05/24/21 Hospital Course Operations None Procedures 2-D Echocardiogram, Cardiac catheterization, Central line placement, Intubation and - (Bilateral lower extremity venous Dopplers, bilateral lower extremity arterial study, right lower extremity MRI) Summary of Care Provided Minutes Spent on Discharge: 45 Hospital Course: Mr. Madison is a 76-year-old white male who presented to the emergency department at [facility] and a prehospital STEMI was called by the EMS. After review of the EKG by the operations plant attendant it was classified is an NSTEMI and the patient did have elevated troponins. The patient was intubated in the emergency department for hypoxia. He evidently had been having increasing shortness of breath for 2 weeks and was found to be in respiratory distress speaking in 1-2 word sentences. He has an extremely complicated past medical history (see chart for detail). He was taken to the [facility] where he was found to have significant coronary disease and bypass has been recommended. He was placed on broad-spectrum antibiotics for septic shock and was found to have E. coli bacteremia from an E. coli urinary tract infection. He will complete treatment with 5 days of oral amoxicillin at discharge. He had worsening renal function for which nephrology was also consulted on the day of admission. He had persistently worsening renal failure to the point that dialysis was recommended. An echocardiogram was performed and showed an EF of 50% with stage I diastolic dysfunction and segmental wall motion abnormalities. He was noted to have multiple wounds on his bilateral lower extremities right greater than left and the patient was seen by podiatry for which sharp debridement of the wounds was performed. Cultures were performed of these wounds and were negative. Unfortunately on MRI the patient was noted to have osteomyelitis of the second digit. Vascular studies were also performed in conjunction and he was found to have significant vascular disease in the right lower extremity limiting blood flow to the right distal lower extremity and antibiotic delivery. Per discussions with podiatry the patient was too ill to take to the operating room and they recommended medical treatment at this time with continued wound care at discharge. He was able to be extubated 24 hours after admission. He was able to be weaned to 2 L nasal cannula but had significant intermittent shortness of breath that required intermittent and nocturnal BiPAP and the patient was much more comfortable on BiPAP than he had been on any other modality. As stated above his renal function finally worsened to the point where dialysis was recommended on 05/23/2021. I had an extensive conversation with the patient and family on [phone] and given his multiple medical issues including need for cardiac bypass surgery, osteomyelitis of the right lower extremity, vascular disease needing intervention of the right lower extremity, bacteremia, and requiring new dialysis the patient elected to proceed with comfort care and desire to go home with hospice. Arrangements were made with hospice and the patient was discharged to his daughter's home for continued hospice care on 05/23/2021. Physical Exam Const alert, oriented x3, no apparent distress, average body habitus, healthy appearing and well nourished Constitutional Narrative: Morbidly obese older white male lying in bed on noninvasive ventilation, appears more volume overloaded, comfortable at this time, states that he is frustrated with his care and that the nurses are slow in answering a call light, wants to go today General Appearance: cooperative Exam Limitations: no limitations HEENT normocephalic, head/scalp atraumatic and oropharynx normal HEENT Narrative: Dry mucous membranes Eyes PERRL and EOMs intact bilaterally Neck no lymphadenopathy, supple and no JVD Resp normal respiratory effort, no retractions and no use of accessory muscles Resp Narrative: Distant secondary to body habitus, scattered crackles, no signs of distress Auscultation: crackles; Negative for rales, rhonchi or wheezes Cardio regular rate, regular rhythm, S1 normal heart sound, S2 normal heart sound, no murmurs, no rub, no gallops, no clicks and no JVD GI normal to inspection, nondistended, normoactive bowel sounds, soft to palpation, non-tender and non-distended Extremity normal to inspection Extremity Narrative: No clubbing or cyanosis, bilateral upper and lower extremity edema this is increasing General Extremity: edema bilateral (Trace) upper extremity and lower extremity Skin no rashes or lesions noted, skin turgor normal, no jaundice, no petechiae and no mottling Skin Narrative: Bilateral lower extremity foot wounds as noted earlier dressings currently in place, skin is pale Neuro oriented x3, CN's II-XII intact bilaterally, moves all extremities and no focal motor deficits Neuro Narrative: Marked generalized weakness Sensorium / Orientation: awake, alert, oriented to person, oriented to place and oriented to time Speech: speech normal Psych affect normal Psych Narrative: Agitated this morning Weight / BMI Weight Weight: 139.1 kg Body Mass Index (BMI) 41.1 ABG / Lab / Microbiology Data Result Diagrams: 05/23/21 06:05 05/23/21 06:05 Laboratory: Laboratory Results - last 24 hr 05/23/21 05/23/21 05/24/21 12:15 17:48 09:53 POC Glucose 142 H 139 H 141 H Microbiology: Microbiology 05/19/21 19:15 Gram Stain - Final Wound - Right Foot Wound Culture - Final No growth aerobically. Anaerobic Culture - Preliminary No growth in 48 hours. 05/18/21 07:33 Blood Culture - Final Blood Culture (Wb) - Left Hand No growth in 5 days. 05/18/21 06:55 Blood Culture - Final Blood Culture (Wb) - Anticubital Right Escherichia coli Microbiology 05/19/21 19:15 Wound - Right Foot Gram Stain - Final 05/19/21 19:15 Wound - Right Foot Wound Culture - Final No growth aerobically. 05/19/21 19:15 Wound - Right Foot Anaerobic Culture - Preliminary No growth in 48 hours. 05/18/21 07:33 Blood Culture (Wb) - Left Hand Blood Culture - Final No growth in 5 days. 05/18/21 06:55 Blood Culture (Wb) - Anticubital Right Blood Culture - Final Escherichia coli 05/18/21 10:10 Sputum, Induced/Lukens Gram Stain - Final 05/18/21 10:10 Sputum, Induced/Lukens Respiratory Culture - Final Culture exhibits no growth. 05/18/21 10:20 Urine Catheter - Cruz Urine Culture - Final Presumptive E. coli 05/18/21 07:15 Mucosa - Nose SARS-CoV-2 Antigen (Rapid) - Final 05/18/21 06:55 Stool Stool Occult Blood (SOFIE) - Final D/C Instructions Discharge Diet: No restrictions Discharge Activity: Return to Normal Activity Meaningful Use Info Meaningful Use Diagnoses (Choose all that apply): None applicable Discharge Plan Admission Admit Date/Time: 05/18/21 08:07 Primary Reason for Your Visit: Septic Shock Attending Provider: Sapna Crespo Primary Care Provider: Jaycob Kumar Consulting Providers: Basil Rod ; Hunter Longoria ; Gabe Aragon ; Noy Rodriguez NP ; Nimesh Willis ; Yamileth Grayson ; Virgilio Whitley Discharge Orders/Prescriptions Prescriptions: New acetaminophen 650 mg/20.3 mL Solution 650 mg PO Q6H PRN PRN (Reason: Pain Score 1-10/Temp > 100.7 F) Qty: 0 RF: 0 metoprolol tartrate 50 mg Tablet 50 mg PO BID Qty: 60 RF: 0 lorazepam 1 mg Tablet 1 mg PO Q6H PRN PRN (Reason: Anxiety) Qty: 0 RF: 0 morphine concentrate 10 mg/0.5 mL Syringe 5 mg PO Q4H PRN PRN (Reason: Pain Score 6-10, dyspnea) Qty: 0 RF: 0 sennosides-docusate sodium [Stool Softener-Stimulant Laxat] 8.6-50 mg Tablet 2 tab PO BID PRN (Reason: Constipation) Qty: 14 RF: 0 amoxicillin 500 mg capsule 500 mg PO DAILY Qty: 5 RF: 0 Continued divalproex [Depakote] 500 MG tablet,delayed release (DR/EC) 500 mg PO BID RF: 0 bupropion HCl 100 MG tablet 100 mg PO BID RF: 0 albuterol sulfate 1 INHALER inhaler 1 - 2 puff inhalation Q4H PRN PRN (Reason: Wheezing) Qty: 1 RF: 0 Discontinued lisinopril [Zestril] 20 MG tablet 20 mg PO DAILY RF: 0 pioglitazone 45 MG tablet 45 mg PO DAILY RF: 0 aspirin 81 MG tablet,chewable 81 mg PO DAILY@0800 RF: 0 folic acid 1 MG tablet 1 mg PO DAILY@0800 RF: 0 pravastatin 20 MG tablet 20 mg PO QHS RF: 0 hydrochlorothiazide 25 MG tablet 50 mg PO DAILY RF: 0 lorazepam 1 MG tablet 1 mg PO DAILY PRN PRN (Reason: Anxiety) RF: 0 insulin lispro protamin-lispro [Humalog Mix 75-25 KwikPen] 100 UNIT/ML insulin pen 16 unit SQ BREAKFAST RF: 0 insulin lispro protamin-lispro 100 UNIT/ML insulin pen 16 unit SQ DINNER RF: 0 diltiazem HCl [Cartia XT] 180 mg Capsule,Extended Release 24hr 180 mg PO DAILY RF: 0 multivitamin Tablet 1 tab PO DAILY RF: 0 Poly-Iron 150 Forte 150-25-1 mg-mcg-mg Capsule 1 cap PO DAILY RF: 0 Referrals / Follow Up: Jaycob Kumar DO [Primary Care Provider] - Sandra Masters DPM [STAFF PHYSICIAN] - Disposition Disposition (needs filled in before D/C Order can be placed): Hospice in Home Charges/Coding Visit Charges Inpatient E&M: 22375 Disch Hosp
[2021-05-24] MEDS: morphine (oral solution) 10MG/0.5ML Syringe 5 MG PO (12:42)
--- NOTE | 2021-05-24 13:03 | PCM.DC ---
Discharge Instructions Diet Discharge Diet: No restrictions Activity Discharge Activity: Return to Normal Activity Follow Up Care Test Results: Test results from this visit will be discussed in further detail at your follow-up appointment, if applicable. Discharge Plan Admission Admit Date/Time: 05/18/21 08:07 Primary Reason for Your Visit: Septic Shock Attending Provider: Sapna Crespo Primary Care Provider: Jaycob Kumar Consulting Providers: Basil Rod ; Hunter Longoria ; Gabe Aragon ; Noy Rodriguez NP ; Nimesh Willis ; Yamileth Grayson ; Virgilio Whitley Discharge Orders/Prescriptions Prescriptions: New acetaminophen 650 mg/20.3 mL Solution 650 mg PO Q6H PRN PRN (Reason: Pain Score 1-10/Temp > 100.7 F) Qty: 0 RF: 0 metoprolol tartrate 50 mg Tablet 50 mg PO BID Qty: 60 RF: 0 lorazepam 1 mg Tablet 1 mg PO Q6H PRN PRN (Reason: Anxiety) Qty: 0 RF: 0 morphine concentrate 10 mg/0.5 mL Syringe 5 mg PO Q4H PRN PRN (Reason: Pain Score 6-10, dyspnea) Qty: 0 RF: 0 sennosides-docusate sodium [Stool Softener-Stimulant Laxat] 8.6-50 mg Tablet 2 tab PO BID PRN (Reason: Constipation) Qty: 14 RF: 0 amoxicillin 500 mg capsule 500 mg PO DAILY Qty: 5 RF: 0 Continued divalproex [Depakote] 500 MG tablet,delayed release (DR/EC) 500 mg PO BID RF: 0 bupropion HCl 100 MG tablet 100 mg PO BID RF: 0 albuterol sulfate 1 INHALER inhaler 1 - 2 puff inhalation Q4H PRN PRN (Reason: Wheezing) Qty: 1 RF: 0 Discontinued lisinopril [Zestril] 20 MG tablet 20 mg PO DAILY RF: 0 pioglitazone 45 MG tablet 45 mg PO DAILY RF: 0 aspirin 81 MG tablet,chewable 81 mg PO DAILY@0800 RF: 0 folic acid 1 MG tablet 1 mg PO DAILY@0800 RF: 0 pravastatin 20 MG tablet 20 mg PO QHS RF: 0 hydrochlorothiazide 25 MG tablet 50 mg PO DAILY RF: 0 lorazepam 1 MG tablet 1 mg PO DAILY PRN PRN (Reason: Anxiety) RF: 0 insulin lispro protamin-lispro [Humalog Mix 75-25 KwikPen] 100 UNIT/ML insulin pen 16 unit SQ BREAKFAST RF: 0 insulin lispro protamin-lispro 100 UNIT/ML insulin pen 16 unit SQ DINNER RF: 0 diltiazem HCl [Cartia XT] 180 mg Capsule,Extended Release 24hr 180 mg PO DAILY RF: 0 multivitamin Tablet 1 tab PO DAILY RF: 0 Poly-Iron 150 Forte 150-25-1 mg-mcg-mg Capsule 1 cap PO DAILY RF: 0 Referrals / Follow Up: Jaycob Kumar DO [Primary Care Provider] - Sandra Masters DPM [STAFF PHYSICIAN] - Disposition Disposition (needs filled in before D/C Order can be placed): Hospice in Home
[2021-05-24] MEDS: HYDROmorphone 0.5 MG/0.5 ML SYRINGE IV (13:45)
[2021-05-24] MEDS: HYDROmorphone 1 MG/ML Syringe IV (17:13)
== END 2021-05-24 17:33 | disposition hospice, home (50) | DRG 871 ==
LOC: ED 06:45 → ICU 08:01 → PCU 05-20 20:22
PROVIDERS: Internal Medicine Critical Care Medicine; Internal Medicine Nephrology; Podiatrist; Admitting Provider Internal Medicine; Emergency Provider Student in an Organized Health Care Education/Training Program; PCP Family Medicine; Referring Provider Specialist; Visit Provider Internal Medicine
DX: A41.51 Sepsis due to Escherichia coli [E. coli] (principal); I21.4 Non-ST elevation (NSTEMI) myocardial infarction; J96.01 Acute respiratory failure with hypoxia; J96.02 Acute respiratory failure with hypercapnia; R65.21 Severe sepsis with septic shock; E87.2 Acidosis; I13.0 Hypertensive heart and chronic kidney disease with heart failure and stage 1 through stage 4 chronic kidney disease, or unspecified chronic kidney disease; N17.9 Acute kidney failure, unspecified; M86.172 Other acute osteomyelitis, left ankle and foot; Z68.41 Body mass index [BMI] 40.0-44.9, adult; N39.0 Urinary tract infection, site not specified; E11.22 Type 2 diabetes mellitus with diabetic chronic kidney disease; E11.42 Type 2 diabetes mellitus with diabetic polyneuropathy; E11.51 Type 2 diabetes mellitus with diabetic peripheral angiopathy without gangrene; E11.621 Type 2 diabetes mellitus with foot ulcer; E66.01 Morbid (severe) obesity due to excess calories; E78.5 Hyperlipidemia, unspecified; F31.9 Bipolar disorder, unspecified; F41.9 Anxiety disorder, unspecified; I25.10 Atherosclerotic heart disease of native coronary artery without angina pectoris; E78.00 Pure hypercholesterolemia, unspecified; L97.512 Non-pressure chronic ulcer of other part of right foot with fat layer exposed; L97.521 Non-pressure chronic ulcer of other part of left foot limited to breakdown of skin; N18.32 Chronic kidney disease, stage 3b; I50.9 Heart failure, unspecified; B96.20 Unspecified Escherichia coli [E. coli] as the cause of diseases classified elsewhere; Z66 Do not resuscitate; D64.9 Anemia, unspecified; R31.9 Hematuria, unspecified; Z79.82 Long term (current) use of aspirin; G47.33 Obstructive sleep apnea (adult) (pediatric)
CPT/HCPCS: 31500; 31720; 36415; 36600; 51702; 71045; 73630; 73718; 80048; 80053; 80061; 80069; 80164; 81001; 82274; 82570; 82803; 82962; 83036; 83605; 83735; 83880; 84100; 84300; 84443; 84484; 84540; 85025; 85379; 85610; 85730; 86850; 86900; 86901; 87040; 87070; 87075; 87077; 87086; 87088; 87186; 87205; 87426; 87640; 87641; 93005; 93306; 93458; 93923; 93970; 94002; 94003; 94660; 97162; 97166; 97530; 97535; 97803; 99251; 99285; J7030; J7040; J7050; Q9957; Q9967; A4216; C1769; C1894; C8929; G0463; J0696; J1940; J3490